=== PATIENT | female | born 1935 | race Caucasian/White ===

== ENCOUNTER 2017-01-29 00:22 | Emergency (ER) | payer OTHER, MEDICAID ==
[~2017-01-29] VITALS: Ht 152.4 cm; Wt 68.0 kg
--- OUTSIDE RECORDS SUMMARY | ~2017-01-29 | XMS | Clinical Summary ---
Demographics + + + | Address | [address] | | | [place] [address] | + + + | Home Phone | | + + + | Preferred Language | Unknown | + + + | Marital Status | W | + + + | Bahai Affiliation | Unknown | + + + | Race | White | + + + | Ethnic Group | Not or | + + + Author + + + | Author | [facility] | + + + | Organization | [facility] | + + + | Address | [address] | | | [place] [address] | + + + | Phone | Unavailable | + + + Care Team Providers + +------+ + | Care Replenishment Analyst Name | Role | Phone | + +------+ + | Ajay Ward DPM | PCP | [phone] | + +------+ + Conditions or Problems +---------+---------+---------+---------+---------+---------+---------+---------+---------+ | Problem | Problem | Onset | Status | Entry | Provide | Comment | Standar | Annotat | | Name | Code | Date | | Date | r | | d | e | | | | | | | | | Descrip | | | | | | | | | | tion | | +---------+---------+---------+---------+---------+---------+---------+---------+---------+ | HALLUX | [id number] | | Active | | Ajay | | Acquire | | | VALGUS | 1 | /15 | | /15 | Sylvia | | d | | | (ACQUIR | (SNOMED | | | | DPM | | hallux | | | ED), | CT) | | | | | | valgus | | | LEFT | | | | | | | | | | FOOT | | | | | | | | | +---------+---------+---------+---------+---------+---------+---------+---------+---------+ | HALLUX | [id number] | | Active | | Ajay | | Acquire | | | VALGUS | 1 | /15 | | /15 | Sylvia | | d | | | (ACQUIR | (SNOMED | | | | DPM | | hallux | | | ED), | CT) | | | | | | valgus | | | RIGHT | | | | | | | | | | FOOT | | | | | | | | | +---------+---------+---------+---------+---------+---------+---------+---------+---------+ | LUMBAR | [id number] | | Resolve | | Jennifer | | Lumbar | | | RADICUL | 05 | /08 | d | /08 | Agsten | | radicul | | | OPATHY, | (SNOMED | | | | DO | | opathy | | | LEFT | CT) | | | | | | | | +---------+---------+---------+---------+---------+---------+---------+---------+---------+ | PAIN IN | [id number] | | Resolve | | Jennifer | | Hip | | | LEFT | 2 | /23 | d | /23 | Agsten | | pain | | | HIP | (SNOMED | | | | DO | | | | | | CT) | | | | | | | | +---------+---------+---------+---------+---------+---------+---------+---------+---------+ | PAIN IN | [id number] | | Removed | | Farzad | | Hip | | | LEFT | 2 | /23 | | /23 | | | pain | | | HIP | (SNOMED | | | | VanAnro | | | | | | CT) | | | | oy MD | | | | +---------+---------+---------+---------+---------+---------+---------+---------+---------+ | OSTEOAR | [id number] | | Active | | Rendee | | Osteoar | | | THRITIS | 02 | /14 | | /15 | Mishra | | thritis | | | , HIP, | (SNOMED | | | | | | of hip | | | LEFT | CT) | | | | | | | | +---------+---------+---------+---------+---------+---------+---------+---------+---------+ | LUMBAR | [id number] | | Removed | | Jennifer | | Lumbar | | | RADICUL | 05 | /08 | | /08 | Agsten | | radicul | | | OPATHY, | (SNOMED | | | | DO | | opathy | | | LEFT | CT) | | | | | | | | +---------+---------+---------+---------+---------+---------+---------+---------+---------+ | HIP | [id number] | | Inactiv | | Jennifer | | Hip | | | PAIN, | 2 | /14 | e | /15 | Agsten | | pain | | | LEFT | (SNOMED | | | | DO | | | | | | CT) | | | | | | | | +---------+---------+---------+---------+---------+---------+---------+---------+---------+ | 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 | (ICD-10 | / | d | /09 | Agsten | | diabete | | | MELLITU | -CM) | | | | DO | | s | | | S TYPE | | | | | | | mellitu | | | II | | | | | | | s with | | | CONTROL | | | | | | | diabeti | | | LED | | | | | | | c | | | W/NEURO | | | | | | | neuropa | | | COMPS | | | | | | | thy, | | | | | | | | | | unspeci | | | | | | | | | | fied | | +---------+---------+---------+---------+---------+---------+---------+---------+---------+ | 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 | | | | (ICD-10 | / | d | /09 | Agsten | | diabete | | | POLYNEU | -CM) | | | | DO | | s | | | ROPATHY | | | | | | | mellitu | | | | | | | | | | s with | | | DIABETI | | | | | | | diabeti | | | C | | | | | | | c | | | | | | | | | | polyneu | | | | | | | | | | ropathy | | +---------+---------+---------+---------+---------+---------+---------+---------+---------+ | ROTATOR | [id number] | | Resolve | | Jennifer | | Inflamm | | | CUFF | 00 | /04 | d | /04 | Agsten | | ation | | | TENDONI | (SNOMED | | | | DO | | of | | | TIS | CT) | | | | | | rotator | | | | | | | | | | cuff | | | | | | | | | | tendon | | +---------+---------+---------+---------+---------+---------+---------+---------+---------+ | SCIATIC | [id number] | | Resolve | | Jennifer | | Sciatic | | | A | 5 | /25 | d | /25 | Agsten | | a | | | | (SNOMED | | | | DO | | | | | | CT) | | | | | | | | +---------+---------+---------+---------+---------+---------+---------+---------+---------+ | NAUSEA | [id number] | | Resolve | | Jennifer | | Nausea | | | ALONE | 07 | /20 | d | /20 | Agsten | | | | | | (SNOMED | | | | DO | | | | | | CT) | | | | | | | | +---------+---------+---------+---------+---------+---------+---------+---------+---------+ | LEFT | [id number] | | Active | | Jennifer | | Left | | | VENTRIC | 5 | /11 | | /11 | Agsten | | ventric | | | ULAR | (SNOMED | | | | DO | | ular | | | HYPERTR | CT) | | | | | | hypertr | | | OPHY | | | | | | | ophy | | +---------+---------+---------+---------+---------+---------+---------+---------+---------+ | COLLAPS | [id number] | | Active | | Jennifer | | Collaps | | | ED | D | /20 | | /20 | Agsten | | ed | | | VERTEBR | (ICD-10 | | | | DO | | vertebr | | | A, NOT | -CM) | | | | | | a, not | | | ELSEWHE | | | | | | | elsewhe | | | RE | | | | | | | re | | | CLASSIF | | | | | | | classif | | | IED, | | | | | | | ied, | | | THORACI | | | | | | | thoraci | | | C | | | | | | | c | | | REGION, | | | | | | | region, | | | | | | | | | | | | | SUBSEQU | | | | | | | subsequ | | | ENT | | | | | | | ent | | | ENCOUNT | | | | | | | encount | | | ER FOR | | | | | | | er for | | | FRACTUR | | | | | | | fractur | | | E WITH | | | | | | | e with | | | ROUTINE | | | | | | | routine | | | | | | | | | | | | | HEALING | | | | | | | healing | | +---------+---------+---------+---------+---------+---------+---------+---------+---------+ | PERIPHE | [id number] | | Resolve | | Jennifer | | Periphe | | | RAL | 06 | / | d | /20 | Agsten | | ral | | | NEUROPA | (SNOMED | | | | DO | | nerve | | | THY | CT) | | | | | | disease | | +---------+---------+---------+---------+---------+---------+---------+---------+---------+ | BREAST | [id number] | | Resolve | | Jennifer | | Pain of | | | PAIN, | 7 | / | d | /09 | Agsten | | breast | | | LEFT | (SNOMED | | | | DO | | | | | | CT) | | | | | | | | +---------+---------+---------+---------+---------+---------+---------+---------+---------+ | WELL | [id number] | | Resolve | | Jennfier | | Adult | | | ADULT | 07 | | d | | Agsten | | health | | | EXAM | (SNOMED | | | | DO | | examina | | | | CT) | | | | | | tion | | +---------+---------+---------+---------+---------+---------+---------+---------+---------+ | OTHER | [id number] | | Resolve | | Jennifer | | Screeni | | | SCREENI | 2 | / | d | | Agsten | | ng | | | NG | (SNOMED | | | | DO | | mammogr | | | MAMMOGR | CT) | | | | | | aphy | | | AM | | | | | | | | | +---------+---------+---------+---------+---------+---------+---------+---------+---------+ | DIZZINE | [id number] | | Resolve | | Jennifer | | Dizzine | | | SS | 03 | | d | | Agsten | | ss | | | | (SNOMED | | | | DO | | | | | | CT) | | | | | | | | +---------+---------+---------+---------+---------+---------+---------+---------+---------+ | MELENA | [id number] | | Resolve | | Jennifer | | Melena | | | | | /02 | d | /02 | Agsten | | | | | | (SNOMED | | | | DO | | | | | | CT) | | | | | | | | +---------+---------+---------+---------+---------+---------+---------+---------+---------+ | NEED | [id number] | | Resolve | | Jennifer | | Encount | | | PROPHYL | (ICD-10 | | d | | Agsten | | er for | | | ACTIC | -CM) | | | | DO | | immuniz | | | VACCINA | | | | | | | ation | | | TION&IN | | | | | | | | | | OCULATI | | | | | | | | | | ON FLU | | | | | | | | | +---------+---------+---------+---------+---------+---------+---------+---------+---------+ | UTI | [id number] | | Resolve | | Jennifer | | Urinary | | | | 5 | / | d | /01 | Agsten | | tract | | | | (SNOMED | | | | DO | | infecti | | | | CT) | | | | | | ous | | | | | | | | | | disease | | +---------+---------+---------+---------+---------+---------+---------+---------+---------+ | NAUSEA | [id number] | | Removed | | Jennifer | | Nausea | | | ALONE | 07 | /20 | | /20 | Agsten | | | | | | (SNOMED | | | | DO | | | | | | CT) | | | | | | | | +---------+---------+---------+---------+---------+---------+---------+---------+---------+ | UTI | [id number] | | Removed | | Jennifer | | Urinary | | | | 5 | /01 | | /01 | Agsten | | tract | | | | (SNOMED | | | | DO | | infecti | | | | CT) | | | | | | ous | | | | | | | | | | disease | | +---------+---------+---------+---------+---------+---------+---------+---------+---------+ | SCIATIC | [id number] | | Removed | | Jennifer | | Sciatic | | | A | 5 | /25 | | /25 | Agsten | | a | | | | (SNOMED | | | | DO | | | | | | CT) | | | | | | | | +---------+---------+---------+---------+---------+---------+---------+---------+---------+ | ROTATOR | [id number] | | Removed | | Jennifer | | Inflamm | | | CUFF | 00 | / | | / | Agsten | | ation | | | TENDONI | (SNOMED | | | | DO | | of | | | TIS | CT) | | | | | | rotator | | | | | | | | | | cuff | | | | | | | | | | tendon | | +---------+---------+---------+---------+---------+---------+---------+---------+---------+ | NEED | [id number] | | Removed | | Jennifer | | Encount | | | PROPHYL | (ICD- | | | / | Agsten | | er for | | | ACTIC | -CM) | | | | DO | | immuniz | | | VACCINA | | | | | | | ation | | | TION&IN | | | | | | | | | | OCULATI | | | | | | | | | | ON FLU | | | | | | | | | +---------+---------+---------+---------+---------+---------+---------+---------+---------+ | INGROWN | [id number] | | Inactiv | | Ajay | | Ingrowi | | | NAIL, | | | e | | Sylvia | | ng nail | | | INFECTE | (SNOMED | | | | DPM | | with | | | D | CT) | | | | | | infecti | | | | | | | | | | on | | +---------+---------+---------+---------+---------+---------+---------+---------+---------+ | OTHER | [id number] | | Removed | | Jennifer | | Screeni | | | SCREENI | 2 | / | | / | Agsten | | ng | | | NG | (SNOMED | | | | DO | | mammogr | | | MAMMOGR | CT) | | | | | | aphy | | | AM | | | | | | | | | +---------+---------+---------+---------+---------+---------+---------+---------+---------+ | MELENA | [id number] | | Removed | | Lewis | | Melena | | | | | /02 | | / | Sae | | | | | | (SNOMED | | | | RN | | | | | | CT) | | | | | | | | +---------+---------+---------+---------+---------+---------+---------+---------+---------+ | SCREENI | [id number] | | Inactiv | | Jennifer | | Screeni | | | NG, | 4 | / | e | / | Agsten | | ng for | | | VAGINAL | (SNOMED | | | | DO | | cancer | | | CANCER | CT) | | | | | | | | +---------+---------+---------+---------+---------+---------+---------+---------+---------+ | WELL | [id number] | | Removed | | Jennifer | | Adult | | | ADULT | 07 | /09 | | /09 | Agsten | | health | | | EXAM | (SNOMED | | | | DO | | examina | | | | CT) | | | | | | tion | | +---------+---------+---------+---------+---------+---------+---------+---------+---------+ | DIZZINE | [id number] | | Removed | | Jennifer | | Dizzine | | | SS | 03 | /12 | | /12 | Agsten | | ss | | | | (SNOMED | | | | DO | | | | | | CT) | | | | | | | | +---------+---------+---------+---------+---------+---------+---------+---------+---------+ | DIVERTI | K57.30 | | Inactiv | | Jasmeet | | Diverti | | | CULOSIS | (ICD-10 | /24 | e | /24 | Engstro | | culosis | | | , W/O | -CM) | | | | m MD | | of | | | BLOOD | | | | | | | large | | | | | | | | | | intesti | | | | | | | | | | ne | | | | | | | | | | without | | | | | | | | | | | | | | | | | | | | perfora | | | | | | | | | | tion or | | | | | | | | | | | | | | | | | | | | abscess | | | | | | | | | | | | | | | | | | | | without | | | | | | | | | | | | | | | | | | | | bleedin | | | | | | | | | | g | | +---------+---------+---------+---------+---------+---------+---------+---------+---------+ | PH | Z86.010 | | Inactiv | | Jasmeet | | Persona | | | COLON | | /24 | e | /24 | Engstro | | l | | | POLYPS | (ICD-10 | | | | m MD | | history | | | | -CM) | | | | | | of | | | | | | | | | | colonic | | | | | | | | | | polyps | | +---------+---------+---------+---------+---------+---------+---------+---------+---------+ | OTHER | [id number] | | Inactiv | | Corie | | Screeni | | | SCREENI | 2 | /17 | e | /17 | Gomez | | ng | | | NG | (SNOMED | | | | | | mammogr | | | MAMMOGR | CT) | | | | | | aphy | | | AM | | | | | | | | | +---------+---------+---------+---------+---------+---------+---------+---------+---------+ | 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 | | Jennifer | | Type 2 | | | | (ICD-10 | | | Agsten | | diabete | | | POLYNEU | -CM) | | | | DO | | s | | | ROPATHY | | | | | | | mellitu | | | | | | | | | | s with | | | DIABETI | | | | | | | diabeti | | | C | | | | | | | c | | | | | | | | | | polyneu | | | | | | | | | | ropathy | | +---------+---------+---------+---------+---------+---------+---------+---------+---------+ | 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 | | Removed | | Jennifer | | Type 2 | | | BETES | (ICD-10 | | | | Agsten | | diabete | | | MELLITU | -CM) | | | | DO | | s | | | S TYPE | | | | | | | mellitu | | | II | | | | | | | s with | | | CONTROL | | | | | | | diabeti | | | LED | | | | | | | c | | | W/NEURO | | | | | | | neuropa | | | COMPS | | | | | | | thy, | | | | | | | | | | unspeci | | | | | | | | | | fied | | +---------+---------+---------+---------+---------+---------+---------+---------+---------+ | WELL | [id number] | | Inactiv | | Jennifer | | Adult | | | ADULT | 07 | | e | | Agsten | | health | | | EXAM | (SNOMED | | | | DO | | examina | | | | CT) | | | | | | tion | | +---------+---------+---------+---------+---------+---------+---------+---------+---------+ | BREAST | [id number] | | Removed | | Jennifer | | Pain of | | | PAIN, | 7 | | | | Agsten | | breast | | | LEFT | (SNOMED | | | | DO | | | | | | CT) | | | | | | | | +---------+---------+---------+---------+---------+---------+---------+---------+---------+ | PRESBYO | [id number] | | Resolve | | Jennifer | | Presbyo | | | HUMBLE | 4 | | d | / | Agsten | | humble | | | | (SNOMED | | | | DO | | | | | | CT) | | | | | | | | +---------+---------+---------+---------+---------+---------+---------+---------+---------+ | ASTIGMA | [id number] | | Resolve | | Jennifer | | Astigma | | | TISM | 3 | /03 | d | /03 | Agsten | | tism | | | | (SNOMED | | | | DO | | | | | | CT) | | | | | | | | +---------+---------+---------+---------+---------+---------+---------+---------+---------+ | RETINAL | [id number] | | Resolve | | Jennifer | | Retinal | | | | 8 | /03 | d | /03 | Agsten | | | | | HEMORRH | (SNOMED | | | | DO | | hemorrh | | | AGE | CT) | | | | | | age | | +---------+---------+---------+---------+---------+---------+---------+---------+---------+ | MICROAN | [id number] | | Resolve | | Jennifer | | Retinal | | | EURYSMS | 0 | /03 | d | /03 | Agsten | | | | | , | (SNOMED | | | | DO | | microan | | | RETINAL | CT) | | | | | | eurysm | | +---------+---------+---------+---------+---------+---------+---------+---------+---------+ | POSTERI | [id number] | | Resolve | | Jennifer | | Posteri | | | OR | 01 | /03 | d | /03 | Agsten | | or | | | VITREOU | (SNOMED | | | | DO | | vitreou | | | S | CT) | | | | | | s | | | DETACHM | | | | | | | detachm | | | ENT | | | | | | | ent | | +---------+---------+---------+---------+---------+---------+---------+---------+---------+ | DRUSEN | H35.369 | | Resolve | | Jennifer | | Drusen | | | | | /03 | d | /03 | Agsten | | (degene | | | | (ICD-10 | | | | DO | | rative) | | | | -CM) | | | | | | of | | | | | | | | | | macula, | | | | | | | | | | | | | | | | | | | | unspeci | | | | | | | | | | fied | | | | | | | | | | eye | | +---------+---------+---------+---------+---------+---------+---------+---------+---------+ | BLEPHAR | H10.529 | | Resolve | | Jennifer | | Angular | | | ITIS, | | /03 | d | /03 | Agsten | | | | | ANGULAR | (ICD-10 | | | | DO | | blephar | | | | -CM) | | | | | | oconjun | | | | | | | | | | ctiviti | | | | | | | | | | s, | | | | | | | | | | unspeci | | | | | | | | | | fied | | | | | | | | | | eye | | +---------+---------+---------+---------+---------+---------+---------+---------+---------+ | HYPEROP | [id number] | | Resolve | | Jennifer | | Hyperme | | | [place] | 3 | / | d | / | Agsten | | tropia | | | | (SNOMED | | | | DO | | | | | | CT) | | | | | | | | +---------+---------+---------+---------+---------+---------+---------+---------+---------+ | ROSACEA | [id number] | | Resolve | | Jennifer | | Rosacea | | | | 04 | /03 | d | /03 | [facility] | | | | | | (SNOMED | | | | DO | | | | | | CT) | | | | | | | | +---------+---------+---------+---------+---------+---------+---------+---------+---------+ | SCREENI | [id number] | | Resolve | | Jennifer | | Screeni | | | NG FOR | 06 | /16 | d | /16 | Agsten | | ng for | | | MALIGNA | (SNOMED | | | | DO | | maligna | | | NT | CT) | | | | | | nt | | | NEOPLAS | | | | | | | neoplas | | | M, | | | | | | | m of | | | CERVIX | | | | | | | cervix | | +---------+---------+---------+---------+---------+---------+---------+---------+---------+ | SCIATIC | [id number] | | Resolve | | Jennifer | | Sciatic | | | A | 5 | /25 | d | /25 | [facility]sten | | a | | | | (SNOMED | | | | DO | | | | | | CT) | | | | | | | | +---------+---------+---------+---------+---------+---------+---------+---------+---------+ | INSOMNI | [id number] | | Active | | Ariela | | Insomni | | | A | 01 | /02 | | /02 | Ashwin | | a | | | | (SNOMED | | | | | | | | | | CT) | | | | | | | | +---------+---------+---------+---------+---------+---------+---------+---------+---------+ | ROSACEA | [id number] | | Removed | | Abby | | Rosacea | | | | 04 | /03 | | /03 | Gauer | | | | | | (SNOMED | | | | OD | | | | | | CT) | | | | | | | | +---------+---------+---------+---------+---------+---------+---------+---------+---------+ | HYPEROP | [id number] | | Removed | | Abby | | Hyperme | | | [place] | 3 | /03 | | /03 | Gauer | | tropia | | | | (SNOMED | | | | OD | | | | | | CT) | | | | | | | | +---------+---------+---------+---------+---------+---------+---------+---------+---------+ | BLEPHAR | H10.529 | | Removed | | Abby | | Angular | | | ITIS, | | /03 | | /03 | Gauer | | | | | ANGULAR | (ICD-10 | | | | OD | | blephar | | | | -CM) | | | | | | oconjun | | | | | | | | | | ctiviti | | | | | | | | | | s, | | | | | | | | | | unspeci | | | | | | | | | | fied | | | | | | | | | | eye | | +---------+---------+---------+---------+---------+---------+---------+---------+---------+ | DRUSEN | H35.369 | | Removed | | Abby | | Drusen | | | | | / | | / | Gauer | | (degene | | | | (ICD-10 | | | | OD | | rative) | | | | -CM) | | | | | | of | | | | | | | | | | macula, | | | | | | | | | | | | | | | | | | | | unspeci | | | | | | | | | | fied | | | | | | | | | | eye | | +---------+---------+---------+---------+---------+---------+---------+---------+---------+ | POSTERI | [id number] | | Removed | | Abby | | Posteri | | | OR | 01 | / | | /03 | Gauer | | or | | | VITREOU | (SNOMED | | | | OD | | vitreou | | | S | CT) | | | | | | s | | | DETACHM | | | | | | | detachm | | | ENT | | | | | | | ent | | +---------+---------+---------+---------+---------+---------+---------+---------+---------+ | MICROAN | [id number] | | Removed | | Abby | | Retinal | | | EURYSMS | 0 | /03 | | /03 | Gauer | | | | | , | (SNOMED | | | | OD | | microan | | | RETINAL | CT) | | | | | | eurysm | | +---------+---------+---------+---------+---------+---------+---------+---------+---------+ | RETINAL | [id number] | | Removed | | Abby | | Retinal | | | | 8 | /03 | | /03 | Gauer | | | | | HEMORRH | (SNOMED | | | | OD | | hemorrh | | | AGE | CT) | | | | | | age | | +---------+---------+---------+---------+---------+---------+---------+---------+---------+ | ASTIGMA | [id number] | | Removed | | Abby | | Astigma | | | TISM | 3 | /03 | | /03 | [facility]auer | | tism | | | | (SNOMED | | | | OD | | | | | | CT) | | | | | | | | +---------+---------+---------+---------+---------+---------+---------+---------+---------+ | PRESBYO | [id number] | | Removed | | Abby | | Presbyo | | | HUMBLE | 4 | /03 | | /03 | Gauer | | humble | | | | (SNOMED | | | | OD | | | | | | CT) | | | | | | | | +---------+---------+---------+---------+---------+---------+---------+---------+---------+ | SCIATIC | [id number] | | Removed | | Jennifer | | Sciatic | | | A | 5 | / | | / | [facility] | | a | | | | (SNOMED | | | | DO | | | | | | CT) | | | | | | | | +---------+---------+---------+---------+---------+---------+---------+---------+---------+ | HYPOMAG | [id number] | | Resolve | | Jennifer | | Hypomag | | | NESEMIA | 04 | /30 | d | /30 | [facility] | | nesemia | | | | (SNOMED | | | | DO | | | | | | CT) | | | | | | | | +---------+---------+---------+---------+---------+---------+---------+---------+---------+ | FOLLICU | [id number] | | Resolve | | Jennifer | | Follicu | | | LITIS | 6 | /27 | d | /27 | [facility] | | litis | | | | (SNOMED | | | | DO | | | | | | CT) | | | | | | | | +---------+---------+---------+---------+---------+---------+---------+---------+---------+ | URI | [id number] | | Resolve | | Jennifer | | Upper | | | | 9 | / | d | / | [facility] | | respira | | | | (SNOMED | | | | DO | | tory | | | | CT) | | | | | | infecti | | | | | | | | | | on | | +---------+---------+---------+---------+---------+---------+---------+---------+---------+ | CYSTOCE | [id number] | | Resolve | | Jennifer | | Cystoce | | | LE WITH | 08 | /16 | d | /16 | [facility] | | le | | | | (SNOMED | | | | DO | | | | | INCOMPL | CT) | | | | | | | | | ETE | | | | | | | | | | UTERINE | | | | | | | | | | | | | | | | | | | | PROLAPS | | | | | | | | | | E | | | | | | | | | +---------+---------+---------+---------+---------+---------+---------+---------+---------+ | ABNORMA | [id number] | | Resolve | | Jennifer | | Standar | | | L CHEST | 01 | | d | | [facility] | | d chest | | | XRAY | (SNOMED | | | | DO | | X-ray | | | | CT) | | | | | | abnorma | | | | | | | | | | l | | +---------+---------+---------+---------+---------+---------+---------+---------+---------+ | ALLERGI | [id number] | | Resolve | | Jennifer | | Allergi | | | C | 4 | /05 | d | /05 | [facility] | | c | | | RHINITI | (SNOMED | | | | DO | | rhiniti | | | S | CT) | | | | | | s | | +---------+---------+---------+---------+---------+---------+---------+---------+---------+ | SINUSIT | [id number] | | Resolve | | Jennifer | | Acute | | | IS, | 2 | /05 | d | /05 | [facility] | | sinusit | | | ACUTE | (SNOMED | | | | DO | | is | | | NOS | CT) | | | | | | | | +---------+---------+---------+---------+---------+---------+---------+---------+---------+ | CONTUSI | [id number] | | Resolve | | Jennifer | | Contusi | | | ON, | 6 | /05 | d | /05 | [facility] | | on of | | | LEFT | (SNOMED | | | | DO | | knee | | | KNEE | CT) | | | | | | | | +---------+---------+---------+---------+---------+---------+---------+---------+---------+ | THUMB | [id number] | | Resolve | | Jennifer | | Pain in | | | PAIN, | 02 | / | d | /01 | [facility] | | thumb | | | RIGHT | (SNOMED | | | | DO | | | | | | CT) | | | | | | | | +---------+---------+---------+---------+---------+---------+---------+---------+---------+ | FOOT | [id number] | | Resolve | | Jennifer | | Foot | | | PAIN | 7 | / | d | / | [facility] | | pain | | | | (SNOMED | | | | DO | | | | | | CT) | | | | | | | | +---------+---------+---------+---------+---------+---------+---------+---------+---------+ | HEMATUR | R31.9 | | Resolve | | Jennifer | | Hematur | | | IA | (ICD-10 | | d | | [facility] | | ia, | | | UNSPECI | -CM) | | | | DO | | unspeci | | | FIED | | | | | | | fied | | +---------+---------+---------+---------+---------+---------+---------+---------+---------+ | PH | Z86.010 | | Resolve | | Jennifer | | Persona | | | COLON | | | d | /11 | [facility] | | l | | | POLYPS | (ICD-10 | | | | DO | | history | | | | -CM) | | | | | | of | | | | | | | | | | colonic | | | | | | | | | | polyps | | +---------+---------+---------+---------+---------+---------+---------+---------+---------+ | DIVERTI | K57.30 | | Resolve | | Jennifer | | Diverti | | | CULOSIS | (ICD-10 | | d | /11 | Agsten | | culosis | | | , W/O | -CM) | | | | DO | | of | | | BLOOD | | | | | | | large | | | | | | | | | | intesti | | | | | | | | | | ne | | | | | | | | | | without | | | | | | | | | | | | | | | | | | | | perfora | | | | | | | | | | tion or | | | | | | | | | | | | | | | | | | | | abscess | | | | | | | | | | | | | | | | | | | | without | | | | | | | | | | | | | | | | | | | | bleedin | | | | | | | | | | g | | +---------+---------+---------+---------+---------+---------+---------+---------+---------+ | ABDOMIN | [id number] | | Resolve | | Jennifer | | Epigast | | | AL | 9 | /13 | d | /13 | Agsten | | rajwinder | | | PAIN, | (SNOMED | | | | DO | | pain | | | EPIGAST | CT) | | | | | | | | | RAJWINDER | | | | | | | | | +---------+---------+---------+---------+---------+---------+---------+---------+---------+ | LUMBAR | [id number] | | Resolve | | Jennifer | | Lumbar | | | RADICUL | 05 | /08 | d | /08 | Agsten | | radicul | | | OPATHY, | (SNOMED | | | | DO | | opathy | | | LEFT | CT) | | | | | | | | +---------+---------+---------+---------+---------+---------+---------+---------+---------+ | HIP | [id number] | | Inactiv | | Jennifer | | Hip | | | PAIN | 2 | /14 | e | /15 | Agsten | | pain | | | | (SNOMED | | | | DO | | | | | | CT) | | | | | | | | +---------+---------+---------+---------+---------+---------+---------+---------+---------+ | NEED | Z23 | | Resolve | | Jennifer | | Encount | | | PROPHYL | (ICD-10 | /20 | d | /20 | Agsten | | er for | | | ACTIC | -) | | | | DO | | immuniz | | | VACCINA | | | | | | | ation | | | TION&IN | | | | | | | | | | OCULATI | | | | | | | | | | ON FLU | | | | | | | | | +---------+---------+---------+---------+---------+---------+---------+---------+---------+ | INSOMNI | [id number] | | Resolve | | Jennifer | | Insomni | | | A | 01 | /02 | d | /02 | Agsten | | a | | | | (SNOMED | | | | DO | | | | | | CT) | | | | | | | | +---------+---------+---------+---------+---------+---------+---------+---------+---------+ | INSOMNI | [id number] | | Removed | | Jennifer | | Insomni | | | A | 01 | /02 | | /02 | Agsten | | a | | | | (SNOMED | | | | DO | | | | | | CT) | | | | | | | | +---------+---------+---------+---------+---------+---------+---------+---------+---------+ | NEED | Z23 | | Removed | | Jennifer | | Encount | | | PROPHYL | (ICD-10 | / | | /20 | Agsten | | er for | | | ACTIC | -) | | | | DO | | immuniz | | | VACCINA | | | | | | | ation | | | TION&IN | | | | | | | | | | OCULATI | | | | | | | | | | ON FLU | | | | | | | | | +---------+---------+---------+---------+---------+---------+---------+---------+---------+ | HIP | [id number] | | Removed | | Franny | | Hip | | | PAIN | 2 | /14 | | /15 | | | pain | | | | (SNOMED | | | | [place] | | | | | | CT) | | | | | | | | +---------+---------+---------+---------+---------+---------+---------+---------+---------+ | FOOT | [id number] | | Removed | | Franny | | Foot | | | PAIN | 7 | /01 | | /01 | | | pain | | | | (SNOMED | | | | [place] | | | | | | CT) | | | | | | | | +---------+---------+---------+---------+---------+---------+---------+---------+---------+ | LUMBAR | [id number] | | Removed | | Jennifer | | Lumbar | | | RADICUL | 05 | /08 | | /08 | Agsten | | radicul | | | OPATHY, | (SNOMED | | | | DO | | opathy | | | LEFT | CT) | | | | | | | | +---------+---------+---------+---------+---------+---------+---------+---------+---------+ | GERD | [id number] | | Active | | Jasmeet | | Gastroe | | | | 09 | /13 | | /13 | Engstro | | sophage | | | | (SNOMED | | | | m MD | | al | | | | CT) | | | | | | reflux | | | | | | | | | | disease | | +---------+---------+---------+---------+---------+---------+---------+---------+---------+ | ABDOMIN | [id number] | | Removed | | Jasmeet | | Epigast | | | AL | 9 | /13 | | /13 | Engstro | | rajwinder | | | PAIN, | (SNOMED | | | | m MD | | pain | | | EPIGAST | CT) | | | | | | | | | RAJWINDER | | | | | | | | | +---------+---------+---------+---------+---------+---------+---------+---------+---------+ | NAUSEA | [id number] | | Correct | | Jasmeet | | Nausea | | | ALONE | 07 | /20 | ion | /20 | Engstro | | | | | | (SNOMED | | | | m MD | | | | | | CT) | | | | | | | | +---------+---------+---------+---------+---------+---------+---------+---------+---------+ | DIVERTI | K57.30 | | Removed | | Bessy | | Diverti | | | CULOSIS | (ICD-10 | | | /11 | Schatte | | culosis | | | , W/O | -CM) | | | | nkerk | | of | | | BLOOD | | | | | | | large | | | | | | | | | | intesti | | | | | | | | | | ne | | | | | | | | | | without | | | | | | | | | | | | | | | | | | | | perfora | | | | | | | | | | tion or | | | | | | | | | | | | | | | | | | | | abscess | | | | | | | | | | | | | | | | | | | | without | | | | | | | | | | | | | | | | | | | | bleedin | | | | | | | | | | g | | +---------+---------+---------+---------+---------+---------+---------+---------+---------+ | PH | Z86.010 | | Removed | | Bessy | | Persona | | | COLON | | | | /11 | [facility]atte | | l | | | POLYPS | (ICD-10 | | | | nkerk | | history | | | | -CM) | | | | | | of | | | | | | | | | | colonic | | | | | | | | | | polyps | | +---------+---------+---------+---------+---------+---------+---------+---------+---------+ | HEMATUR | R31.9 | | Removed | | Katelyn | | Hematur | | | IA | (ICD-10 | | | | McClish | | ia, | | | UNSPECI | -CM) | | | | NOODLE CATALYST MAKER | | unspeci | | | FIED | | | | | | | fied | | +---------+---------+---------+---------+---------+---------+---------+---------+---------+ | FOOT | M79.609 | | Correct | | Jennifer | | Pain in | | | PAIN, | | / | ion | /01 | Agsten | | | | | BILATER | (ICD-10 | | | | DO | | unspeci | | | AL | -CM) | | | | | | fied | | | | | | | | | | limb | | +---------+---------+---------+---------+---------+---------+---------+---------+---------+ | THUMB | [id number] | | Removed | | Jennifer | | Pain in | | | PAIN, | 02 | /01 | | /01 | Agsten | | thumb | | | RIGHT | (SNOMED | | | | DO | | | | | | CT) | | | | | | | | +---------+---------+---------+---------+---------+---------+---------+---------+---------+ | CONTUSI | [id number] | | Removed | | Jennifer | | Contusi | | | ON, | 6 | /05 | | /05 | Agsten | | on of | | | LEFT | (SNOMED | | | | DO | | knee | | | KNEE | CT) | | | | | | | | +---------+---------+---------+---------+---------+---------+---------+---------+---------+ | SINUSIT | [id number] | | Removed | | Jennifer | | Acute | | | IS, | 2 | /05 | | /05 | Agsten | | sinusit | | | ACUTE | (SNOMED | | | | DO | | is | | | NOS | CT) | | | | | | | | +---------+---------+---------+---------+---------+---------+---------+---------+---------+ | ALLERGI | [id number] | | Removed | | Jennifer | | Allergi | | | C | 4 | /05 | | /05 | Agsten | | c | | | RHINITI | (SNOMED | | | | DO | | rhiniti | | | S | CT) | | | | | | s | | +---------+---------+---------+---------+---------+---------+---------+---------+---------+ | ABNORMA | [id number] | | Removed | | Pinky | | Standar | | | L CHEST | | / | | /21 | Alexei | | d chest | | | XRAY | (SNOMED | | | | MA | | X-ray | | | | CT) | | | | | | abnorma | | | | | | | | | | l | | +---------+---------+---------+---------+---------+---------+---------+---------+---------+ | CYSTOCE | [id number] | | Removed | | Jennifer | | Cystoce | | | LE WITH | 08 | /16 | | /16 | Agsten | | le | | | | (SNOMED | | | | DO | | | | | INCOMPL | CT) | | | | | | | | | ETE | | | | | | | | | | UTERINE | | | | | | | | | | | | | | | | | | | | PROLAPS | | | | | | | | | | E | | | | | | | | | +---------+---------+---------+---------+---------+---------+---------+---------+---------+ | SCREENI | [id number] | | Removed | | Jennifer | | Screeni | | | NG FOR | 06 | /16 | | /16 | Agsten | | ng for | | | MALIGNA | (SNOMED | | | | DO | | maligna | | | NT | CT) | | | | | | nt | | | NEOPLAS | | | | | | | neoplas | | | M, | | | | | | | m of | | | CERVIX | | | | | | | cervix | | +---------+---------+---------+---------+---------+---------+---------+---------+---------+ | NAUSEA | [id number] | | Removed | | Jennifer | | Nausea | | | ALONE | | / | | / | Agsten | | | | | | (SNOMED | | | | DO | | | | | | CT) | | | | | | | | +---------+---------+---------+---------+---------+---------+---------+---------+---------+ | PERIPHE | [id number] | | Removed | | Jennifer | | Periphe | | | RAL | | / | | /20 | Agsten | | ral | | | NEUROPA | (SNOMED | | | | DO | | nerve | | | THY | CT) | | | | | | disease | | +---------+---------+---------+---------+---------+---------+---------+---------+---------+ | URI | [id number] | | Removed | | Jennifer | | Upper | | | | 9 | /27 | | / | Agsten | | respira | | | | (SNOMED | | | | DO | | tory | | | | CT) | | | | | | infecti | | | | | | | | | | on | | +---------+---------+---------+---------+---------+---------+---------+---------+---------+ | FOLLICU | [id number] | | Removed | | Jennifer | | Follicu | | | LITIS | 6 | / | | / | Agsten | | litis | | | | (SNOMED | | | | DO | | | | | | CT) | | | | | | | | +---------+---------+---------+---------+---------+---------+---------+---------+---------+ | OSTEOPE | [id number] | | Active | | Jennifer | | Osteope | | | LINDSAY | 00 | /30 | | /30 | Agsten | | lindsay | | | | (SNOMED | | | | DO | | | | | | CT) | | | | | | | | +---------+---------+---------+---------+---------+---------+---------+---------+---------+ | HYPOMAG | [id number] | | Removed | | Jennifer | | Hypomag | | | NESEMIA | 04 | /30 | | /30 | Agsten | | nesemia | | | | (SNOMED | | | | DO | | | | | | CT) | | | | | | | | +---------+---------+---------+---------+---------+---------+---------+---------+---------+ | TESFAYE | [id number] | | Inactiv | | Jennifer | | Tesfaye | | | IRMA | [id number] | /20 | e | /20 | Agsten | | irma | | | FRACTUR | (SNOMED | | | | DO | | fractur | | | E, | CT) | | | | | | e of | | | THORACI | | | | | | | thoraci | | | C | | | | | | | c | | | VERTEBR | | | | | | | vertebr | | | A | | | | | | | a | | +---------+---------+---------+---------+---------+---------+---------+---------+---------+ | 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 | | | MELLITU | (SNOMED | | | | DO | | s | | | S, TYPE | CT) | | | | | | mellitu | | | II, | | | | | | | s well | | | CONTROL | | | | | | | control | | | LED | | | | | | | led | | +---------+---------+---------+---------+---------+---------+---------+---------+---------+ | HYPERTR | [id number] | | Active | | Jennifer | | Hypertr | | | IGLYCER | | | | | Agsten | | iglycer | | | IDEMIA | (SNOMED | | | | DO | | idemia | | | | CT) | | | | | | | | +---------+---------+---------+---------+---------+---------+---------+---------+---------+ | HYPERTE | [id number] | | Active | | Jennifer | | Benign | | | NSION, | | | | | Agsten | | hyperte | | | BENIGN | (SNOMED | | | | DO | | nsion | | | | CT) | | | | | | | | +---------+---------+---------+---------+---------+---------+---------+---------+---------+ Medications + + + + + + + + | Medication | Instructio | Start Date | Stop Date | Generic | NDC | Provider | | | ns | | | Name | | | + + + + + + + + | GLIMEPIRID | one tablet | | | GLIMEPIRID | [id number] | Emilie | | E 2 MG | once a | | | E | 3 | Brown CCMA | | TABS | day | | | | | | + + + + + + + + | BENADRYL | prn | | | BENADRYL | | Jasmeet | | | | | | | | Aga | | | | | | | | MD | + + + + + + + + | MIRTAZAPIN | one tablet | | | MIRTAZAPIN | [id number] | Jerri | | E 30 MG | at night | | | E | 5 | [place] | | TABS | before bed | | | | | | + + + + + + + + | MIRALAX | take as | | | POLYETHYLE | 3390921615 | Jennifer | | POWD | directed | | | NE GLYCOL | 3 | Agsten DO | | | | | | 3350 | | | + + + + + + + + | WELCHOL | one po qd | | | COLESEVELA | 2546883298 | Jennifer | | 625 MG | prn | | | M HCL | 8 | Agsten DO | | TABS | | | | | | | + + + + + + + + | GLYBURIDE | one by | | | GLYBURIDE | 9284013772 | Jennifer | | 5 MG TABS | mouth one | | | | 8 | Agsten DO | | | time per | | | | | | | | day | | | | | | + + + + + + + + | IMODIUM | about | | | IMODIUM | | Jasmeet | | | every 2 | | | | | Aga | | | weeks--2 | | | | | MD | | | tabs | | | | | | + + + + + + + + | WELCHOL | one po qd | | | LAURENSEVELA | 9590827871 | Jennifer | | 625 MG | prn | | | M HCL | 8 | Agsten DO | | TABS | | | | | | | + + + + + + + + | MIRTAZAPIN | one tablet | | | MIRTAZAPIN | 8305283505 | Pedro Houde | | E 15 MG | at night | | | E | 0 | | | TABS | before bed | | | | | | + + + + + + + + | ATIVAN 1 | one by | | | LORAZEPAM | 1813793338 | Jerri | | MG TABS | mouth at | | | | 0 | [place] | | | bedtime | | | | | | + + + + + + + + | AMBIEN 10 | 02/12 by | | | ZOLPIDEM | 3915080880 | Jennifer | | MG TABS | mouth at | | | TARTRATE | 8 | Agsten DO | | | bedtime | | | | | | + + + + + + + + | AMBIEN 10 | 02/12 - 1 po | | | ZOLPIDEM | 2566599007 | Jennifer | | MG TABS | qhs | | | TARTRATE | 0 | Agsten DO | + + + + + + + + | OXYCODONE | 1-2 po q 6 | | | OXYCODONE | 4100884130 | Jennifer | | HCL 5 MG | hrs prn | | | HCL | 0 | Agsten DO | | TABS | | | | | | | + + + + + + + + | KEFLEX 500 | one po tid | | | CEPHALEXIN | 3228292900 | Jennifer | | MG CAPS | | | | | 0 | Agsten DO | + + + + + + + + | VICODIN | prn | | | HYDROCODON | 1863975636 | Michelle | | 5-500 MG | | | | E-ACETAMIN | 4 | Bennett | | TABS | | | | OPHEN | | | + + + + + + + + | NORTRIPTYL | 1 tab qhs | | | NORTRIPTYL | 2583926040 | Ajay | | INE HCL 50 | | | | INE HCL | 6 | Sylvia DPM | | MG CAPS | | | | | | | + + + + + + + + | ALENDRONAT | one po q | | | ALENDRONAT | 9759698387 | Jennifer | | E SODIUM | week | | | E SODIUM | 1 | Agsten DO | | 70 MG TABS | | | | | | | + + + + + + + + | BENICAR 20 | 1/2 po qd | | | OLMESARTAN | 2325036526 | Lewis Quevedo | | MG TABS | | | | MEDOXOMIL | 0 | RN | + + + + + + + + | LOVAZA 1 | 2 po qd | | | OMEGA-3-AC | [id number] | Jennifer | | GM CAPS | | | | ID ETHYL | 7 | Agsten DO | | | | | | ESTERS | | | + + + + + + + + | LUNESTA 2 | 1 po qhs | | | ESZOPICLON | 5853542258 | Michelle | | MG TABS | | | | E | 0 | Bennett | + + + + + + + + | VOLTAREN 1 | apply up | | | DICLOFENAC | 2630913248 | Jasmeet | | % GEL | to 2 gram | | | SODIUM | 1 | Aga | | | qid prn | | | | | MD | + + + + + + + + | K-DUR 10 | 1 by mouth | | | POTASSIUM | 5962612987 | Jennifer | | MEQ TBCR | twice a | | | CHLORIDE | 1 | Agsten DO | | | day | | | | | | + + + + + + + + | NEXIUM 40 | 1 po q am, | | | ESOMEPRAZO | 3684410214 | Jennifer | | MG CPDR | rarely 1 | | | LE | 0 | Agsten DO | | | po q pm | | | MAGNESIUM | | | + + + + + + + + | VOLTAREN 1 | apply up | | | DICLOFENAC | 1514183185 | Jennifer | | % GEL | to 2 grams | | | SODIUM | 1 | Agsten DO | | | qid prn | | | | | | + + + + + + + + | K-JAMARI 20 | one po qd | | | POTASSIUM | 0749971602 | Jennifer | | MEQ PACK | | | | CHLORIDE | 2 | Agsten DO | + + + + + + + + | TRAZODONE | 02/12 to 1 | | | TRAZODONE | 9011633100 | Ajay | | HCL 100 MG | by mouth | | | HCL | 3 | Sylvia DPM | | TABS | at bedtime | | | | | | + + + + + + + + | LASIX 40 | 02/12 by | | | FUROSEMIDE | 7518379909 | Jennifer | | MG TABS | mouth | | | | 1 | Agsten DO | | | every am | | | | | | + + + + + + + + | DIFLUCAN | 1 by mouth | | | FLUCONAZOL | 2920863746 | Jennifer | | 150 MG | x 1 dose | | | E | 0 | Agsten DO | | TABS | | | | | | | + + + + + + + + | FLEXERIL | one po bid | | | CYCLOBENZA | 1499821849 | Jennifer | | 10 MG TABS | prn | | | NETO HCL | 1 | Agsten DO | + + + + + + + + | BONIVA 150 | one po qd | | | IBANDRONAT | 2453102115 | Jennifer | | MG TABS | | | | E SODIUM | 0 | Agsten DO | + + + + + + + + | GEMFIBROZI | 1 po bid | | | GEMFIBROZI | 8206683017 | Jennifer | | L 600 MG | | | | L | 0 | Agsten DO | | TABS | | | | | | | + + + + + + + + | LOVAZA 1 | 2 po qd | | | OMEGA-3-AC | 9271311865 | Jasmeet | | GM CAPS | | | | ID ETHYL | 7 | Aga | | | | | | ESTERS | | MD | + + + + + + + + | ONDANSETRO | one tablet | | | ONDANSETRO | 9437571372 | Ajay | | N HCL 4 MG | once a | | | N HCL | 0 | Sylvia DPM | | TABS | day as | | | | | | | | needed for | | | | | | | | nausea | | | | | | + + + + + + + + | DULCOLAX 5 | take as | | | BISACODYL | 0044013124 | Jennifer | | MG TBEC | directed | | | | 3 | Agsten DO | + + + + + + + + | NEXIUM 40 | 1 po q am, | | | ESOMEPRAZO | 0534835289 | Jsameet | | MG CPDR | rarely 1 | | | LE | 0 | Aga | | | po q pm | | | MAGNESIUM | | MD | + + + + + + + + | JUAN CARLOS | one po qd | | | FEXOFENADI | 2398369502 | Jasmeet | | 180 MG | prn | | | NE HCL | 2 | Aga | | TABS | | | | | | MD | + + + + + + + + | AMBIEN 10 | 02/12 - 1 po | | | ZOLPIDEM | 5380351500 | Jennifer | | MG TABS | qhs | | | TARTRATE | 0 | Agsten DO | + + + + + + + + | PRILOSEC | one po bid | | | OMEPRAZOLE | 2006123127 | Jasmeet | | OTC 20 MG | | | | MAGNESIUM | 0 | Aga | | TBEC | | | | | | MD | + + + + + + + + | METOCLOPRA | take as | | | METOCLOPRA | 0851572162 | Jennifer | | MIDE HCL | directed | | | MIDE HCL | 2 | Agsten DO | | 10 MG TABS | | | | | | | + + + + + + + + | GLYBURIDE | 1 po qd | | | GLYBURIDE | 3127794765 | Jennifer | | 5 MG TABS | prn | | | | 6 | Agsten DO | + + + + + + + + | MECLIZINE | 1 by mouth | | | MECLIZINE | 5537842910 | Jennifer | | HCL 25 MG | every 6 | | | HCL | 0 | Agsten DO | | TABS | hrs as | | | | | | | | needed | | | | | | + + + + + + + + | GLYBURIDE | 1 po qd | | | GLYBURIDE | 4068086736 | Michelle | | 5 MG TABS | | | | | 6 | Bennett | + + + + + + + + | GEMFIBROZI | 1 po bid | | | GEMFIBROZI | 9800784594 | Michelle | | L 600 MG | | | | L | 0 | Bennett | | TABS | | | | | | | + + + + + + + + | VITAMIN C | qd | | | VITAMIN C | | Jasmeet | | | | | | | | Aga | | | | | | | | MD | + + + + + + + + | JUAN CARLOS | one po qd | | | FEXOFENADI | 2126219036 | Jennifer | | 180 MG | prn | | | NE HCL | 2 | Agsten DO | | TABS | | | | | | | + + + + + + + + | EVELYN 160 | 1 po qd | | | ARCENIOLAURYN | 9573127019 | Pinky Alxeei | | MG TABS | | | | | 0 | MA | + + + + + + + + | ERYTHROMYC | 02/14 inch | | | ERYTHROMYC | 9333953933 | Jennifer | | IN 5 MG/GM | to both | | | IN | 0 | Agsten DO | | OINT | eyes as | | | | | | | | demonstrat | | | | | | | | ed in | | | | | | | | office, | | | | | | | | every | | | | | | | | night | | | | | | | | before bed | | | | | | + + + + + + + + | COLESTID | 1 po bid | | | COLESTID | | Jennifer | | | | | | | | Agsten DO | + + + + + + + + | VARGASESTA 2 | 1 po qhs | | | ESZOPICLON | 1823981656 | Jennifer | | MG TABS | | | | E | 0 | Agsten DO | + + + + + + + + | AMBIEN 10 | 02/12 - 1 po | | | ZOLPIDEM | 5833288801 | Lewis Sae | | MG TABS | qhs | | | TARTRATE | 5 | RN | + + + + + + + + | TRAZODONE | 2 - 1 po | | | TRAZODONE | 3473006866 | Lewis Quevedo | | HCL 100 MG | qhs | | | HCL | 0 | RN | | TABS | | | | | | | + + + + + + + + | GLYBURIDE | 1 po qd | | | GLYBURIDE | 1022305966 | Jennifer | | 5 MG TABS | prn | | | | 6 | Agsten DO | + + + + + + + + | HYCODAN | 1-2 tsp | | | HYDROCODON | 2914161201 | Jennifer | | 5-1.5 | q4-6 h prn | | | E-HOMATROP | 6 | Agsten DO | | MG/5ML | cough | | | INE | | | | SYRP | | | | | | | + + + + + + + + | FLEXERIL | one po bid | | | CYCLOBENZA | 3499156505 | Jennifer | | 10 MG TABS | prn | | | NETO HCL | 1 | Agsten DO | + + + + + + + + | IMODIUM | about | | | IMODIUM | | Jennifer | | | every 2 | | | | | Agsten DO | | | weeks--2 | | | | | | | | tabs | | | | | | + + + + + + + + | PREVACID | one po qd | | | LANSOPRAZO | 5418408383 | Jennifer | | 30 MG CPDR | | | | LE | 5 | Agsten DO | + + + + + + + + | HYCOTUSS | 1-2 tsp q | | | HYDROCODON | 4965761605 | Jennifer | | EXPECTORAN | 4-6 hrs | | | E-GUAIFENE | 6 | Agsten DO | | T 5-100 | prn | | | SIN | | | | MG/5ML | | | | | | | | SYRP | | | | | | | + + + + + + + + | PROMETHAZI | one po q 6 | | | PROMETHAZI | 2304839290 | Jasmeet | | NE HCL 25 | hr prn | | | NE HCL | 4 | Aga | | MG TABS | | | | | | MD | + + + + + + + + | IBU 600 MG | one po tid | | | IBUPROFEN | 6028965787 | Jasmeet | | TABS | prn | | | | 1 | Aga | | | | | | | | MD | + + + + + + + + | VALIUM 5 | 1 by mouth | | | DIAZEPAM | 0211469479 | Emilie | | MG TABS | prior to | | | | 6 | Brown CCMA | | | procedure | | | | | | + + + + + + + + | DYAZIDE | 1 by mouth | | | TRIAMTEREN | 0560119874 | Jennifer | | 37.5-25 MG | every day | | | E-HCTZ | 0 | Agsten DO | | CAPS | | | | | | | + + + + + + + + | NEXIUM 40 | 1 po qd | | | ESOMEPRAZO | 5357885416 | Michelle | | MG CPDR | | | | LE | 2 | Bennett | | | | | | MAGNESIUM | | | + + + + + + + + | AMITRIPTYL | 1-2 by | | | AMITRIPTYL | 7241483530 | Jennifer | | INE HCL 25 | mouth | | | INE HCL | 1 | Agsten DO | | MG TABS | before bed | | | | | | + + + + + + + + | VITAMIN D | qd | | | VITAMIN D | | Jasmeet | | AND | | | | AND | | Aga | | CALCIUM | | | | CALCIUM | | MD | + + + + + + + + | TEMAZEPAM | one | | | TEMAZEPAM | [id number] | Jennifer | | 15 MG CAPS | capsule | | | | 7 | Agsten DO | | | once a day | | | | | | + + + + + + + + | MORPHINE | one po bid | | | MORPHINE | [id number] | Jennifer | | SULFATE CR | prn | | | SULFATE | 1 | Agsten DO | | 15 MG | | | | | | | | TB12 | | | | | | | + + + + + + + + | CYCLOBENZA | one tablet | | | CYCLOBENZA | [id number] | Corie | | NETO HCL | three | | | NETO HCL | 3 | Gomez | | 5 MG TABS | times a | | | | | | | | day as | | | | | | | | needed | | | | | | + + + + + + + + | ZITHROMAX | Two po x | | | AZITHROMYC | [id number] | Jennifer | | 250 MG | one day, | | | IN | 3 | Agsten DO | | TABS | one po x 4 | | | | | | | | days | | | | | | + + + + + + + + | IBU 800 MG | one po tid | | | IBUPROFEN | [id number] | Jennifer | | TABS | | | | | 1 | Agsten DO | + + + + + + + + | DOXEPIN | one | | | DOXEPIN | [id number] | Jennifer | | HCL 10 MG | capsule at | | | HCL | 0 | Agssuraj DO | | CAPS | night | | | | | | | | before bed | | | | | | + + + + + + + + | K-JAMARI 20 | one po qd | | | POTASSIUM | [id number] | Jennifer | | MEQ PACK | | | | CHLORIDE | 2 | Agsten DO | + + + + + + + + | ALPRAZOLAM | one tablet | | | ALPRAZOLAM | [id number] | Domi | | 0.25 MG | at night | | | | 0 | LaRaut-Mat | | TABS | before bed | | | | | tienne | | | as needed | | | | | CCMA | + + + + + + + + | TIZANIDINE | one tablet | | | TIZANIDINE | [id number] | Jennifer | | HCL 4 MG | three | | | HCL | 0 | Agsten DO | | TABS | times a | | | | | | | | day as | | | | | | | | needed | | | | | | + + + + + + + + | DIOVAN 160 | 1 po qd | | | VALSARTAN | [id number] | Urmila | | MG TABS | | | | | 0 | Arndt | + + + + + + + + | BENADRYL | prn | | | BENADRYL | | Jennifer | | | | | | | | Agsten DO | + + + + + + + + | PLENDIL 10 | 1 by mouth | | | FELODIPINE | | Jennifer | | MG TB24 | one time | | | | | Agsten DO | | | per day | | | | | | | | as needed | | | | | | + + + + + + + + | AMBIEN 10 | 02/12 by | | | ZOLPIDEM | [id number] | Lewis Quevedo | | MG TABS | mouth at | | | TARTRATE | 8 | RN | | | bedtime | | | | | | + + + + + + + + | GLYBURIDE | one by | | | GLYBURIDE | [id number] | Jennifer | | 5 MG TABS | mouth one | | | | 8 | Agsten DO | | | time per | | | | | | | | day | | | | | | + + + + + + + + | SLOW-MAG | one po qd | | | MAGNESIUM | [id number] | Jennifer | | 64 MG TBCR | | | | CHLORIDE | 0 | Agsten DO | + + + + + + + + | METANX | 1 PO BID | | | L-METHYLFO | [id number] | Leora | | [phone] | | | | LATE-ALGAE | 0 | Harden[place]o | | -35 MG | | | | -B12-B6 | | k MA | | CAPS | | | | | | | + + + + + + + + | BACTRIM DS | one po bid | | | SULFAMETHO | [id number] | Aminata | | 800-160 | | | | XAZOLE-TRI | 1 | [place] | | MG TABS | | | | METHOPRIM | | | + + + + + + + + | PENNSAID | 40 drops 4 | | | DICLOFENAC | [id number] | Jennifer | | 1.5 % SOLN | times a | | | SODIUM | 1 | Agsten DO | | | day to | | | | | | | | joint as | | | | | | | | needed | | | | | | + + + + + + + + | VALIUM 5 | one po | | | DIAZEPAM | [id number] | Jennifer | | MG TABS | prior to | | | | 0 | Agsten DO | | | procedure | | | | | | + + + + + + + + | ULTRAM 50 | one by | | | TRAMADOL | [id number] | Jennifer | | MG TABS | mouth | | | HCL | 2 | Agsten DO | | | three | | | | | | | | times per | | | | | | | | day as | | | | | | | | needed | | | | | | + + + + + + + + | GABAPENTIN | 4 capsules | | | GABAPENTIN | [id number] | Ajay | | 300 MG | daily | | | | 5 | Sylvia DPM | | CAPS | | | | | | | + + + + + + + + | MIRTAZAPIN | one tablet | | | MIRTAZAPIN | [id number] | Jennifer | | E 15 MG | once a | | | E | 0 | Agsten DO | | TABS | day before | | | | | | | | bed | | | | | | + + + + + + + + | HYDROCODON | one tablet | | | HYDROCODON | [id number] | Jennifer | | E-ACETAMIN | three | | | E-ACETAMIN | 6 | Agsten DO | | OPHEN | times a | | | OPHEN | | | | 10-325 MG | day | | | | | | | TABS | | | | | | | + + + + + + + + | FELODIPINE | one tablet | | | FELODIPINE | 9246464571 | Jennifer | | ER 10 MG | once a | | | | 5 | Agsten DO | | [id number] | day | | | | | | + + + + + + + + | FUROSEMIDE | one tablet | | | FUROSEMIDE | 9694477246 | Jennifer | | 20 MG | once a | | | | 0 | Agsten DO | | TABS | day | | | | | | + + + + + + + + | IBUPROFEN | one tablet | | | IBUPROFEN | 9219159409 | Jennifer | | 800 MG | three | | | | 4 | Agsten DO | | TABS | times a | | | | | | | | day as | | | | | | | | needed | | | | | | + + + + + + + + | DICLOFENAC | apply 2 | | | DICLOFENAC | [id number] | Jennifer | | SODIUM 1 | grams 2-4 | | | SODIUM | 0 | Agsten DO | | % GEL | times a | | | | | | | | day to | | | | | | | | affected | | | | | | | | joint | | | | | | + + + + + + + + | LOSARTAN | one tablet | | | LOSARTAN | 2647098134 | Jennifer | | POTASSIUM | once a | | | POTASSIUM | 0 | Agsten DO | | 50 MG TABS | day | | | | | | + + + + + + + + | LOVAZA 1 | 2 one time | | | OMEGA-3-AC | [id number] | Jennifer | | GM CAPS | per day | | | ID ETHYL | 8 | Agsten DO | | | | | | ESTERS | | | + + + + + + + + | TIZANIDINE | one tablet | | | TIZANIDINE | [id number] | Jennifer | | HCL 4 MG | three | | | HCL | 9 | Agsten DO | | TABS | times a | | | | | | | | day as | | | | | | | | needed | | | | | | + + + + + + + + | PROTONIX | one by | | | PANTOPRAZO | 1375423576 | Jennifer | | 40 MG TBEC | mouth one | | | LE SODIUM | 0 | Agsten DO | | | time per | | | | | | | | day | | | | | | + + + + + + + + | KLOR-CON | two by | | | POTASSIUM | 3433710915 | Jennifer | | 10 10 MEQ | mouth one | | | CHLORIDE | 0 | Agsten DO | | CR-TABS | time per | | | | | | | | day | | | | | | + + + + + + + + | GABAPENTIN | 1 capsule | | | GABAPENTIN | [id number] | Ajay | | 300 MG | two times | | | | 0 | Sylvia DPM | | CAPS | a day | | | | | | + + + + + + + + | LANTUS | 10 units | | | INSULIN | [id number] | Jennifer | | SOLOSTAR | at night | | | GLARGINE | 5 | Agsten DO | | 100 | | | | | | | | UNIT/ML | | | | | | | | SOPN | | | | | | | + + + + + + + + | MIRTAZAPIN | one tablet | | | MIRTAZAPIN | 9914550164 | Jennifer | | E 15 MG | at night | | | E | 0 | Agsten DO | | TABS | before bed | | | | | | + + + + + + + + | METFORMIN | one by | | | METFORMIN | 7561397054 | Jennifer | | HCL 500 MG | mouth two | | | HCL | 1 | Agsten DO | | TABS | times per | | | | | | | | day | | | | | | + + + + + + + + | GLIMEPIRID | one tablet | | | GLIMEPIRID | 9752303071 | Jennifer | | E 2 MG | once a | | | E | 3 | Agsten DO | | TABS | day | | | | | | + + + + + + + + | KLOR-CON | one by | | | POTASSIUM | 8852714861 | Jennifer | | 10 10 MEQ | mouth one | | | CHLORIDE | 0 | Agsten DO | | CR-TABS | time per | | | | | | | | day | | | | | | + + + + + + + + | ALPRAZOLAM | one tablet | | | ALPRAZOLAM | 0155065965 | Jennifer | | 0.25 MG | at night | | | | 0 | Agsten DO | | TABS | before bed | | | | | | | | as needed | | | | | | + + + + + + + + | ALPRAZOLAM | one tablet | | | ALPRAZOLAM | 9363562310 | Jennifer | | 0.5 MG | at night | | | | 0 | Agsten DO | | TABS | before bed | | | | | | + + + + + + + + | VALIUM 5 | 1 by mouth | | | DIAZEPAM | 7081230460 | Jennifer | | MG TABS | prior to | | | | 6 | Agsten DO | | | procedure | | | | | | + + + + + + + + | HYDROCODON | one tablet | | | HYDROCODON | 4623637095 | Jennifer | | E-ACETAMIN | three | | | E-ACETAMIN | 2 | Agsten DO | | OPHEN | times a | | | OPHEN | | | | 7.5-325 MG | day as | | | | | | | TABS | needed | | | | | | + + + + + + + + | ALPRAZOLAM | one tablet | | | ALPRAZOLAM | 4776785988 | Jennifer | | 1 MG TABS | at night | | | | 5 | Agsten DO | | | before | | | | | | | | bedtime as | | | | | | | | needed | | | | | | | | for sleep | | | | | | + + + + + + + + | DOXEPIN | one | | | DOXEPIN | 9888039906 | Jennifer | | HCL 10 MG | capsule at | | | HCL | 0 | Agsten DO | | CAPS | night | | | | | | | | before bed | | | | | | + + + + + + + + | TRAZODONE | 1/2 to 1 | | | TRAZODONE | 5584516286 | Jennifer | | HCL 100 MG | by mouth | | | HCL | 3 | Agsten DO | | TABS | at bedtime | | | | | | + + + + + + + + | NEEDLES | using once | | | NEEDLES | | Jennifer | | FOR LANTUS | a day | | | FOR LANTUS | | Agsten DO | | PEN | | | | PEN | | | + + + + + + + + | GABAPENTIN | 1 PO q hs | | | GABAPENTIN | 3650189320 | Ajay | | 300 MG | | | | | 0 | Sylvia DPM | | CAPS | | | | | | | + + + + + + + + | ATIVAN 1 | one by | | | LORAZEPAM | 6482950343 | Jennifer | | MG TABS | mouth at | | | | 0 | Agsten DO | | | bedtime | | | | | | + + + + + + + + | MIRTAZAPIN | one tablet | | | MIRTAZAPIN | 1468617467 | Jerri | | E 30 MG | at night | | | E | 5 | Upson [place] | | TABS | before bed | | | | | | + + + + + + + + | NORTRIPTYL | 1 tab qhs | | | NORTRIPTYL | 6833604788 | Ajay | | INE HCL 50 | | | | INE HCL | 6 | Sylvia DPM | | MG CAPS | | | | | | | + + + + + + + + | METANX | 1 PO BID | | | L-METHYLFO | 0332336860 | Ajay | | [phone] | | | | LATE-ALGAE | 0 | Sylvia DPM | | -35 MG | | | | -B12-B6 | | | | CAPS | | | | | | | + + + + + + + + | ONDANSETRO | one tablet | | | ONDANSETRO | 5236870389 | Jennifer | | N HCL 4 MG | once a | | | N HCL | 0 | Agsten DO | | TABS | day as | | | | | | | | needed for | | | | | | | | nausea | | | | | | + + + + + + + + | MIRTAZAPIN | one tablet | | | MIRTAZAPIN | 6232324567 | Jennifer | | E 15 MG | at night | | | E | 3 | Agsten DO | | TABS | before bed | | | | | | + + + + + + + + | DIFLUCAN | 1 by mouth | | | FLUCONAZOL | 5486663661 | Jennifer | | 150 MG | x 1 dose | | | E | 0 | Agsten DO | | TABS | | | | | | | + + + + + + + + | TEMAZEPAM | one | | | TEMAZEPAM | 1007740297 | Jennifer | | 15 MG CAPS | capsule | | | | 7 | Agsten DO | | | once a day | | | | | | + + + + + + + + | TIZANIDINE | one tablet | | | TIZANIDINE | 1957613813 | Jennifer | | HCL 4 MG | three | | | HCL | 0 | Agsten DO | | TABS | times a | | | | | | | | day as | | | | | | | | needed | | | | | | + + + + + + + + | CYCLOBENZA | one tablet | | | CYCLOBENZA | 7408776450 | Jennifer | | NETO HCL | three | | | NETO HCL | 3 | Agsten DO | | 5 MG TABS | times a | | | | | | | | day as | | | | | | | | needed | | | | | | + + + + + + + + | PENNSAID | 40 drops 4 | | | DICLOFENAC | 1565195799 | Jennifer | | 1.5 % SOLN | times a | | | SODIUM | 1 | Agsten DO | | | day to | | | | | | | | joint as | | | | | | | | needed | | | | | | + + + + + + + + | HYDROCODON | one tablet | | | HYDROCODON | 6602586290 | Jennifer | | E-ACETAMIN | three | | | E-ACETAMIN | 1 | Agsten DO | | OPHEN | times a | | | OPHEN | | | | 7.5-325 MG | day as | | | | | | | TABS | needed | | | | | | + + + + + + + + | LOSARTAN | one by | | | LOSARTAN | 3954689161 | Jennifer | | POTASSIUM | mouth one | | | POTASSIUM | 2 | Agsten DO | | 25 MG TABS | time per | | | | | | | | day | | | | | | + + + + + + + + | VICODIN ES | one by | | | HYDROCODON | 1523850530 | Jennifer | | 7.5-750 | mouth | | | E-ACETAMIN | 4 | Agsten DO | | MG TABS | three | | | OPHEN | | | | | times per | | | | | | | | day as | | | | | | | | needed | | | | | | + + + + + + + + | FUROSEMIDE | 1/2 by | | | FUROSEMIDE | 4605517712 | Jennifer | | 40 MG | mouth one | | | | 4 | Agsten DO | | TABS | time per | | | | | | | | day | | | | | | + + + + + + + + | AMITRIPTYL | 1-2 by | | | AMITRIPTYL | 9934717594 | Jennifer | | INE HCL 25 | mouth | | | INE HCL | 1 | Agsten DO | | MG TABS | before bed | | | | | | + + + + + + + + | LOVAZA 1 | 4 one time | | | OMEGA-3-AC | 2819063603 | Jennifer | | GM CAPS | per day | | | ID ETHYL | 3 | Agsten DO | | | | | | ESTERS | | | + + + + + + + + | PENNSAID | 4 grams | | | DICLOFENAC | 8063033030 | Jennifer | | 1.5 % SOLN | four times | | | SODIUM | 5 | Agsten DO | | | a day to | | | | | | | | joint prn. | | | | | | + + + + + + + + | MECLIZINE | 1 by mouth | | | MECLIZINE | 6321393336 | Jennifer | | HCL 25 MG | every 6 | | | HCL | 0 | Agsten DO | | TABS | hrs as | | | | | | | | needed | | | | | | + + + + + + + + | AMBIEN 10 | one by | | | ZOLPIDEM | 6607563806 | Jennifer | | MG TABS | mouth at | | | TARTRATE | 8 | Agsten DO | | | bedtime | | | | | | + + + + + + + + | METFORMIN | one po bid | | | METFORMIN | 3173646069 | Jennifer | | HCL 500 MG | | | | HCL | 1 | Agsten DO | | TABS | | | | | | | + + + + + + + + | PROTONIX | one po qd | | | PANTOPRAZO | 6647941678 | Jennifer | | 40 MG TBEC | | | | LE SODIUM | 0 | Agsten DO | + + + + + + + + | KLOR-CON | one po qd | | | POTASSIUM | 0669527403 | Jennifer | | 10 10 MEQ | | | | CHLORIDE | 1 | Agsten DO | | CR-TABS | | | | | | | + + + + + + + + | ATIVAN 1 | one po qhs | | | LORAZEPAM | 5576877187 | Jennifer | | MG TABS | | | | | 0 | Agsten DO | + + + + + + + + | AMBIEN 10 | one po qhs | | | ZOLPIDEM | 1341781979 | Jennifer | | MG TABS | | | | TARTRATE | 8 | Agsten DO | + + + + + + + + | LOVAZA 1 | 4 po qd | | | OMEGA-3-AC | 8719465314 | Jennifer | | GM CAPS | | | | ID ETHYL | 3 | Agsten DO | | | | | | ESTERS | | | + + + + + + + + | PLENDIL 10 | 1 po qd | | | FELODIPINE | | Jennifer | | MG TB24 | prn | | | | | Agsten DO | + + + + + + + + | VICODIN ES | one po tid | | | HYDROCODON | 2917147741 | Jennifer | | 7.5-750 | prn | | | E-ACETAMIN | 4 | Agsten DO | | MG TABS | | | | OPHEN | | | + + + + + + + + | DULCOLAX 5 | take as | | | BISACODYL | 3513412028 | Jasmeet | | MG TBEC | directed | | | | 3 | Aga | | | | | | | | MD | + + + + + + + + | METOCLOPRA | take as | | | METOCLOPRA | 7886566549 | Jasmeet | | MIDE HCL | directed | | | MIDE HCL | 2 | Aga | | 10 MG TABS | | | | | | MD | + + + + + + + + | MIRALAX | take as | | | POLYETHYLE | 4975182007 | Jasmeet | | POWD | directed | | | NE GLYCOL | 3 | Aga | | | | | | 3350 | | MD | + + + + + + + + | VOLTAREN 1 | apply up | | | DICLOFENAC | 4070759113 | Jennifer | | % GEL | to 2 grams | | | SODIUM | 1 | Agsten DO | | | qid prn | | | | | | + + + + + + + + | ULTRAM 50 | one po tid | | | TRAMADOL | 5404537903 | Jennifer | | MG TABS | prn | | | HCL | 6 | Agsten DO | + + + + + + + + | FUROSEMIDE | 1/2 po qd | | | FUROSEMIDE | 0613500568 | Jennifer | | 40 MG | | | | | 2 | Agsten DO | | TABS | | | | | | | + + + + + + + + | IBUPROFEN | one po tid | | | IBUPROFEN | 4662064952 | Jennifer | | 800 MG | prn | | | | 0 | Agsten DO | | TABS | | | | | | | + + + + + + + + | GLYBURIDE | one po qd | | | GLYBURIDE | 6090731472 | Jennifer | | 5 MG TABS | | | | | 8 | Agsten DO | + + + + + + + + | LOSARTAN | one po qd | | | LOSARTAN | 3109168954 | Jennifer | | POTASSIUM | | | | POTASSIUM | 0 | Agsten DO | | 25 MG TABS | | | | | | | + + + + + + + + | NEXIUM 40 | one po qd | | | ESOMEPRAZO | 5900591144 | Jennifer | | MG CPDR | | | | LE | 3 | Agsten DO | | | | | | MAGNESIUM | | | + + + + + + + + | ERYTHROMYC | /4 inch | | | ERYTHROMYC | 4803663742 | Abby | | IN 5 MG/GM | to both | | | IN | 0 | Gauer OD | | OINT | eyes as | | | | | | | | demonstrat | | | | | | | | ed in | | | | | | | | office, | | | | | | | | every | | | | | | | | night | | | | | | | | before bed | | | | | | + + + + + + + + | LASIX 40 | 1/2po qd | | | FUROSEMIDE | 6467908962 | Jennifer | | MG TABS | | | | | 0 | Agsten DO | + + + + + + + + | AMBIEN 10 | 1/2 - 1 po | | | ZOLPIDEM | 6920910366 | Jennifer | | MG TABS | qhs. BMN | | | TARTRATE | 8 | Agsten DO | + + + + + + + + | PREVACID | one po qd | | | LANSOPRAZO | 8977920027 | Jennifer | | 30 MG CPDR | | | | LE | 5 | Agsten DO | + + + + + + + + | GLYBURIDE | one po q | | | GLYBURIDE | 5047877222 | Jennifer | | 2.5 MG | am | | | | 0 | Agsten DO | | TABS | | | | | | | + + + + + + + + | AMBIEN 10 | 02/12 - 1 po | | | ZOLPIDEM | 1511500723 | Jennifer | | MG TABS | qhs | | | TARTRATE | 5 | Agsten DO | + + + + + + + + | BENICAR 20 | 02/12 po qd | | | OLMESARTAN | 5176306454 | Jennifer | | MG TABS | | | | MEDOXOMIL | 0 | Agsten DO | + + + + + + + + | TRAZODONE | 02/12 - 1 po | | | TRAZODONE | 5555280690 | Jennifer | | HCL 100 MG | qhs | | | HCL | 0 | Agsten DO | | TABS | | | | | | | + + + + + + + + | AMBIEN 10 | 02/12 - 1 po | | | ZOLPIDEM | 2305469627 | Jennifer | | MG TABS | qhs | | | TARTRATE | 0 | Agsten DO | + + + + + + + + | LASIX 40 | 02/14 by | | | FUROSEMIDE | 9232104609 | Katelyn | | MG TABS | mouth | | | | 0 | McClish NOODLE [employer]AL[employer] MAKER | | | every am | | | | | | | | prn | | | | | | + + + + + + + + | OXYCODONE | 1-2 po q 6 | | | OXYCODONE | 0252796878 | Jennifer | | HCL 5 MG | hrs prn | | | HCL | 0 | Agsten DO | | TABS | | | | | | | + + + + + + + + | ALENDRONAT | one po q | | | ALENDRONAT | 4263577249 | Jennifer | | E SODIUM | week | | | E SODIUM | 1 | Agsten DO | | 70 MG TABS | | | | | | | + + + + + + + + | VALIUM 5 | one po | | | DIAZEPAM | 7669170414 | Jennifer | | MG TABS | prior to | | | | 0 | Agsten DO | | | procedure | | | | | | + + + + + + + + | BENICAR 20 | one po qd | | | OLMESARTAN | 7895751194 | Jennifer | | MG TABS | | | | MEDOXOMIL | 2 | Agsten DO | + + + + + + + + | IBU 600 MG | one po tid | | | IBUPROFEN | 2293455409 | Jennifre | | TABS | prn | | | | 1 | Agsten DO | + + + + + + + + | VOLTAREN 1 | apply up | | | DICLOFENAC | 2148509469 | Katelyn | | % GEL | to 2 gram | | | SODIUM | 1 | McClish NOODLE 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 | | | qid prn | | | | | | + + + + + + + + | ZITHROMAX | Two po x | | | AZITHROMYC | 0256145386 | Jennifer | | 250 MG | one day, | | | IN | 3 | Agsten DO | | TABS | one po x 4 | | | | | | | | days | | | | | | + + + + + + + + | BACTRIM DS | one po bid | | | SULFAMETHO | 7576725645 | Jennifer | | 800-160 | | | | XAZOLE-TRI | 1 | Agsten DO | | MG TABS | | | | METHOPRIM | | | + + + + + + + + | HYCODAN | 1-2 tsp | | | HYDROCODON | 6094122316 | Jennifer | | 5-1.5 | q4-6 h prn | | | E-HOMATROP | 6 | Agsten DO | | MG/5ML | cough | | | INE | | | | SYRP | | | | | | | + + + + + + + + | PRILOSEC | one po bid | | | OMEPRAZOLE | 3593062578 | Jennifer | | OTC 20 MG | | | | MAGNESIUM | 0 | Agsten DO | | TBEC | | | | | | | + + + + + + + + | VICODIN ES | one po tid | | | HYDROCODON | 4252492819 | Jennifer | | 7.5-750 | | | | E-ACETAMIN | 4 | Agsten DO | | MG TABS | | | | OPHEN | | | + + + + + + + + | JUAN CARLOS | one po qd | | | FEXOFENADI | 2624954880 | Jennifer | | 180 MG | | | | NE HCL | 2 | Agsten DO | | TABS | | | | | | | + + + + + + + + | AMBIEN CR | 1 po qhs | | | ZOLPIDEM | 0211113430 | Jennifer | | 12.5 MG | | | | TARTRATE | 4 | Agsten DO | | CR-TABS | | | | | | | + + + + + + + + | LASIX 40 | 1/2 by | | | FUROSEMIDE | 8351809981 | Jennifer | | MG TABS | mouth | | | | 1 | Agsten DO | | | every am | | | | | | | | prn | | | | | | + + + + + + + + | NEXIUM 40 | 1 po bid | | | ESOMEPRAZO | 6270858816 | Jennifer | | MG CPDR | | | | LE | 2 | Agsten DO | | | | | | MAGNESIUM | | | + + + + + + + + | VICODIN | one po tid | | | HYDROCODON | 4047873079 | Jennifer | | 5-500 MG | | | | E-ACETAMIN | 4 | Agsten DO | | TABS | | | | OPHEN | | | + + + + + + + + | COLESTID | 1 po bid | | | COLESTID | | Jasmeet | | | | | | | | Aga | | | | | | | | MD | + + + + + + + + | PROMETHAZI | one po q 6 | | | PROMETHAZI | 2723522655 | Jennifer | | NE HCL 25 | hr prn | | | NE HCL | 4 | Agsten DO | | MG TABS | | | | | | | + + + + + + + + | HYCOTUSS | 1-2 tsp q | | | HYDROCODON | 1917002743 | Jennifer | | EXPECTORAN | 4-6 hrs | | | E-GUAIFENE | 6 | Agsten DO | | T 5-100 | prn | | | SIN | | | | MG/5ML | | | | | | | | SYRP | | | | | | | + + + + + + + + | BONIVA 150 | one po q | | | IBANDRONAT | 2482892047 | Jennifer | | MG TABS | month | | | E SODIUM | 0 | Agsten DO | + + + + + + + + | KEFLEX 500 | one po tid | | | CEPHALEXIN | 9864540146 | Jennifer | | MG CAPS | | | | | 0 | Agsten DO | + + + + + + + + | PLENDIL 10 | 1 po qd | | | FELODIPINE | 7657051217 | Jennifer | | MG TB24 | | | | | 1 | Agsten DO | + + + + + + + + | SLOW-MAG | one po qd | | | MAGNESIUM | 5419343655 | Jennifer | | 64 MG TBCR | | | | CHLORIDE | 0 | Agsten DO | + + + + + + + + | K-JAMARI 20 | one po qd | | | POTASSIUM | 2344539348 | Jennifer | | MEQ PACK | | | | CHLORIDE | 2 | Agsten DO | + + + + + + + + | IBU 800 MG | one po tid | | | IBUPROFEN | 4800759080 | Jennifer | | TABS | | | | | 1 | Agsten DO | + + + + + + + + | LOVAZA 1 | 2 po bid | | | OMEGA-3-AC | 4722694212 | Jennifer | | GM CAPS | | | | ID ETHYL | 7 | Agsten DO | | | | | | ESTERS | | | + + + + + + + + | AMBIEN CR | one po qd | | | ZOLPIDEM | 9091702296 | Jennifer | | 12.5 MG | | | | TARTRATE | 3 | Agsten DO | | CR-TABS | | | | | | | + + + + + + + + | ASCENSIA | Testing | | | ASCENSIA | | Jennifer | | TEST | once a | | | TEST | | Agsten DO | | STRIPS | day. Dx | | | STRIPS | | | | | 250.00 | | | | | | + + + + + + + + | DYAZIDE | 1 by mouth | | | TRIAMTEREN | 2181844518 | Jennifer | | 37.5-25 MG | every day | | | E-HCTZ | 0 | Agsten DO | | CAPS | | | | | | | + + + + + + + + | LASIX 40 | 1 by mouth | | | FUROSEMIDE | 2568161539 | Jennifer | | MG TABS | every am | | | | 1 | Agsten DO | + + + + + + + + | BENICAR 20 | one po qd | | | OLMESARTAN | 8857988101 | Jennifer | | MG TABS | | | | MEDOXOMIL | 0 | Agsten DO | + + + + + + + + | K-DUR 10 | 2 po qd | | | POTASSIUM | 8729862384 | Jennifer | | MEQ TBCR | | | | CHLORIDE | 1 | Agsten DO | + + + + + + + + | OMACOR 1 | Two po bid | | | OMEGA-3-AC | 4142795197 | Jennifer | | GM CAPS | | | | ID ETHYL | 7 | Agsten DO | | | | | | ESTERS | | | + + + + + + + + | MORPHINE | one po bid | | | MORPHINE | 2668128366 | Jennifer | | SULFATE CR | prn | | | SULFATE | 1 | Agsten DO | | 15 MG | | | | | | | | TB12 | | | | | | | + + + + + + + + Medications Administered No information available. Allergies, Adverse Reactions, Alerts + + + + + + + | Allergy Name | Reaction | Start Date | Severity | Status | Provider | | | Description | | | | | + + + + + + + | CODEINE | nausea and | | Severe | | Jasmeet | | | vomiting | | | | Aga MD | + + + + + + + | LISINOPRIL-H | swelling in | | Critical | | Jennifer Agsten | | YDROCHLOROTH | the throat, | | | | DO | | IAZIDE | tight chest | | | | | + + + + + + + | CODEINE | | | Critical | No Longer | Jennifer Agsten | | | | | | Active | DO | + + + + + + + | KASIA | | | Critical | | Michelle | | INHIBITORS | | | | | Bennett | + + + + + + + | CODEINE | | | Critical | No Longer | Michelle | | | | | | Active | Bennett | + + + + + + + Results +------+------+-------+------+-------+------+ + | Date | Name | Value | Unit | Range | Flag | Descriptio | | | | | | | | n | +------+------+-------+------+-------+------+ + + + | Rx Refill: eRx Request for Pantoprazole Sodium Oral Tablet Delayed Rele ... | + + + +--------+ +---+---+---+ + | | ESM_RR | [id number] | | | B | e-scripts | | | | [id number]`Pant | | | | messenger | | | | oprazole | | | | refill | | | | Sodium | | | | request | | | | Oral | | | | | | | | Tablet | | | | | | | | Delayed | | | | | | | | Release 40 | | | | | | | | MG`40``90 | | | | | | | | | | | | | | | | Tablet`90` | | | | | | | | TAKE ONE | | | | | | | | TABLET BY | | | | | | | | MOUTH ONE | | | | | | | | TIME | | | | | | | | DAILY``1`0 | | | | | | | | ` | | | | | | | | 7`05/26/19 | | | | | | | | 17`Jad | | | | | | | | [place] | | | | | | | | - | | | | | | | | [place]*` | | | | | | | | [phone] | | | | | | | | `[phone] | | | | | | | | 01``Pantop | | | | | | | | razole | | | | | | | | Sodium | | | | | | | | Oral | | | | | | | | Tablet | | | | | | | | Delayed | | | | | | | | Release 40 | | | | | | | | MG | | | | | | | | Quantity: | | | | | | | | 90 Tablet | | | | | | | | | | | | | | | | Instructio | | | | | | | | ns: TAKE | | | | | | | | ONE TABLET | | | | | | | | BY MOUTH | | | | | | | | ONE TIME | | | | | | | | DAILY | | | | | + +--------+ +---+---+---+ + + + | Podiatry Visit: Neuropathy/Med Check | + + + +--------+--------+---+---+---+ + | | MEDS | Done | | | | Documentat | | | REVIEW | | | | | ion of | | | | | | | | current | | | | | | | | medication | | | | | | | | s | | | | | | | | (procedure | | | | | | | | ) | + +--------+--------+---+---+---+ + | | SMOK | Never | | | | Tobacco | | | STATUS | smoker | | | | use [facility] | + +--------+--------+---+---+---+ + + + | Rx Refill: eRx Request for Mirtazapine Oral Tablet 15 MG | + + + +--------+ +---+---+---+ + | | [facility] | [id number] | | | B | e-scripts | | | | [id number]`Mirt | | | | messenger | | | | azapine | | | | refill | | | | Oral | | | | request | | | | Tablet 15 | | | | | | | | MG`15``30 | | | | | | | | Tablet`30` | | | | | | | | TAKE ONE | | | | | | | | TABLET BY | | | | | | | | MOUTH ONE | | | | | | | | TIME DAILY | | | | | | | | before | | | | | | | | bed``1`0`0 | | | | | | | | 02/14/2016` | | | | | | | | 02/14/2016 | | | | | | | | `Amadou | | | | | | | | s [place] - | | | | | | | | | | | | | | | | [place]*` | | | | | | | | [phone] | | | | | | | | `[phone] | | | | | | | | 56``Mirtaz | | | | | | | | apine Oral | | | | | | | | Tablet 15 | | | | | | | | MG | | | | | | | | Quantity: | | | | | | | | 30 Tablet | | | | | | | | | | | | | | | | Instructio | | | | | | | | ns: TAKE | | | | | | | | ONE TABLET | | | | | | | | BY MOUTH | | | | | | | | ONE TIME | | | | | | | | DAILY | | | | | | | | before bed | | | | | + +--------+ +---+---+---+ + + + | Rx Refill: eRx Request for Pantoprazole Sodium Oral Tablet Delayed Rele ... | + + + +--------+ +---+---+---+ + | | [facility] | [id number] | | | B | e-scripts | | | | [id number]`Pant | | | | messenger | | | | oprazole | | | | refill | | | | Sodium | | | | request | | | | Oral | | | | | | | | Tablet | | | | | | | | Delayed | | | | | | | | Release 40 | | | | | | | | MG`40``90 | | | | | | | | | | | | | | | | Tablet`90` | | | | | | | | TAKE ONE | | | | | | | | TABLET BY | | | | | | | | MOUTH ONE | | | | | | | | TIME | | | | | | | | DAILY``1`0 | | | | | | | | ` | | | | | | | | 6`03/08/19 | | | | | | | | 17`Jad | | | | | | | | [place] | | | | | | | | - | | | | | | | | [place]*` | | | | | | | | [phone] | | | | | | | | `[phone] | | | | | | | | 01``Pantop | | | | | | | | razole | | | | | | | | Sodium | | | | | | | | Oral | | | | | | | | Tablet | | | | | | | | Delayed | | | | | | | | Release 40 | | | | | | | | MG | | | | | | | | Quantity: | | | | | | | | 90 Tablet | | | | | | | | | | | | | | | | Instructio | | | | | | | | ns: TAKE | | | | | | | | ONE TABLET | | | | | | | | BY MOUTH | | | | | | | | ONE TIME | | | | | | | | DAILY | | | | | + +--------+ +---+---+---+ + + + | Podiatry Visit: Annual DM foot check | + + + +--------+--------+---+---+---+ + | | SMOK | Never | | | | Tobacco | | | STATUS | smoker | | | | use [facility] | + +--------+--------+---+---+---+ + + + | Lab Report: PAIN MANAGEMENT PROFILE | + + + + + +---+ +---+ + | | ZZ-GE-UNK | Negative | | Confirmati | | GE use | | | | | | on | | only - for | | | | | | threshold | | [employer] | | | | | | is 50 | | import | | | | | | ng/mL | | when terms | | | | | | | | are not | | | | | | | | otherwise | | | | | | | | specified | + + + +---+ +---+ + | | MORPHINE | Negative | | Threshold | | morphine | | | UR | | | is 5 ng/mL | | drug | | | | | | | | screen, | | | | | | | | urine | + + + +---+ +---+ + | | CODEINE UR | Negative | | Threshold | | codeine | | | | | | is 5 ng/mL | | drug | | | | | | | | screen, | | | | | | | | urine | + + + +---+ +---+ + | | OXYMORPH | Negative | | Threshold | | Oxymorphon | | | UR | | | is 5 ng/mL | | e, Urine | + + + +---+ +---+ + | | OXYCODONE | Negative | | Threshold | | Oxycodone | | | | | | is 5 ng/mL | | urine | | | | | | | | screening | + + + +---+ +---+ + | | HYDROMORPH | 15 | | Threshold | | hydromorph | | | ON | | | is 5 | | one drug | | | | | | | | screen, | | | | | | | | urine | + + + +---+ +---+ + | | PHENCY SCR | Negative | | Threshold | | phencyclid | | | U | | | is 25 | | ine | | | | | | ng/mL | | screen, | | | | | | | | urine | + + + +---+ +---+ + | | METHADONEU | Negative | | Threshold | | Methadone | | | RN | | | is 150 | | screen, | | | | | | ng/mL | | urine | + + + +---+ +---+ + | | THC SCR U | Negative | | Threshold | | cannabinoi | | | | | | is 20 | | d | | | | | | ng/mL | | (tetrahydr | | | | | | | | ocannabino | | | | | | | | id) | | | | | | | | screen, | | | | | | | | urine | + + + +---+ +---+ + | | ETOHSCRNUR | Negative | | Threshold | | Ethanol | | | | | | is 0.020 | | screen | | | | | | g/dL | | urine | + + + +---+ +---+ + | | COCAINE UR | Negative | | Threshold | | cocaine, | | | | | | is 150 | | urine | | | | | | ng/mL | | | + + + +---+ +---+ + | | BENZODIAZ | Positive | | Threshold | | benzodiaze | | | UR | (See | | is 200 | | pine | | | | Confirmati | | ng/mL | | screen, | | | | on Test | | | | urine | | | | Included) | | | | | + + + +---+ +---+ + | | BARBITURA | Negative | | Threshold | | barbiturat | | | UR | | | is 200 | | es screen, | | | | | | ng/mL | | urine | + + + +---+ +---+ + | | AMPHETAMI | Negative | | Threshold | | amphetamin | | | UR | | | is 300 | | e screen, | | | | | | ng/mL | | urine | + + + +---+ +---+ + + + | Lab Report: LIPID PANEL, COMPREHENSIVE METABOLIC PANEL, MICROALBUMIN, RA ... | + + + + + + + +---+ + | | HGBA1C | 6.5 % OF | % | <5.7 | H | Hemoglobin | | | | TOTAL HGB | | | | | | | | | | | | A1c/Hemogl | | | | | | | | obin.total | | | | | | | | in Blood | + + + + + +---+ + | | MCROALB/CR | 20 | mg/g{creat | <30 | N | Albumin/Cr | | | U | | } | | | eatinine | | | | | | | | [Mass | | | | | | | | Ratio] in | | | | | | | | 24 hour | | | | | | | | Urine | + + + + + +---+ + | | MICROALB | 19 | mg/L | Units | N | Microalbum | | | URN | | | converted. | | in | | | | | | See lab | | [Mass/volu | | | | | | report for | | me] in | | | | | | original | | Urine | | | | | | value. | | | + + + + + +---+ + | | APO B/A1 | 97 | mg/dL | 20-320 | N | apolipopro | | | | | | | | tein | | | | | | | | B/apolipop | | | | | | | | rotein A-1 | | | | | | | | ratio, | | | | | | | | serum | + + + + + +---+ + | | SGPT (ALT) | 10 | U/L | 6-29 | N | alanine | | | | | | | | aminotrans | | | | | | | | ferase | | | | | | | | (SGPT), | | | | | | | | serum | + + + + + +---+ + | | SGOT (AST) | 17 | U/L | 10-35 | N | aspartate | | | | | | | | aminotrans | | | | | | | | ferase | | | | | | | | (SGOT), | | | | | | | | serum | + + + + + +---+ + | | ALK PHOS | 60 | U/L | 33-130 | N | alkaline | | | | | | | | phosphatas | | | | | | | | e, serum | + + + + + +---+ + | | BILI TOTAL | 0.4 | mg/dL | 0.2-1.2 | N | bilirubin, | | | | | | | | serum, | | | | | | | | total | + + + + + +---+ + | | A/G RATIO | 1.2 (calc) | | 1.0-2.5 | N | albumin/gl | | | | | | | | obulin | | | | | | | | ratio, | | | | | | | | serum | + + + + + +---+ + | | GLOBULIN | 3.1 | g/dL | 1.9-3.7 | N | globulins, | | | TOT | | | | | serum, | | | | | | | | total | + + + + + +---+ + | | ALBUMIN | 3.8 | g/dL | 3.6-5.1 | N | albumin, | | | | | | | | serum | + + + + + +---+ + | | PROTEIN, | 6.9 | g/dL | 6.1-8.1 | N | protein, | | | TOT | | | | | total, | | | | | | | | serum | + + + + + +---+ + | | CALCIUM | 8.9 | mg/dL | 8.6-10.4 | N | calcium, | | | | | | | | serum | + + + + + +---+ + | | CO2 | 34 | mmol/L | 20-31 | H | carbon | | | | | | | | dioxide, | | | | | | | | venous | | | | | | | | blood | + + + + + +---+ + | | CHLORIDE | 102 | mmol/L | 98-110 | N | chloride, | | | | | | | | serum | + + + + + +---+ + | | POTASSIUM | 3.4 | mmol/L | 3.5-5.3 | L | potassium, | | | | | | | | serum | + + + + + +---+ + | | SODIUM | 143 | mmol/L | 135-146 | N | sodium, | | | | | | | | serum | + + + + + +---+ + | | BUN/CREAT | NOT | | 6-22 | | urea | | | | APPLICABLE | | | | nitrogen/c | | | | (calc) | | | | reatinine | | | | | | | | ratio, | | | | | | | | serum | + + + + + +---+ + | | EGFR | 85 | mL/min/1.7 | > OR = 60 | N | Estimated | | | | | 3m2 | | | Glomerular | | | | | | | | | | | | | | | | Filtration | | | | | | | | Rate | | | | | | | | (calc) | + + + + + +---+ + | | GFRC | 74 | mL/min/1.7 | > OR = 60 | N | Glomerular | | | | | 3m2 | | | | | | | | | | | Filtration | | | | | | | | Rate | | | | | | | | Calculatio | | | | | | | | n | + + + + + +---+ + | | CREATININE | 0.76 | mg/dL | 0.60-0.88 | N | creatinine | | | | | | | | , serum | + + + + + +---+ + | | BUN | 12 | mg/dL | 7-25 | N | urea | | | | | | | | nitrogen, | | | | | | | | blood | + + + + + +---+ + | | GLUCOSE | 79 | mg/dL | 65-99 | N | blood | | | SER | | | | | glucose | + + + + + +---+ + | | ZZ-GE-UNK | 135 mg/dL | | | N | GE use | | | | (calc) | | | | only - for | | | | | | | | [employer] | | | | | | | | import | | | | | | | | when terms | | | | | | | | are not | | | | | | | | otherwise | | | | | | | | specified | + + + + + +---+ + | | CHOL/HDL | 4.5 (calc) | | < OR = 5.0 | N | cholestero | | | | | | | | l/HDL | | | | | | | | ratio, | | | | | | | | serum | + + + + + +---+ + | | LDL | 90 MG/DL | mg/dL | <130 | N | Cholestero | | | | (CALC) | | | | l in LDL | | | | | | | | [Mass/volu | | | | | | | | me] in | | | | | | | | Serum or | | | | | | | | Plasma | + + + + + +---+ + | | TRIGLYCERI | 227 | mg/dL | <150 | H | Triglyceri | | | DE | | | | | de | | | | | | | | [Mass/volu | | | | | | | | me] in | | | | | | | | Serum or | | | | | | | | Plasma | + + + + + +---+ + | | HDL | 39 | mg/dL | > OR = 46 | L | Cholestero | | | | | | | | l in HDL | | | | | | | | [Mass/volu | | | | | | | | me] in | | | | | | | | Serum or | | | | | | | | Plasma | + + + + + +---+ + | | CHOLESTERO | 174 | mg/dL | 125-200 | N | Cholestero | | | L | | | | | l | | | | | | | | [Mass/volu | | | | | | | | me] in | | | | | | | | Serum or | | | | | | | | Plasma | + + + + + +---+ + + + | Office Visit: Compression fracture, NIDDM, left hip OA | + + + + + +---+---+---+ + | | [facility] | LOSARTAN | | | | [facility] | | | IND | POTASSIUM | | | | Therapy | | | | 50 MG TABS | | | | Indicated | | | | one | | | | | | | | tablet | | | | | | | | once a day | | | | | + + + +---+---+---+ + | | SMOK | Never | | | | Tobacco | | | STATUS | smoker | | | | use CPHS | + + + +---+---+---+ + | | MEDS | Done | | | | Documentat | | | REVIEW | | | | | ion of | | | | | | | | current | | | | | | | | medication | | | | | | | | s | | | | | | | | (procedure | | | | | | | | ) | + + + +---+---+---+ + + + | Rx Refill: eRx Request for Mirtazapine Oral Tablet 15 MG | + + + +--------+ +---+---+---+ + | | [facility] | [phone] | | | B | e-scripts | | | | 83120`Mirt | | | | messenger | | | | azapine | | | | refill | | | | Oral | | | | request | | | | Tablet 15 | | | | | | | | MG`15``30 | | | | | | | | Tablet`30` | | | | | | | | TAKE ONE | | | | | | | | TABLET BY | | | | | | | | MOUTH ONE | | | | | | | | TIME DAILY | | | | | | | | before | | | | | | | | bed``1`0`0 | | | | | | | | 02/14/2016` | | | | | | | | 02/14/2016 | | | | | | | | `Amadou | | | | | | | | s [place] - | | | | | | | | | | | | | | | | [place]*` | | | | | | | | [phone] | | | | | | | | `[id number] | | | | | | | | 56``Mirtaz | | | | | | | | apine Oral | | | | | | | | Tablet 15 | | | | | | | | MG | | | | | | | | Quantity: | | | | | | | | 30 Tablet | | | | | | | | | | | | | | | | Instructio | | | | | | | | ns: TAKE | | | | | | | | ONE TABLET | | | | | | | | BY MOUTH | | | | | | | | ONE TIME | | | | | | | | DAILY | | | | | | | | before bed | | | | | + +--------+ +---+---+---+ + | | [facility] | [phone] | | | B | e-scripts | | | | 77308`Mirt | | | | messenger | | | | azapine | | | | refill | | | | Oral | | | | request | | | | Tablet 15 | | | | | | | | MG`15``30 | | | | | | | | Tablet`30` | | | | | | | | TAKE ONE | | | | | | | | TABLET BY | | | | | | | | MOUTH ONE | | | | | | | | TIME DAILY | | | | | | | | before | | | | | | | | bed``1`0`0 | | | | | | | | 02/14/2016` | | | | | | | | 02/14/2016 | | | | | | | | `Foster | | | | | | | | s [place] - | | | | | | | | | | | | | | | | [place]*` | | | | | | | | [phone] | | | | | | | | `[id number] | | | | | | | | 56``Mirtaz | | | | | | | | apine Oral | | | | | | | | Tablet 15 | | | | | | | | MG | | | | | | | | Quantity: | | | | | | | | 30 Tablet | | | | | | | | | | | | | | | | Instructio | | | | | | | | ns: TAKE | | | | | | | | ONE TABLET | | | | | | | | BY MOUTH | | | | | | | | ONE TIME | | | | | | | | DAILY | | | | | | | | before bed | | | | | + +--------+ +---+---+---+ + + + | Office Visit: Left hip OA, NIDDM, HTN, hyperlipidemia | + + + + + +---+---+---+ + | | [facility] | LOSARTAN | | | | [facility] | | | IND | POTASSIUM | | | | Therapy | | | | 50 MG TABS | | | | Indicated | | | | one | | | | | | | | tablet | | | | | | | | once a day | | | | | + + + +---+---+---+ + | | SMOK | Never | | | | Tobacco | | | STATUS | smoker | | | | use CPHS | + + + +---+---+---+ + | | MEDS | Done | | | | Documentat | | | REVIEW | | | | | ion of | | | | | | | | current | | | | | | | | medication | | | | | | | | s | | | | | | | | (procedure | | | | | | | | ) | + + + +---+---+---+ + + + | Lab Report: BUN/CREATININE RATIO | + + + + + + + +---+ + | | BUN/CREAT | NOT | | 6-22 | | urea | | | | APPLICABLE | | | | nitrogen/c | | | | (calc) | | | | reatinine | | | | | | | | ratio, | | | | | | | | serum | + + + + + +---+ + | | EGFR | 84 | mL/min/1.7 | > OR = 60 | N | Estimated | | | | | 3m2 | | | Glomerular | | | | | | | | | | | | | | | | Filtration | | | | | | | | Rate | | | | | | | | (calc) | + + + + + +---+ + | | GFRC | 72 | mL/min/1.7 | > OR = 60 | N | Glomerular | | | | | 3m2 | | | | | | | | | | | Filtration | | | | | | | | Rate | | | | | | | | Calculatio | | | | | | | | n | + + + + + +---+ + | | CREATININE | 0.77 | mg/dL | 0.60-0.88 | N | creatinine | | | | | | | | , serum | + + + + + +---+ + | | BUN | 14 | mg/dL | 7-25 | N | urea | | | | | | | | nitrogen, | | | | | | | | blood | + + + + + +---+ + + + | Office Visit: Lumbar radiculopathy, hip OA | + + + +--------+--------+---+---+---+ + | | SMOK | Never | | | | Tobacco | | | STATUS | smoker | | | | use CPHS | + +--------+--------+---+---+---+ + | | MEDS | Done | | | | Documentat | | | REVIEW | | | | | ion of | | | | | | | | current | | | | | | | | medication | | | | | | | | s | | | | | | | | (procedure | | | | | | | | ) | + +--------+--------+---+---+---+ + + + | Office Visit: Rosa Jeffries L hip | + + + + + +---+---+---+ + | | MEDS | Done | | | | Documentat | | | REVIEW | | | | | ion of | | | | | | | | current | | | | | | | | medication | | | | | | | | s | | | | | | | | (procedure | | | | | | | | ) | + + + +---+---+---+ + | | ORTHIMAGIN | [facility] | | | | Imaging | | | G | Orthopedic | | | | test | | | | s XR | | | | results | | | | 11/07/2015 | | | | pertinent | | | | WB AP | | | | to | | | | PelvisBone | | | | orthopedic | | | | on bone | | | | s | | | | in left | | | | | | | | hip with | | | | | | | | small | | | | | | | | diffuse | | | | | | | | osteophyte | | | | | | | | s. | | | | | | | | Advanced | | | | | | | | left hip | | | | | | | | osteoarthr | | | | | | | | itis | | | | | + + + +---+---+---+ + | | SMOK | Never | | | | Tobacco | | | STATUS | smoker | | | | use CPHS | + + + +---+---+---+ + + + | Office Visit: Left hip pain, left lumbar radiculopathy | + + + +--------+--------+---+---+---+ + | | SMOK | Never | | | | Tobacco | | | STATUS | smoker | | | | use CPHS | + +--------+--------+---+---+---+ + | | MEDS | Done | | | | Documentat | | | REVIEW | | | | | ion of | | | | | | | | current | | | | | | | | medication | | | | | | | | s | | | | | | | | (procedure | | | | | | | | ) | + +--------+--------+---+---+---+ + Plan of Care + + + + | Type | Date | Detail | + + + + | Appointment | 10:00 AM | Ajay Ward DPM, [address] | | | | [address], | | | | [place], [address], | | | | | + + + + | Appointment | 08:30 AM | Ajay Ward [facility], [address] | | | | [address] [facility] [address], | | | | [place], [address], | | | | | + + + + | Appointment | 11:10 AM | Jennifer Mendoza DO, [address] | | | | [facility], | | | | [place], [address], | | | | | + + + + | Referral | | Orthopedic Consult | | | | Other Provider, | | | | Specify Provider in | | | | Instructions | + + + + | Referral | | Orthopedic Consult | | | | [facility], | | | | [address], | | | | [place], [address] | | | | | + + + + | Referral | | Echocardiogram - 2D | | | | Complete | | | | Latasha Brunner, [address] | | | | [place], | | | | [place], [address] | | | | | + + + + | Referral | | Podiatry Consult | | | | G QUENTIN Moss, | | | | [address] | | | | [address], [place], [address] | | | | | | | | | + + + + | Referral | | Ophthalmology Consult | | | | Abby Springer, | | | | [place], | | | | [place], [address] | | | | | + + + + | Referral | | Ophthalmology Consult | | | | Abby Springer, | | | | [address], [place], | | | | [place], [address] | | | | | + + + + | Referral | | Orthopedic Consult | | | | MD Ap Nicole, | | | | [address] , | | | | [place], [address] | | | | | + + + + | Referral | | Gynecology Consult | | | | MD Destiny Levi, | | | | [address] | | | [address], [place], [address] | | | | | | | | | + + + + | Referral | | Complete Eye Exam/ | | | | Treatment | | | | MD Paul Ramirez, [address] | | | | [place], | | | | [place], [address] | | | | | + + + + | Pending order | | Comprehensive Metabolic | | | | Panel | + + + + | Pending order | | Microalbumin, Random Urine | + + + + | Pending order | | Glyco Hemoglobin, A1C | + + + + | Pending order | | Lipid Profile | + + + + | Pending order | | Creatinine | + + + + | Pending order | | BUN | + + + + | Pending order | | MR Tfhed-Vtkjnu-LJD Con | + + + + | Pending order | | XR Hip 2-3V-Left | + + + + | Pending order | | Lipid Profile | + + + + | Pending order | | Microalbumin, Random Urine | + + + + | Pending order | | Glyco Hemoglobin, A1C | + + + + | Pending order | | Lipid Profile | + + + + | Pending order | | Microalbumin, Random Urine | + + + + | Pending order | | Glyco Hemoglobin, A1C | + + + + | Pending order | | Comprehensive Metabolic | | | | Panel | + + + + | Pending order | | HgbA1C | + + + + | Pending order | | Urinalysis | + + + + | Pending order | | Culture Urine | + + + + | Pending order | | Urinalysis Culture If | | | | Indicat | + + + + | Pending order | | Lipid Profile | + + + + | Pending order | | Comprehensive Metabolic | | | | Panel | + + + + | Pending order | | Microalbumin, Random Urine | + + + + | Pending order | | HgbA1C | + + + + | Pending order | | MX Dexa Scan-Body | + + + + | Pending order | | MX Mammo Dig Screen-Bilat | + + + + | Pending order | | HgbA1C | + + + + | Pending order | | CMP (Comprehensive | | | | Metabolic Panel) | + + + + | Pending order | | PAP SURE Sc wo HPV | + + + + | Pending order | | T4 Free | + + + + | Pending order | | TSH | + + + + | Pending order | | Microalbumin, Random Urine | + + + + | Pending order | | HgbA1C | + + + + | Pending order | | CBC w/ Auto Diff | + + + + | Pending order | | Lipid Profile | + + + + | Pending order | | MR Head-WO Con | + + + + | Pending order | | CMP (Comprehensive | | | | Metabolic Panel) | + + + + | Pending order | | Microalbumin, Random Urine | + + + + | Pending order | | HgbA1C | + + + + | Pending order | | Lipid Profile | + + + + | Pending order | | MX Mammo Dig Screen-Bilat | + + + + | Pending order | | MX Mammo Dig Diag-Bilat | + + + + | Pending order | | MX Dexa Scan-Body | + + + + | Pending order | | CMP (Comprehensive | | | | Metabolic Panel) | + + + + | Pending order | | XR Chest-2V | + + + + | Pending order | | Microalbumin, Random Urine | + + + + | Pending order | | Lipid Profile | + + + + | Pending order | | HgbA1C | + + + + | Pending order | | HgbA1C | + + + + | Pending order | | CMP (Comprehensive | | | | Metabolic Panel) | + + + + | Pending order | | Microalbumin, Random Urine | + + + + | Pending order | | HgbA1C | + + + + | Pending order | | Lipid Profile | + + + + | Pending order | | HgbA1C | + + + + | Pending order | | CMP (Comprehensive | | | | Metabolic Panel) | + + + + | Pending order | | Mammogram - Screening | | | | (bilateral) | + + + + | Pending order | | Microalbumin, Random Urine | + + + + | Pending order | | HgbA1C | + + + + | Pending order | | Lipid Profile | + + + + | Pending order | | MRI- Spine: Lumbar w/o | | | | contrast | + + + + | Pending order | | Culture Urine | + + + + | Pending order | | X-Ray- Hand (3+ views) | + + + + | Pending order | | Mammogram - Screening | | | | (bilateral) | + + + + | Pending order | | X-Ray- Chest - PA and | | | | lateral | + + + + | Pending order | | PAP Liquid Based, Screening | + + + + | Pending order | | HgbA1C | + + + + | Pending order | | Lipid Profile | + + + + | Pending order | | CMP (Comprehensive | | | | Metabolic Panel) | + + + + | Pending order | | X-Ray- Thoracic (3 views) | + + + + | Pending order | | Basic Metabolic Panel | + + + + | Pending order | | HgbA1C | + + + + | Pending order | | B-12 | + + + + | Pending order | | Lipid Profile | + + + + | Pending order | | Magnesium Level | + + + + | Pending order | | CMP (Comprehensive | | | | Metabolic Panel) | + + + + | Pending order | | DEXA scan (bone density) | + + + + | Pending order | | Mammogram - Screening | | | | (bilateral) | + + + + | Pending order | | Lipid Profile | + + + + | Pending order | | Magnesium Level | + + + + | Pending order | | Lipid Profile | + + + + | Pending order | | HbA1C | + + + + | Pending order | | CMP (Comprehensive | | | | Metabolic Panel) | + + + + | Pending order | | Comprehensive Metabolic | | | | Panel | + + + + | Pending order | | Lipid Profile | + + + + | Pending order | | HbA1C | + + + + | Patient education | | Medications | + + + + | Patient education | | Medications | + + + + | Patient education | | foot%20care%20for%20people% | | | | 20with%20diabetes | + + + + Procedures + + + + + | Code | Procedure Name | Date | Entry Date | + + + + + | [id number] | Pulse Exam of Foot | | | + + + + + | SCT-[id number] | Visual Exam of Foot | | | + + + + + | [id number] | Sensory Exam of | | | | | Foot | | | + + + + + | [id number] | Pulse Exam of Foot | | | + + + + + | [facility] [address] | Microalbumin, | | | | | Random Urine | | | + + + + + | GLYCO HGB 44275 | Glyco Hemoglobin, | | | | | A1C | | | + + + + + | RISK 51111 | Lipid Profile | | | + + + + + | CHEM PROF | Comprehensive | | | | | Metabolic Panel | | | + + + + + | SCT- | Medication | | | | [id number] | Reconcilliation | | | + + + + + | [id number] | Visual Exam of Foot | | | + + + + + | SCT-[id number] | Sensory Exam of | | | | | Foot | | | + + + + + | SCT- | Medication | | | | [id number] | Reconcilliation | | | + + + + + | CREAT 96146 | Creatinine | | | + + + + + | BUN 42396 | BUN | | | + + + + + | SCT- | Medication | | | | [id number] | Reconcilliation | | | + + + + + | 81449 | MR Hzexs-Uopfur-GDQ | | | | | Con | | | + + + + + | CPT-97844 | XR Pelvis-1-2V | | | + + + + + | SCT- | Medication | | | | [id number] | Reconcilliation | | | + + + + + | 86276 | XR Hip 2-3V-Left | | | + + + + + | CPT-G0477 | Urine Tox, multiple | | | | | drug class (G0477) | | | + + + + + | U FABIO RAN 28980 | Microalbumin, | | | | | Random Urine | | | + + + + + | GLYCO HGB 66914 | Glyco Hemoglobin, | | | | | A1C | | | + + + + + | RISK 97927 | Lipid Profile | | | + + + + + | CPT-91878 | Echocardiogram - 2D | | | | | Complete | | | + + + + + | SCT- | Medication | | | | [id number] | Reconcilliation | | | + + + + + | RISK 90776 | Lipid Profile | | | + + + + + | U FABIO RAN 73044 | Microalbumin, | | | | | Random Urine | | | + + + + + | GLYCO HGB 68054 | Glyco Hemoglobin, | | | | | A1C | | | + + + + + | CHEM PROF | Comprehensive | | | | | Metabolic Panel | | | + + + + + | HGB A1C 00342 | HgbA1C | | | + + + + + | UA 68874 | Urinalysis | | | + + + + + | M JUNIN ROU 28874 | Culture Urine | | | + + + + + | UA CULT IF MULTIPLE | Urinalysis Culture | | | | | If Indicat | | | + + + + + | CPT-00912 | UA Dipstick | | | | | (Office) | | | + + + + + | [id number] | [Recorded for CQM] | | | | | Documentation of | | | | | current medications | | | | | (procedure) | | | + + + + + | [id number] | [Recorded for CQM] | | | | | Pedal pulse taking | | | | | (procedure) | | | + + + + + | CPT-68129 | Adm 1st Inj No | | | | | counseling or >18 | | | + + + + + | [id number] | [Recorded for CQM] | | | | | Documentation of | | | | | current medications | | | | | (procedure) | | | + + + + + | [id number] | [Recorded for CQM] | | | | | Examination of | | | | | retina (procedure) | | | + + + + + | [id number] | [Recorded for CQM] | | | | | Never smoker | | | + + + + + | [id number] | [Recorded for CQM] | | | | | Never smoked | | | | | tobacco (finding) | | | + + + + + | [id number] | [Recorded for CQM] | | | | | Tobacco use and | | | | | exposure | | | + + + + + | CPT-22135 | Fluvirin /Fluzone | | | | | >3 | | | + + + + + | [id number] | [Recorded for CQM] | | | | | Monofilament foot | | | | | sensation test | | | | | (procedure) | | | + + + + + | [id number] | [Recorded for CQM] | | | | | Pedal pulse taking | | | | | (procedure) | | | + + + + + | [id number] | [Recorded for CQM] | | | | | Documentation of | | | | | current medications | | | | | (procedure) | | | + + + + + | [id number] | [Recorded for CQM] | | | | | Diabetic foot | | | | | examination | | | | | (regime/therapy) | | | + + + + + | [id number] | [Recorded for CQM] | | | | | Details of drug | | | | | misuse behavior | | | + + + + + | [id number] | [Recorded for CQM] | | | | | Health-related | | | | | behavior | | | + + + + + | [id number] | [Recorded for CQ] | | | | | Alcohol intake | | | + + + + + | CPT-96868 | Urine Tox, multiple | | | | | drug classes | | | + + + + + | [id number] | [Recorded for CQ] | | | | | Documentation of | | | | | current medications | | | | | (procedure) | | | + + + + + | GLYCO HGB 96905 | HgbA1C | | | + + + + + | CHEM PROF | Comprehensive | | | | | Metabolic Panel | | | + + + + + | Tomasz BOSWELL 68772 | Microalbumin, | | | | | Random Urine | | | + + + + + | RISK 53145 | Lipid Profile | | | + + + + + | 09846 | MX Dexa Scan-Body | | | + + + + + | CPT-19944 | Venipuncture | | | + + + + + | [id number] | [Recorded for CQM] | | | | | Pedal pulse taking | | | | | (procedure) | | | + + + + + | [id number] | [Recorded for CQM] | | | | | Documentation of | | | | | current medications | | | | | (procedure) | | | + + + + + | [id number] | [Recorded for CQM] | | | | | Diabetic foot | | | | | examination | | | | | (regime/therapy) | | | + + + + + | [id number] | [Recorded for CQM] | | | | | Monofilament foot | | | | | sensation test | | | | | (procedure) | | | + + + + + | 70181 G0202 | MX Mammo Dig | | | | | Screen-Bilat | | | + + + + + | GLYCO HGB 74230 | HgbA1C | | | + + + + + | CPT-93885 | Venipuncture | | | + + + + + | CPT-10422 | Adm 1st Inj No | | | | | counseling or >18 | | | + + + + + | PAP SS WO G0145 | PAP SURE Sc wo HPV | | | + + + + + | FREE T4 59329 | T4 Free | | | + + + + + | TSH 77484 | TSH | | | + + + + + | RISK 08799 | Lipid Profile | | | + + + + + | CHEM PROF 97892 | CMP (Comprehensive | | | | | Metabolic Panel) | | | + + + + + | GLYCO HGB 05687 | HgbA1C | | | + + + + + | U FABIO RAN 09456 | Microalbumin, | | | | | Random Urine | | | + + + + + | CBC AUTO 61419 | CBC w/ Auto Diff | | | + + + + + | CPT-G0439 | Annual Wellness | | | | | Visit (Medicare) | | | | | Subsqnt visit | | | + + + + + | CPT-68079 | Pneumovax 23 | | | | | (Pneumococcal) >2 | | | + + + + + | CPT-04401 | Adm addtl Inj No | | | | | counseling or >18 | | | + + + + + | CPT-86192 | Fluvirin /Fluzone | | | | | >3 | | | + + + + + | 05155 | MR Head-WO Con | | | + + + + + | CPT-30658 | Venipuncture | | | + + + + + | CHEM PROF 72564 | CMP (Comprehensive | | | | | Metabolic Panel) | | | + + + + + | U FABIO RAN 57476 | Microalbumin, | | | | | Random Urine | | | + + + + + | GLYCO HGB 03573 | HgbA1C | | | + + + + + | RISK 92664 | Lipid Profile | | | + + + + + | 79227 G0202 | MX Mammo Dig | | | | | Screen-Bilat | | | + + + + + | CPT-G0438 | Annual Wellness | | | | | Visit (Medicare) | | | | | 1st visit | | | + + + + + | I1831 74920 | MX Mammo Dig | | | | | Diag-Bilat | | | + + + + + | 65291 | MX Dexa Scan-Body | | | + + + + + | CPT-14451 | EKG- tracing with | | | | | report (06225) | | | + + + + + | CHEM PROF 61007 | CMP (Comprehensive | | | | | Metabolic Panel) | | | + + + + + | 20410 | XR Chest-2V | | | + + + + + | U FABIO RAN 96251 | Microalbumin, | | | | | Random Urine | | | + + + + + | RISK 64014 | Lipid Profile | | | + + + + + | CPT-28586 | Venipuncture | | | + + + + + | GLYCO HGB 79241 | HgbA1C | | | + + + + + | CPT-40292 | Refraction (08618) | | | + + + + + | CPT-15119 | Ext. | | | | | Ophthalmoscopy, | | | | | Subs. | | | + + + + + | CPT-81380 | Venipuncture | | | + + + + + | GLYCO HGB 25994 | HgbA1C | | | + + + + + | CPT-32856 | Venipuncture | | | + + + + + | CHEM PROF 17501 | CMP (Comprehensive | | | | | Metabolic Panel) | | | + + + + + | U FABIO RAN 46077 | Microalbumin, | | | | | Random Urine | | | + + + + + | GLYCO HGB 92798 | HgbA1C | | | + + + + + | RISK 42370 | Lipid Profile | | | + + + + + | CPT-82499 | Venipuncture | | | + + + + + | GLYCO HGB 11142 | HgbA1C | | | + + + + + | CPT-17144 | Flu Vaccine > 8 | | | | | yrs. | | | + + + + + | CPT-G0008 | Admin of Flu Vac | | | | | (Mdc/Atrio) | | | + + + + + | CHEM PROF 97869 | CMP (Comprehensive | | | | | Metabolic Panel) | | | + + + + + | CPT-G0202 | Mammogram - | | | | | Screening | | | | | (bilateral) | | | + + + + + | U FABIO RAN 97594 | Microalbumin, | | | | | Random Urine | | | + + + + + | GLYCO HGB 00559 | HgbA1C | | | + + + + + | RISK 20546 | Lipid Profile | | | + + + + + | CPT-G0008 | Admin of Flu Vac | | | | | (Mdc/Atrio) | | | + + + + + | CPT-32973 | Flu vaccine >3 y/o | | | + + + + + | CPT-10409 | MRI- Spine: Lumbar | | | | | w/o contrast | | | + + + + + | CPT-95982 | UA Dipstick | | | | | (Office) | | | + + + + + | Vic LOZA 04333 | Culture Urine | | | + + + + + | CPT-44742 | X-Ray- Hand (3+ | | | | | views) | | | + + + + + | CPT-02661 | Mammogram - | | | | | Screening | | | | | (bilateral) | | | + + + + + | CPT-04924 | Admin of Imm. over | | | | | 8yrs (1st) | | | + + + + + | CPT-46522 | Flu vaccine >3 y/o | | | + + + + + | CPT-60735 | X-Ray- Chest - PA | | | | | and lateral | | | + + + + + | CHEM PROF 27601 | CMP (Comprehensive | | | | | Metabolic Panel) | | | + + + + + | PAP SCREEN G0123 | PAP Liquid Based, | | | | | Screening | | | + + + + + | CPT-64294 | X-Ray- Thoracic (3 | | | | | views) | | | + + + + + | GLYCO HGB 90255 | HgbA1C | | | + + + + + | RISK 20082 | Lipid Profile | | | + + + + + | CHEM 8 54177 | Basic Metabolic | | | | | Panel | | | + + + + + | GLYCO HGB 22548 | HgbA1C | | | + + + + + | VIT B12 82821 | B-12 | | | + + + + + | RISK 43737 | Lipid Profile | | | + + + + + | MG 77548 | Magnesium Level | | | + + + + + | CHEM PROF 24909 | CMP (Comprehensive | | | | | Metabolic Panel) | | | + + + + + | CPT-51943 | Mammogram - | | | | | Screening | | | | | (bilateral) | | | + + + + + | CPT-23531 | DEXA scan (bone | | | | | density) | | | + + + + + | RISK 00958 | Lipid Profile | | | + + + + + | [place] [address] | Magnesium Level | | | + + + + + | 3048F | LDL-C < 100 mg/dl | | | + + + + + | 3074F | Sys-BP < 130 mm Hg | | | + + + + + | 3074F | Gemma-BP < 80 mm Hg | | | + + + + + | 3045F | A1c 7.0%-9.0% | | | + + + + + | RISK 35142 | Lipid Profile | | | + + + + + | CPT-07302 | Complete Eye Exam/ | | | | | Treatment | | | + + + + + | GLYOCO HGB 43012 | HbA1C | | | + + + + + | CHEM PROF 04020 | CMP (Comprehensive | | | | | Metabolic Panel) | | | + + + + + | CPT-39013 | Comprehensive | | | | | Metabolic Panel | | | + + + + + | CPT-75165 | Lipid Profile | | | + + + + + | CPT-67260 | HbA1C | | | + + + + + Vital Signs + + +-------+---------+ + | Date | Name | Value | Unit | Description | + + +-------+---------+ + | | BMI (Body Mass | 29.50 | kg/m2 | Body Mass Index | | | Index) | | | [Ratio] | + + +-------+---------+ + | | BP Diastolic | 72 | mm[Hg] | blood pressure, | | | | | | diastolic | + + +-------+---------+ + | | BP Diastolic | 72 | mm[Hg] | blood pressure, | | | | | | diastolic, | | | | | | second | | | | | | observation | + + +-------+---------+ + | | BP Systolic | 140 | mm[Hg] | blood pressure, | | | | | | systolic, | | | | | | second | | | | | | observation | + + +-------+---------+ + | | BP Systolic | 140 | mm[Hg] | blood pressure, | | | | | | systolic | + + +-------+---------+ + | | Body | 97.7 | [degF] | temperature E&M | | | Temperature | | | | + + +-------+---------+ + | | Height | 59.5 | [in_us] | height E&M | + + +-------+---------+ + | | Weight Measured | 148 | [lb_av] | weight E&M | + + +-------+---------+ + | | BMI (Body Mass | 30.69 | kg/m2 | Body Mass Index | | | Index) | | | [Ratio] | + + +-------+---------+ + | | BP Diastolic | 85 | mm[Hg] | blood pressure, | | | | | | diastolic, | | | | | | second | | | | | | observation | + + +-------+---------+ + | | BP Diastolic | 85 | mm[Hg] | blood pressure, | | | | | | diastolic | + + +-------+---------+ + | | BP Systolic | 159 | mm[Hg] | blood pressure, | | | | | | systolic, | | | | | | second | | | | | | observation | + + +-------+---------+ + | | BP Systolic | 159 | mm[Hg] | blood pressure, | | | | | | systolic | + + +-------+---------+ + | | Body | 98.0 | [degF] | temperature E&M | | | Temperature | | | | + + +-------+---------+ + | | Heart Rate | 81 | /min | pulse rate E&M | + + +-------+---------+ + | | Height | 59.5 | [in_us] | height E&M | + + +-------+---------+ + | | Weight Measured | 154 | [lb_av] | weight E&M | + + +-------+---------+ + | | BMI (Body Mass | 30.69 | kg/m2 | Body Mass Index | | | Index) | | | [Ratio] | + + +-------+---------+ + | | BP Diastolic | 70 | mm[Hg] | blood pressure, | | | | | | diastolic | + + +-------+---------+ + | | BP Diastolic | 70 | mm[Hg] | blood pressure, | | | | | | diastolic, | | | | | | second | | | | | | observation | + + +-------+---------+ + | | BP Systolic | 126 | mm[Hg] | blood pressure, | | | | | | systolic, | | | | | | second | | | | | | observation | + + +-------+---------+ + | | BP Systolic | 126 | mm[Hg] | blood pressure, | | | | | | systolic | + + +-------+---------+ + | | Body | 98.8 | [degF] | temperature E&M | | | Temperature | | | | + + +-------+---------+ + | | Heart Rate | 84 | /min | pulse rate E&M | + + +-------+---------+ + | | Height | 59 | [in_us] | height E&M | + + +-------+---------+ + | | Respiratory | 14 | /min | respiratory | | | Rate | | | rate E&M | + + +-------+---------+ + | | Weight Measured | 151.4 | [lb_av] | weight E&M | + + +-------+---------+ + | | BMI (Body Mass | 30.61 | kg/m2 | Body Mass Index | | | Index) | | | [Ratio] | + + +-------+---------+ + | | BP Diastolic | 71 | mm[Hg] | blood pressure, | | | | | | diastolic, | | | | | | second | | | | | | observation | + + +-------+---------+ + | | BP Diastolic | 71 | mm[Hg] | blood pressure, | | | | | | diastolic | + + +-------+---------+ + | | BP Systolic | 132 | mm[Hg] | blood pressure, | | | | | | systolic, | | | | | | second | | | | | | observation | + + +-------+---------+ + | | BP Systolic | 132 | mm[Hg] | blood pressure, | | | | | | systolic | + + +-------+---------+ + | | Body | 98.3 | [degF] | temperature E&M | | | Temperature | | | | + + +-------+---------+ + | | Heart Rate | 84 | /min | pulse rate E&M | + + +-------+---------+ + | | Height | 59 | [in_us] | height E&M | + + +-------+---------+ + | | Respiratory | 14 | /min | respiratory | | | Rate | | | rate E&M | + + +-------+---------+ + | | Weight Measured | 151.0 | [lb_av] | weight E&M | + + +-------+---------+ + | | BMI (Body Mass | 31.87 | kg/m2 | Body Mass Index | | | Index) | | | [Ratio] | + + +-------+---------+ + | | BP Diastolic | 67 | mm[Hg] | blood pressure, | | | | | | diastolic | + + +-------+---------+ + | | BP Diastolic | 67 | mm[Hg] | blood pressure, | | | | | | diastolic, | | | | | | second | | | | | | observation | + + +-------+---------+ + | | BP Systolic | 137 | mm[Hg] | blood pressure, | | | | | | systolic | + + +-------+---------+ + | | BP Systolic | 137 | mm[Hg] | blood pressure, | | | | | | systolic, | | | | | | second | | | | | | observation | + + +-------+---------+ + | | Body | 99.4 | [degF] | temperature E&M | | | Temperature | | | | + + +-------+---------+ + | | Heart Rate | 87 | /min | pulse rate E&M | + + +-------+---------+ + | | Height | 59 | [in_us] | height E&M | + + +-------+---------+ + | | Respiratory | 15 | /min | respiratory | | | Rate | | | rate E&M | + + +-------+---------+ + | | Weight Measured | 157.2 | [lb_av] | weight E&M | + + +-------+---------+ + | | BMI (Body Mass | 31.42 | kg/m2 | Body Mass Index | | | Index) | | | [Ratio] | + + +-------+---------+ + | | BP Diastolic | 68 | mm[Hg] | blood pressure, | | | | | | diastolic | + + +-------+---------+ + | | BP Systolic | 116 | mm[Hg] | blood pressure, | | | | | | systolic | + + +-------+---------+ + | | Heart Rate | 83 | /min | pulse rate E&M | + + +-------+---------+ + | | Height | 59 | [in_us] | height E&M | + + +-------+---------+ + | | Weight Measured | 155 | [lb_av] | weight E&M | + + +-------+---------+ + | | BMI (Body Mass | 30.97 | kg/m2 | Body Mass Index | | | Index) | | | [Ratio] | + + +-------+---------+ + | | BP Diastolic | 65 | mm[Hg] | blood pressure, | | | | | | diastolic | + + +-------+---------+ + | | BP Diastolic | 65 | mm[Hg] | blood pressure, | | | | | | diastolic, | | | | | | second | | | | | | observation | + + +-------+---------+ + | | BP Systolic | 135 | mm[Hg] | blood pressure, | | | | | | systolic | + + +-------+---------+ + | | BP Systolic | 135 | mm[Hg] | blood pressure, | | | | | | systolic, | | | | | | second | | | | | | observation | + + +-------+---------+ + | | Body | 98.9 | [degF] | temperature E&M | | | Temperature | | | | + + +-------+---------+ + | | Heart Rate | 81 | /min | pulse rate E&M | + + +-------+---------+ + | | Height | 59.5 | [in_us] | height E&M | + + +-------+---------+ + | | Respiratory | 14 | /min | respiratory | | | Rate | | | rate E&M | + + +-------+---------+ + | | Weight Measured | 155.4 | [lb_av] | weight E&M | + + +-------+---------+ + Social History + + + +-------+ + | Concept | Observation | Observation | Units | Start Date | | Description | Name | Value | | | + + + +-------+ + | Never smoker | SMOK STATUS | Never smoker | | | + + + +-------+ + | Never smoker | SMOK STATUS | Never smoker | | | + + + +-------+ + | Never smoker | SMOK STATUS | Never smoker | | | + + + +-------+ + | Never smoker | SMOK STATUS | Never smoker | | | + + + +-------+ + | Never smoker | SMOK STATUS | Never smoker | | | + + + +-------+ + | Never smoker | SMOK STATUS | Never smoker | | | + + + +-------+ + | Never smoker | SMOK STATUS | Never smoker | | | + + + +-------+ + | Never smoker | SMOK STATUS | Never smoker | | | + + + +-------+ + | Never smoker | SMOK STATUS | Never smoker | | | + + + +-------+ + | Never smoker | SMOK STATUS | Never smoker | | | + + + +-------+ + | Never smoker | SMOK STATUS | Never smoker | | | + + + +-------+ + | Never smoker | SMOK STATUS | Never smoker | | | + + + +-------+ + | Feeling down, | PHQ9 Q2 | 3 | | | | depressed, or | | | | | | hopeless? | | | | | + + + +-------+ + | Little interest | PHQ9 Q1 | 3 | | | | or pleasure in | | | | | | doing things? | | | | | + + + +-------+ + | Never smoker | SMOK STATUS | Never smoker | | | + + + +-------+ + | Never smoker | SMOK STATUS | Never smoker | | | + + + +-------+ + | Alcohol intake | ETOH USE | previous | | | + + + +-------+ + | Details of drug | DRUG USE | none | | | | misuse | | | | | | behavior | | | | | + + + +-------+ + | Health-related | HIV RSK EVAL | No | | | | behavior | | | | | + + + +-------+ +"
--- OUTSIDE RECORDS SUMMARY | ~2017-01-29 | XMS | Clinical Summary ---
Demographics + + + | Address | [address] | | | [place] [address] | + + + | Home Phone | | + + + | Preferred Language | Unknown | + + + | Marital Status | W | + + + | Spiritism Affiliation | Unknown | + + + | Race | White | + + + | Ethnic Group | Not or | + + + Author + + + | Author | [facility] | + + + | Organization | [facility] | + + + | Address | [address] | | | [place] [address] | + + + | Phone | Unavailable | + + + Care Team Providers + +------+ + | Care Certification Officer Name | Role | Phone | + +------+ + | Ajay Ward DPM | PCP | [phone] | + +------+ + Conditions or Problems [...] | | tion | | +---------+---------+---------+---------+---------+---------+---------+---------+---------+ | DIABETE | 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 | | Active | | Ajay | | Diabeti | | | S | 4 | | | | Sylvia | | c | | | MELLITU | (SNOMED | | | | DPM | | polyneu | | | S, TYPE | CT) | | | | | | ropathy | | | II | | | | | | | | | | WITH | | | | | | | | | | POLYNEU | | | | | | | | | | ROPATHY | | | | | | | | | +---------+---------+---------+---------+---------+---------+---------+---------+---------+ | FOOT | [id number] | | Active | | Jaay | | Foot | | | PAIN, | 7 | 17 | | | Sylvia | | pain | | | LEFT | (SNOMED | | | | DPM | | | | | | CT) | | | | | | | | +---------+---------+---------+---------+---------+---------+---------+---------+---------+ | FOOT | [id number] | | Active | | Ajay | | Foot | | | PAIN, | 7 | | | | Sylvia | | pain | | | RIGHT | (SNOMED | | | | DPM | | | | | | CT) | | | | | | | | +---------+---------+---------+---------+---------+---------+---------+---------+---------+ | ONYCHOM | [id number] | | Active | | Ajay | | Onychom | | | YCOSIS | 08 | | | | Sylvia | | ycosis | | | | (SNOMED | | | | DPM | | | | | | CT) | | | | | | | | +---------+---------+---------+---------+---------+---------+---------+---------+---------+ | ONYCHAU | [id number] | | Active | | Ajay | | Hypertr | | | XIS | 2 | | | | Sylvia | | ophy of | | | | (SNOMED | | | | DPM | | nail | | | | CT) | | | | | | | | +---------+---------+---------+---------+---------+---------+---------+---------+---------+ | 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 | | /20 | Agsten | | diabete | | | S | (SNOMED | | | | DO | | s | | | MELLITU | CT) | | | | | | mellitu | | | S WITH | | | | | | | s well | | | DIABETI | | | | | | | control | | | C | | | | | | | led | | | POLYNEU | | | | | | | | | | ROPATHY | | | | | | | | | +---------+---------+---------+---------+---------+---------+---------+---------+---------+ | OSTEOAR | [id number] | | Resolve | | Jennifer | | Osteoar | | | THRITIS | 02 | /14 | d | /15 | Agsten | | thritis | | | , HIP, | (SNOMED | | | | DO | | of hip | | | LEFT | CT) | | | | | | | | +---------+---------+---------+---------+---------+---------+---------+---------+---------+ | HALLUX | [id number] | | Active | | Ajay | [...] | | | +---------+---------+---------+---------+---------+---------+---------+---------+---------+ | HALLUX | [id number] | | Active | | Ajay | [...] | | | +---------+---------+---------+---------+---------+---------+---------+---------+---------+ | LUMBAR | [id number] | | Resolve | | Jennifer | | Lumbar | | | RADICUL | 05 | /08 | d | /08 | Agsten | | radicul | | | OPATHY, | (SNOMED | | | | DO | | opathy | | | LEFT | CT) | | | | | | | | +---------+---------+---------+---------+---------+---------+---------+---------+---------+ | PAIN IN | [id number] | | Resolve | | Jennifer | | Hip | | | LEFT | 2 | /23 | d | /23 | Agsten | | pain | | | HIP | (SNOMED | | | | DO | | | | | | CT) | | | | | | | | +---------+---------+---------+---------+---------+---------+---------+---------+---------+ | PAIN IN | [id number] | | Removed | | Farzad | | Hip | | | LEFT | 2 | /23 | | /23 | | | pain | | | HIP | (SNOMED | | | | VanAnro | | | | | | CT) | | | | oy MD | | | | +---------+---------+---------+---------+---------+---------+---------+---------+---------+ | OSTEOAR | [id number] | | Removed | | Rendee | | Osteoar | | | THRITIS | 02 | /14 | | /15 | Mishra | | thritis | | | , HIP, | (SNOMED | | | | | | of hip | | | LEFT | CT) | | | | | | | | +---------+---------+---------+---------+---------+---------+---------+---------+---------+ | LUMBAR | [id number] | | Removed | | Jennifer | | Lumbar | | | RADICUL | 05 | /08 | | /08 | Agsten | | radicul | | | OPATHY, | (SNOMED | | | | DO | | opathy | | | LEFT | CT) | | | | | | | | +---------+---------+---------+---------+---------+---------+---------+---------+---------+ | HIP | [id number] | | Inactiv | | Jennifer | [...] | | BETES | (ICD-10 | | d | | Agsten | | diabete | [...] | | | | (ICD-10 | | d | | Agsten | | diabete | [...] ropathy | | +---------+---------+---------+---------+---------+---------+---------+---------+---------+ | ROTATOR | [id number] | | Resolve | | Jennifer | | Inflamm | | | CUFF | 00 | | d | | Agsten | | ation | | | TENDONI | (SNOMED | | | | DO | | of | | | TIS | CT) | | | | | | rotator | | | | | | | | | | cuff | | | | | | | | | | tendon | | +---------+---------+---------+---------+---------+---------+---------+---------+---------+ | SCIATIC | [id number] | | Resolve | | Jennifer | | Sciatic | | | A | 5 | /25 | d | /25 | Agsten | | a | | | | (SNOMED | | | | DO | | | | | | CT) | | | | | | | | +---------+---------+---------+---------+---------+---------+---------+---------+---------+ | NAUSEA | [id number] | | Resolve | | Jennifer | | Nausea | | | ALONE | 07 | /20 | d | /20 | Agsten | | | | | | (SNOMED | | | | DO | | | | | | CT) | | | | | | | | +---------+---------+---------+---------+---------+---------+---------+---------+---------+ | LEFT | [id number] | | Active | | Jennifer | [...] healing | | +---------+---------+---------+---------+---------+---------+---------+---------+---------+ | PERIPHE | [id number] | | Resolve | | Jennifer | | Periphe | | | RAL | 06 | /20 | d | /20 | Agsten | | ral | | | NEUROPA | (SNOMED | | | | DO | | nerve | | | THY | CT) | | | | | | disease | | +---------+---------+---------+---------+---------+---------+---------+---------+---------+ | BREAST | [id number] | | Resolve | | Jennifer | | Pain of | | | PAIN, | 7 | /09 | d | /09 | Agsten | | breast | | | LEFT | (SNOMED | | | | DO | | | | | | CT) | | | | | | | | +---------+---------+---------+---------+---------+---------+---------+---------+---------+ | WELL | [id number] | | Resolve | | Jennifer | | Adult | | | ADULT | 07 | /09 | d | /09 | Agsten | | health | | | EXAM | (SNOMED | | | | DO | | examina | | | | CT) | | | | | | tion | | +---------+---------+---------+---------+---------+---------+---------+---------+---------+ | OTHER | [id number] | | Resolve | | Jennifer | | Screeni | | | SCREENI | 2 | /17 | d | /17 | Agsten | | ng | | | NG | (SNOMED | | | | DO | | mammogr | | | MAMMOGR | CT) | | | | | | aphy | | | AM | | | | | | | | | +---------+---------+---------+---------+---------+---------+---------+---------+---------+ | DIZZINE | [id number] | | Resolve | | Jennifer | | Dizzine | | | SS | 03 | /12 | d | /12 | Agsten | | ss | | | | (SNOMED | | | | DO | | | | | | CT) | | | | | | | | +---------+---------+---------+---------+---------+---------+---------+---------+---------+ | MELENA | [id number] | | Resolve | | Jennifer | | Melena | | | | | / | d | / | Agsten | | | | | | (SNOMED | | | | DO | | | | | | CT) | | | | | | | | +---------+---------+---------+---------+---------+---------+---------+---------+---------+ | NEED | [id number] | | Resolve | | Jennifer | | Encount | | | PROPHYL | (ICD-10 | / | d | | Agsten [...] | | | +---------+---------+---------+---------+---------+---------+---------+---------+---------+ | UTI | [id number] | | Resolve | | Jennifer | | Urinary | | | | 5 | /01 | d | /01 | Agsten | | tract | | | | (SNOMED | | | | DO | | infecti | | | | CT) | | | | | | ous | | | | | | | | | | disease | | +---------+---------+---------+---------+---------+---------+---------+---------+---------+ | NAUSEA | [id number] | | Removed | | Jennifer | | Nausea | | | ALONE | 07 | /20 | | /20 | Agsten | | | | | | (SNOMED | | | | DO | | | | | | CT) | | | | | | | | +---------+---------+---------+---------+---------+---------+---------+---------+---------+ | UTI | [id number] | | Removed | | Jennifer | [...] disease | | +---------+---------+---------+---------+---------+---------+---------+---------+---------+ | SCIATIC | [id number] | | Removed | | Jennifer | | Sciatic | | | A | | | | | Agsten | | a | | | | (SNOMED | | | | DO | | | | | | CT) | | | | | | | | +---------+---------+---------+---------+---------+---------+---------+---------+---------+ | ROTATOR | [id number] | | Removed | | Jennifer | | Inflamm | | | CUFF | | | | / | Agsten | [...] | PROPHYL | (ICD-10 | /20 | | /20 | Agsten [...] | | | +---------+---------+---------+---------+---------+---------+---------+---------+---------+ | INGROWN | [id number] | | Inactiv | | Ajay | [...] on | | +---------+---------+---------+---------+---------+---------+---------+---------+---------+ | OTHER | [id number] | | Removed | | Jennifer | | Screeni | | | SCREENI | 2 | / | | /17 | Agsten | | ng | | | NG | (SNOMED | | | | DO | | mammogr | | | MAMMOGR | CT) | | | | | | aphy | | | AM | | | | | | | | | +---------+---------+---------+---------+---------+---------+---------+---------+---------+ | MELENA | [id number] | | Removed | | Lewis | | Melena | | | | | /02 | | /02 | Sae | | | | | | (SNOMED | | | | RN | | | | | | CT) | | | | | | | | +---------+---------+---------+---------+---------+---------+---------+---------+---------+ | SCREENI | [id number] | | Inactiv | | Jennifer | | Screeni | | | NG, | 4 | / | e | / | Agsten | | ng for | | | VAGINAL | (SNOMED | | | | DO | | cancer | | | CANCER | CT) | | | | | | | | +---------+---------+---------+---------+---------+---------+---------+---------+---------+ | WELL | [id number] | | Removed | | Jennifer | | Adult | | | ADULT | 07 | / | | / | Agsten | | health | | | EXAM | (SNOMED | | | | DO | | examina | | | | CT) | | | | | | tion | | +---------+---------+---------+---------+---------+---------+---------+---------+---------+ | DIZZINE | [id number] | | Removed | | Jennifer | | Dizzine | | | SS | 03 | 12 | | /12 | Agsten | | ss | | | | (SNOMED | | | | DO | | | | | | CT) | | | | | | | | +---------+---------+---------+---------+---------+---------+---------+---------+---------+ | DIVERTI | 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 | | Inactiv | | Jasmeet | | Diverti | | | CULOSIS | (ICD-10 | | e | | Engstro | | culosis | | [...] Persona | | | COLON | | / | e | / | Engstro | | l | | | POLYPS | (ICD-10 | | | | m MD | | history | | | | -CM) | | | | | | of | | | | | | | | | | colonic | | | | | | | | | | polyps | | +---------+---------+---------+---------+---------+---------+---------+---------+---------+ | OTHER | [id number] | | Inactiv | | Corie | | Screeni | | | SCREENI | 2 | / | e | | Gomez | | ng | | [...] | | (ICD-10 | | | | Agsten [...] | BETES | (ICD-10 | / | | | Agsten | | diabete [...] fied | | +---------+---------+---------+---------+---------+---------+---------+---------+---------+ | WELL | [id number] | | Inactiv | | Jennifer | | Adult | | | ADULT | | | e | | Agsten | | health | | | EXAM | (SNOMED | | | | DO | | examina | | | | CT) | | | | | | tion | | +---------+---------+---------+---------+---------+---------+---------+---------+---------+ | BREAST | [id number] | | Removed | | Jennifer | | Pain of | | | PAIN, | 7 | /09 | | /09 | Agsten | | breast | | | LEFT | (SNOMED | | | | DO | | | | | | CT) | | | | | | | | +---------+---------+---------+---------+---------+---------+---------+---------+---------+ | PRESBYO | [id number] | | Resolve | | Jennifer | | Presbyo | | | HUMBLE | 4 | /03 | d | /03 | Agsten | | humble | | | | (SNOMED | | | | DO | | | | | | CT) | | | | | | | | +---------+---------+---------+---------+---------+---------+---------+---------+---------+ | ASTIGMA | [id number] | | Resolve | | Jennifer | | Astigma | | | TISM | 3 | /03 | d | /03 | Agsten | | tism | | | | (SNOMED | | | | DO | | | | | | CT) | | | | | | | | +---------+---------+---------+---------+---------+---------+---------+---------+---------+ | RETINAL | [id number] | | Resolve | | Jennifer | | Retinal | | | | 8 | /03 | d | /03 | Agsten | | | | | HEMORRH | (SNOMED | | | | DO | | hemorrh | | | AGE | CT) | | | | | | age | | +---------+---------+---------+---------+---------+---------+---------+---------+---------+ | MICROAN | [id number] | | Resolve | | Jennifer | | Retinal | | | EURYSMS | 0 | /03 | d | /03 | Agsten | | | | | , | (SNOMED | | | | DO | | microan | | | RETINAL | CT) | | | | | | eurysm | | +---------+---------+---------+---------+---------+---------+---------+---------+---------+ | POSTERI | [id number] | | Resolve | | Jennifer | [...] eye | | +---------+---------+---------+---------+---------+---------+---------+---------+---------+ | HYPEROP | [id number] | | Resolve | | Jennifer | | Hyperme | | | IA | 3 | /03 | d | /03 | Agsten | | tropia | | | | (SNOMED | | | | DO | | | | | | CT) | | | | | | | | +---------+---------+---------+---------+---------+---------+---------+---------+---------+ | ROSACEA | [id number] | | Resolve | | Jennifer | | Rosacea | | | | 04 | /03 | d | /03 | Agsten | | | | | | (SNOMED | | | | DO | | | | | | CT) | | | | | | | | +---------+---------+---------+---------+---------+---------+---------+---------+---------+ | SCREENI | [id number] | | Resolve | | Jennifer | [...] cervix | | +---------+---------+---------+---------+---------+---------+---------+---------+---------+ | SCIATIC | [id number] | | Resolve | | Jennifer | | Sciatic | | | A | 5 | /25 | d | /25 | Agsten | | a | | | | (SNOMED | | | | DO | | | | | | CT) | | | | | | | | +---------+---------+---------+---------+---------+---------+---------+---------+---------+ | INSOMNI | [id number] | | Active | | Ariela | | Insomni | | | A | 01 | /02 | | /02 | Ashwin | | a | | | | (SNOMED | | | | | | | | | | CT) | | | | | | | | +---------+---------+---------+---------+---------+---------+---------+---------+---------+ | ROSACEA | [id number] | | Removed | | Abby | | Rosacea | | | | 04 | /03 | | /03 | Racheal | | | | | | (SNOMED | | | | OD | | | | | | CT) | | | | | | | | +---------+---------+---------+---------+---------+---------+---------+---------+---------+ | HYPEROP | [id number] | | Removed | | Abby | [...] | | | | | /03 | | /03 | Gauer | | (degene | | [...] eye | | +---------+---------+---------+---------+---------+---------+---------+---------+---------+ | POSTERI | [id number] | | Removed | | Abby | [...] ent | | +---------+---------+---------+---------+---------+---------+---------+---------+---------+ | MICROAN | [id number] | | Removed | | Abby | | Retinal | | | EURYSMS | 0 | /03 | | /03 | Gauer | | | | | , | (SNOMED | | | | OD | | microan | | | RETINAL | CT) | | | | | | eurysm | | +---------+---------+---------+---------+---------+---------+---------+---------+---------+ | RETINAL | [id number] | | Removed | | Abby | | Retinal | | | | 8 | /03 | | /03 | Gauer | | | | | HEMORRH | (SNOMED | | | | OD | | hemorrh | | | AGE | CT) | | | | | | age | | +---------+---------+---------+---------+---------+---------+---------+---------+---------+ | ASTIGMA | [id number] | | Removed | | Abby | | Astigma | | | TISM | 3 | /03 | | /03 | Gauer | | tism | | | | (SNOMED | | | | OD | | | | | | CT) | | | | | | | | +---------+---------+---------+---------+---------+---------+---------+---------+---------+ | PRESBYO | [id number] | | Removed | | Abby | | Presbyo | | | HUMBLE | 4 | /03 | | /03 | Gauer | | humble | | | | (SNOMED | | | | OD | | | | | | CT) | | | | | | | | +---------+---------+---------+---------+---------+---------+---------+---------+---------+ | SCIATIC | [id number] | | Removed | | Jennifer | | Sciatic | | | A | 5 | /25 | | /25 | Agsten | | a | | | | (SNOMED | | | | DO | | | | | | CT) | | | | | | | | +---------+---------+---------+---------+---------+---------+---------+---------+---------+ | HYPOMAG | [id number] | | Resolve | | Jennifer | | Hypomag | | | NESEMIA | 04 | /30 | d | /30 | Agsten | | nesemia | | | | (SNOMED | | | | DO | | | | | | CT) | | | | | | | | +---------+---------+---------+---------+---------+---------+---------+---------+---------+ | FOLLICU | [id number] | | Resolve | | Jennifer | | Follicu | | | LITIS | 6 | /27 | d | /27 | Agsten | | litis | | | | (SNOMED | | | | DO | | | | | | CT) | | | | | | | | +---------+---------+---------+---------+---------+---------+---------+---------+---------+ | URI | [id number] | | Resolve | | Jennifer | | Upper | | | | 9 | / | d | /27 | Agsten | | respira | | | | (SNOMED | | | | DO | | tory | | | | CT) | | | | | | infecti | | | | | | | | | | on | | +---------+---------+---------+---------+---------+---------+---------+---------+---------+ | CYSTOCE | [id number] | | Resolve | | Jennifer | [...] | | | +---------+---------+---------+---------+---------+---------+---------+---------+---------+ | ABNORMA | [id number] | | Resolve | | Jennifer | | Standar | | | L CHEST | 01 | /21 | d | /21 | Agsten | | d chest | | | XRAY | (SNOMED | | | | DO | | X-ray | | | | CT) | | | | | | abnorma | | | | | | | | | | l | | +---------+---------+---------+---------+---------+---------+---------+---------+---------+ | ALLERGI | [id number] | | Resolve | | Jennifer | | Allergi | | | C | 4 | /05 | d | /05 | Agsten | | c | | | RHINITI | (SNOMED | | | | DO | | rhiniti | | | S | CT) | | | | | | s | | +---------+---------+---------+---------+---------+---------+---------+---------+---------+ | SINUSIT | [id number] | | Resolve | | Jennifer | | Acute | | | IS, | 2 | /05 | d | /05 | Agsten | | sinusit | | | ACUTE | (SNOMED | | | | DO | | is | | | NOS | CT) | | | | | | | | +---------+---------+---------+---------+---------+---------+---------+---------+---------+ | CONTUSI | [id number] | | Resolve | | Jennifer | | Contusi | | | ON, | 6 | /05 | d | /05 | Agsten | | on of | | | LEFT | (SNOMED | | | | DO | | knee | | | KNEE | CT) | | | | | | | | +---------+---------+---------+---------+---------+---------+---------+---------+---------+ | THUMB | [id number] | | Resolve | | Jennifer | | Pain in | | | PAIN, | 02 | / | d | / | Agsten | | thumb | | | RIGHT | (SNOMED | | | | DO | | | | | | CT) | | | | | | | | +---------+---------+---------+---------+---------+---------+---------+---------+---------+ | FOOT | [id number] | | Resolve | | Jennifer | | Foot | | | PAIN | 7 | | d | | Agsten | | pain | | [...] g | | +---------+---------+---------+---------+---------+---------+---------+---------+---------+ | ABDOMIN | [id number] | | Resolve | | Jennifer | [...] | | | +---------+---------+---------+---------+---------+---------+---------+---------+---------+ | LUMBAR | [id number] | | Resolve | | Jennifer | | Lumbar | | | RADICUL | 05 | /08 | d | /08 | Agsten | | radicul | | | OPATHY, | (SNOMED | | | | DO | | opathy | | | LEFT | CT) | | | | | | | | +---------+---------+---------+---------+---------+---------+---------+---------+---------+ | HIP | [id number] | | Inactiv | | Jennifer | [...] | | PROPHYL | (ICD- | | d | | Agsten | [...] | | | +---------+---------+---------+---------+---------+---------+---------+---------+---------+ | INSOMNI | [id number] | | Resolve | | Jennifer | | Insomni | | | A | 01 | / | d | /02 | Agsten | | a | | | | (SNOMED | | | | DO | | | | | | CT) | | | | | | | | +---------+---------+---------+---------+---------+---------+---------+---------+---------+ | INSOMNI | [id number] | | Removed | | Jennifer | [...] | PROPHYL | (ICD-10 | /20 | | /20 | Agsten [...] | | | +---------+---------+---------+---------+---------+---------+---------+---------+---------+ | HIP | [id number] | | Removed | | Franny | | Hip | | | PAIN | 2 | /14 | | /15 | | | pain | | | | (SNOMED | | | | Campman | | | | | | CT) | | | | | | | | +---------+---------+---------+---------+---------+---------+---------+---------+---------+ | FOOT | [id number] | | Removed | | Franny | | Foot | | | PAIN | 7 | /01 | | /01 | | | pain | | | | (SNOMED | | | | Campman | | | | | | CT) | | | | | | | | +---------+---------+---------+---------+---------+---------+---------+---------+---------+ | LUMBAR | [id number] | | Removed | | Jennifer | | Lumbar | | | RADICUL | 05 | /08 | | /08 | Agsten | | radicul | | | OPATHY, | (SNOMED | | | | DO | | opathy | | | LEFT | CT) | | | | | | | | +---------+---------+---------+---------+---------+---------+---------+---------+---------+ | GERD | [id number] | | Active | | Jasmeet | | Gastroe | | | | 09 | / | | /13 | Engstro | | sophage | | | | (SNOMED | | | | m MD | | al | | | | CT) | | | | | | reflux | | | | | | | | | | disease | | +---------+---------+---------+---------+---------+---------+---------+---------+---------+ | ABDOMIN | [id number] | | Removed | | Jasmeet | [...] | | | +---------+---------+---------+---------+---------+---------+---------+---------+---------+ | NAUSEA | [id number] | | Correct | | Jasmeet | [...] | | COLON | | | | / | Schatte | | l | | [...] UNSPECI | -CM) | | | | MANAGER SQL | | unspeci | | | FIED [...] | unspeci | | | AL | -) | | | | | | fied | | | | | | | | | | limb | | +---------+---------+---------+---------+---------+---------+---------+---------+---------+ | THUMB | [id number] | | Removed | | Jennifer | | Pain in | | | PAIN, | 02 | /01 | | /01 | Agsten | | thumb | | | RIGHT | (SNOMED | | | | DO | | | | | | CT) | | | | | | | | +---------+---------+---------+---------+---------+---------+---------+---------+---------+ | CONTUSI | [id number] | | Removed | | Jennifer | | Contusi | | | ON, | 6 | /05 | | /05 | Agsten | | on of | | | LEFT | (SNOMED | | | | DO | | knee | | | KNEE | CT) | | | | | | | | +---------+---------+---------+---------+---------+---------+---------+---------+---------+ | SINUSIT | [id number] | | Removed | | Jennifer | | Acute | | | IS, | 2 | /05 | | /05 | Agsten | | sinusit | | | ACUTE | (SNOMED | | | | DO | | is | | | NOS | CT) | | | | | | | | +---------+---------+---------+---------+---------+---------+---------+---------+---------+ | ALLERGI | [id number] | | Removed | | Jennifer | | Allergi | | | C | 4 | /05 | | /05 | Agsten | | c | | | RHINITI | (SNOMED | | | | DO | | rhiniti | | | S | CT) | | | | | | s | | +---------+---------+---------+---------+---------+---------+---------+---------+---------+ | ABNORMA | [id number] | | Removed | | Pinky | | Standar | | | L CHEST | | | | / | Alexei | | d chest | | | XRAY | (SNOMED | | | | MA | | X-ray | | | | CT) | | | | | | abnorma | | | | | | | | | | l | | +---------+---------+---------+---------+---------+---------+---------+---------+---------+ | CYSTOCE | [id number] | | Removed | | Jennifer | | Cystoce | | | LE WITH | | | | 16 | Agsten | | le | | [...] | | | +---------+---------+---------+---------+---------+---------+---------+---------+---------+ | SCREENI | [id number] | | Removed | | Jennifer | | Screeni | | | NG FOR | | / | | /16 | Agsten | | [...] cervix | | +---------+---------+---------+---------+---------+---------+---------+---------+---------+ | NAUSEA | [id number] | | Removed | | Jennifer | | Nausea | | | ALONE | 07 | /20 | | /20 | Agsten | | | | | | (SNOMED | | | | DO | | | | | | CT) | | | | | | | | +---------+---------+---------+---------+---------+---------+---------+---------+---------+ | PERIPHE | [id number] | | Removed | | Jennifer | | Periphe | | | RAL | 06 | / | | /20 | Agsten | | ral | | | NEUROPA | (SNOMED | | | | DO | | nerve | | | THY | CT) | | | | | | disease | | +---------+---------+---------+---------+---------+---------+---------+---------+---------+ | URI | [id number] | | Removed | | Jennifer | | Upper | | | | 9 | / | | / | Agsten | | respira | | | | (SNOMED | | | | DO | | tory | | | | CT) | | | | | | infecti | | | | | | | | | | on | | +---------+---------+---------+---------+---------+---------+---------+---------+---------+ | FOLLICU | [id number] | | Removed | | Jennifer | | Follicu | | | LITIS | 6 | /27 | | /27 | Agsten | | litis | | | | (SNOMED | | | | DO | | | | | | CT) | | | | | | | | +---------+---------+---------+---------+---------+---------+---------+---------+---------+ | OSTEOPE | [id number] | | Active | | Jennifer | | Osteope | | | LINDSAY | 00 | /30 | | /30 | Agsten | | lindsay | | | | (SNOMED | | | | DO | | | | | | CT) | | | | | | | | +---------+---------+---------+---------+---------+---------+---------+---------+---------+ | HYPOMAG | [id number] | | Removed | | Jennifer | | Hypomag | | | NESEMIA | 04 | /30 | | /30 | Agsten | | nesemia | | | | (SNOMED | | | | DO | | | | | | CT) | | | | | | | | +---------+---------+---------+---------+---------+---------+---------+---------+---------+ | TESFAYE | [id number] | | Inactiv | | Jennifer | | Tesfaye | | | IRMA | [id number] | / | e | /20 | Agsten | [...] a | | +---------+---------+---------+---------+---------+---------+---------+---------+---------+ | 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 | | [...] led | | +---------+---------+---------+---------+---------+---------+---------+---------+---------+ | HYPERTR | [id number] | | Active | | Jennifer | | Hypertr | | | IGLYCER | 06 | | | / | Agsten | | iglycer | | | IDEMIA | (SNOMED | | | | DO | | idemia | | | | CT) | | | | | | | | +---------+---------+---------+---------+---------+---------+---------+---------+---------+ | HYPERTE | [id number] | | Active | | Jennifer | | Benign | | | NSION, | 9 | /20 | | /20 | Agsten | | hyperte | | [...] drops 4 | | | DICLOFENAC | [id number] | Jennifer | | 1.5 % SOLN [...] one po | | | DIAZEPAM | 4504777567 | Jennifer | | MG TABS | prior to | | | | 0 | Agsten DO | | | procedure | | | | | | + + + + + + + + | GLIMEPIRID | one tablet | | | GLIMEPIRID | [id number] | Emilie | | E 2 MG [...] one tablet | | | MIRTAZAPIN | 9587911960 | Jerri | | E 30 MG | at night | | | E | 5 | Irlanda MA | | TABS | before bed | | | | | | + + + + + + + + | MIRALAX | take as | | | POLYETHYLE | 7175035825 | Jennifer | | POWD | directed | | | NE GLYCOL | 3 | Agsten DO | | | | | | 3350 | | | + + + + + + + + | WELCHOL | one po qd | | | COLESEVELA | 9113416533 | Jennifer | | 625 MG | prn | | | M HCL | 8 | Agsten DO | | TABS | | | | | | | + + + + + + + + | GLYBURIDE | one by | | | GLYBURIDE | 3349942672 | Jennifer | | 5 MG TABS | mouth one | | | | 8 | Agsten DO | | | time per | | | | | | | | day | | | | | | + + + + + + + + | MIRTAZAPIN | one tablet | | | MIRTAZAPIN | 9269547684 | Jennifer | | E 15 MG [...] | one po qd | | | ANASTASIIA | 4440723699 | Jennifer | | 625 MG | prn | | | M HCL | 8 | Agsten DO | | TABS | | | | | | | + + + + + + + + | GABAPENTIN | Take one | | | GABAPENTIN | 2778485751 | Ajay | | 300 MG | tablet by | | | | 5 | Sylvia DPM | | CAPS | mouth in | | | | | | | | the | | | | | | | | morning, | | | | | | | | one tablet | | | | | | | | by mouth | | | | | | | | at | | | | | | | | noontime | | | | | | | | and two | | | | | | | | tablets by | | | | | | | | mouth at | | | | | | | | bedtime | | | | | | + + + + + + + + | MIRTAZAPIN | one tablet | | | MIRTAZAPIN | 6931600514 | Pedro Solis | | E 15 MG | at night | | | E | 0 | | | TABS | before bed | | | | | | + + + + + + + + | GABAPENTIN | two | | | GABAPENTIN | 6360278636 | Jennifer | | 300 MG | capsules | | | | 5 | Agsten DO | | CAPS | twice a | | | | | | | | day | | | | | | + + + + + + + + | ATIVAN 1 | one by | | | LORAZEPAM | 1343936399 | Jerri | | MG TABS | mouth at | | | | 0 | [place] MA | | | bedtime | | | | | | + + + + + + + + | AMBIEN 10 | 02/12 by | | | ZOLPIDEM | 1420420446 | Jennifer | | MG TABS | mouth at | | | TARTRATE | 8 | Agsten DO | | | bedtime | | | | | | + + + + + + + + | AMBIEN 10 | 02/12 - 1 po | | | ZOLPIDEM | 8814471422 | Jennifer | | MG TABS | qhs | | | TARTRATE | 0 | Agsten DO | + + + + + + + + | OXYCODONE | 1-2 po q 6 | | | OXYCODONE | 9299344319 | Jennifer | | HCL 5 MG | hrs prn | | | HCL | 0 | Agsten DO | | TABS | | | | | | | + + + + + + + + | KEFLEX 500 | one po tid | | | CEPHALEXIN | 9834190767 | Jennifer | | MG CAPS | | | | | 0 | Agsten DO | + + + + + + + + | VICODIN | prn | | | HYDROCODON | 7271814110 | Michelle | | 5-500 MG | | | | E-ACETAMIN | 4 | Bennett | | TABS | | | | OPHEN | | | + + + + + + + + | NORTRIPTYL | 1 tab qhs | | | NORTRIPTYL | 3838111846 | Ajay | | INE HCL 50 | | | | INE HCL | 6 | Sylvia DPM | | MG CAPS | | | | | | | + + + + + + + + | ALENDRONAT | one po q | | | ALENDRONAT | 8895823371 | Jennifer | | E SODIUM | week | | | E SODIUM | 1 | Agsten DO | | 70 MG TABS | | | | | | | + + + + + + + + | BENICAR 20 | 1/2 po qd | | | OLMESARTAN | 8758369881 | Lewis Quevedo | | MG TABS | | | | MEDOXOMIL | 0 | RN | + + + + + + + + | LOVAZA 1 | 2 po qd | | | OMEGA-3-AC | 2186262420 | Jennifer | | GM CAPS | | | | ID ETHYL | 7 | Agsten DO | | | | | | ESTERS | | | + + + + + + + + | LUNESTA 2 | 1 po qhs | | | ESZOPICLON | 1472189316 | Michelle | | MG TABS | | | | E | 0 | Bennett | + + + + + + + + | VOLTAREN 1 | apply up | | | DICLOFENAC | 7676142997 | Jasmeet | | % GEL | to 2 gram | | | SODIUM | 1 | Aga | | | qid prn | | | | | MD | + + + + + + + + | K-DUR 10 | 1 by mouth | | | POTASSIUM | 5442544958 | Jennifer | | MEQ TBCR | twice a | | | CHLORIDE | 1 | Agsten DO | | | day | | | | | | + + + + + + + + | NEXIUM 40 | 1 po q am, | | | ESOMEPRAZO | 3750883379 | Jennifer | | MG CPDR | rarely 1 | | | LE | 0 | Agsten DO | | | po q pm | | | MAGNESIUM | | | + + + + + + + + | VOLTAREN 1 | apply up | | | DICLOFENAC | 5018788064 | Jennifer | | % GEL | to 2 grams | | | SODIUM | 1 | Agsten DO | | | qid prn | | | | | | + + + + + + + + | K-JAMARI 20 | one po qd | | | POTASSIUM | 6909776115 | Jennifer | | MEQ PACK | | | | CHLORIDE | 2 | Agsten DO | + + + + + + + + | TRAZODONE | 02/12 to 1 | | | TRAZODONE | 5072962699 | Ajay | | HCL 100 MG | by mouth | | | HCL | 3 | Sylvia DPM | | TABS | at bedtime | | | | | | + + + + + + + + | LASIX 40 | 1/2 by | | | FUROSEMIDE | 7279224709 | Jennifer | | MG TABS | mouth | | | | 1 | Agsten DO | | | every am | | | | | | + + + + + + + + | DIFLUCAN | 1 by mouth | | | FLUCONAZOL | 6644288048 | Jennifer | | 150 MG | x 1 dose | | | E | 0 | Agsten DO | | TABS | | | | | | | + + + + + + + + | FLEXERIL | one po bid | | | CYCLOBENZA | 9458933541 | Jennifer | | 10 MG TABS | prn | | | NETO HCL | 1 | Agsten DO | + + + + + + + + | BONIVA 150 | one po qd | | | IBANDRONAT | 0814700022 | Jennifer | | MG TABS | | | | E SODIUM | 0 | Agsten DO | + + + + + + + + | GEMFIBROZI | 1 po bid | | | GEMFIBROZI | 1591027725 | Jennifer | | L 600 MG | | | | L | 0 | Agsten DO | | TABS | | | | | | | + + + + + + + + | JENNIE 1 | 2 po qd | | | OMEGA-3-AC | 8864417406 | Jasmeet | | GM CAPS | | | | ID ETHYL | 7 | Aga | | | | | | ESTERS | | MD | + + + + + + + + | ONDANSETRO | one tablet | | | ONDANSETRO | 3226081452 | Ajay | | N HCL 4 [...] take as | | | BISACODYL | 5386847066 | Jennifer | | MG TBEC | directed | | | | 3 | Agsten DO | + + + + + + + + | NEXIUM 40 | 1 po q am, | | | ESOMEPRAZO | 3409420086 | Jasmeet | | MG CPDR | rarely 1 | | | LE | 0 | Aga | | | po q pm | | | MAGNESIUM | | MD | + + + + + + + + | JUAN CARLOS | one po qd | | | FEXOFENADI | 8379908342 | Jasmeet | | 180 MG | prn | | | NE HCL | 2 | Aga | | TABS | | | | | | MD | + + + + + + + + | AMBIEN 10 | 02/12 - 1 po | | | ZOLPIDEM | 5824756735 | Jennifer | | MG TABS | qhs | | | TARTRATE | 0 | Agsten DO | + + + + + + + + | PRILOSEC | one po bid | | | OMEPRAZOLE | 5332733844 | Jasmeet | | OTC 20 MG | | | | MAGNESIUM | 0 | Aga | | TBEC | | | | | | MD | + + + + + + + + | METOCLOPRA | take as | | | METOCLOPRA | 6263308448 | Jennifer | | MIDE HCL | directed | | | MIDE HCL | 2 | Agsten DO | | 10 MG TABS | | | | | | | + + + + + + + + | GLYBURIDE | 1 po qd | | | GLYBURIDE | 9113023549 | Jennifer | | 5 MG TABS | prn | | | | 6 | Agsten DO | + + + + + + + + | MECLIZINE | 1 by mouth | | | MECLIZINE | 1973368877 | Jennifer | | HCL 25 MG | every 6 | | | HCL | 0 | Agsten DO | | TABS | hrs as | | | | | | | | needed | | | | | | + + + + + + + + | GLYBURIDE | 1 po qd | | | GLYBURIDE | 9216408458 | Michelle | | 5 MG TABS | | | | | 6 | Bennett | + + + + + + + + | GEMFIBROZI | 1 po bid | | | GEMFIBROZI | 3293225308 | Michelle | | L 600 MG [...] po qd | | | FEXOFENADI | 2946935342 | Jennifer | | 180 MG | prn | | | NE HCL | 2 | Agsten DO | | TABS | | | | | | | + + + + + + + + | DIOVAN 160 | 1 po qd | | | VALSARTAN | 6119198603 | Pinky Alexei | | MG TABS | | | | | 0 | [place] | + + + + + + + + | ERYTHROMYC | 02/14 inch | | | ERYTHROMYC | 5561563588 | Jennifer | | IN 5 MG/GM [...] po qhs | | | ESZOPICLON | 5575204636 | Jennifer | | MG TABS | | | | E | 0 | Agsten DO | + + + + + + + + | AMBIEN 10 | 02/12 - 1 po | | | ZOLPIDEM | 6488877522 | Lewis Sae | | MG TABS | qhs | | | TARTRATE | 5 | RN | + + + + + + + + | TRAZODONE | 2 - 1 po | | | TRAZODONE | 5778048952 | Lewis Sae | | HCL 100 MG | qhs | | | HCL | 0 | RN | | TABS | | | | | | | + + + + + + + + | GLYBURIDE | 1 po qd | | | GLYBURIDE | 8494966626 | Jennifer | | 5 MG TABS | prn | | | | 6 | Agsten DO | + + + + + + + + | HYCODAN | 1-2 tsp | | | HYDROCODON | 0316212414 | Jennifer | | 5-1.5 | q4-6 h prn | | | E-HOMATROP | 6 | Agsten DO | | MG/5ML | cough | | | INE | | | | SYRP | | | | | | | + + + + + + + + | FLEXERIL | one po bid | | | CYCLOBENZA | 7839809899 | Jennifer | | 10 MG TABS [...] po qd | | | LANSOPRAZO | 4641088805 | Jennifer | | 30 MG CPDR | | | | LE | 5 | Agsten DO | + + + + + + + + | HYCOTUSS | 1-2 tsp q | | | HYDROCODON | 0296722870 | Jennifer | | EXPECTORAN | 4-6 [...] q 6 | | | PROMETHAZI | 1973188348 | Jasmeet | | NE HCL 25 | hr prn | | | NE HCL | 4 | Aga | | MG TABS | | | | | | MD | + + + + + + + + | IBU 600 MG | one po tid | | | IBUPROFEN | 7855532781 | Jasmeet | | TABS | prn | | | | 1 | Aga | | | | | | | | MD | + + + + + + + + | VALIUM 5 | 1 by mouth | | | DIAZEPAM | 4941645816 | Emilie | | MG TABS | prior to | | | | 6 | Brown CCMA | | | procedure | | | | | | + + + + + + + + | DYAZIDE | 1 by mouth | | | TRIAMTEREN | 8012569107 | Jennifer | | 37.5-25 MG | every day | | | E-HCTZ | 0 | Agsten DO | | CAPS | | | | | | | + + + + + + + + | NEXIUM 40 | 1 po qd | | | ESOMEPRAZO | 4197771873 | Michelle | | MG CPDR | | | | LE | 2 | Bennett | | | | | | MAGNESIUM | | | + + + + + + + + | AMITRIPTYL | 1-2 by | | | AMITRIPTYL | 6743350203 | Jennifer | | INE HCL 25 [...] | one | | | TEMAZEPAM | 1899467787 | Jennifer | | 15 MG CAPS | capsule | | | | 7 | Agsten DO | | | once a day | | | | | | + + + + + + + + | MORPHINE | one po bid | | | MORPHINE | 1303406746 | Jennifer | | SULFATE CR | prn | | | SULFATE | 1 | Agsten DO | | 15 MG | | | | | | | | TB12 | | | | | | | + + + + + + + + | CYCLOBENZA | one tablet | | | CYCLOBENZA | 9561029423 | Corie | | NETO HCL | [...] po x | | | AZITHROMYC | 6294950538 | Jennifer | | 250 MG | one day, | | | IN | 3 | Agsten DO | | TABS | one po x 4 | | | | | | | | days | | | | | | + + + + + + + + | IBU 800 MG | one po tid | | | IBUPROFEN | 7235430813 | Jennifer | | TABS | | | | | 1 | Agsten DO | + + + + + + + + | DOXEPIN | one | | | DOXEPIN | 4663830241 | Jennifer | | HCL 10 MG | capsule at | | | HCL | 0 | Agsten DO | | CAPS | night | | | | | | | | before bed | | | | | | + + + + + + + + | K-JAMARI 20 | one po qd | | | POTASSIUM | 5397587731 | Jennifer | | MEQ PACK | | | | CHLORIDE | 2 | Agsten DO | + + + + + + + + | ALPRAZOLAM | one tablet | | | ALPRAZOLAM | 6691402024 | Domi | | 0.25 MG | at night | | | | 0 | Michael-Mat | | TABS | before bed | | | | | tienne | | | as needed | | | | | CCMA | + + + + + + + + | TIZANIDINE | one tablet | | | TIZANIDINE | 5270923771 | Jennifer | | HCL 4 MG [...] one tablet | | | TIZANIDINE | 0670466950 | Jennifer | | HCL 4 MG [...] po qd | | | VALSARTAN | 8357083083 | Urmila | | MG TABS | [...] 02/12 by | | | ZOLPIDEM | 5516317648 | Lewis Edwardske | | MG TABS | mouth at | | | TARTRATE | 8 | RN | | | bedtime | | | | | | + + + + + + + + | GLYBURIDE | one by | | | GLYBURIDE | 1906973896 | Jennifer | | 5 MG TABS | mouth one | | | | 8 | Agsten DO | | | time per | | | | | | | | day | | | | | | + + + + + + + + | NORTRIPTYL | 1-2 | | | NORTRIPTYL | 9839417633 | Jennifer | | INE HCL 25 | capsules | | | INE HCL | 3 | Agsten DO | | MG CAPS | at night | | | | | | | | before bed | | | | | | + + + + + + + + | SLOW-MAG | one po qd | | | MAGNESIUM | 6975212842 | Jennifer | | 64 MG TBCR | | | | CHLORIDE | 0 | Agsten DO | + + + + + + + + | METANX | 1 PO BID | | | L-METHYLFO | 8966705222 | Leora | | 3-90.314-2 | | | | LATE-ALGAE | 0 | [place] | | -35 MG | | | | -B12-B6 | | k MA | | CAPS | | | | | | | + + + + + + + + | BACTRIM DS | one po bid | | | SULFAMETHO | 7244685197 | Aminata | | 800-160 | | | | XAZOLE-TRI | 1 | [place] | | MG TABS | | | | METHOPRIM | | | + + + + + + + + | HYDROCODON | one tablet | | | HYDROCODON | 3661248546 | Jennifer | | E-ACETAMIN | three | | | E-ACETAMIN | 6 | Agsten DO | | OPHEN | times a | | | OPHEN | | | | 10-325 MG | day | | | | | | | TABS | | | | | | | + + + + + + + + | LORAZEPAM | one tablet | | | LORAZEPAM | 4031722145 | Jennifer | | 0.5 MG | at night | | | | 5 | Agsten DO | | TABS | before bed | | | | | | + + + + + + + + | METFORMIN | one by | | | METFORMIN | 7305177926 | Jennifer | | HCL 500 MG | mouth two | | | HCL | 5 | Agsten DO | | TABS | times per | | | | | | | | day | | | | | | + + + + + + + + | NORTRIPTYL | 1-2 | | | NORTRIPTYL | 6759543941 | Jennifer | | INE HCL 25 | capsules | | | INE HCL | 3 | Agsten DO | | MG CAPS | at night | | | | | | | | before bed | | | | | | + + + + + + + + | PROTONIX | one by | | | PANTOPRAZO | 1943303774 | Jennifer | | 40 MG TBEC | mouth one | | | LE SODIUM | 0 | Agsten DO | | | time per | | | | | | | | day | | | | | | + + + + + + + + | ULTRAM 50 | one by | | | TRAMADOL | 5870578429 | Jennifer | | MG TABS | [...] 4 capsules | | | GABAPENTIN | 5208581627 | Ajay | | 300 MG | daily | | | | 5 | Sylvia DPM | | CAPS | | | | | | | + + + + + + + + | MIRTAZAPIN | one tablet | | | MIRTAZAPIN | 5869501413 | Jennifer | | E 15 MG | once a | | | E | 0 | Agsten DO | | TABS | day before | | | | | | | | bed | | | | | | + + + + + + + + | FUROSEMIDE | one tablet | | | FUROSEMIDE | 3478925047 | Jennifer | | 20 MG | once a | | | | 0 | Agsten DO | | TABS | day | | | | | | + + + + + + + + | LOVAZA 1 | 2 one time | | | OMEGA-3-AC | 9644813616 | Jennifer | | GM CAPS | per day | | | ID ETHYL | 8 | Agsten DO | | | | | | ESTERS | | | + + + + + + + + | DICLOFENAC | apply 2 | | | DICLOFENAC | 9878823510 | [place] | | SODIUM 1 | grams 2-4 [...] one tablet | | | IBUPROFEN | 9490668270 | [place] | | 800 MG | three | | | | 4 | Agsten DO | | TABS | times a | | | | | | | | day as | | | | | | | | needed | | | | | | + + + + + + + + | LOSARTAN | one tablet | | | LOSARTAN | 4223454647 | Jennifer | | POTASSIUM | once a | | | POTASSIUM | 0 | Agsten DO | | 50 MG TABS | day | | | | | | + + + + + + + + | FELODIPINE | one tablet | | | FELODIPINE | 7034204670 | Jennifer | | ER 10 MG | once a | | | | 5 | Agsten DO | | [id number]-XYH | day | | | | | | + + + + + + + + | TIZANIDINE | one tablet | | | TIZANIDINE | 3046633827 | Jennifer | | HCL 4 MG [...] two by | | | POTASSIUM | 5793867792 | Jennifer | | 10 10 MEQ | mouth one | | | CHLORIDE | 0 | Agsten DO | | CR-TABS | time per | | | | | | | | day | | | | | | + + + + + + + + | GABAPENTIN | 1 capsule | | | GABAPENTIN | 6310216053 | Ajay | | 300 MG | two times | | | | 0 | Sylvia DPM | | CAPS | a day | | | | | | + + + + + + + + | LANTUS | 10 units | | | INSULIN | 6306392132 | Jennifer | | SOLOSTAR | at night | | | GLARGINE | 5 | Agsten DO | | 100 | | | | | | | | UNIT/ML | | | | | | | | SOPN | | | | | | | + + + + + + + + | MIRTAZAPIN | one tablet | | | MIRTAZAPIN | 2825048472 | Jennifer | | E 15 MG | at night | | | E | 0 | Agsten DO | | TABS | before bed | | | | | | + + + + + + + + | KLOR-CON | one by | | | POTASSIUM | 2888482354 | Jennifer | | 10 10 MEQ | mouth one | | | CHLORIDE | 0 | Agsten DO | | CR-TABS | time per | | | | | | | | day | | | | | | + + + + + + + + | GLIMEPIRID | one tablet | | | GLIMEPIRID | 2650138643 | Jennifer | | E 2 MG | once a | | | E | 3 | Agsten DO | | TABS | day | | | | | | + + + + + + + + | ALPRAZOLAM | one tablet | | | ALPRAZOLAM | 4772694878 | Jennifer | | 0.25 MG | at night | | | | 0 | Agsten DO | | TABS | before bed | | | | | | | | as needed | | | | | | + + + + + + + + | ALPRAZOLAM | one tablet | | | ALPRAZOLAM | 4530429811 | Jennifer | | 0.5 MG | at night | | | | 0 | Agsten DO | | TABS | before bed | | | | | | + + + + + + + + | VALIUM 5 | 1 by mouth | | | DIAZEPAM | 0988964320 | Jennifer | | MG TABS | prior to | | | | 6 | Agsten DO | | | procedure | | | | | | + + + + + + + + | HYDROCODON | one tablet | | | HYDROCODON | 6201236379 | Jennifer | | E-ACETAMIN | three [...] one tablet | | | ALPRAZOLAM | 6145609014 | Jennifer | | 1 MG TABS [...] | one | | | DOXEPIN | 2194309089 | Jennifer | | HCL 10 MG | capsule at | | | HCL | 0 | Agsten DO | | CAPS | night | | | | | | | | before bed | | | | | | + + + + + + + + | TRAZODONE | / to 1 | | | TRAZODONE | 3572573315 | Jennifer | | HCL 100 MG [...] q hs | | | GABAPENTIN | 9014977483 | Ajay | | 300 MG | | | | | 0 | Sylvia DPM | | CAPS | | | | | | | + + + + + + + + | ATIVAN 1 | one by | | | LORAZEPAM | 7962250219 | Jennifer | | MG TABS | mouth at | | | | 0 | Agsten DO | | | bedtime | | | | | | + + + + + + + + | MIRTAZAPIN | one tablet | | | MIRTAZAPIN | 2243838910 | Jerri | | E 30 MG | at night | | | E | 5 | [place] | | TABS | before bed | | | | | | + + + + + + + + | NORTRIPTYL | 1 tab qhs | | | NORTRIPTYL | 3281923527 | Ajay | | INE HCL 50 | | | | INE HCL | 6 | Sylvia DPM | | MG CAPS | | | | | | | + + + + + + + + | METANX | 1 PO BID | | | L-METHYLFO | 1144307887 | Ajay | | [phone] | | | | LATE-ALGAE | 0 | Sylvia DPM | | -35 MG | | | | -B12-B6 | | | | CAPS | | | | | | | + + + + + + + + | ONDANSETRO | one tablet | | | ONDANSETRO | 1485122228 | Jennifer | | N HCL 4 [...] one tablet | | | MIRTAZAPIN | 3976255990 | Jennifer | | E 15 MG | at night | | | E | 3 | Agsten DO | | TABS | before bed | | | | | | + + + + + + + + | DIFLUCAN | 1 by mouth | | | FLUCONAZOL | 1024846814 | Jennifer | | 150 MG | x 1 dose | | | E | 0 | Agsten DO | | TABS | | | | | | | + + + + + + + + | TEMAZEPAM | one | | | TEMAZEPAM | 5438522165 | Jennifer | | 15 MG CAPS | capsule | | | | 7 | Agsten DO | | | once a day | | | | | | + + + + + + + + | TIZANIDINE | one tablet | | | TIZANIDINE | 3587795637 | Jennifer | | HCL 4 MG [...] one tablet | | | CYCLOBENZA | 3143723378 | Jennifer | | NETO HCL | [...] drops 4 | | | DICLOFENAC | 3089333544 | Jennifer | | 1.5 % SOLN [...] one tablet | | | HYDROCODON | 4163597711 | Jennifer | | E-ACETAMIN | three [...] one by | | | LOSARTAN | 7705670763 | Jennifer | | POTASSIUM | mouth one | | | POTASSIUM | 2 | Agsten DO | | 25 MG TABS | time per | | | | | | | | day | | | | | | + + + + + + + + | VICODIN ES | one by | | | HYDROCODON | 9070527623 | Jennifer | | 7.5-750 | mouth [...] 1/2 by | | | FUROSEMIDE | 9303918951 | Jennifer | | 40 MG | mouth one | | | | 4 | Agsten DO | | TABS | time per | | | | | | | | day | | | | | | + + + + + + + + | AMITRIPTYL | 1-2 by | | | AMITRIPTYL | 9713975866 | Jennifer | | INE HCL 25 | mouth | | | INE HCL | 1 | Agsten DO | | MG TABS | before bed | | | | | | + + + + + + + + | LOVAZA 1 | 4 one time | | | OMEGA-3-AC | 2298176545 | Jennifer | | GM CAPS | per day | | | ID ETHYL | 3 | Agsten DO | | | | | | ESTERS | | | + + + + + + + + | PENNSAID | 4 grams | | | DICLOFENAC | 1008452453 | Jennifer | | 1.5 % SOLN | four times | | | SODIUM | 5 | Agsten DO | | | a day to | | | | | | | | joint prn. | | | | | | + + + + + + + + | MECLIZINE | 1 by mouth | | | MECLIZINE | 6853494044 | Jennifer | | HCL 25 MG | every 6 | | | HCL | 0 | Agsten DO | | TABS | hrs as | | | | | | | | needed | | | | | | + + + + + + + + | AMBIEN 10 | one by | | | ZOLPIDEM | 2730946473 | Jennifer | | MG TABS | mouth at | | | TARTRATE | 8 | Agsten DO | | | bedtime | | | | | | + + + + + + + + | METFORMIN | one po bid | | | METFORMIN | 8635456149 | Jenniefr | | HCL 500 MG | | | | HCL | 1 | Agsten DO | | TABS | | | | | | | + + + + + + + + | PROTONIX | one po qd | | | PANTOPRAZO | 2304033484 | Jennifer | | 40 MG TBEC | | | | LE SODIUM | 0 | Agsten DO | + + + + + + + + | KLOR-CON | one po qd | | | POTASSIUM | [id number] | Jennifer | | 10 10 MEQ | | | | CHLORIDE | 1 | Agsten DO | | CR-TABS | | | | | | | + + + + + + + + | ATIVAN 1 | one po qhs | | | LORAZEPAM | [phone] | Jennifer | | MG TABS | | | | | 0 | Agsten DO | + + + + + + + + | AMBIEN 10 | one po qhs | | | ZOLPIDEM | [id number] | Jennifer | | MG TABS | | | | TARTRATE | 8 | Agsten DO | + + + + + + + + | LOVAZA 1 | 4 po qd | | | OMEGA-3-AC | [id number] | Jennifer | | GM CAPS | [...] po tid | | | HYDROCODON | [id number] | Jennifer | | 7.5-750 | prn | | | E-ACETAMIN | 4 | Agsten DO | | MG TABS | | | | OPHEN | | | + + + + + + + + | DULCOLAX 5 | take as | | | BISACODYL | [id number] | Jasmeet | | MG TBEC | directed | | | | 3 | Aga | | | | | | | | MD | + + + + + + + + | METOCLOPRA | take as | | | METOCLOPRA | [id number] | Jasmeet | | MIDE HCL | directed | | | MIDE HCL | 2 | Aga | | 10 MG TABS | | | | | | MD | + + + + + + + + | MIRALAX | take as | | | POLYETHYLE | [id number] | Jasmeet | | POWD | directed | | | NE GLYCOL | 3 | Aga | | | | | | 3350 | | MD | + + + + + + + + | VOLTAREN 1 | apply up | | | DICLOFENAC | [id number] | Jennifer | | % GEL | to 2 grams | | | SODIUM | 1 | Agsten DO | | | qid prn | | | | | | + + + + + + + + | ULTRAM 50 | one po tid | | | TRAMADOL | [id number] | Jennifer | | MG TABS | prn | | | HCL | 6 | Agsten DO | + + + + + + + + | FUROSEMIDE | 1/2 po qd | | | FUROSEMIDE | 1912721528 | Jennifer | | 40 MG | | | | | 2 | Agsten DO | | TABS | | | | | | | + + + + + + + + | IBUPROFEN | one po tid | | | IBUPROFEN | [phone] | Jennifer | | 800 MG | prn | | | | 0 | Agsten DO | | TABS | | | | | | | + + + + + + + + | GLYBURIDE | one po qd | | | GLYBURIDE | [id number] | Jennifer | | 5 MG TABS | | | | | 8 | Agsten DO | + + + + + + + + | LOSARTAN | one po qd | | | LOSARTAN | [phone] | Jennifer | | POTASSIUM | | | | POTASSIUM | 0 | Agsten DO | | 25 MG TABS | | | | | | | + + + + + + + + | NEXIUM 40 | one po qd | | | ESOMEPRAZO | 1295299673 | Jennifer | | MG CPDR | | | | LE | 3 | Agsten DO | | | | | | MAGNESIUM | | | + + + + + + + + | ERYTHROMYC | 4 inch | | | ERYTHROMYC | [id number] | Abby | | IN 5 MG/GM [...] + + + | LASIX 40 | 2po qd | | | FUROSEMIDE | 4798687011 | Jennifer | | MG TABS | | | | | 0 | Agsten DO | + + + + + + + + | AMBIEN 10 | 02/12 - 1 po | | | ZOLPIDEM | 8031568165 | Jennifer | | MG TABS | qhs. BMN | | | TARTRATE | 8 | Agsten DO | + + + + + + + + | PREVACID | one po qd | | | LANSOPRAZO | [id number] | Jennifer | | 30 MG CPDR | | | | LE | 5 | Agsten DO | + + + + + + + + | GLYBURIDE | one po q | | | GLYBURIDE | 9830731312 | Jennifer | | 2.5 MG | am | | | | 0 | Agsten DO | | TABS | | | | | | | + + + + + + + + | AMBIEN 10 | 02/12 - 1 po | | | ZOLPIDEM | 5309309237 | Jennifer | | MG TABS | qhs | | | TARTRATE | 5 | Agsten DO | + + + + + + + + | BENICAR 20 | 02/12 po qd | | | OLMESARTAN | 2705369506 | Jennifer | | MG TABS | | | | MEDOXOMIL | 0 | Agsten DO | + + + + + + + + | TRAZODONE | 02/12 - 1 po | | | TRAZODONE | 3943665926 | Jennifer | | HCL 100 MG | qhs | | | HCL | 0 | Agsten DO | | TABS | | | | | | | + + + + + + + + | AMBIEN 10 | 02/12 - 1 po | | | ZOLPIDEM | 1712767459 | Jennifer | | MG TABS | qhs | | | TARTRATE | 0 | Agsten DO | + + + + + + + + | LASIX 40 | 02/14 by | | | FUROSEMIDE | [phone] | Katelyn | | MG TABS | mouth | | | | 0 | [employer] | | | every am | | | | | | | | prn | | | | | | + + + + + + + + | OXYCODONE | 1-2 po q 6 | | | OXYCODONE | 2365875101 | Jennifer | | HCL 5 MG | hrs prn | | | HCL | 0 | Agsten DO | | TABS | | | | | | | + + + + + + + + | ALENDRONAT | one po q | | | ALENDRONAT | [id number] | Jennifer | | E SODIUM | week | | | E SODIUM | 1 | Agsten DO | | 70 MG TABS | | | | | | | + + + + + + + + | VALIUM 5 | one po | | | DIAZEPAM | 7620445684 | Jennifer | | MG TABS | prior to | | | | 0 | Agsten DO | | | procedure | | | | | | + + + + + + + + | BENICAR 20 | one po qd | | | OLMESARTAN | [phone] | Jennifer | | MG TABS | | | | MEDOXOMIL | 2 | Agsten DO | + + + + + + + + | IBU 600 MG | one po tid | | | IBUPROFEN | 7670198371 | Jennifer | | TABS | prn | | | | 1 | Agsten DO | + + + + + + + + | VOLTAREN 1 | apply up | | | DICLOFENAC | [phone] | Katelyn | | % GEL | to 2 gram | | | SODIUM | 1 | [employer] | | | qid prn | | | | | | + + + + + + + + | ZITHROMAX | Two po x | | | AZITHROMYC | [id number] | Jennifer | | 250 MG | one day, | | | IN | 3 | Agsten DO | | TABS | one po x 4 | | | | | | | | days | | | | | | + + + + + + + + | BACTRIM DS | one po bid | | | SULFAMETHO | [id number] | Jennifer | | 800-160 | | | | XAZOLE-TRI | 1 | Agsten DO | | MG TABS | | | | METHOPRIM | | | + + + + + + + + | HYCODAN | 1-2 tsp | | | HYDROCODON | [id number] | Jennifer | | 5-1.5 | q4-6 h prn | | | E-HOMATROP | 6 | Agsten DO | | MG/5ML | cough | | | INE | | | | SYRP | | | | | | | + + + + + + + + | PRILOSEC | one po bid | | | OMEPRAZOLE | [id number] | Jennifer | | OTC 20 MG | | | | MAGNESIUM | 0 | Agsten DO | | TBEC | | | | | | | + + + + + + + + | VICODIN ES | one po tid | | | HYDROCODON | 0673777637 | Jennifer | | 7.5-750 | | | | E-ACETAMIN | 4 | Agsten DO | | MG TABS | | | | OPHEN | | | + + + + + + + + | JUAN CARLOS | one po qd | | | FEXOFENADI | [id number] | Jennifer | | 180 MG | | | | NE HCL | 2 | Agsten DO | | TABS | | | | | | | + + + + + + + + | AMBIEN CR | 1 po qhs | | | ZOLPIDEM | [id number] | Jennifer | | 12.5 MG | | | | TARTRATE | 4 | Agsten DO | | CR-TABS | | | | | | | + + + + + + + + | LASIX 40 | 1/2 by | | | FUROSEMIDE | [id number] | Jennifer | | MG TABS | mouth | | | | 1 | Agsten DO | | | every am | | | | | | | | prn | | | | | | + + + + + + + + | NEXIUM 40 | 1 po bid | | | ESOMEPRAZO | 6903088026 | Jennifer | | MG CPDR | | | | LE | 2 | Agsten DO | | | | | | MAGNESIUM | | | + + + + + + + + | VICODIN | one po tid | | | HYDROCODON | 0250125174 | Jennifer | | 5-500 MG | [...] q 6 | | | PROMETHAZI | [id number] | Jennifer | | NE HCL 25 | hr prn | | | NE HCL | 4 | Agsten DO | | MG TABS | | | | | | | + + + + + + + + | HYCOTUSS | 1-2 tsp q | | | HYDROCODON | 0117863982 | Jennifer | | EXPECTORAN | 4-6 [...] po q | | | IBANDRONAT | 7485713862 | Jennifer | | MG TABS | month | | | E SODIUM | 0 | Agsten DO | + + + + + + + + | KEFLEX 500 | one po tid | | | CEPHALEXIN | 5964753630 | Jennifer | | MG CAPS | | | | | 0 | Agsten DO | + + + + + + + + | PLENDIL 10 | 1 po qd | | | FELODIPINE | 2216040751 | Jennifer | | MG TB24 | | | | | 1 | Agsten DO | + + + + + + + + | SLOW-MAG | one po qd | | | MAGNESIUM | 9115294506 | Jennifer | | 64 MG TBCR | | | | CHLORIDE | 0 | Agsten DO | + + + + + + + + | K-JAMARI 20 | one po qd | | | POTASSIUM | 1596367731 | Jennifer | | MEQ PACK | | | | CHLORIDE | 2 | Agsten DO | + + + + + + + + | IBU 800 MG | one po tid | | | IBUPROFEN | 0876759251 | Jennifer | | TABS | | | | | 1 | Agsten DO | + + + + + + + + | LOVAZA 1 | 2 po bid | | | OMEGA-3-AC | 6873788754 | Jennifer | | GM CAPS | | | | ID ETHYL | 7 | Agsten DO | | | | | | ESTERS | | | + + + + + + + + | AMBIEN CR | one po qd | | | ZOLPIDEM | 6529378346 | Jennifer | | 12.5 MG | [...] by mouth | | | TRIAMTEREN | 0838932684 | Jennifer | | 37.5-25 MG | every day | | | E-HCTZ | 0 | Agsten DO | | CAPS | | | | | | | + + + + + + + + | LASIX 40 | 1 by mouth | | | FUROSEMIDE | 0961477721 | Jennifer | | MG TABS | every am | | | | 1 | Agsten DO | + + + + + + + + | BENICAR 20 | one po qd | | | OLMESARTAN | 8988271570 | Jennifer | | MG TABS | | | | MEDOXOMIL | 0 | Agsten DO | + + + + + + + + | K-DUR 10 | 2 po qd | | | POTASSIUM | 5425861858 | Jennifer | | MEQ TBCR | | | | CHLORIDE | 1 | Agsten DO | + + + + + + + + | OMACOR 1 | Two po bid | | | OMEGA-3-AC | [id number] | Jennifer | | GM CAPS | | | | ID ETHYL | 7 | Agsten DO | | | | | | ESTERS | | | + + + + + + + + | MORPHINE | one po bid | | | MORPHINE | 4244199690 | Jennifer | | SULFATE CR | [...] in | | Critical | | Jennifer Mendoza | | YDROCHLOROTH | the throat, | [...] n | +------+------+-------+------+-------+------+ + + + | Office Visit: Compression fracture, insomnia, HTN | + + + +--------+--------+---+---+---+ + | [...] | + +--------+--------+---+---+---+ + + + | Podiatry Visit: Followup Visit PAS results/med check | + + + +--------+--------+---+---+---+ + [...] +--------+--------+---+---+---+ + + + | Office Visit: HTN, NIDDM, insomnia | + + + + + +---+---+---+ [...] +--------+ +---+---+---+ + | | ESM_RR | [id number] | | | B | e-scripts | | | | 81046`Pant | | | | messenger | | [...] | | | | | | | [phone] | | | | | | | | `[id number] | | | | | | | | 01``Pantedgardo | | | | | | | [...] +--------+ +---+---+---+ + | | ESM_RR | [phone] | | | B | e-scripts | | | | 23532`Mirt | | | | messenger | | [...] | | | | | | | [id number] | | | | | | | | `[id number] | | | | | | | [...] +--------+ +---+---+---+ + | | ESM_RR | [id number] | | | B | e-scripts | | | | 92528`Pant | | | | messenger | | [...] | | | | | | | [place]*` | | | | | | | | [phone] | | | | | | | | `[id number] | | | | | | | [...] +--------+ +---+---+---+ + | | ESM_RR | [phone] | | | B | e-scripts | | | | 81891`Mirt | | | | messenger | | [...] | | | | | | | [place]*` | | | | | | | | [phone] | | | | | | | | `[id number] | | | | | | | [...] +--------+ +---+---+---+ + | | ESM_RR | [id number] | | | B | e-scripts | | | | 83636`Mirt | | | | messenger | | [...] | | | | | | | [phone] | | | | | | | | `[id number] | | | | | | | | 56``Lv | | | | | | | [...] +--------+--------+---+---+---+ + + + | Office Visit: [facility] | + + + + [...] Detail | + + + + | Referral | | Orthopedic Consult | | | | Other Provider, | | | | Specify Provider in | | | | Instructions | + + + + | Referral | | Orthopedic Consult | | | | [facility], | | | | [address], | | | | [place], [address] | | | | | + + + + | Referral | | Echocardiogram - 2D | | | | Complete | | | | Latasha Brunner, [address] | | | | [place] | | | | [place], [address] | | | | | + + + + | Referral | | Podiatry Consult | | | | QUENTIN Perez, | | | | [address] | | | | [address], [place], [place], [address] | | | | | | | | | + + + + | Referral | | Ophthalmology Consult | | | | Abby Springer, | | | | [address], [place], | | | | [place], [address] | | | | | + + + + | Referral | | Ophthalmology Consult | | | | Abby Springer, | | | | [address], [place], | | | | [place], [address] | | | | | + + + + | Referral | | Orthopedic Consult | | | | MD Ap Nicole, | | | | [address] , | | | | [place], [address] | | | | | + + + + | Referral | | Gynecology Consult | | | | MD Destiny Levi, | | | | [address] [facility] | | | | [address], [place], [place], [address] | | | | | | | | | + + + + | Referral | | Complete Eye Exam/ | | | | Treatment | | | | MD Paul Ramirez, [address] | | | | [place], | | | | [place], [address] | | | | | + + [...] + | Pending order | | MR Vjgde-Gfqyrl-UYL Con | + + + + | [...] + + | Patient education | | nortriptyline%20(oral)%20(c | | | | apsule%2c%20liquid) | + + + + | Patient [...] | + + + + + | [id number] | Pulse Exam of Foot | | | + + + + + | SCT-519989778 | Visual Exam of Foot | | | + + + + + | SCT-522621078 | Sensory Exam of | | | | | Foot | | | + + + + + | SCT-32220136 | Pulse Exam of Foot | | | + + + + + | Tomasz BOSWELL 24907 | Microalbumin, | | | | | Random Urine | | | + + + + + | GLYCO HGB 88423 | Glyco Hemoglobin, | | | | | A1C | | | + + + + + | RISK 12965 | Lipid Profile | | | + + + + + | CHEM PROF | Comprehensive | | | | | Metabolic Panel | | | + + + + + | SCT- | Medication | | | | [id number] | Reconcilliation | | | + + + + + | SCT-900878086 | Visual Exam of Foot | | | + + + + + | SCT-784587858 | Sensory Exam of | | | | | Foot | | | + + + + + | SCT- | Medication | | | | [id number] | Reconcilliation | | | + + + + + | CREAT 64638 | Creatinine | | | + + + + + | BUN 07536 | BUN | | | + + + + + | SCT- | Medication | | | | [id number] | Reconcilliation | | | + + + + + | 93891 | MR Xwhmv-Fpkdxr-HWH | | | | | Con | | | + + + + + | CPT-13413 | XR Pelvis-1-2V | | | + + + + + | SCT- | Medication | | | | [id number] | Reconcilliation | | | + + + + + | 95522 | XR Hip 2-3V-Left | | | + + + + + | CPT-G0477 | Urine Tox, multiple | | | | | drug class (G0477) | | | + + + + + | U FABIO RAN 20115 | Microalbumin, | | | | | Random Urine | | | + + + + + | GLYCO HGB 82648 | Glyco Hemoglobin, | | | | | A1C | | | + + + + + | RISK 47644 | Lipid Profile | | | + + + + + | CPT-29107 | Echocardiogram - 2D | | | | | Complete | | | + + + + + | SCT- | Medication | | | | [id number] | Reconcilliation | | | + + + + + | RISK 10075 | Lipid Profile | | | + + + + + | U FABIO RAN 18427 | Microalbumin, | | | | | Random Urine | | | + + + + + | GLYCO HGB 74526 | Glyco Hemoglobin, | | | | | A1C | | | + + + + + | CHEM PROF | Comprehensive | | | | | Metabolic Panel | | | + + + + + | HGB A1C 07067 | HgbA1C | | | + + + + + | UA 04897 | Urinalysis | | | + + + + + | Vic COLBY ROU 21043 | Culture Urine | | | + + + + + | UA CULT IF MULTIPLE | Urinalysis Culture | | | | | If Indicat | | | + + + + + | CPT-90313 | UA Dipstick | | | | | (Office) | | | + + + + + | [id number] | [Recorded for CQM] | | | | | Documentation of | | | | | current medications | | | | | (procedure) | | | + + + + + | [id number] | [Recorded for CQM] | | | | | Pedal pulse taking | | | | | (procedure) | | | + + + + + | CPT-64457 | Adm 1st Inj No | | | | | counseling or >18 | | | + + + + + | [id number] | [Recorded for CQM] | | | | | Documentation of | | | | | current medications | | | | | (procedure) | | | + + + + + | [id number] | [Recorded for CQM] | | | | | Examination of | | | | | retina (procedure) | | | + + + + + | [id number] | [Recorded for CQM] | | | | | Never smoker | | | + + + + + | 330927866 | [Recorded for CQM] | | | | | Never smoked | | | | | tobacco (finding) | | | + + + + + | 064374083 | [Recorded for CQM] | | | | | Tobacco use and | | | | | exposure | | | + + + + + | CPT-33022 | Fluvirin /Fluzone | | | | | >3 | | | + + + + + | 488744329 | [Recorded for CQM] | | | | | Monofilament foot | | | | | sensation test | | | | | (procedure) | | | + + + + + | 44919359 | [Recorded for CQM] | | | | | Pedal pulse taking | | | | | (procedure) | | | + + + + + | [id number] | [Recorded for CQM] | | | | | Documentation of | | | | | current medications | | | | | (procedure) | | | + + + + + | 428431887 | [Recorded for CQM] | | | | | Diabetic foot | | | | | examination | | | | | (regime/therapy) | | | + + + + + | 739548048 | [Recorded for CQM] | | | | | Details of drug | | | | | misuse behavior | | | + + + + + | 975056214 | [Recorded for CQM] | | | | | Health-related | | | | | behavior | | | + + + + + | 019850440 | [Recorded for CQM] | | | | | Alcohol intake | | | + + + + + | CPT-02505 | Urine Tox, multiple | | | | | drug classes | | | + + + + + | [id number] | [Recorded for CQM] | | | | | Documentation of | | | | | current medications | | | | | (procedure) | | | + + + + + | GLYCO HGB 66745 | HgbA1C | | | + + + + + | CHEM PROF | Comprehensive | | | | | Metabolic Panel | | | + + + + + | U FABIO RAN 56822 | Microalbumin, | | | | | Random Urine | | | + + + + + | RISK 74619 | Lipid Profile | | | + + + + + | 79155 | MX Dexa Scan-Body | | | + + + + + | CPT-68089 | Venipuncture | | | + + + + + | 16612259 | [Recorded for CQM] | | | | | Pedal pulse taking | | | | | (procedure) | | | + + + + + | [id number] | [Recorded for CQM] | | | | | Documentation of | | | | | current medications | | | | | (procedure) | | | + + + + + | 786484055 | [Recorded for CQM] | | | | | Diabetic foot | | | | | examination | | | | | (regime/therapy) | | | + + + + + | 207500060 | [Recorded for CQM] | | | | | Monofilament foot | | | | | sensation test | | | | | (procedure) | | | + + + + + | 52299 G0202 | MX Mammo Dig | | | | | Screen-Bilat | | | + + + + + | GLYCO HGB 53888 | HgbA1C | | | + + + + + | CPT-53355 | Venipuncture | | | + + + + + | CPT-45545 | Adm 1st Inj No | | | | | counseling or >18 | | | + + + + + | PAP SS WO G0145 | PAP SURE Sc wo HPV | | | + + + + + | FREE T4 60591 | T4 Free | | | + + + + + | TSH 55408 | TSH | | | + + + + + | RISK 90761 | Lipid Profile | | | + + + + + | CHEM PROF 17742 | CMP (Comprehensive | | | | | Metabolic Panel) | | | + + + + + | GLYCO HGB 79833 | HgbA1C | | | + + + + + | U FABIO RAN 43443 | Microalbumin, | | | | | Random Urine | | | + + + + + | CBC AUTO 54585 | CBC w/ Auto Diff | | | + + + + + | CPT-G0439 | Annual Wellness | | | | | Visit (Medicare) | | | | | Subsqnt visit | | | + + + + + | CPT-05727 | Pneumovax 23 | | | | | (Pneumococcal) >2 | | | + + + + + | CPT-44530 | Adm addtl Inj No | | | | | counseling or >18 | | | + + + + + | CPT-99561 | Fluvirin /Fluzone | | | | | >3 | | | + + + + + | 79319 | MR Head-WO Con | | | + + + + + | CPT-19989 | Venipuncture | | | + + + + + | CHEM PROF 71552 | CMP (Comprehensive | | | | | Metabolic Panel) | | | + + + + + | U FABIO RAN 66730 | Microalbumin, | | | | | Random Urine | | | + + + + + | GLYCO HGB 57749 | HgbA1C | | | + + + + + | RISK 40632 | Lipid Profile | | | + + + + + | 41339 G0202 | MX Mammo Dig | | | | | Screen-Bilat | | | + + + + + | CPT-G0438 | Annual Wellness | | | | | Visit (Medicare) | | | | | 1st visit | | | + + + + + | F1692 11989 | MX Mammo Dig | | | | | Diag-Bilat | | | + + + + + | 32080 | MX Dexa Scan-Body | | | + + + + + | CPT-47073 | EKG- tracing with | | | | | report (20042) | | | + + + + + | CHEM PROF 37947 | CMP (Comprehensive | | | | | Metabolic Panel) | | | + + + + + | 60943 | XR Chest-2V | | | + + + + + | U FABIO RAN 23540 | Microalbumin, | | | | | Random Urine | | | + + + + + | RISK 58589 | Lipid Profile | | | + + + + + | CPT-86505 | Venipuncture | | | + + + + + | GLYCO HGB 99323 | HgbA1C | | | + + + + + | CPT-95134 | Refraction (81877) | | | + + + + + | CPT-25903 | Ext. | | | | | Ophthalmoscopy, | | | | | Subs. | | | + + + + + | CPT-19364 | Venipuncture | | | + + + + + | GLYCO HGB 21764 | HgbA1C | | | + + + + + | CPT-95713 | Venipuncture | | | + + + + + | CHEM PROF 35770 | CMP (Comprehensive | | | | | Metabolic Panel) | | | + + + + + | U FABIO RAN 75192 | Microalbumin, | | | | | Random Urine | | | + + + + + | GLYCO HGB 32157 | HgbA1C | | | + + + + + | RISK 71908 | Lipid Profile | | | + + + + + | CPT-60110 | Venipuncture | | | + + + + + | GLYCO HGB 75398 | HgbA1C | | | + + + + + | CPT-99196 | Flu Vaccine > 8 | | | | | yrs. | | | + + + + + | CPT-G0008 | Admin of Flu Vac | | | | | (Mdc/Atrio) | | | + + + + + | CHEM PROF 75795 | CMP (Comprehensive | | | | | Metabolic Panel) | | | + + + + + | CPT-G0202 | Mammogram - | | | | | Screening | | | | | (bilateral) | | | + + + + + | U FABIO RAN 27173 | Microalbumin, | | | | | Random Urine | | | + + + + + | GLYCO HGB 22320 | HgbA1C | | | + + + + + | RISK 56419 | Lipid Profile | | | + + + + + | CPT-G0008 | Admin of Flu Vac | | | | | (Mdc/Atrio) | | | + + + + + | CPT-06050 | Flu vaccine >3 y/o | | | + + + + + | CPT-57944 | MRI- Spine: Lumbar | | | | | w/o contrast | | | + + + + + | CPT-58615 | UA Dipstick | | | | | (Office) | | | + + + + + | Vic LOZA 83352 | Culture Urine | | | + + + + + | CPT-00508 | X-Ray- Hand (3+ | | | | | views) | | | + + + + + | CPT-29308 | Mammogram - | | | | | Screening | | | | | (bilateral) | | | + + + + + | CPT-55832 | Admin of Imm. over | | | | | 8yrs (1st) | | | + + + + + | CPT-91239 | Flu vaccine >3 y/o | | | + + + + + | CPT-01122 | X-Ray- Chest - PA | | | | | and lateral | | | + + + + + | CHEM PROF 66812 | CMP (Comprehensive | | | | | Metabolic Panel) | | | + + + + + | PAP SCREEN G0123 | PAP Liquid Based, | | | | | Screening | | | + + + + + | CPT-69246 | X-Ray- Thoracic (3 | | | | | views) | | | + + + + + | GLYCO HGB 77001 | HgbA1C | | | + + + + + | RISK 19071 | Lipid Profile | | | + + + + + | CHEM 8 08849 | Basic Metabolic | | | | | Panel | | | + + + + + | GLYCO HGB 61788 | HgbA1C | | | + + + + + | VIT B12 81158 | B-12 | | | + + + + + | RISK 17990 | Lipid Profile | | | + + + + + | [place] [address]8792 | Magnesium Level | | | + + + + + | CHEM PROF 20415 | CMP (Comprehensive | | | | | Metabolic Panel) | | | + + + + + | CPT-29948 | Mammogram - | | | | | Screening | | | | | (bilateral) | | | + + + + + | CPT-83817 | DEXA scan (bone | | | | | density) | | | + + + + + | RISK 59619 | Lipid Profile | | | + + + + + | [place] [address] | Magnesium Level | | | + [...] + + + + + | RISK 67158 | Lipid Profile | | | + + + + + | CPT-89820 | Complete Eye Exam/ | | | | | Treatment | | | + + + + + | GLYOCO HGB 11427 | HbA1C | | | + + + + + | CHEM PROF 19683 | CMP (Comprehensive | | | | | Metabolic Panel) | | | + + + + + | CPT-74513 | Comprehensive | | | | | Metabolic Panel | | | + + + + + | CPT-72129 | Lipid Profile | | | + + + + + | CPT-24087 | HbA1C | | | + + + + + Vital Signs + + +-------+---------+ + | Date | Name | Value | Unit | Description | + + +-------+---------+ + | | BMI (Body Mass | 30.22 | kg/m2 | Body Mass Index | | | Index) | | | [Ratio] | + + +-------+---------+ + | | BP Diastolic | 80 | mm[Hg] | blood pressure, | | | | | | diastolic, | | | | | | second | | | | | | observation | + + +-------+---------+ + | | BP Diastolic | 96 | mm[Hg] | blood pressure, | | | | | | diastolic | + + +-------+---------+ + | | BP Systolic | 138 | mm[Hg] | blood pressure, | | | | | | systolic, | | | | | | second | | | | | | observation | + + +-------+---------+ + | | BP Systolic | 136 | mm[Hg] | blood pressure, | | | | | | systolic | + + +-------+---------+ + | | Body | 97.9 | [degF] | temperature E&M | | | Temperature | | | | + + +-------+---------+ + | | Heart Rate | 86 | /min | pulse rate E&M | + + +-------+---------+ + | | Height | 59.5 | [in_us] | height E&M | + + +-------+---------+ + | | Respiratory | 14 | /min | respiratory | | | Rate | | | rate E&M | + + +-------+---------+ + | | Weight Measured | 151.6 | [lb_av] | weight E&M | + [...] + +-------+---------+ + | | Body | 97.8 | [degF] | temperature E&M | | | Temperature | | | | + + +-------+---------+ + | | Height | 59.5 | [in_us] | height E&M | + + +-------+---------+ + | | BMI (Body Mass | 30.57 | kg/m2 | Body Mass Index | [...] +-------+---------+ + | | BP Systolic | 138 | mm[Hg] | blood pressure, | | | | | | systolic | + + +-------+---------+ + | | BP Systolic | 138 | mm[Hg] | blood pressure, | | | | | | systolic, | | | | | | second | | | | | | observation | + + +-------+---------+ + | | Body | 98.2 | [degF] | temperature E&M | | | Temperature | | | | + + +-------+---------+ + | | Heart Rate | 72 | /min | pulse rate E&M | + + +-------+---------+ + | | Height | 59.5 | [in_us] | height E&M | + + +-------+---------+ + | | Respiratory | 14 | /min | respiratory | | | Rate | | | rate E&M | + + +-------+---------+ + | | Weight Measured | 153.4 | [lb_av] | weight E&M | + [...]
--- OUTSIDE RECORDS SUMMARY | ~2017-01-29 | XMS | Clinical Summary ---
Demographics + + + | Address | [address] | | | [place] [address] | + + + | Home Phone | | + + + | Preferred Language | Unknown | + + + | Marital Status | W | + + + | Anabaptist Affiliation | Unknown | + + + | Race | White | + + + | Ethnic Group | Not or | + + + Author + + + | Author | [facility] | + + + | Organization | [facility] | + + + | Address | [address] | | | [place] [address] | + + + | Phone | Unavailable | + + + Care Team Providers + +------+ + | Care Flattening Machine Operator Name | Role | Phone | + +------+ + | Ajay Ward DPM | PCP | [phone] | + +------+ + Conditions or Problems [...] | | tion | | +---------+---------+---------+---------+---------+---------+---------+---------+---------+ | SCREENI | [id number] | | Active | | Jennifer | | Screeni | | | NG | 2 | /07 | | /07 | Agsten | | ng | | | MAMMOGR | (SNOMED | | | | DO | | mammogr | | | AM | CT) | | | | | | aphy | | +---------+---------+---------+---------+---------+---------+---------+---------+---------+ | DIABETE | [id number] | | Active | | Ajay | | Diabeti | | | S | 4 | /17 | | / | Sylvia | | c | | [...] | | | +---------+---------+---------+---------+---------+---------+---------+---------+---------+ | FOOT | [id number] | | Active | | Ajay | | Foot | | | PAIN, | 7 | /17 | | / | Sylvia | | pain | | | LEFT | (SNOMED | | | | DPM | | | | | | CT) | | | | | | | | +---------+---------+---------+---------+---------+---------+---------+---------+---------+ | FOOT | [id number] | | Active | | Ajay | | Foot | | | PAIN, | 7 | /17 | | | Sylvia | | pain | | | RIGHT | (SNOMED | | | | DPM | | | | | | CT) | | | | | | | | +---------+---------+---------+---------+---------+---------+---------+---------+---------+ | ONYCHOM | [id number] | | Active | | Ajay | | Onychom | | | YCOSIS | 08 | /17 | | | Sylvia | | ycosis | | | | (SNOMED | | | | DPM | | | | | | CT) | | | | | | | | +---------+---------+---------+---------+---------+---------+---------+---------+---------+ | ONYCHAU | [id number] | | Active | | Ajay | | Hypertr | | | XIS | 2 | /17 | | / | Sylvia | | ophy of | | | | (SNOMED | | | | DPM | | nail | | | | CT) | | | | | | | | +---------+---------+---------+---------+---------+---------+---------+---------+---------+ | 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 | 03 | /20 | | / | Agsten | | diabete [...] | | | +---------+---------+---------+---------+---------+---------+---------+---------+---------+ | OSTEOAR | [id number] | | Resolve | | Jennifer | | Osteoar | | | THRITIS | 02 | /14 | d | /15 | Agsten | | thritis | | | , HIP, | (SNOMED | | | | DO | | of hip | | | LEFT | CT) | | | | | | | | +---------+---------+---------+---------+---------+---------+---------+---------+---------+ | HALLUX | [id number] | | Active | | Ajay | [...] | | | +---------+---------+---------+---------+---------+---------+---------+---------+---------+ | HALLUX | [id number] | | Active | | Ajay | [...] | | | +---------+---------+---------+---------+---------+---------+---------+---------+---------+ | LUMBAR | [id number] | | Resolve | | Jennifer | | Lumbar | | | RADICUL | 05 | /08 | d | /08 | Agsten | | radicul | | | OPATHY, | (SNOMED | | | | DO | | opathy | | | LEFT | CT) | | | | | | | | +---------+---------+---------+---------+---------+---------+---------+---------+---------+ | PAIN IN | [id number] | | Resolve | | Jennifer | | Hip | | | LEFT | 2 | /23 | d | /23 | Agsten | | pain | | | HIP | (SNOMED | | | | DO | | | | | | CT) | | | | | | | | +---------+---------+---------+---------+---------+---------+---------+---------+---------+ | PAIN IN | [id number] | | Removed | | Farzad | | Hip | | | LEFT | 2 | /23 | | /23 | | | pain | | | HIP | (SNOMED | | | | VanAnro | | | | | | CT) | | | | oy MD | | | | +---------+---------+---------+---------+---------+---------+---------+---------+---------+ | OSTEOAR | [id number] | | Removed | | Rendee | | Osteoar | | | THRITIS | 02 | /14 | | /15 | Mishra | | thritis | | | , HIP, | (SNOMED | | | | | | of hip | | | LEFT | CT) | | | | | | | | +---------+---------+---------+---------+---------+---------+---------+---------+---------+ | LUMBAR | [id number] | | Removed | | Jennifer | | Lumbar | | | RADICUL | 05 | /08 | | /08 | Agsten | | radicul | | | OPATHY, | (SNOMED | | | | DO | | opathy | | | LEFT | CT) | | | | | | | | +---------+---------+---------+---------+---------+---------+---------+---------+---------+ | HIP | [id number] | | Inactiv | | Jennifer | | Hip | | | PAIN, | 2 | /14 | e | /15 | Agsten | | pain | | | LEFT | (SNOMED | | | | DO | | | | | | CT) | | | | | | | | +---------+---------+---------+---------+---------+---------+---------+---------+---------+ | 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 | 2012/04 | Resolve | | Jennifer | | Type 2 | | | BETES | (ICD-10 | /09 | d | /09 | [...] 2 | | | | (ICD-10 | /09 | d | /09 | Agsten | | diabete | | | POLYNEU | -) | | | | DO [...] ropathy | | +---------+---------+---------+---------+---------+---------+---------+---------+---------+ | ROTATOR | [id number] | | Resolve | | Jennifer | | Inflamm | | | CUFF | 00 | / | d | /04 | Agsten | [...] tendon | | +---------+---------+---------+---------+---------+---------+---------+---------+---------+ | SCIATIC | [id number] | | Resolve | | Jennifer | | Sciatic | | | A | 5 | / | d | / | Agsten | | a | | | | (SNOMED | | | | DO | | | | | | CT) | | | | | | | | +---------+---------+---------+---------+---------+---------+---------+---------+---------+ | NAUSEA | [id number] | | Resolve | | Jennifer | | Nausea | | | ALONE | 07 | / | d | / | Agsten | | | | | | (SNOMED | | | | DO | | | | | | CT) | | | | | | | | +---------+---------+---------+---------+---------+---------+---------+---------+---------+ | LEFT | [id number] | | Active | | Jennifer | [...] healing | | +---------+---------+---------+---------+---------+---------+---------+---------+---------+ | PERIPHE | [id number] | | Resolve | | Jennifer | | Periphe | | | RAL | 06 | /20 | d | /20 | Agsten | | ral | | | NEUROPA | (SNOMED | | | | DO | | nerve | | | THY | CT) | | | | | | disease | | +---------+---------+---------+---------+---------+---------+---------+---------+---------+ | BREAST | [id number] | | Resolve | | Jennifer | | Pain of | | | PAIN, | 7 | / | d | /09 | Agsten | | breast | | | LEFT | (SNOMED | | | | DO | | | | | | CT) | | | | | | | | +---------+---------+---------+---------+---------+---------+---------+---------+---------+ | WELL | [id number] | | Resolve | | Jennifer | | Adult | | | ADULT | 07 | /09 | d | /09 | Agsten | | health | | | EXAM | (SNOMED | | | | DO | | examina | | | | CT) | | | | | | tion | | +---------+---------+---------+---------+---------+---------+---------+---------+---------+ | OTHER | [id number] | | Resolve | | Jennifer | [...] | | | +---------+---------+---------+---------+---------+---------+---------+---------+---------+ | DIZZINE | [id number] | | Resolve | | Jennifer | | Dizzine | | | SS | 03 | | d | | Agsten | | ss | | | | (SNOMED | | | | DO | | | | | | CT) | | | | | | | | +---------+---------+---------+---------+---------+---------+---------+---------+---------+ | MELENA | [id number] | | Resolve | | Jennifer | | Melena | | | | | /02 | d | | Agsten | | | | | | (SNOMED | | | | DO | | | | | | CT) | | | | | | | | +---------+---------+---------+---------+---------+---------+---------+---------+---------+ | NEED | [id number] | | Resolve | | Jennifer | | Encount | | | PROPHYL | (ICD-10 | / | d | /20 | [...] | | | +---------+---------+---------+---------+---------+---------+---------+---------+---------+ | UTI | [id number] | | Resolve | | Jennifer | [...] disease | | +---------+---------+---------+---------+---------+---------+---------+---------+---------+ | NAUSEA | [id number] | | Removed | | Jennifer | | Nausea | | | ALONE | 07 | /20 | | /20 | Agsten | | | | | | (SNOMED | | | | DO | | | | | | CT) | | | | | | | | +---------+---------+---------+---------+---------+---------+---------+---------+---------+ | UTI | [id number] | | Removed | | Jennifer | | Urinary | | | | 5 | / | | / | Agsten | | tract | | | | (SNOMED | | | | DO | | infecti | | | | CT) | | | | | | ous | | | | | | | | | | disease | | +---------+---------+---------+---------+---------+---------+---------+---------+---------+ | SCIATIC | [id number] | | Removed | | Jennifer | | Sciatic | | | A | 5 | /25 | | /25 | Agsten | | a | | | | (SNOMED | | | | DO | | | | | | CT) | | | | | | | | +---------+---------+---------+---------+---------+---------+---------+---------+---------+ | ROTATOR | [id number] | | Removed | | Jennifer | [...] | PROPHYL | (ICD- | | | Agsten | | er for [...] | | | +---------+---------+---------+---------+---------+---------+---------+---------+---------+ | INGROWN | [id number] | | Inactiv | | Ajay | [...] on | | +---------+---------+---------+---------+---------+---------+---------+---------+---------+ | OTHER | [id number] | | Removed | | Jennifer | [...] | | | +---------+---------+---------+---------+---------+---------+---------+---------+---------+ | MELENA | [id number] | | Removed | | Lewis | | Melena | | | | | /02 | | /02 | Sae | | | | | | (SNOMED | | | | RN | | | | | | CT) | | | | | | | | +---------+---------+---------+---------+---------+---------+---------+---------+---------+ | SCREENI | [id number] | | Inactiv | | Jennifer | | Screeni | | | NG, | 4 | / | e | / | Agsten | | ng for | | | VAGINAL | (SNOMED | | | | DO | | cancer | | | CANCER | CT) | | | | | | | | +---------+---------+---------+---------+---------+---------+---------+---------+---------+ | WELL | [id number] | | Removed | | Jennifer | | Adult | | | ADULT | 07 | /09 | | /09 | Agsten | | health | | | EXAM | (SNOMED | | | | DO | | examina | | | | CT) | | | | | | tion | | +---------+---------+---------+---------+---------+---------+---------+---------+---------+ | DIZZINE | [id number] | | Removed | | Jennifer | [...] culosis | | | , W/O | -) | | | | m MD | [...] polyps | | +---------+---------+---------+---------+---------+---------+---------+---------+---------+ | OTHER | [id number] | | Inactiv | | Corie | [...] | | | (ICD-10 | | | / | Agsten | | diabete [...] fied | | +---------+---------+---------+---------+---------+---------+---------+---------+---------+ | WELL | [id number] | | Inactiv | | Jennifer | | Adult | | | ADULT | 07 | / | e | / | Agsten | | health | | | EXAM | (SNOMED | | | | DO | | examina | | | | CT) | | | | | | tion | | +---------+---------+---------+---------+---------+---------+---------+---------+---------+ | BREAST | [id number] | | Removed | | Jennifer | | Pain of | | | PAIN, | 7 | /09 | | /09 | Agsten | | breast | | | LEFT | (SNOMED | | | | DO | | | | | | CT) | | | | | | | | +---------+---------+---------+---------+---------+---------+---------+---------+---------+ | PRESBYO | [id number] | | Resolve | | Jennifer | | Presbyo | | | HUMBLE | 4 | / | d | /03 | Agsten | | humble | | | | (SNOMED | | | | DO | | | | | | CT) | | | | | | | | +---------+---------+---------+---------+---------+---------+---------+---------+---------+ | ASTIGMA | [id number] | | Resolve | | Jennifer | | Astigma | | | TISM | 3 | /03 | d | /03 | Agsten | | tism | | | | (SNOMED | | | | DO | | | | | | CT) | | | | | | | | +---------+---------+---------+---------+---------+---------+---------+---------+---------+ | RETINAL | [id number] | | Resolve | | Jennifer | | Retinal | | | | 8 | /03 | d | /03 | Agsten | | | | | HEMORRH | (SNOMED | | | | DO | | hemorrh | | | AGE | CT) | | | | | | age | | +---------+---------+---------+---------+---------+---------+---------+---------+---------+ | MICROAN | [id number] | | Resolve | | Jennifer | | Retinal | | | EURYSMS | 0 | /03 | d | /03 | Agsten | | | | | , | (SNOMED | | | | DO | | microan | | | RETINAL | CT) | | | | | | eurysm | | +---------+---------+---------+---------+---------+---------+---------+---------+---------+ | POSTERI | [id number] | | Resolve | | Jennifer | [...] eye | | +---------+---------+---------+---------+---------+---------+---------+---------+---------+ | HYPEROP | [id number] | | Resolve | | Jennifer | | Hyperme | | | IA | 3 | /03 | d | /03 | Agsten | | tropia | | | | (SNOMED | | | | DO | | | | | | CT) | | | | | | | | +---------+---------+---------+---------+---------+---------+---------+---------+---------+ | ROSACEA | [id number] | | Resolve | | Jennifer | | Rosacea | | | | 04 | /03 | d | /03 | Agsten | | | | | | (SNOMED | | | | DO | | | | | | CT) | | | | | | | | +---------+---------+---------+---------+---------+---------+---------+---------+---------+ | SCREENI | [id number] | | Resolve | | Jennifer | [...] cervix | | +---------+---------+---------+---------+---------+---------+---------+---------+---------+ | SCIATIC | [id number] | | Resolve | | Jennifer | | Sciatic | | | A | 5 | /25 | d | /25 | Agsten | | a | | | | (SNOMED | | | | DO | | | | | | CT) | | | | | | | | +---------+---------+---------+---------+---------+---------+---------+---------+---------+ | INSOMNI | [id number] | | Active | | Ariela | | Insomni | | | A | 01 | /02 | | /02 | Ashwin | | a | | | | (SNOMED | | | | | | | | | | CT) | | | | | | | | +---------+---------+---------+---------+---------+---------+---------+---------+---------+ | ROSACEA | [id number] | | Removed | | Abby | | Rosacea | | | | 04 | /03 | | /03 | Gauer | | | | | | (SNOMED | | | | OD | | | | | | CT) | | | | | | | | +---------+---------+---------+---------+---------+---------+---------+---------+---------+ | HYPEROP | [id number] | | Removed | | Abby | [...] eye | | +---------+---------+---------+---------+---------+---------+---------+---------+---------+ | POSTERI | [id number] | | Removed | | Abby | | Posteri | | | OR | 01 | /03 | | /03 | Gauer [...] ent | | +---------+---------+---------+---------+---------+---------+---------+---------+---------+ | MICROAN | [id number] | | Removed | | Abby | | Retinal | | | EURYSMS | 0 | /03 | | /03 | Gauer | | | | | , | (SNOMED | | | | OD | | microan | | | RETINAL | CT) | | | | | | eurysm | | +---------+---------+---------+---------+---------+---------+---------+---------+---------+ | RETINAL | [id number] | | Removed | | Abby | | Retinal | | | | 8 | /03 | | /03 | Gauer | | | | | HEMORRH | (SNOMED | | | | OD | | hemorrh | | | AGE | CT) | | | | | | age | | +---------+---------+---------+---------+---------+---------+---------+---------+---------+ | ASTIGMA | [id number] | | Removed | | Abby | | Astigma | | | TISM | 3 | /03 | | /03 | Gauer | | tism | | | | (SNOMED | | | | OD | | | | | | CT) | | | | | | | | +---------+---------+---------+---------+---------+---------+---------+---------+---------+ | PRESBYO | [id number] | | Removed | | Abby | | Presbyo | | | HUMBLE | 4 | /03 | | /03 | Gauer | | humble | | | | (SNOMED | | | | OD | | | | | | CT) | | | | | | | | +---------+---------+---------+---------+---------+---------+---------+---------+---------+ | SCIATIC | [id number] | | Removed | | Jennifer | | Sciatic | | | A | 5 | /25 | | /25 | Agsten | | a | | | | (SNOMED | | | | DO | | | | | | CT) | | | | | | | | +---------+---------+---------+---------+---------+---------+---------+---------+---------+ | HYPOMAG | [id number] | | Resolve | | Jennifer | | Hypomag | | | NESEMIA | 04 | /30 | d | /30 | Agsten | | nesemia | | | | (SNOMED | | | | DO | | | | | | CT) | | | | | | | | +---------+---------+---------+---------+---------+---------+---------+---------+---------+ | FOLLICU | [id number] | | Resolve | | Jennifer | | Follicu | | | LITIS | 6 | /27 | d | /27 | Agsten | | litis | | | | (SNOMED | | | | DO | | | | | | CT) | | | | | | | | +---------+---------+---------+---------+---------+---------+---------+---------+---------+ | URI | [id number] | | Resolve | | Jennifer | [...] on | | +---------+---------+---------+---------+---------+---------+---------+---------+---------+ | CYSTOCE | [id number] | | Resolve | | Jennifer | [...] | | | +---------+---------+---------+---------+---------+---------+---------+---------+---------+ | ABNORMA | [id number] | | Resolve | | Jennifer | | Standar | | | L CHEST | | | d | | Agsten | | d chest | | | XRAY | (SNOMED | | | | DO | | X-ray | | | | CT) | | | | | | abnorma | | | | | | | | | | l | | +---------+---------+---------+---------+---------+---------+---------+---------+---------+ | ALLERGI | [id number] | | Resolve | | Jennifer | | Allergi | | | C | 4 | /05 | d | /05 | Agsten | | c | | | RHINITI | (SNOMED | | | | DO | | rhiniti | | | S | CT) | | | | | | s | | +---------+---------+---------+---------+---------+---------+---------+---------+---------+ | SINUSIT | [id number] | | Resolve | | Jennifer | | Acute | | | IS, | 2 | /05 | d | /05 | Agsten | | sinusit | | | ACUTE | (SNOMED | | | | DO | | is | | | NOS | CT) | | | | | | | | +---------+---------+---------+---------+---------+---------+---------+---------+---------+ | CONTUSI | [id number] | | Resolve | | Jennifer | | Contusi | | | ON, | 6 | / | d | / | Agsten | | on of | | | LEFT | (SNOMED | | | | DO | | knee | | | KNEE | CT) | | | | | | | | +---------+---------+---------+---------+---------+---------+---------+---------+---------+ | THUMB | [id number] | | Resolve | | Jennifer | | Pain in | | | PAIN, | 02 | | d | | Agsten | | thumb | | | RIGHT | (SNOMED | | | | DO | | | | | | CT) | | | | | | | | +---------+---------+---------+---------+---------+---------+---------+---------+---------+ | FOOT | [id number] | | Resolve | | Jennifer | [...] | | | IA | (ICD-10 | / | d | [...] g | | +---------+---------+---------+---------+---------+---------+---------+---------+---------+ | ABDOMIN | [id number] | | Resolve | | Jennifer | [...] | | | +---------+---------+---------+---------+---------+---------+---------+---------+---------+ | LUMBAR | [id number] | | Resolve | | Jennifer | | Lumbar | | | RADICUL | 05 | /08 | d | /08 | Agsten | | radicul | | | OPATHY, | (SNOMED | | | | DO | | opathy | | | LEFT | CT) | | | | | | | | +---------+---------+---------+---------+---------+---------+---------+---------+---------+ | HIP | [id number] | | Inactiv | | Jennifer | [...] | | | +---------+---------+---------+---------+---------+---------+---------+---------+---------+ | INSOMNI | [id number] | | Resolve | | Jennifer | | Insomni | | | A | 01 | /02 | d | /02 | Agsten | | a | | | | (SNOMED | | | | DO | | | | | | CT) | | | | | | | | +---------+---------+---------+---------+---------+---------+---------+---------+---------+ | INSOMNI | [id number] | | Removed | | Jennifer | [...] | | | +---------+---------+---------+---------+---------+---------+---------+---------+---------+ | HIP | [id number] | | Removed | | Franny | | Hip | | | PAIN | 2 | /14 | | /15 | | | pain | | | | (SNOMED | | | | Campman | | | | | | CT) | | | | | | | | +---------+---------+---------+---------+---------+---------+---------+---------+---------+ | FOOT | [id number] | | Removed | | Franny | | Foot | | | PAIN | 7 | /01 | | /01 | | | pain | | | | (SNOMED | | | | Campman | | | | | | CT) | | | | | | | | +---------+---------+---------+---------+---------+---------+---------+---------+---------+ | LUMBAR | [id number] | | Removed | | Jennifer | | Lumbar | | | RADICUL | 05 | /08 | | /08 | Agsten | | radicul | | | OPATHY, | (SNOMED | | | | DO | | opathy | | | LEFT | CT) | | | | | | | | +---------+---------+---------+---------+---------+---------+---------+---------+---------+ | GERD | [id number] | | Active | | Jasmeet | [...] disease | | +---------+---------+---------+---------+---------+---------+---------+---------+---------+ | ABDOMIN | [id number] | | Removed | | Jasmeet | [...] | | | +---------+---------+---------+---------+---------+---------+---------+---------+---------+ | NAUSEA | [id number] | | Correct | | Jasmeet | [...] | | | IA | (ICD-10 | /21 | | | McClish | | ia, | | | UNSPECI | -CM) | | | | HEALTH [employer]ENCES DEAN | | unspeci | | | FIED [...] limb | | +---------+---------+---------+---------+---------+---------+---------+---------+---------+ | THUMB | [id number] | | Removed | | Jennifer | | Pain in | | | PAIN, | 02 | / | | /01 | Agsten | | thumb | | | RIGHT | (SNOMED | | | | DO | | | | | | CT) | | | | | | | | +---------+---------+---------+---------+---------+---------+---------+---------+---------+ | CONTUSI | [id number] | | Removed | | Jennifer | | Contusi | | | ON, | 6 | /05 | | /05 | Agsten | | on of | | | LEFT | (SNOMED | | | | DO | | knee | | | KNEE | CT) | | | | | | | | +---------+---------+---------+---------+---------+---------+---------+---------+---------+ | SINUSIT | [id number] | | Removed | | Jennifer | | Acute | | | IS, | 2 | /05 | | /05 | Agsten | | sinusit | | | ACUTE | (SNOMED | | | | DO | | is | | | NOS | CT) | | | | | | | | +---------+---------+---------+---------+---------+---------+---------+---------+---------+ | ALLERGI | [id number] | | Removed | | Jennifer | | Allergi | | | C | 4 | /05 | | /05 | Agsten | | c | | | RHINITI | (SNOMED | | | | DO | | rhiniti | | | S | CT) | | | | | | s | | +---------+---------+---------+---------+---------+---------+---------+---------+---------+ | ABNORMA | [id number] | | Removed | | Pinky | | Standar | | | L CHEST | | /21 | | /21 | Alexei | | d chest | | | XRAY | (SNOMED | | | | MA | | X-ray | | | | CT) | | | | | | abnorma | | | | | | | | | | l | | +---------+---------+---------+---------+---------+---------+---------+---------+---------+ | CYSTOCE | [id number] | | Removed | | Jennifer | | Cystoce | | | LE WITH | | /16 | | /16 | Agsten [...] | | | +---------+---------+---------+---------+---------+---------+---------+---------+---------+ | SCREENI | [id number] | | Removed | | Jennifer | [...] cervix | | +---------+---------+---------+---------+---------+---------+---------+---------+---------+ | NAUSEA | [id number] | | Removed | | Jennifer | | Nausea | | | ALONE | | | | | Agsten | | | | | | (SNOMED | | | | DO | | | | | | CT) | | | | | | | | +---------+---------+---------+---------+---------+---------+---------+---------+---------+ | PERIPHE | [id number] | | Removed | | Jennifer | | Periphe | | | RAL | | / | | /20 | Agsten | | ral | | | NEUROPA | (SNOMED | | | | DO | | nerve | | | THY | CT) | | | | | | disease | | +---------+---------+---------+---------+---------+---------+---------+---------+---------+ | URI | [id number] | | Removed | | Jennifer | [...] on | | +---------+---------+---------+---------+---------+---------+---------+---------+---------+ | FOLLICU | [id number] | | Removed | | Jennifer | | Follicu | | | LITIS | 6 | | | | Agsten | | litis | | | | (SNOMED | | | | DO | | | | | | CT) | | | | | | | | +---------+---------+---------+---------+---------+---------+---------+---------+---------+ | OSTEOPE | [id number] | | Active | | Jennifer | | Osteope | | | LINDSAY | 00 | /30 | | /30 | Agsten | | lindsay | | | | (SNOMED | | | | DO | | | | | | CT) | | | | | | | | +---------+---------+---------+---------+---------+---------+---------+---------+---------+ | HYPOMAG | [id number] | | Removed | | Jennifer | | Hypomag | | | NESEMIA | 04 | /30 | | /30 | Agsten | | nesemia | | | | (SNOMED | | | | DO | | | | | | CT) | | | | | | | | +---------+---------+---------+---------+---------+---------+---------+---------+---------+ | TESFAYE | [id number] | | Inactiv | | Jennifer | | Tesfaye | | | IRMA | [id number] | / | e | / | Agsten | | irma | | [...] a | | +---------+---------+---------+---------+---------+---------+---------+---------+---------+ | DIABETE | [id number] | | Inactiv | | Jennifer | | Type 2 | | | S | 03 | /20 | e | /20 | Agsten | | diabete [...] led | | +---------+---------+---------+---------+---------+---------+---------+---------+---------+ | HYPERTR | [id number] | | Active | | Jennifer | | Hypertr | | | IGLYCER | 06 | /20 | | /20 | Agsten | | iglycer | | | IDEMIA | (SNOMED | | | | DO | | idemia | | | | CT) | | | | | | | | +---------+---------+---------+---------+---------+---------+---------+---------+---------+ | HYPERTE | [id number] | | Active | | Jennifer | [...] po bid | | | SULFAMETHO | [id number] | Aminata | | [phone] | | | | XAZOLE-TRI | 1 | [facility] | | MG TABS | | | | METHOPRIM | | | + + + + + + + + | PENNSAID | 40 drops 4 | | | DICLOFENAC | [id number] | Jennifer | | 1.5 % SOLN | times a | | | SODIUM | 3 | Agsten DO | | | day to | | | | | | | | joint as | | | | | | | | needed | | | | | | + + + + + + + + | VALIUM 5 | one po | | | DIAZEPAM | [id number] | Jennifer | | MG TABS | prior to | | | | 1 | Agsten DO | | | procedure | | | | | | + + + + + + + + | GLIMEPIRID | one tablet | | | GLIMEPIRID | [id number] | Emilie | | E 2 MG | once a | | | E | 1 | Brown CCMA | | TABS | day | | | | | | + + + + + + + + | BENADRYL | prn | | | BENCARLOSRYL | | Jasmeet | | | | | | | | Aga | | | | | | | | MD | + + + + + + + + | MIRTAZAPIN | one tablet | | | MIRTAZAPIN | [id number] | Jerri | | E 30 MG | at night | | | E | 6 | Irlanda MA | | TABS | before bed | | | | | | + + + + + + + + | MIRALAX | take as | | | POLYETHYLE | 3747514955 | Jennifer | | POWD | directed | | | NE GLYCOL | 2 | Agsten DO | | | | | | 3350 | | | + + + + + + + + | WELCHOL | one po qd | | | COLESEVELA | 3197059500 | Jennifer | | 625 MG | prn | | | M HCL | 8 | Agsten DO | | TABS | | | | | | | + + + + + + + + | GLYBURIDE | one by | | | GLYBURIDE | 8118878137 | Jennifer | | 5 MG TABS | mouth one | | | | 1 | Agsten DO | | | time per | | | | | | | | day | | | | | | + + + + + + + + | MIRTAZAPIN | one tablet | | | MIRTAZAPIN | 1439973671 | Jennifer | | E 15 MG | once a | | | E | 6 | Agsten DO | | TABS | [...] po qd | | | COLESEVELA | 7291084791 | Jennifer | | 625 MG | prn | | | M HCL | 8 | Agsten DO | | TABS | | | | | | | + + + + + + + + | GABAPENTIN | Take one | | | GABAPENTIN | 0030326316 | Ajay | | 300 MG | [...] one tablet | | | MIRTAZAPIN | 8177106724 | Pedro Solis | | E 15 MG | at night | | | E | 6 | | | TABS | before bed | | | | | | + + + + + + + + | GABAPENTIN | two | | | GABAPENTIN | 0940787892 | Jennifer | | 300 MG | capsules | | | | 5 | Agsten DO | | CAPS | twice a | | | | | | | | day | | | | | | + + + + + + + + | ATIVAN 1 | one by | | | LORAZEPAM | 0629791166 | Jerri | | MG TABS | mouth at | | | | 1 | Parsons MA | | | bedtime | | | | | | + + + + + + + + | AMBIEN 10 | 02/12 by | | | ZOLPIDEM | 2135039005 | Jennifer | | MG TABS | mouth at | | | TARTRATE | 1 | Agsten DO | | | bedtime | | | | | | + + + + + + + + | AMBIEN 10 | 02/12 - 1 po | | | ZOLPIDEM | 4875898990 | Jennifer | | MG TABS | qhs | | | TARTRATE | 1 | Agsten DO | + + + + + + + + | OXYCODONE | 1-2 po q 6 | | | OXYCODONE | 8999311716 | Jennifer | | HCL 5 MG | hrs prn | | | HCL | 1 | Agsten DO | | TABS | | | | | | | + + + + + + + + | KEFLEX 500 | one po tid | | | CEPHALEXIN | 2686171650 | Jennifer | | MG CAPS | | | | | 1 | Agsten DO | + + + + + + + + | VICODIN | prn | | | HYDROCODON | 7809935709 | Michelle | | 5-500 MG | | | | E-ACETAMIN | 4 | Bennett | | TABS | | | | OPHEN | | | + + + + + + + + | NORTRIPTYL | 1 tab qhs | | | NORTRIPTYL | 6524285674 | Ajay | | INE HCL 50 | | | | INE HCL | 1 | Sylvia DPM | | MG CAPS | | | | | | | + + + + + + + + | ALENDRONAT | one po q | | | ALENDRONAT | 1248049078 | Jennifer | | E SODIUM | week | | | E SODIUM | 9 | Agsten DO | | 70 MG TABS | | | | | | | + + + + + + + + | BENICAR 20 | 1/2 po qd | | | OLMESARTAN | 3021139691 | Lewis Quevedo | | MG TABS | | | | MEDOXOMIL | 3 | RN | + + + + + + + + | LOVAZA 1 | 2 po qd | | | OMEGA-3-AC | 8546733576 | Jennifer | | GM CAPS | | | | ID ETHYL | 8 | Agsten DO | | | | | | ESTERS | | | + + + + + + + + | LUNESTA 2 | 1 po qhs | | | ESZOPICLON | 9907151012 | Michelle | | MG TABS | | | | E | 0 | Bennett | + + + + + + + + | VOLTAREN 1 | apply up | | | DICLOFENAC | 1864834312 | Jasmeet | | % GEL | to 2 gram | | | SODIUM | 7 | Aga | | | qid prn | | | | | MD | + + + + + + + + | K-DUR 10 | 1 by mouth | | | POTASSIUM | 4266796352 | Jennifer | | MEQ TBCR | twice a | | | CHLORIDE | 1 | Agsten DO | | | day | | | | | | + + + + + + + + | NEXIUM 40 | 1 po q am, | | | ESOMEPRAZO | 9787860485 | Jennifer | | MG CPDR | rarely 1 | | | LE | 1 | Agsten DO | | | po q pm | | | MAGNESIUM | | | + + + + + + + + | VOLTAREN 1 | apply up | | | DICLOFENAC | 7730840858 | Jennifer | | % GEL | to 2 grams | | | SODIUM | 7 | Agsten DO | | | qid prn | | | | | | + + + + + + + + | K-JAMARI 20 | one po qd | | | POTASSIUM | 7480327020 | Jennifer | | MEQ PACK | | | | CHLORIDE | 2 | Agsten DO | + + + + + + + + | TRAZODONE | /2 to 1 | | | TRAZODONE | 8486647759 | Ajay | | HCL 100 MG | by mouth | | | HCL | 2 | Sylvia DPM | | TABS | at bedtime | | | | | | + + + + + + + + | LASIX 40 | 02/12 by | | | FUROSEMIDE | 8232260315 | Jennifer | | MG TABS | mouth | | | | 3 | Agsten DO | | | every am | | | | | | + + + + + + + + | DIFLUCAN | 1 by mouth | | | FLUCONAZOL | 5626402039 | Jennifer | | 150 MG | x 1 dose | | | E | 9 | Agsten DO | | TABS | | | | | | | + + + + + + + + | FLEXERIL | one po bid | | | CYCLOBENZA | 7220591808 | Jennifer | | 10 MG TABS | prn | | | NETO HCL | 1 | Agsten DO | + + + + + + + + | BONIVA 150 | one po qd | | | IBANDRONAT | 9945751359 | Jennifer | | MG TABS | | | | E SODIUM | 2 | Agsten DO | + + + + + + + + | GEMFIBROZI | 1 po bid | | | GEMFIBROZI | 8792972665 | Jennifer | | L 600 MG | | | | L | 5 | Agsten DO | | TABS | | | | | | | + + + + + + + + | ASPIRIN 81 | | | | ASPIRIN | 6233899403 | Jennifer | | MG CHEW | | | | | 6 | Agsten DO | + + + + + + + + | LOVAZA 1 | 2 po qd | | | OMEGA-3-AC | 2781764357 | Jasmeet | | EDWIN CAPS | | | | ID ETHYL | 8 | Aga | | | | | | ESTERS | | MD | + + + + + + + + | ONDANSETRO | one tablet | | | ONDANSETRO | 5549571819 | Ajay | | N HCL 4 MG | once a | | | N HCL | 3 | Sylvia DPM | | TABS | day as | | | | | | | | needed for | | | | | | | | nausea | | | | | | + + + + + + + + | DULCOLAX 5 | take as | | | BISACODYL | 7333630285 | Jennifer | | MG TBEC | directed | | | | 1 | Agsten DO | + + + + + + + + | NEXIUM 40 | 1 po q am, | | | ESOMEPRAZO | 1293814759 | Jasmeet | | MG CPDR | rarely 1 | | | LE | 1 | Aga | | | po q pm | | | MAGNESIUM | | MD | + + + + + + + + | JUAN CARLOS | one po qd | | | FEXOFENADI | 3074326543 | Jasmeet | | 180 MG | prn | | | NE HCL | 2 | Aga | | TABS | | | | | | MD | + + + + + + + + | AMBIEN 10 | 1/2 - 1 po | | | ZOLPIDEM | 4653428783 | Jennifer | | MG TABS | qhs | | | TARTRATE | 1 | Agsten DO | + + + + + + + + | PRILOSEC | one po bid | | | OMEPRAZOLE | 1690834396 | Jasmeet | | OTC 20 MG | | | | MAGNESIUM | 5 | Aga | | TBEC | | | | | | MD | + + + + + + + + | METOCLOPRA | take as | | | METOCLOPRA | 6550800105 | Jennifer | | MIDE HCL | directed | | | MIDE HCL | 1 | Agsten DO | | 10 MG TABS | | | | | | | + + + + + + + + | GLYBURIDE | 1 po qd | | | GLYBURIDE | 1490151882 | Jennifer | | 5 MG TABS | prn | | | | 1 | Agsten DO | + + + + + + + + | MECLIZINE | 1 by mouth | | | MECLIZINE | 2307892500 | Jennifer | | HCL 25 MG | every 6 | | | HCL | 0 | Agsten DO | | TABS | hrs as | | | | | | | | needed | | | | | | + + + + + + + + | GLYBURIDE | 1 po qd | | | GLYBURIDE | 2168216443 | Michelle | | 5 MG TABS | | | | | 1 | Bennett | + + + + + + + + | GEMFIBROZI | 1 po bid | | | GEMFIBROZI | 3384316942 | Michelle | | L 600 MG | | | | L | 5 | Bennett | | TABS | | [...] po qd | | | FEXOFENADI | 2587195814 | Jennifer | | 180 MG | prn | | | NE HCL | 2 | Agsten DO | | TABS | | | | | | | + + + + + + + + | JAZMINVAN 160 | 1 po qd | | | CAINAN | 0495200264 | Pinky Alexei | | MG TABS | | | | | 4 | MA | + + + + + + + + | ERYTHROMYC | 02/14 inch | | | ERYTHROMYC | 5748173213 | Jennifer | | IN 5 MG/GM | to both | | | IN | 5 | Agsten DO | | OINT | [...] po qhs | | | ESZOPICLON | 0334664529 | Jennifer | | MG TABS | | | | E | 0 | Agsten DO | + + + + + + + + | AMBIEN 10 | 02/12 - 1 po | | | ZOLPIDEM | 5741322430 | Lewis Edwardske | | MG TABS | qhs | | | TARTRATE | 1 | RN | + + + + + + + + | TRAZODONE | /2 - 1 po | | | TRAZODONE | 8789283502 | Lewis Quevedo | | HCL 100 MG | qhs | | | HCL | 2 | RN | | TABS | | | | | | | + + + + + + + + | GLYBURIDE | 1 po qd | | | GLYBURIDE | 4293924872 | Jennifer | | 5 MG TABS | prn | | | | 1 | Agsten DO | + + + + + + + + | HYCODAN | 1-2 tsp | | | HYDROCODON | 2398960229 | Jennifer | | 5-1.5 | q4-6 h prn | | | E-HOMATROP | 6 | Agsten DO | | MG/5ML | cough | | | INE | | | | SYRP | | | | | | | + + + + + + + + | FLEXERIL | one po bid | | | CYCLOBENZA | 6290884060 | Jennifer | | 10 MG TABS [...] po qd | | | LANSOPRAZO | 4634724153 | Jennifer | | 30 MG CPDR | | | | LE | 3 | Agsten DO | + + + + + + + + | HYCOTUSS | 1-2 tsp q | | | HYDROCODON | 9281781587 | Jennifer | | EXPECTORAN | 4-6 [...] q 6 | | | PROMETHAZI | 9284729052 | Jasmeet | | NE HCL 25 | hr prn | | | NE HCL | 1 | Aga | | MG TABS | | | | | | MD | + + + + + + + + | IBU 600 MG | one po tid | | | IBUPROFEN | 6356375834 | Jasmeet | | TABS | prn | | | | 1 | Aga | | | | | | | | MD | + + + + + + + + | VALIUM 5 | 1 by mouth | | | DIAZEPAM | 1969282070 | Emilie | | MG TABS | prior to | | | | 1 | Oliverio MEYER | | | procedure | | | | | | + + + + + + + + | DYAZIDE | 1 by mouth | | | MAHSAAMTERJAIDA | 2487672275 | Jennifer | | 37.5-25 MG | every day | | | E-HCTZ | 2 | Agsten DO | | CAPS | | | | | | | + + + + + + + + | NEXIUM 40 | 1 po qd | | | ESOMEPRAZO | 4165757049 | Michelle | | MG CPDR | | | | LE | 1 | Bennett | | | | | | MAGNESIUM | | | + + + + + + + + | AMITRIPTYL | 1-2 by | | | AMITRIPTYL | 2130646710 | Jennifer | | INE HCL 25 [...] | one | | | TEMAZEPAM | 6969210157 | Jennifer | | 15 MG CAPS | capsule | | | | 0 | Agsten DO | | | once a day | | | | | | + + + + + + + + | MORPHINE | one po bid | | | MORPHINE | 1038731167 | Jennifer | | SULFATE CR | prn | | | SULFATE | 1 | Agsten DO | | 15 MG | | | | | | | | TB12 | | | | | | | + + + + + + + + | CYCLOBENZA | one tablet | | | CYCLOBENZA | 6951762923 | Corie | | NETO HCL | three | | | NETO HCL | 1 | Gomez | | 5 MG TABS | times a | | | | | | | | day as | | | | | | | | needed | | | | | | + + + + + + + + | ZITHROMAX | Two po x | | | AZITHROMYC | 1345224956 | Jennifer | | 250 MG | one day, | | | IN | 0 | Agsten DO | | TABS | one po x 4 | | | | | | | | days | | | | | | + + + + + + + + | IBU 800 MG | one po tid | | | IBUPROFEN | 5923487132 | Jennifer | | TABS | | | | | 1 | Agsten DO | + + + + + + + + | DOXEPIN | one | | | DOXEPIN | 1622208988 | Jennifer | | HCL 10 MG | capsule at | | | HCL | 1 | Agsten DO | | CAPS | night | | | | | | | | before bed | | | | | | + + + + + + + + | K-JAMARI 20 | one po qd | | | POTASSIUM | 4580746682 | Jennifer | | MEQ PACK | | | | CHLORIDE | 2 | Agsten DO | + + + + + + + + | ALPRAZOLAM | one tablet | | | ALPRAZOLAM | 4453806116 | Domi | | 0.25 MG | at night | | | | 0 | Michael-Mat | | TABS | before bed | | | | | tienne | | | as needed | | | | | CCMA | + + + + + + + + | TIZANIDINE | one tablet | | | TIZANIDINE | 0108597545 | Jennifer | | HCL 4 MG [...] one tablet | | | TIZANIDINE | 7561087217 | Jennifer | | HCL 4 MG [...] po qd | | | VALSARTAN | 0695009554 | Urmila | | MG TABS | | | | | 4 | Arndt | + + + + [...] + + + | AMBIEN 10 | /2 by | | | ZOLPIDEM | 3569855740 | Lewis Edwardske | | MG TABS | mouth at | | | TARTRATE | 1 | RN | | | bedtime | | | | | | + + + + + + + + | GLYBURIDE | one by | | | GLYBURIDE | 9987242582 | Jennifer | | 5 MG TABS | mouth one | | | | 1 | Agsten DO | | | time per | | | | | | | | day | | | | | | + + + + + + + + | NORTRIPTYL | 1-2 | | | NORTRIPTYL | 3823041450 | Jennifer | | INE HCL 25 | capsules | | | INE HCL | 1 | Agsten DO | | MG CAPS | at night | | | | | | | | before bed | | | | | | + + + + + + + + | SLOW-MAG | one po qd | | | MAGNESIUM | 5661897959 | Jennifer | | 64 MG TBCR | | | | CHLORIDE | 0 | Agsten DO | + + + + + + + + | METANX | 1 PO BID | | | L-METHYLFO | 7731170366 | Leora | | [phone] | | | | LATE-ALGAE | 8 | Hardenbroo | | -35 MG | | | | -B12-B6 | | k MA | | CAPS | | | | | | | + + + + + + + + | HYDROCODON | one tablet | | | HYDROCODON | 8709961747 | Jennifer | | E-ACETAMIN | three [...] one tablet | | | FELODIPINE | 0251979406 | Jennifer | | ER 10 MG | once a | | | | 1 | Agsten DO | | YH23P-GDP | day | | | | | | + + + + + + + + | LOSARTAN | one tablet | | | LOSARTAN | 0002159154 | Jennifer | | POTASSIUM | once a | | | POTASSIUM | 2 | Agsten DO | | 50 MG TABS | day | | | | | | + + + + + + + + | METFORMIN | one by | | | METFORMIN | 8290975699 | Jennifer | | HCL 500 MG | mouth two | | | HCL | 5 | Agsten DO | | TABS | times per | | | | | | | | day | | | | | | + + + + + + + + | FUROSEMIDE | one tablet | | | FUROSEMIDE | 2445312149 | Jennifer | | 20 MG | once a | | | | 5 | Agsten DO | | TABS | day | | | | | | + + + + + + + + | CARVEDILOL | one tablet | | | CARVEDILOL | 9721082693 | Jennifer | | 6.25 MG | twice a | | | | 1 | Agsten DO | | TABS | day | | | | | | + + + + + + + + | KLOR-CON | two by | | | POTASSIUM | 7941752501 | Jennifer | | 10 10 MEQ | mouth one | | | CHLORIDE | 1 | Agsten DO | | CR-TABS | time per | | | | | | | | day | | | | | | + + + + + + + + | LANTUS | 10 units | | | INSULIN | 2403516651 | Jennifer | | SOLOSTAR | at night | | | GLARGINE | 5 | Agsten DO | | 100 | | | | | | | | UNIT/ML | | | | | | | | SOPN | | | | | | | + + + + + + + + | LORAZEPAM | one tablet | | | LORAZEPAM | 7276601165 | Jennifer | | 0.5 MG | at night | | | | 1 | Agsten DO | | TABS | before bed | | | | | | + + + + + + + + | NORTRIPTYL | 1-2 | | | NORTRIPTYL | 8224155178 | Jennifer | | INE HCL 25 | capsules | | | INE HCL | 1 | Agsten DO | | MG CAPS | at night | | | | | | | | before bed | | | | | | + + + + + + + + | PROTONIX | one by | | | PANTOPRAZO | 9477686132 | Jennifer | | 40 MG TBEC | mouth one | | | LE SODIUM | 1 | Agsten DO | | | time per | | | | | | | | day | | | | | | + + + + + + + + | ULTRAM 50 | one by | | | TRAMADOL | 8205674073 | Jennifer | | MG TABS | mouth | | | HCL | 0 | Agsten DO | | | three | | | | | | | | times per | | | | | | | | day as | | | | | | | | needed | | | | | | + + + + + + + + | GABAPENTIN | 4 capsules | | | GABAPENTIN | 2659198347 | Ajay | | 300 MG | daily | | | | 5 | Sylvia DPM | | CAPS | | | | | | | + + + + + + + + | MIRTAZAPIN | one tablet | | | MIRTAZAPIN | 1196233031 | Jennifer | | E 15 MG | once a | | | E | 6 | Agsten DO | | TABS | day before | | | | | | | | bed | | | | | | + + + + + + + + | LOVAZA 1 | 2 one time | | | OMEGA-3-AC | 8155574460 | Jennifer | | GM CAPS | per day | | | ID ETHYL | 8 | Agsten DO | | | | | | ESTERS | | | + + + + + + + + | DICLOFENAC | apply 2 | | | DICLOFENAC | 6366854606 | Jennifer | | SODIUM 1 | grams 2-4 | | | SODIUM | 1 | Agsten DO | | % GEL | times a | | | | | | | | day to | | | | | | | | affected | | | | | | | | joint | | | | | | + + + + + + + + | IBUPROFEN | one tablet | | | IBUPROFEN | 8029208280 | Jennifer | | 800 MG | three | | | | 0 | Agsten DO | | TABS | times a | | | | | | | | day as | | | | | | | | needed | | | | | | + + + + + + + + | TIZANIDINE | one tablet | | | TIZANIDINE | 7679179131 | Jennifer | | HCL 4 MG [...] 1 capsule | | | GABAPENTIN | 7696851723 | Ajay | | 300 MG | two times | | | | 5 | Sylvia DPM | | CAPS | a day | | | | | | + + + + + + + + | MIRTAZAPIN | one tablet | | | MIRTAZAPIN | 8626843160 | Jennifer | | E 15 MG | at night | | | E | 6 | Agsten DO | | TABS | before bed | | | | | | + + + + + + + + | GLIMEPIRID | one tablet | | | GLIMEPIRID | 0324935468 | Jennifer | | E 2 MG | once a | | | E | 1 | Agsten DO | | TABS | day | | | | | | + + + + + + + + | KLOR-CON | one by | | | POTASSIUM | 4988059349 | Jennifer | | 10 10 MEQ | mouth one | | | CHLORIDE | 1 | Agsten DO | | CR-TABS | time per | | | | | | | | day | | | | | | + + + + + + + + | ALPRAZOLAM | one tablet | | | ALPRAZOLAM | 4293750547 | Jennifer | | 0.25 MG | at night | | | | 0 | Agsten DO | | TABS | before bed | | | | | | | | as needed | | | | | | + + + + + + + + | ALPRAZOLAM | one tablet | | | ALPRAZOLAM | 4186421767 | Jennifer | | 0.5 MG | at night | | | | 0 | Agsten DO | | TABS | before bed | | | | | | + + + + + + + + | VALIUM 5 | 1 by mouth | | | DIAZEPAM | 7577751287 | Jennifer | | MG TABS | prior to | | | | 1 | Agsten DO | | | procedure | | | | | | + + + + + + + + | HYDROCODON | one tablet | | | HYDROCODON | 7309800549 | Jennifer | | E-ACETAMIN | three [...] one tablet | | | ALPRAZOLAM | 6146025432 | Jennifer | | 1 MG TABS | at night | | | | 0 | Agsten DO | | | before | | | | | | | | bedtime as | | | | | | | | needed | | | | | | | | for sleep | | | | | | + + + + + + + + | DOXEPIN | one | | | DOXEPIN | 2557324716 | Jennifer | | HCL 10 MG | capsule at | | | HCL | 1 | Agsten DO | | CAPS | night | | | | | | | | before bed | | | | | | + + + + + + + + | TRAZODONE | 02/12 to 1 | | | TRAZODONE | 8037186189 | Jennifer | | HCL 100 MG | by mouth | | | HCL | 2 [...] q hs | | | GABAPENTIN | 0993794216 | Ajay | | 300 MG | | | | | 5 | Sylvia DPM | | CAPS | | | | | | | + + + + + + + + | ATIVAN 1 | one by | | | LORAZEPAM | 0425985628 | Jennifer | | MG TABS | mouth at | | | | 1 | Agsten DO | | | bedtime | | | | | | + + + + + + + + | MIRTAZAPIN | one tablet | | | MIRTAZAPIN | 4620960984 | Jerri | | E 30 MG | at night | | | E | 6 | Irlanda MA | | TABS | before bed | | | | | | + + + + + + + + | NORTRIPTYL | 1 tab qhs | | | NORTRIPTYL | 7967830987 | Ajay | | INE HCL 50 | | | | INE HCL | 1 | Sylvia DPM | | MG CAPS | | | | | | | + + + + + + + + | METANX | 1 PO BID | | | L-METHYLFO | 7070294178 | Ajay | | [phone] | | | | LATE-ALGAE | 8 | Sylvia DPM | | -35 MG | | | | -B12-B6 | | | | CAPS | | | | | | | + + + + + + + + | ONDANSETRO | one tablet | | | ONDANSETRO | 5041779145 | Jennifer | | N HCL 4 MG | once a | | | N HCL | 3 | Agsten DO | | TABS | day as | | | | | | | | needed for | | | | | | | | nausea | | | | | | + + + + + + + + | MIRTAZAPIN | one tablet | | | MIRTAZAPIN | 1695685882 | Jennifer | | E 15 MG | at night | | | E | 6 | Agsten DO | | TABS | before bed | | | | | | + + + + + + + + | DIFLUCAN | 1 by mouth | | | FLUCONAZOL | 6391609260 | Jennifer | | 150 MG | x 1 dose | | | E | 9 | Agsten DO | | TABS | | | | | | | + + + + + + + + | TEMAZEPAM | one | | | TEMAZEPAM | 5702286914 | Jennifer | | 15 MG CAPS | capsule | | | | 0 | Agsten DO | | | once a day | | | | | | + + + + + + + + | TIZANIDINE | one tablet | | | TIZANIDINE | 5359794782 | Jennifer | | HCL 4 MG [...] one tablet | | | CYCLOBENZA | 0290102158 | Jennifer | | NETO HCL | three | | | NETO HCL | 1 | Agsten DO | | 5 MG TABS | times a | | | | | | | | day as | | | | | | | | needed | | | | | | + + + + + + + + | PENNSAID | 40 drops 4 | | | DICLOFENAC | 3527757855 | Jennifer | | 1.5 % SOLN | times a | | | SODIUM | 3 | Agsten DO | | | day to | | | | | | | | joint as | | | | | | | | needed | | | | | | + + + + + + + + | HYDROCODON | one tablet | | | HYDROCODON | 5828612975 | Jennifer | | E-ACETAMIN | three [...] one by | | | LOSARTAN | 1808956730 | Jennifer | | POTASSIUM | mouth one | | | POTASSIUM | 2 | Agsten DO | | 25 MG TABS | time per | | | | | | | | day | | | | | | + + + + + + + + | VICODIN ES | one by | | | HYDROCODON | 6759415132 | Jennifer | | 7.5-750 | mouth [...] 1/2 by | | | FUROSEMIDE | 1812652849 | Jennifer | | 40 MG | mouth one | | | | 5 | Agsten DO | | TABS | time per | | | | | | | | day | | | | | | + + + + + + + + | AMITRIPTYL | 1-2 by | | | AMITRIPTYL | 7741123366 | Jennifer | | INE HCL 25 | mouth | | | INE HCL | 1 | Agsten DO | | MG TABS | before bed | | | | | | + + + + + + + + | LOVAZA 1 | 4 one time | | | OMEGA-3-AC | 6646732768 | Jennifer | | GM CAPS | per day | | | ID ETHYL | 8 | Agsten DO | | | | | | ESTERS | | | + + + + + + + + | PENNSAID | 4 grams | | | DICLOFENAC | 9070502730 | Jennifer | | 1.5 % SOLN | four times | | | SODIUM | 3 | Agsten DO | | | a day to | | | | | | | | joint prn. | | | | | | + + + + + + + + | AMBIEN 10 | one by | | | ZOLPIDEM | 9296461043 | Jennifer | | MG TABS | mouth at | | | TARTRATE | 1 | Agsten DO | | | bedtime | | | | | | + + + + + + + + | MECLIZINE | 1 by mouth | | | MECLIZINE | 0556077367 | Jennifer | | HCL 25 MG | every 6 | | | HCL | 0 | Agsten DO | | TABS | hrs as | | | | | | | | needed | | | | | | + + + + + + + + | METFORMIN | one po bid | | | METFORMIN | [id number] | Jennifer | | HCL 500 MG | | | | HCL | 5 | Agsten DO | | TABS | | | | | | | + + + + + + + + | PROTONIX | one po qd | | | PANTOPRAZO | [id number] | Jennifer | | 40 MG TBEC | | | | LE SODIUM | 1 | Agsten DO | + + + + + + + + | KLOR-CON | one po qd | | | POTASSIUM | [id number] | Jennifer | | 10 10 MEQ | | | | CHLORIDE | 1 | Agsten DO | | CR-TABS | | | | | | | + + + + + + + + | ATIVAN 1 | one po qhs | | | LORAZEPAM | [id number] | Jennifer | | MG TABS | | | | | 1 | Agsten DO | + + + + + + + + | AMBIEN 10 | one po qhs | | | ZOLPIDEM | [id number] | Jennifer | | MG TABS | | | | TARTRATE | 1 | Agsten DO | + + + + + + + + | LOVAZA 1 | 4 po qd | | | OMEGA-3-AC | [id number] | Jennifer | | GM CAPS | | | | ID ETHYL | 8 [...] po tid | | | HYDROCODON | [phone] | Jennifer | | 7.5-750 | prn | | | E-ACETAMIN | 4 | Agsten DO | | MG TABS | | | | OPHEN | | | + + + + + + + + | DULCOLAX 5 | take as | | | BISACODYL | [id number] | Jasmeet | | MG TBEC | directed | | | | 1 | Aga | | | | | | | | MD | + + + + + + + + | METOCLOPRA | take as | | | METOCLOPRA | [phone] | Jasmeet | | MIDE HCL | directed | | | MIDE HCL | 1 | Aga | | 10 MG TABS | | | | | | MD | + + + + + + + + | MIRALAX | take as | | | POLYETHYLE | [id number] | Jasmeet | | POWD | directed | | | NE GLYCOL | 2 | Aga | | | | | | 3350 | | MD | + + + + + + + + | VOLTAREN 1 | apply up | | | DICLOFENAC | [id number] | Jennifer | | % GEL | to 2 grams | | | SODIUM | 7 | Agsten DO | | | qid prn | | | | | | + + + + + + + + | IBUPROFEN | one po tid | | | IBUPROFEN | [id number] | Jennifer | | 800 MG | prn | | | | 0 | Agsten DO | | TABS | | | | | | | + + + + + + + + | LOSARTAN | one po qd | | | LOSARTAN | [phone] | Jennifer | | POTASSIUM | | | | POTASSIUM | 2 | Agsten DO | | 25 MG TABS | | | | | | | + + + + + + + + | NEXIUM 40 | one po qd | | | ESOMEPRAZO | [id number] | Jennifer | | MG CPDR | | | | LE | 1 | Agsten DO | | | | | | MAGNESIUM | | | + + + + + + + + | GLYBURIDE | one po qd | | | GLYBURIDE | 0591970841 | Jennifer | | 5 MG TABS | | | | | 1 | Agsten DO | + + + + + + + + | FUROSEMIDE | 1/2 po qd | | | FUROSEMIDE | [id number] | Jennifer | | 40 MG | | | | | 5 | Agsten DO | | TABS | | | | | | | + + + + + + + + | ULTRAM 50 | one po tid | | | TRAMADOL | [id number] | Jennifer | | MG TABS | prn | | | HCL | 0 | Agsten DO | + + + + + + + + | ERYTHROMYC | 1/4 inch | | | ERYTHROMYC | [id number] | Abby | | IN 5 MG/GM | to both | | | IN | 5 | Gauer OD | | OINT | [...] 2po qd | | | FUROSEMIDE | 1129518429 | Jennifer | | MG TABS | | | | | 3 | Agsten DO | + + + + + + + + | AMBIEN 10 | 02/12 - 1 po | | | ZOLPIDEM | [phone] | Jennifer | | MG TABS | qhs. BMN | | | TARTRATE | 1 | Agsten DO | + + + + + + + + | PREVACID | one po qd | | | LANSOPRAZO | [id number] | Jennifer | | 30 MG CPDR | | | | LE | 3 | Agsten DO | + + + + + + + + | GLYBURIDE | one po q | | | GLYBURIDE | 7144660412 | Jennifer | | 2.5 MG | am | | | | 1 | Agsten DO | | TABS | | | | | | | + + + + + + + + | AMBIEN 10 | 02/12 - 1 po | | | ZOLPIDEM | 5625525011 | Jennifer | | MG TABS | qhs | | | TARTRATE | 1 | Agsten DO | + + + + + + + + | BENICAR 20 | 1/2 po qd | | | OLMESARTAN | 3870510840 | Jennifer | | MG TABS | | | | MEDOXOMIL | 3 | Agsten DO | + + + + + + + + | TRAZODONE | 02/12 - po | | | TRAZODONE | 4257123948 | Jennifer | | HCL 100 MG | qhs | | | HCL | 2 | Agsten DO | | TABS | | | | | | | + + + + + + + + | AMBIEN 10 | 02/12 - po | | | ZOLPIDEM | 6036968047 | Jennifer | | MG TABS | qhs | | | TARTRATE | 1 | Agsten DO | + + + + + + + + | LASIX 40 | 02/14 by | | | FUROSEMIDE | 3685897862 | Katelyn | | MG TABS | mouth | | | | 3 | [facility] | | | every am | | | | | | | | prn | | | | | | + + + + + + + + | OXYCODONE | 1-2 po q 6 | | | OXYCODONE | 5656365214 | Jennifer | | HCL 5 MG | hrs prn | | | HCL | 1 | Agsten DO | | TABS | | | | | | | + + + + + + + + | ALENDRONAT | one po q | | | ALENDRONAT | 5423908707 | Jennifer | | E SODIUM | week | | | E SODIUM | 9 | Agsten DO | | 70 MG TABS | | | | | | | + + + + + + + + | VALIUM 5 | one po | | | DIAZEPAM | 4570297935 | Jennifer | | MG TABS | prior to | | | | 1 | Agsten DO | | | procedure | | | | | | + + + + + + + + | BENICAR 20 | one po qd | | | OLMESARTAN | [phone] | Jennifer | | MG TABS | | | | MEDOXOMIL | 3 | Agsten DO | + + + + + + + + | IBU 600 MG | one po tid | | | IBUPROFEN | [phone] | Jennifer | | TABS | prn | | | | 1 | Agsten DO | + + + + + + + + | VOLTAREN 1 | apply up | | | DICLOFENAC | [phone] | Katelyn | | % GEL | to 2 gram | | | SODIUM | 7 | [facility] | | | qid prn | | | | | | + + + + + + + + | ZITHROMAX | Two po x | | | AZITHROMYC | [id number] | Jennifer | | 250 MG | one day, | | | IN | 0 | Agsten DO | | TABS | one po x 4 | | | | | | | | days | | | | | | + + + + + + + + | BACTRIM DS | one po bid | | | SULFAMETHO | [id number] | Jennifer | | 800-160 | | | | XAZOLE-TRI | 1 | Agsten DO | | MG TABS | | | | METHOPRIM | | | + + + + + + + + | HYCODAN | 1-2 tsp | | | HYDROCODON | [id number] | Jennifer | | 5-1.5 | q4-6 h prn | | | E-HOMATROP | 6 | Agsten DO | | MG/5ML | cough | | | INE | | | | SYRP | | | | | | | + + + + + + + + | PRILOSEC | one po bid | | | OMEPRAZOLE | [id number] | Jennifer | | OTC 20 MG | | | | MAGNESIUM | 5 | Agsten DO | | TBEC | | | | | | | + + + + + + + + | VICODIN ES | one po tid | | | HYDROCODON | 2071616878 | Jennifer | | 7.5-750 | | | | E-ACETAMIN | 4 | Agsten DO | | MG TABS | | | | OPHEN | | | + + + + + + + + | JUAN CARLOS | one po qd | | | FEXOFENADI | 9636974765 | Jennifer | | 180 MG | | | | NE HCL | 2 | Agsten DO | | TABS | | | | | | | + + + + + + + + | AMBIEN CR | 1 po qhs | | | ZOLPIDEM | 3295244125 | Jennifer | | 12.5 MG | | | | TARTRATE | 1 | Agsten DO | | CR-TABS | | | | | | | + + + + + + + + | LASIX 40 | 02/12 by | | | FUROSEMIDE | 0506622951 | Jennifer | | MG TABS | mouth | | | | 3 | Agsten DO | | | every am | | | | | | | | prn | | | | | | + + + + + + + + | NEXIUM 40 | 1 po bid | | | ESOMEPRAZO | 2322976533 | Jennifer | | MG CPDR | | | | LE | 1 | Agsten DO | | | | | | MAGNESIUM | | | + + + + + + + + | VICODIN | one po tid | | | HYDROCODON | 4248427053 | Jennifer | | 5-500 MG | [...] q 6 | | | PROMETHAZI | 6966350002 | Jennifer | | NE HCL 25 | hr prn | | | NE HCL | 1 | Agsten DO | | MG TABS | | | | | | | + + + + + + + + | HYCOTUSS | 1-2 tsp q | | | HYDROCODON | 6712031833 | Jennifer | | EXPECTORAN | 4-6 [...] po q | | | IBANDRONAT | 7605590873 | Jennifer | | MG TABS | month | | | E SODIUM | 2 | Agsten DO | + + + + + + + + | KEFLEX 500 | one po tid | | | CEPHALEXIN | 1403965105 | Jennifer | | MG CAPS | | | | | 1 | Agsten DO | + + + + + + + + | PLENDIL 10 | 1 po qd | | | FELODIPINE | 3370959809 | Jennifer | | MG TB24 | | | | | 1 | Agsten DO | + + + + + + + + | SLOW-MAG | one po qd | | | MAGNESIUM | 2642825711 | Jennifer | | 64 MG TBCR | | | | CHLORIDE | 0 | Agsten DO | + + + + + + + + | K-JAMARI 20 | one po qd | | | POTASSIUM | 4869220624 | Jennifer | | MEQ PACK | | | | CHLORIDE | 2 | Agsten DO | + + + + + + + + | IBU 800 MG | one po tid | | | IBUPROFEN | 1382979318 | Jennifer | | TABS | | | | | 1 | Agsten DO | + + + + + + + + | LOVAZA 1 | 2 po bid | | | OMEGA-3-AC | 8234161772 | Jennifer | | GM CAPS | | | | ID ETHYL | 8 | Agsten DO | | | | | | ESTERS | | | + + + + + + + + | AMBIEN CR | one po qd | | | ZOLPIDEM | 3075162399 | Jennifer | | 12.5 MG | | | | TARTRATE | 1 | Agsten DO | | [...] by mouth | | | TRIAMTEREN | 5857475890 | Jennifer | | 37.5-25 MG | every day | | | E-HCTZ | 2 | Agsten DO | | CAPS | | | | | | | + + + + + + + + | LASIX 40 | 1 by mouth | | | FUROSEMIDE | 1520293168 | Jennifer | | MG TABS | every am | | | | 3 | Agsten DO | + + + + + + + + | BENICAR 20 | one po qd | | | OLMESARTAN | 6643714175 | Jennifer | | MG TABS | | | | MEDOXOMIL | 3 | Agsten DO | + + + + + + + + | K-DUR 10 | 2 po qd | | | POTASSIUM | 5174376246 | Jennifer | | MEQ TBCR | | | | CHLORIDE | 1 | Agsten DO | + + + + + + + + | OMACOR 1 | Two po bid | | | OMEGA-3-AC | 0865228902 | Jennifer | | GM CAPS | | | | ID ETHYL | 7 | Agsten DO | | | | | | ESTERS | | | + + + + + + + + | MORPHINE | one po bid | | | MORPHINE | 7860692505 | Jennifer | | SULFATE CR | [...] | Critical | No Longer | Jennifer Harristen | | | | | | Active [...] +------+------+-------+------+-------+------+ + + + | Office Visit: NIDDM, high TG, HTN, compression fracture | + + + + + +---+---+---+ + | | FALL SCR | 15 | | | | Fall risk | | | | | | | | assessment | + + + +---+---+---+ + | | EXC_COUNS | Yes | | | | Giving | | | | | | | | encouragem | | | | | | | | ent to | | | | | | | | exercise | | | | | | | [...] Therapy | | | | 50 MG ORAL | | | | Indicated | | | | TABLET | | | | | | | | one tablet | | | | | | | | once a | | | | | | | | day | | | | | + [...] +---+---+---+ + + + | Office Visit: HTN | + + + +--------+--------+---+---+---+ + [...] + | Rx Refill: eRx Request for Potassium Chloride ER Oral Tablet Extended R ... | + + + +--------+ +---+---+---+ + | | ESM_RR | [id number] | | | B | e-scripts | | | | 55429`Pota | | | | messenger | | | | ssium | | | | refill | | | | Chloride | | | | request | | | | ER Oral | | | | | | | | Tablet | | | | | | | | Extended | | | | | | | | Release 10 | | | | | | | | | | | | | | | | MEQ`10``18 | | | | | | | | 0 | | | | | | | | Tablet`90` | | | | | | | | TAKE TWO | | | | | | | | TABLETS BY | | | | | | | | MOUTH | | | | | | | | DAILY``1`0 | | | | | | | | ` | | | | | | | | 7`08/10/19 | | | | | | | | 17`[facility] | | | | | | | | [facility] | | | | | | | | [facility]acy | | | | | | | | #0515*`541 | | | | | | | | 3494602`00 | | | | | | | | [id number]` | | | | | | | | `Potassium | | | | | | | | Chloride | | | | | | | | ER Oral | | | | | | | | Tablet | | | | | | | | Extended | | | | | | | | Release 10 | | | | | | | | MEQ | | | | | | | | Quantity: | | | | | | | | 180 Tablet | | | | | | | | | | | | | | | | Instructio | | | | | | | | ns: TAKE | | | | | | | | TWO | | | | | | | | TABLETS BY | | | | | | | | MOUTH | | | | | | | | DAILY | | | | | + +--------+ +---+---+---+ + + + | Rx Refill: eRx Request for Italia Negron Subcutaneous Solution Pen-in ... | + + + +--------+ +---+---+---+ + | | ESM_RR | [phone] | | | B | e-scripts | | | | 51630`Lant | | | | messenger | | | | us | | | | refill | | | | SoloStar | | | | request | | | | Subcutaneo | | | | | | | | us | | | | | | | | Solution | | | | | | | | Pen-inject | | | | | | | | or 100 | | | | | | | | UNIT/ML`10 | | | | | | | | 0``15 | | | | | | | | Unspecifie | | | | | | | | d`90`INJEC | | | | | | | | T 10 UNITS | | | | | | | | SUB-Q AT | | | | | | | | NIGHT``1`0 | | | | | | | | ` | | | | | | | | 7`04/24/19 | | | | | | | | 17`[facility] | | | | | | | | [facility] | | | | | | | | Pharmacy | | | | | | | | #0515*`541 | | | | | | | | 8463761`00 | | | | | | | | [id number]` | | | | | | | | `Lantus | | | | | | | | SoloStar | | | | | | | | Subcutaneo | | | | | | | | us | | | | | | | | Solution | | | | | | | | Pen-inject | | | | | | | | or 100 | | | | | | | | UNIT/ML | | | | | | | | Quantity: | | | | | | | | 15 | | | | | | | | Milliliter | | | | | | | | | | | | | | | | Instructio | | | | | | | | ns: INJECT | | | | | | | | 10 UNITS | | | | | | | | SUB-Q AT | | | | | | | | NIGHT | | | | | + +--------+ +---+---+---+ + + + | Office Visit: Compression [...] +--------+ +---+---+---+ + | | ESM_RR | [id number] | | | B | e-scripts | | | | 06978`Pant | | | | messenger | | [...] | | | | | | | [id number] | | | | | | | | `[id number] | | | | | | | [...] +--------+ +---+---+---+ + | | ESM_RR | [id number] | | | B | e-scripts | | | | 14183`Mirt | | | | messenger | | [...] | | | | | | | [id number] | | | | | | | | `[id number] | | | | | | | [...] +--------+ +---+---+---+ + | | ESM_RR | [id number] | | | B | e-scripts | | | | 21384`Pant | | | | messenger | | [...] | | | | | | | [place]*` | | | | | | | | [id number] | | | | | | | | `[id number] | | | | | | | [...] +--------+ +---+---+---+ + | | ESM_RR | [phone] | | | B | e-scripts | | | | 78732`Mirt | | | | messenger | | [...] | | | | | | | `Pinon | | | | | | | | [facility] [place] - | | | | | | | | | | | | | | | | [place]*` | | | | | | | | [id number] | | | | | | | | `[id number] | | | | | | | [...] +--------+ +---+---+---+ + | | ESM_RR | [id number] | | | B | e-scripts | | | | 28119`Mirt | | | | messenger | | [...] | | | | | | | [id number] | | | | | | | | `[id number] | | | | | | | [...] ) | + + + +---+---+---+ + Plan of Care + + + + | Type | Date | Detail | + + + + | Referral | | Orthopedic Consult | | | | Other Provider, | | | | Specify Provider in | | | | Instructions | + + + + | Referral | | Orthopedic Consult | | | | [facility], | | | | [address], | | | | [place], [address] | | | | | + + + + | Referral | | Echocardiogram - 2D | | | | Complete | | | | Latasha Brunner, [address] | | | | [place], | | | | [place], [address] | | | | | + + + + | Referral | | Podiatry Consult | | | | QUENTIN Perez, | | | | [address] | | | | [address], [place], [address] | | | | | | | | | + + + + | Referral | | Ophthalmology Consult | | | | Abby Springer, | | | | [address] [place], | | | | [place], [address] | | | | | + + + + | Referral | | Ophthalmology Consult | | | | Abby Springer, | | | | [address], [place], | | | | [place], [address] | | | | | + + + + | Referral | | Orthopedic Consult | | | | MD Ap Nicole, | | | | [address], | | | | [place], [address] | | | | | + + + + | Referral | | Gynecology Consult | | | | MD Destiny Levi, | | | | [address] [facility] | | | | [facility], [place], [address] | | | | | | | | | + + + + | Referral | | Complete Eye Exam/ | | | | Treatment | | | | MD Paul Ramirez, [address] | | | | [place], | | | | [place], [address] | | | | | + + + + | Pending order | | NEISHA Jolly Scr-Pablo | + + + + | Pending [...] + | Pending order | | MR Kcjdd-Sanfrk-LQP Con | + + + + | [...] + + | Patient education | | carvedilol%20(oral)%20(caps | | | | ule%2c%20extended%20release | | | | %2c%20tablet) | + + + + | Patient [...] | + + + + + | SCT-[id number] | Overweight | | | + + + + + | SCT-902783877 | Overweight | | | + + + + + | SCT-66727879 | Pulse Exam of Foot | | | + + + + + | SCT-711583660 | Visual Exam of Foot | | | + + + + + | SCT-408240769 | Sensory Exam of | | | | | Foot | | | + + + + + | SCT-49778941 | Pulse Exam of Foot | | | + + + + + | U FABIO RAN 10845 | Microalbumin, | | | | | Random Urine | | | + + + + + | GLYCO HGB 33255 | Glyco Hemoglobin, | | | | | A1C | | | + + + + + | RISK 20660 | Lipid Profile | | | + + + + + | CHEM PROF | Comprehensive | | | | | Metabolic Panel | | | + + + + + | SCT- | Medication | | | | [id number] | Reconcilliation | | | + + + + + | SCT-614677463 | Visual Exam of Foot | | | + + + + + | SCT-801539531 | Sensory Exam of | | | | | Foot | | | + + + + + | SCT- | Medication | | | | [id number] | Reconcilliation | | | + + + + + | CREAT 09700 | Creatinine | | | + + + + + | BUN 36058 | BUN | | | + + + + + | SCT- | Medication | | | | 112219549954889 | Reconcilliation | | | + + + + + | 98196 | MR Utwyy-Fguhfm-MSF | | | | | Con | | | + + + + + | CPT-03845 | XR Pelvis-1-2V | | | + + + + + | SCT- | Medication | | | | [id number] | Reconcilliation | | | + + + + + | 31253 | XR Hip 2-3V-Left | | | + + + + + | CPT-G0477 | Urine Tox, multiple | | | | | drug class (G0477) | | | + + + + + | U FABIO RAN 00234 | Microalbumin, | | | | | Random Urine | | | + + + + + | GLYCO HGB 28450 | Glyco Hemoglobin, | | | | | A1C | | | + + + + + | RISK 37632 | Lipid Profile | | | + + + + + | CPT-61494 | Echocardiogram - 2D | | | | | Complete | | | + + + + + | SCT- | Medication | | | | [id number] | Reconcilliation | | | + + + + + | RISK 90958 | Lipid Profile | | | + + + + + | U FABIO RAN 10263 | Microalbumin, | | | | | Random Urine | | | + + + + + | GLYCO HGB 37373 | Glyco Hemoglobin, | | | | | A1C | | | + + + + + | CHEM PROF | Comprehensive | | | | | Metabolic Panel | | | + + + + + | HGB A1C 50035 | HgbA1C | | | + + + + + | UA 83013 | Urinalysis | | | + + + + + | Vic LOZA 48522 | Culture Urine | | | + + + + + | UA CULT IF MULTIPLE | Urinalysis Culture | | | | | If Indicat | | | + + + + + | CPT-95959 | MERA Torres | | | | | (Office) | | | + + + + + | [id number] | [Recorded for [facility]] | | | | | Documentation of | | | | | current medications | | | | | (procedure) | | | + + + + + | [id number] | [Recorded for [facility]QM] | | | | | Pedal pulse taking | | | | | (procedure) | | | + + + + + | CPT-30770 | Adm 1st Inj No | | | | | counseling or >18 | | | + + + + + | [id number] | [Recorded for CQM] | | | | | Documentation of | | | | | current medications | | | | | (procedure) | | | + + + + + | [id number] | [Recorded for CQM] | | | | | Examination of | | | | | retina (procedure) | | | + + + + + | 127526457 | [Recorded for CQM] | | | | | Never smoker | | | + + + + + | 375864814 | [Recorded for CQM] | | | | | Never smoked | | | | | tobacco (finding) | | | + + + + + | 201714605 | [Recorded for CQM] | | | | | Tobacco use and | | | | | exposure | | | + + + + + | CPT-51915 | Fluvirin /Fluzone | | | | | >3 | | | + + + + + | 170844449 | [Recorded for [facility]QM] | | | | | Monofilament foot | | | | | sensation test | | | | | (procedure) | | | + + + + + | [id number] | [Recorded for CQM] | | | | | Pedal pulse taking | | | | | (procedure) | | | + + + + + | [id number] | [Recorded for CQM] | | | | | Documentation of | | | | | current medications | | | | | (procedure) | | | + + + + + | [id number] | [Recorded for [facility]QM] | | | | | Diabetic foot | | | | | examination | | | | | (regime/therapy) | | | + + + + + | 351527426 | [Recorded for CQM] | | | | | Details of drug | | | | | misuse behavior | | | + + + + + | 587127628 | [Recorded for [facility]QM] | | | | | Health-related | | | | | behavior | | | + + + + + | 988285260 | [Recorded for [facility]QM] | | | | | Alcohol intake | | | + + + + + | CPT-40541 | Urine Tox, multiple | | | | | drug classes | | | + + + + + | [id number] | [Recorded for [facility]] | | | | | Documentation of | | | | | current medications | | | | | (procedure) | | | + + + + + | GLYCO HGB 18841 | HgbA1C | | | + + + + + | CHEM PROF | Comprehensive | | | | | Metabolic Panel | | | + + + + + | U FABIO BOSWELL 75672 | Microalbumin, | | | | | Random Urine | | | + + + + + | RISK 28147 | Lipid Profile | | | + + + + + | 24257 | MX Dexa Scan-Body | | | + + + + + | CPT-75472 | Venipuncture | | | + + + + + | 63795208 | [Recorded for [facility]] | | | | | Pedal pulse taking | | | | | (procedure) | | | + + + + + | [id number] | [Recorded for [facility]QM] | | | | | Documentation of | | | | | current medications | | | | | (procedure) | | | + + + + + | 600395829 | [Recorded for [facility]] | | | | | Diabetic foot | | | | | examination | | | | | (regime/therapy) | | | + + + + + | 816517593 | [Recorded for [facility]] | | | | | Monofilament foot | | | | | sensation test | | | | | (procedure) | | | + + + + + | 29942 G0202 | MX Mammo Dig | | | | | Screen-Bilat | | | + + + + + | GLYCO HGB 31399 | HgbA1C | | | + + + + + | CPT-43118 | Venipuncture | | | + + + + + | CPT-21056 | Adm 1st Inj No | | | | | counseling or >18 | | | + + + + + | PAP SS WO G0145 | PAP SURE Sc wo HPV | | | + + + + + | FREE T4 85690 | T4 Free | | | + + + + + | TSH 24629 | TSH | | | + + + + + | RISK 31143 | Lipid Profile | | | + + + + + | CHEM PROF 91449 | CMP (Comprehensive | | | | | Metabolic Panel) | | | + + + + + | GLYCO HGB 22305 | HgbA1C | | | + + + + + | U FABIO RAN 41457 | Microalbumin, | | | | | Random Urine | | | + + + + + | CBC AUTO 24466 | CBC w/ Auto Diff | | | + + + + + | CPT-G0439 | Annual Wellness | | | | | Visit (Medicare) | | | | | Subsqnt visit | | | + + + + + | CPT-97540 | Pneumovax 23 | | | | | (Pneumococcal) >2 | | | + + + + + | CPT-59263 | Adm bill Garcia No | | | | | counseling or >18 | | | + + + + + | CPT-65462 | Fluvirin /Fluzone | | | | | >3 | | | + + + + + | 18661 | MR Head-WO Con | | | + + + + + | CPT-39495 | Venipuncture | | | + + + + + | CHEM PROF 61809 | CMP (Comprehensive | | | | | Metabolic Panel) | | | + + + + + | Tomasz BOSWELL 73459 | Microalbumin, | | | | | Random Urine | | | + + + + + | GLYCO HGB 31928 | HgbA1C | | | + + + + + | RISK 54133 | Lipid Profile | | | + + + + + | 14180 G0202 | MX Mammo Dig | | | | | Screen-Bilat | | | + + + + + | CPT-G0438 | Annual Wellness | | | | | Visit (Medicare) | | | | | 1st visit | | | + + + + + | C6562 76198 | MX Mammo Dig | | | | | Diag-Bilat | | | + + + + + | 65067 | MX Dexa Scan-Body | | | + + + + + | CPT-15381 | EKG- tracing with | | | | | report (17212) | | | + + + + + | CHEM PROF 67977 | CMP (Comprehensive | | | | | Metabolic Panel) | | | + + + + + | 24920 | XR Chest-2V | | | + + + + + | Tomasz BOSWELL 48542 | Microalbumin, | | | | | Random Urine | | | + + + + + | RISK 22806 | Lipid Profile | | | + + + + + | CPT-19624 | Venipuncture | | | + + + + + | GLYCO HGB 58449 | HgbA1C | | | + + + + + | CPT-59015 | Refraction (75133) | | | + + + + + | CPT-85083 | Ext. | | | | | Ophthalmoscopy, | | | | | Subs. | | | + + + + + | CPT-86345 | Venipuncture | | | + + + + + | GLYCO HGB 56127 | HgbA1C | | | + + + + + | CPT-76937 | Venipuncture | | | + + + + + | CHEM PROF 26739 | CMP (Comprehensive | | | | | Metabolic Panel) | | | + + + + + | U FABIO RAN 08535 | Microalbumin, | | | | | Random Urine | | | + + + + + | GLYCO HGB 59160 | HgbA1C | | | + + + + + | RISK 93483 | Lipid Profile | | | + + + + + | CPT-26366 | Venipuncture | | | + + + + + | GLYCO HGB 94206 | HgbA1C | | | + + + + + | CPT-71210 | Flu Vaccine > 8 | | | | | yrs. | | | + + + + + | CPT-G0008 | Admin of Flu Vac | | | | | (Mdc/Atrio) | | | + + + + + | CHEM PROF 46846 | CMP (Comprehensive | | | | | Metabolic Panel) | | | + + + + + | CPT-G0202 | Mammogram - | | | | | Screening | | | | | (bilateral) | | | + + + + + | U FABIO BOSWELL 18984 | Microalbumin, | | | | | Random Urine | | | + + + + + | GLYCO HGB 78704 | HgbA1C | | | + + + + + | RISK 97977 | Lipid Profile | | | + + + + + | CPT-G0008 | Admin of Flu Vac | | | | | (Mdc/Atrio) | | | + + + + + | CPT-59338 | Flu vaccine >3 y/o | | | + + + + + | CPT-05701 | MRI- Spine: Lumbar | | | | | w/o contrast | | | + + + + + | CPT-43197 | UA Dipstick | | | | | (Office) | | | + + + + + | Vic COLBY ROU 51831 | Culture Urine | | | + + + + + | CPT-81274 | X-Ray- Hand (3+ | | | | | views) | | | + + + + + | CPT-39660 | Mammogram - | | | | | Screening | | | | | (bilateral) | | | + + + + + | CPT-97993 | Admin of Imm. over | | | | | 8yrs (1st) | | | + + + + + | CPT-28436 | Flu vaccine >3 y/o | | | + + + + + | CPT-92488 | X-Ray- Chest - PA | | | | | and lateral | | | + + + + + | CHEM PROF 33814 | CMP (Comprehensive | | | | | Metabolic Panel) | | | + + + + + | PAP SCREEN G0123 | PAP Liquid Based, | | | | | Screening | | | + + + + + | CPT-84829 | X-Ray- Thoracic (3 | | | | | views) | | | + + + + + | GLYCO HGB 64676 | HgbA1C | | | + + + + + | RISK 59702 | Lipid Profile | | | + + + + + | CHEM 8 18560 | Basic Metabolic | | | | | Panel | | | + + + + + | GLYCO HGB 62788 | HgbA1C | | | + + + + + | VIT B12 81381 | B-12 | | | + + + + + | RISK 43641 | Lipid Profile | | | + + + + + | MG 68690 | Magnesium Level | | | + + + + + | CHEM PROF 51344 | CMP (Comprehensive | | | | | Metabolic Panel) | | | + + + + + | CPT-71083 | Mammogram - | | | | | Screening | | | | | (bilateral) | | | + + + + + | CPT-39220 | DEXA scan (bone | | | | | density) | | | + + + + + | RISK 72815 | Lipid Profile | | | + + + + + | [place] 96852 | Magnesium Level | | | + [...] + + + + + | RISK 72885 | Lipid Profile | | | + + + + + | CPT-74868 | Complete Eye Exam/ | | | | | Treatment | | | + + + + + | GLYOCO HGB 93089 | HbA1C | | | + + + + + | CHEM PROF 53382 | CMP (Comprehensive | | | | | Metabolic Panel) | | | + + + + + | CPT-69197 | Comprehensive | | | | | Metabolic Panel | | | + + + + + | CPT-24681 | Lipid Profile | | | + + + + + | CPT-71002 | HbA1C | | | + + + + + Vital Signs + + +-------+---------+ + | Date | Name | Value | Unit | Description | + + +-------+---------+ + | | BMI (Body Mass | 30.34 | kg/m2 | Body Mass Index | [...] +-------+---------+ + | | BP Systolic | 122 | mm[Hg] | blood pressure, | | | | | | systolic, | | | | | | second | | | | | | observation | + + +-------+---------+ + | | BP Systolic | 122 | mm[Hg] | blood pressure, | | | | | | systolic | + + +-------+---------+ + | | Body | 98.5 | [degF] | temperature E&M | | | Temperature | | | | + + +-------+---------+ + | | Heart Rate | 69 | /min | pulse rate E&M | + + +-------+---------+ + | | Height | 59.5 | [in_us] | height E&M | + + +-------+---------+ + | | Respiratory | 14 | /min | respiratory | | | Rate | | | rate E&M | + + +-------+---------+ + | | Weight Measured | 152.2 | [lb_av] | weight E&M | + + +-------+---------+ + | | BMI (Body Mass | 30.10 | kg/m2 | Body Mass Index | | | Index) | | | [Ratio] | + + +-------+---------+ + | | BP Diastolic | 88 | mm[Hg] | blood pressure, | | | | | | diastolic | + + +-------+---------+ + | | BP Diastolic | 88 | mm[Hg] | blood pressure, | | | | | | diastolic, | | | | | | second | | | | | | observation | + + +-------+---------+ + | | BP Systolic | 156 | mm[Hg] | blood pressure, | | | | | | systolic, | | | | | | second | | | | | | observation | + + +-------+---------+ + | | BP Systolic | 156 | mm[Hg] | blood pressure, | | | | | | systolic | + + +-------+---------+ + | | Body | 98.2 | [degF] | temperature E&M | | | Temperature | | | | + + +-------+---------+ + | | Heart Rate | 14 | /min | pulse rate E&M | [...] + + + +-------+ + | Alcohol use | ETOH USE | previous | | [...]
--- OUTSIDE RECORDS SUMMARY | ~2017-01-29 | XMS | Clinical Summary ---
Demographics + + + | Address | [address] | | | [place] [address] | + + + | Home Phone | | + + + | Preferred Language | Unknown | + + + | Marital Status | W | + + + | Pentecostal Affiliation | Unknown | + + + | Race | White | + + + | Ethnic Group | Not or | + + + Author + + + | Author | [facility] | + + + | Organization | [facility] | + + + | Address | [address] | | | [place] [address] | + + + | Phone | Unavailable | + + + Care Team Providers + +------+ + | Care Insurance Examiner Name | Role | Phone | + +------+ + | Ajya Ward DPM | PCP | [phone] | + +------+ + Conditions or Problems [...] tion | | +---------+---------+---------+---------+---------+---------+---------+---------+---------+ | SCREENI | [id number] | | Active | | Jennifer | | Screeni | | | NG | 2 | /07 | | /07 | Agsten | | ng | | | MAMMOGR | (SNOMED | | | | DO | | mammogr | | | AM | CT) | | | | | | aphy | | +---------+---------+---------+---------+---------+---------+---------+---------+---------+ | DIABETE | [id number] | | Active | | Ajay | [...] | | | +---------+---------+---------+---------+---------+---------+---------+---------+---------+ | FOOT | [id number] | | Active | | Ajay | | Foot | | | PAIN, | 7 | /17 | | / | Sylvia | | pain | | | LEFT | (SNOMED | | | | DPM | | | | | | CT) | | | | | | | | +---------+---------+---------+---------+---------+---------+---------+---------+---------+ | FOOT | [id number] | | Active | | Ajay | | Foot | | | PAIN, | 7 | /17 | | | Sylvia | | pain | | | RIGHT | (SNOMED | | | | DPM | | | | | | CT) | | | | | | | | +---------+---------+---------+---------+---------+---------+---------+---------+---------+ | ONYCHOM | [id number] | | Active | | Ajay | | Onychom | | | YCOSIS | 08 | /17 | | | Sylvia | | ycosis | | | | (SNOMED | | | | DPM | | | | | | CT) | | | | | | | | +---------+---------+---------+---------+---------+---------+---------+---------+---------+ | ONYCHAU | [id number] | | Active | | Ajay | | Hypertr | | | XIS | 2 | /17 | | / | Sylvia | | ophy of | | | | (SNOMED | | | | DPM | | nail | | | | CT) | | | | | | | | +---------+---------+---------+---------+---------+---------+---------+---------+---------+ | TYPE 2 | [id number] | | Active | | Jennifer | [...] | | | +---------+---------+---------+---------+---------+---------+---------+---------+---------+ | OSTEOAR | [id number] | | Resolve | | Jennifer | | Osteoar | | | THRITIS | 02 | /14 | d | /15 | Agsten | | thritis | | | , HIP, | (SNOMED | | | | DO | | of hip | | | LEFT | CT) | | | | | | | | +---------+---------+---------+---------+---------+---------+---------+---------+---------+ | HALLUX | [id number] | | Active | | Ajay | [...] | | | +---------+---------+---------+---------+---------+---------+---------+---------+---------+ | HALLUX | [id number] | | Active | | Ajay | [...] | | | +---------+---------+---------+---------+---------+---------+---------+---------+---------+ | LUMBAR | [id number] | | Resolve | | Jennifer | | Lumbar | | | RADICUL | 05 | /08 | d | /08 | Agsten | | radicul | | | OPATHY, | (SNOMED | | | | DO | | opathy | | | LEFT | CT) | | | | | | | | +---------+---------+---------+---------+---------+---------+---------+---------+---------+ | PAIN IN | [id number] | | Resolve | | Jennifer | | Hip | | | LEFT | 2 | /23 | d | /23 | Agsten | | pain | | | HIP | (SNOMED | | | | DO | | | | | | CT) | | | | | | | | +---------+---------+---------+---------+---------+---------+---------+---------+---------+ | PAIN IN | [id number] | | Removed | | Farzad | | Hip | | | LEFT | 2 | /23 | | /23 | | | pain | | | HIP | (SNOMED | | | | VanAnro | | | | | | CT) | | | | oy MD | | | | +---------+---------+---------+---------+---------+---------+---------+---------+---------+ | OSTEOAR | [id number] | | Removed | | Rendee | | Osteoar | | | THRITIS | 02 | /14 | | /15 | Mishra | | thritis | | | , HIP, | (SNOMED | | | | | | of hip | | | LEFT | CT) | | | | | | | | +---------+---------+---------+---------+---------+---------+---------+---------+---------+ | LUMBAR | [id number] | | Removed | | Jennifer | | Lumbar | | | RADICUL | 05 | /08 | | /08 | Agsten | | radicul | | | OPATHY, | (SNOMED | | | | DO | | opathy | | | LEFT | CT) | | | | | | | | +---------+---------+---------+---------+---------+---------+---------+---------+---------+ | HIP | [id number] | | Inactiv | | Jennifer | [...] ropathy | | +---------+---------+---------+---------+---------+---------+---------+---------+---------+ | ROTATOR | [id number] | | Resolve | | Jennifer | [...] tendon | | +---------+---------+---------+---------+---------+---------+---------+---------+---------+ | SCIATIC | [id number] | | Resolve | | Jennifer | | Sciatic | | | A | 5 | / | d | / | Agsten | | a | | | | (SNOMED | | | | DO | | | | | | CT) | | | | | | | | +---------+---------+---------+---------+---------+---------+---------+---------+---------+ | NAUSEA | [id number] | | Resolve | | Jennifer | | Nausea | | | ALONE | 07 | / | d | / | Agsten | | | | | | (SNOMED | | | | DO | | | | | | CT) | | | | | | | | +---------+---------+---------+---------+---------+---------+---------+---------+---------+ | LEFT | [id number] | | Active | | Jennifer | [...] healing | | +---------+---------+---------+---------+---------+---------+---------+---------+---------+ | PERIPHE | [id number] | | Resolve | | Jennifer | | Periphe | | | RAL | 06 | /20 | d | /20 | Agsten | | ral | | | NEUROPA | (SNOMED | | | | DO | | nerve | | | THY | CT) | | | | | | disease | | +---------+---------+---------+---------+---------+---------+---------+---------+---------+ | BREAST | [id number] | | Resolve | | Jennifer | | Pain of | | | PAIN, | 7 | / | d | /09 | Agsten | | breast | | | LEFT | (SNOMED | | | | DO | | | | | | CT) | | | | | | | | +---------+---------+---------+---------+---------+---------+---------+---------+---------+ | WELL | [id number] | | Resolve | | Jennifer | | Adult | | | ADULT | 07 | /09 | d | /09 | Agsten | | health | | | EXAM | (SNOMED | | | | DO | | examina | | | | CT) | | | | | | tion | | +---------+---------+---------+---------+---------+---------+---------+---------+---------+ | OTHER | [id number] | | Resolve | | Jennifer | [...] | | | +---------+---------+---------+---------+---------+---------+---------+---------+---------+ | DIZZINE | [id number] | | Resolve | | Jennifer | | Dizzine | | | SS | 03 | | d | | Agsten | | ss | | | | (SNOMED | | | | DO | | | | | | CT) | | | | | | | | +---------+---------+---------+---------+---------+---------+---------+---------+---------+ | MELENA | [id number] | | Resolve | | Jennifer | [...] | | | +---------+---------+---------+---------+---------+---------+---------+---------+---------+ | UTI | [id number] | | Resolve | | Jennifer | [...] disease | | +---------+---------+---------+---------+---------+---------+---------+---------+---------+ | NAUSEA | [id number] | | Removed | | Jennifer | | Nausea | | | ALONE | 07 | /20 | | /20 | Agsten | | | | | | (SNOMED | | | | DO | | | | | | CT) | | | | | | | | +---------+---------+---------+---------+---------+---------+---------+---------+---------+ | UTI | [id number] | | Removed | | Jennifer | [...] disease | | +---------+---------+---------+---------+---------+---------+---------+---------+---------+ | SCIATIC | [id number] | | Removed | | Jennifer | | Sciatic | | | A | 5 | /25 | | /25 | Agsten | | a | | | | (SNOMED | | | | DO | | | | | | CT) | | | | | | | | +---------+---------+---------+---------+---------+---------+---------+---------+---------+ | ROTATOR | [id number] | | Removed | | Jennifer | [...] | | | +---------+---------+---------+---------+---------+---------+---------+---------+---------+ | INGROWN | [id number] | | Inactiv | | Ajay | [...] on | | +---------+---------+---------+---------+---------+---------+---------+---------+---------+ | OTHER | [id number] | | Removed | | Jennifer | [...] | | | +---------+---------+---------+---------+---------+---------+---------+---------+---------+ | MELENA | [id number] | | Removed | | Lewis | | Melena | | | | | /02 | | /02 | Sae | | | | | | (SNOMED | | | | RN | | | | | | CT) | | | | | | | | +---------+---------+---------+---------+---------+---------+---------+---------+---------+ | SCREENI | [id number] | | Inactiv | | Jennifer | | Screeni | | | NG, | 4 | / | e | / | Agsten | | ng for | | | VAGINAL | (SNOMED | | | | DO | | cancer | | | CANCER | CT) | | | | | | | | +---------+---------+---------+---------+---------+---------+---------+---------+---------+ | WELL | [id number] | | Removed | | Jennifer | | Adult | | | ADULT | 07 | /09 | | /09 | Agsten | | health | | | EXAM | (SNOMED | | | | DO | | examina | | | | CT) | | | | | | tion | | +---------+---------+---------+---------+---------+---------+---------+---------+---------+ | DIZZINE | [id number] | | Removed | | Jennifer | [...] polyps | | +---------+---------+---------+---------+---------+---------+---------+---------+---------+ | OTHER | [id number] | | Inactiv | | Corie | [...] fied | | +---------+---------+---------+---------+---------+---------+---------+---------+---------+ | WELL | [id number] | | Inactiv | | Jennifer | | Adult | | | ADULT | 07 | / | e | / | Agsten | | health | | | EXAM | (SNOMED | | | | DO | | examina | | | | CT) | | | | | | tion | | +---------+---------+---------+---------+---------+---------+---------+---------+---------+ | BREAST | [id number] | | Removed | | Jennifer | | Pain of | | | PAIN, | 7 | /09 | | /09 | Agsten | | breast | | | LEFT | (SNOMED | | | | DO | | | | | | CT) | | | | | | | | +---------+---------+---------+---------+---------+---------+---------+---------+---------+ | PRESBYO | [id number] | | Resolve | | Jennifer | | Presbyo | | | HUMBLE | 4 | / | d | /03 | Agsten | | humble | | | | (SNOMED | | | | DO | | | | | | CT) | | | | | | | | +---------+---------+---------+---------+---------+---------+---------+---------+---------+ | ASTIGMA | [id number] | | Resolve | | Jennifer | | Astigma | | | TISM | 3 | /03 | d | /03 | Agsten | | tism | | | | (SNOMED | | | | DO | | | | | | CT) | | | | | | | | +---------+---------+---------+---------+---------+---------+---------+---------+---------+ | RETINAL | [id number] | | Resolve | | Jennifer | | Retinal | | | | 8 | /03 | d | /03 | Agsten | | | | | HEMORRH | (SNOMED | | | | DO | | hemorrh | | | AGE | CT) | | | | | | age | | +---------+---------+---------+---------+---------+---------+---------+---------+---------+ | MICROAN | [id number] | | Resolve | | Jennifer | | Retinal | | | EURYSMS | 0 | /03 | d | /03 | Agsten | | | | | , | (SNOMED | | | | DO | | microan | | | RETINAL | CT) | | | | | | eurysm | | +---------+---------+---------+---------+---------+---------+---------+---------+---------+ | POSTERI | [id number] | | Resolve | | Jennifer | [...] eye | | +---------+---------+---------+---------+---------+---------+---------+---------+---------+ | HYPEROP | [id number] | | Resolve | | Jennifer | | Hyperme | | | IA | 3 | /03 | d | /03 | Agsten | | tropia | | | | (SNOMED | | | | DO | | | | | | CT) | | | | | | | | +---------+---------+---------+---------+---------+---------+---------+---------+---------+ | ROSACEA | [id number] | | Resolve | | Jennifer | | Rosacea | | | | 04 | /03 | d | /03 | Agsten | | | | | | (SNOMED | | | | DO | | | | | | CT) | | | | | | | | +---------+---------+---------+---------+---------+---------+---------+---------+---------+ | SCREENI | [id number] | | Resolve | | Jennifer | [...] cervix | | +---------+---------+---------+---------+---------+---------+---------+---------+---------+ | SCIATIC | [id number] | | Resolve | | Jennifer | | Sciatic | | | A | 5 | /25 | d | /25 | Agsten | | a | | | | (SNOMED | | | | DO | | | | | | CT) | | | | | | | | +---------+---------+---------+---------+---------+---------+---------+---------+---------+ | INSOMNI | [id number] | | Active | | Ariela | | Insomni | | | A | 01 | /02 | | /02 | Ashwin | | a | | | | (SNOMED | | | | | | | | | | CT) | | | | | | | | +---------+---------+---------+---------+---------+---------+---------+---------+---------+ | ROSACEA | [id number] | | Removed | | Abby | | Rosacea | | | | 04 | /03 | | /03 | Gauer | | | | | | (SNOMED | | | | OD | | | | | | CT) | | | | | | | | +---------+---------+---------+---------+---------+---------+---------+---------+---------+ | HYPEROP | [id number] | | Removed | | Abby | [...] eye | | +---------+---------+---------+---------+---------+---------+---------+---------+---------+ | POSTERI | [id number] | | Removed | | Abby | [...] ent | | +---------+---------+---------+---------+---------+---------+---------+---------+---------+ | MICROAN | [id number] | | Removed | | Abby | | Retinal | | | EURYSMS | 0 | /03 | | /03 | Gauer | | | | | , | (SNOMED | | | | OD | | microan | | | RETINAL | CT) | | | | | | eurysm | | +---------+---------+---------+---------+---------+---------+---------+---------+---------+ | RETINAL | [id number] | | Removed | | Abby | | Retinal | | | | 8 | /03 | | /03 | Gauer | | | | | HEMORRH | (SNOMED | | | | OD | | hemorrh | | | AGE | CT) | | | | | | age | | +---------+---------+---------+---------+---------+---------+---------+---------+---------+ | ASTIGMA | [id number] | | Removed | | Abby | | Astigma | | | TISM | 3 | /03 | | /03 | Gauer | | tism | | | | (SNOMED | | | | OD | | | | | | CT) | | | | | | | | +---------+---------+---------+---------+---------+---------+---------+---------+---------+ | PRESBYO | [id number] | | Removed | | Abby | | Presbyo | | | HUMBLE | 4 | /03 | | /03 | Gauer | | humble | | | | (SNOMED | | | | OD | | | | | | CT) | | | | | | | | +---------+---------+---------+---------+---------+---------+---------+---------+---------+ | SCIATIC | [id number] | | Removed | | Jennifer | | Sciatic | | | A | 5 | /25 | | /25 | Agsten | | a | | | | (SNOMED | | | | DO | | | | | | CT) | | | | | | | | +---------+---------+---------+---------+---------+---------+---------+---------+---------+ | HYPOMAG | [id number] | | Resolve | | Jennifer | | Hypomag | | | NESEMIA | 04 | /30 | d | /30 | Agsten | | nesemia | | | | (SNOMED | | | | DO | | | | | | CT) | | | | | | | | +---------+---------+---------+---------+---------+---------+---------+---------+---------+ | FOLLICU | [id number] | | Resolve | | Jennifer | | Follicu | | | LITIS | 6 | /27 | d | /27 | Agsten | | litis | | | | (SNOMED | | | | DO | | | | | | CT) | | | | | | | | +---------+---------+---------+---------+---------+---------+---------+---------+---------+ | URI | [id number] | | Resolve | | Jennifer | [...] on | | +---------+---------+---------+---------+---------+---------+---------+---------+---------+ | CYSTOCE | [id number] | | Resolve | | Jennifer | [...] | | | +---------+---------+---------+---------+---------+---------+---------+---------+---------+ | ABNORMA | [id number] | | Resolve | | Jennifer | [...] l | | +---------+---------+---------+---------+---------+---------+---------+---------+---------+ | ALLERGI | [id number] | | Resolve | | Jennifer | | Allergi | | | C | 4 | /05 | d | /05 | Agsten | | c | | | RHINITI | (SNOMED | | | | DO | | rhiniti | | | S | CT) | | | | | | s | | +---------+---------+---------+---------+---------+---------+---------+---------+---------+ | SINUSIT | [id number] | | Resolve | | Jennifer | | Acute | | | IS, | 2 | /05 | d | /05 | Agsten | | sinusit | | | ACUTE | (SNOMED | | | | DO | | is | | | NOS | CT) | | | | | | | | +---------+---------+---------+---------+---------+---------+---------+---------+---------+ | CONTUSI | [id number] | | Resolve | | Jennifer | | Contusi | | | ON, | 6 | / | d | / | Agsten | | on of | | | LEFT | (SNOMED | | | | DO | | knee | | | KNEE | CT) | | | | | | | | +---------+---------+---------+---------+---------+---------+---------+---------+---------+ | THUMB | [id number] | | Resolve | | Jennifer | | Pain in | | | PAIN, | 02 | | d | | Agsten | | thumb | | | RIGHT | (SNOMED | | | | DO | | | | | | CT) | | | | | | | | +---------+---------+---------+---------+---------+---------+---------+---------+---------+ | FOOT | [id number] | | Resolve | | Jennifer | [...] g | | +---------+---------+---------+---------+---------+---------+---------+---------+---------+ | ABDOMIN | [id number] | | Resolve | | Jennifer | [...] | | | +---------+---------+---------+---------+---------+---------+---------+---------+---------+ | LUMBAR | [id number] | | Resolve | | Jennifer | | Lumbar | | | RADICUL | 05 | /08 | d | /08 | Agsten | | radicul | | | OPATHY, | (SNOMED | | | | DO | | opathy | | | LEFT | CT) | | | | | | | | +---------+---------+---------+---------+---------+---------+---------+---------+---------+ | HIP | [id number] | | Inactiv | | Jennifer | [...] | | | +---------+---------+---------+---------+---------+---------+---------+---------+---------+ | INSOMNI | [id number] | | Resolve | | Jennifer | | Insomni | | | A | 01 | /02 | d | /02 | Agsten | | a | | | | (SNOMED | | | | DO | | | | | | CT) | | | | | | | | +---------+---------+---------+---------+---------+---------+---------+---------+---------+ | INSOMNI | [id number] | | Removed | | Jennifer | [...] | | | +---------+---------+---------+---------+---------+---------+---------+---------+---------+ | HIP | [id number] | | Removed | | Franny | | Hip | | | PAIN | 2 | /14 | | /15 | | | pain | | | | (SNOMED | | | | Campman | | | | | | CT) | | | | | | | | +---------+---------+---------+---------+---------+---------+---------+---------+---------+ | FOOT | [id number] | | Removed | | Franny | | Foot | | | PAIN | 7 | /01 | | /01 | | | pain | | | | (SNOMED | | | | Campman | | | | | | CT) | | | | | | | | +---------+---------+---------+---------+---------+---------+---------+---------+---------+ | LUMBAR | [id number] | | Removed | | Jennifer | | Lumbar | | | RADICUL | 05 | /08 | | /08 | Agsten | | radicul | | | OPATHY, | (SNOMED | | | | DO | | opathy | | | LEFT | CT) | | | | | | | | +---------+---------+---------+---------+---------+---------+---------+---------+---------+ | GERD | [id number] | | Active | | Jasmeet | [...] disease | | +---------+---------+---------+---------+---------+---------+---------+---------+---------+ | ABDOMIN | [id number] | | Removed | | Jasmeet | [...] | | | +---------+---------+---------+---------+---------+---------+---------+---------+---------+ | NAUSEA | [id number] | | Correct | | Jasmeet | [...] UNSPECI | -CM) | | | | [employer] | | unspeci | | | FIED [...] limb | | +---------+---------+---------+---------+---------+---------+---------+---------+---------+ | THUMB | [id number] | | Removed | | Jennifer | | Pain in | | | PAIN, | 02 | / | | /01 | Agsten | | thumb | | | RIGHT | (SNOMED | | | | DO | | | | | | CT) | | | | | | | | +---------+---------+---------+---------+---------+---------+---------+---------+---------+ | CONTUSI | [id number] | | Removed | | Jennifer | | Contusi | | | ON, | 6 | /05 | | /05 | Agsten | | on of | | | LEFT | (SNOMED | | | | DO | | knee | | | KNEE | CT) | | | | | | | | +---------+---------+---------+---------+---------+---------+---------+---------+---------+ | SINUSIT | [id number] | | Removed | | Jennifer | | Acute | | | IS, | 2 | /05 | | /05 | Agsten | | sinusit | | | ACUTE | (SNOMED | | | | DO | | is | | | NOS | CT) | | | | | | | | +---------+---------+---------+---------+---------+---------+---------+---------+---------+ | ALLERGI | [id number] | | Removed | | Jennifer | | Allergi | | | C | 4 | /05 | | /05 | Agsten | | c | | | RHINITI | (SNOMED | | | | DO | | rhiniti | | | S | CT) | | | | | | s | | +---------+---------+---------+---------+---------+---------+---------+---------+---------+ | ABNORMA | [id number] | | Removed | | Pinky | [...] l | | +---------+---------+---------+---------+---------+---------+---------+---------+---------+ | CYSTOCE | [id number] | | Removed | | Jennifer | [...] | | | +---------+---------+---------+---------+---------+---------+---------+---------+---------+ | SCREENI | [id number] | | Removed | | Jennifer | [...] cervix | | +---------+---------+---------+---------+---------+---------+---------+---------+---------+ | NAUSEA | [id number] | | Removed | | Jennifer | | Nausea | | | ALONE | | | | | Agsten | | | | | | (SNOMED | | | | DO | | | | | | CT) | | | | | | | | +---------+---------+---------+---------+---------+---------+---------+---------+---------+ | PERIPHE | [id number] | | Removed | | Jennifer | | Periphe | | | RAL | | / | | /20 | Agsten | | ral | | | NEUROPA | (SNOMED | | | | DO | | nerve | | | THY | CT) | | | | | | disease | | +---------+---------+---------+---------+---------+---------+---------+---------+---------+ | URI | [id number] | | Removed | | Jennifer | [...] on | | +---------+---------+---------+---------+---------+---------+---------+---------+---------+ | FOLLICU | [id number] | | Removed | | Jennifer | | Follicu | | | LITIS | 6 | | | | Agsten | | litis | | | | (SNOMED | | | | DO | | | | | | CT) | | | | | | | | +---------+---------+---------+---------+---------+---------+---------+---------+---------+ | OSTEOPE | [id number] | | Active | | Jennifer | | Osteope | | | LINDSAY | 00 | /30 | | /30 | Agsten | | lindsay | | | | (SNOMED | | | | DO | | | | | | CT) | | | | | | | | +---------+---------+---------+---------+---------+---------+---------+---------+---------+ | HYPOMAG | [id number] | | Removed | | Jennifer | | Hypomag | | | NESEMIA | 04 | /30 | | /30 | Agsten | | nesemia | | | | (SNOMED | | | | DO | | | | | | CT) | | | | | | | | +---------+---------+---------+---------+---------+---------+---------+---------+---------+ | TESFAYE | 2829598 | | Inactiv | | Jennifer | | Tesfaye | | | IRMA | [id number] | / | e | / | [...] a | | +---------+---------+---------+---------+---------+---------+---------+---------+---------+ | DIABETE | [id number] | | Inactiv | | Jennifer | [...] led | | +---------+---------+---------+---------+---------+---------+---------+---------+---------+ | HYPERTR | [id number] | | Active | | Jennifer | | Hypertr | | | IGLYCER | 06 | /20 | | /20 | Agsten | | iglycer | | | IDEMIA | (SNOMED | | | | DO | | idemia | | | | CT) | | | | | | | | +---------+---------+---------+---------+---------+---------+---------+---------+---------+ | HYPERTE | [id number] | | Active | | Jennifer | [...] po bid | | | SULFAMETHO | [id number] | Aminata | | 800-160 | | | | XAZOLE-TRI | 1 | Bailey | | MG TABS | | | | METHOPRIM | | | + + + + + + + + | PENNSAID | 40 drops 4 | | | DICLOFENAC | [id number] | Jennifer | | 1.5 % SOLN [...] one po | | | DIAZEPAM | [id number] | Jennifer | | MG TABS | prior to | | | | 1 | Agsten DO | | | procedure | | | | | | + + + + + + + + | GLIMEPIRID | one tablet | | | GLIMEPIRID | [id number] | Emilie | | E 2 MG [...] one tablet | | | MIRTAZAPIN | [id number] | Jerri | | E 30 MG | at night | | | E | 6 | Irlanda MA | | TABS | before bed | | | | | | + + + + + + + + | MIRALAX | take as | | | POLYETHYLE | [id number] | Jennifer | | POWD | directed | | | NE GLYCOL | 2 | Agsten DO | | | | | | 3350 | | | + + + + + + + + | WELCHOL | one po qd | | | COLESEVELA | [id number] | Jennifer | | 625 MG | prn | | | M HCL | 8 | Agsten DO | | TABS | | | | | | | + + + + + + + + | GLYBURIDE | one by | | | GLYBURIDE | 5773203184 | Jennifer | | 5 MG TABS | mouth one | | | | 1 | Agsten DO | | | time per | | | | | | | | day | | | | | | + + + + + + + + | MIRTAZAPIN | one tablet | | | MIRTAZAPIN | [id number] | Jennifer | | E 15 MG [...] po qd | | | COLESEVELA | 1042096914 | Jennifer | | 625 MG | prn | | | M HCL | 8 | Agsten DO | | TABS | | | | | | | + + + + + + + + | GABAPENTIN | Take one | | | GABAPENTIN | [id number] | Ajay | | 300 MG | [...] one tablet | | | MIRTAZAPIN | [id number] | Pedro Solis | | E 15 MG | at night | | | E | 6 | | | TABS | before bed | | | | | | + + + + + + + + | GABAPENTIN | two | | | GABAPENTIN | [id number] | Jennifer | | 300 MG | capsules | | | | 5 | Agsten DO | | CAPS | twice a | | | | | | | | day | | | | | | + + + + + + + + | ATIVAN 1 | one by | | | LORAZEPAM | [id number] | Jerri | | MG TABS | mouth at | | | | 1 | Uvalda MA | | | bedtime | | | | | | + + + + + + + + | AMBIEN 10 | 02/12 by | | | ZOLPIDEM | [id number] | Jennifer | | MG TABS | mouth at | | | TARTRATE | 1 | Agsten DO | | | bedtime | | | | | | + + + + + + + + | AMBIEN 10 | 02/12 - 1 po | | | ZOLPIDEM | [id number] | Jennifer | | MG TABS | qhs | | | TARTRATE | 1 | Agsten DO | + + + + + + + + | OXYCODONE | 1-2 po q 6 | | | OXYCODONE | [id number] | Jennifer | | HCL 5 MG | hrs prn | | | HCL | 1 | Agsten DO | | TABS | | | | | | | + + + + + + + + | KEFLEX 500 | one po tid | | | CEPHALEXIN | 2148156537 | Jennifer | | MG CAPS | | | | | 1 | Agsten DO | + + + + + + + + | VICODIN | prn | | | HYDROCODON | 6267692234 | Michelle | | 5-500 MG | | | | E-ACETAMIN | 4 | Bennett | | TABS | | | | OPHEN | | | + + + + + + + + | NORTRIPTYL | 1 tab qhs | | | NORTRIPTYL | 9425039409 | Ajay | | INE HCL 50 | | | | INE HCL | 1 | Sylvia DPM | | MG CAPS | | | | | | | + + + + + + + + | ALENDRONAT | one po q | | | ALENDRONAT | 3604956169 | Jennifer | | E SODIUM | week | | | E SODIUM | 9 | Agsten DO | | 70 MG TABS | | | | | | | + + + + + + + + | BENICAR 20 | 1/2 po qd | | | OLMESARTAN | 0765270950 | Lewis Quevedo | | MG TABS | | | | MEDOXOMIL | 3 | RN | + + + + + + + + | LOVAZA 1 | 2 po qd | | | OMEGA-3-AC | 2869034403 | Jennifer | | GM CAPS | | | | ID ETHYL | 8 | Agsten DO | | | | | | ESTERS | | | + + + + + + + + | LUNESTA 2 | 1 po qhs | | | ESZOPICLON | 3583034459 | Michelle | | MG TABS | | | | E | 0 | Bennett | + + + + + + + + | VOLTAREN 1 | apply up | | | DICLOFENAC | 8675731066 | Jasmeet | | % GEL | to 2 gram | | | SODIUM | 7 | Aga | | | qid prn | | | | | MD | + + + + + + + + | K-DUR 10 | 1 by mouth | | | POTASSIUM | 4705757475 | Jennifer | | MEQ TBCR | twice a | | | CHLORIDE | 1 | Agsten DO | | | day | | | | | | + + + + + + + + | NEXIUM 40 | 1 po q am, | | | ESOMEPRAZO | 5454431750 | Jennifer | | MG CPDR | rarely 1 | | | LE | 1 | Agsten DO | | | po q pm | | | MAGNESIUM | | | + + + + + + + + | VOLTAREN 1 | apply up | | | DICLOFENAC | 8170574761 | Jennifer | | % GEL | to 2 grams | | | SODIUM | 7 | Agsten DO | | | qid prn | | | | | | + + + + + + + + | K-JAMARI 20 | one po qd | | | POTASSIUM | 9896178568 | Jennifer | | MEQ PACK | | | | CHLORIDE | 2 | Agsten DO | + + + + + + + + | TRAZODONE | /2 to 1 | | | TRAZODONE | 6624634373 | Ajay | | HCL 100 MG | by mouth | | | HCL | 2 | Sylvia DPM | | TABS | at bedtime | | | | | | + + + + + + + + | LASIX 40 | 02/12 by | | | FUROSEMIDE | 6785433286 | Jennifer | | MG TABS | mouth | | | | 3 | Agsten DO | | | every am | | | | | | + + + + + + + + | DIFLUCAN | 1 by mouth | | | FLUCONAZOL | 9849673351 | Jennifer | | 150 MG | x 1 dose | | | E | 9 | Agsten DO | | TABS | | | | | | | + + + + + + + + | FLEXERIL | one po bid | | | CYCLOBENZA | 5779086037 | Jennifer | | 10 MG TABS | prn | | | NETO HCL | 1 | Agsten DO | + + + + + + + + | BONIVA 150 | one po qd | | | IBANDRONAT | 6928390893 | Jennifer | | MG TABS | | | | E SODIUM | 2 | Agsten DO | + + + + + + + + | GEMFIBROZI | 1 po bid | | | GEMFIBROZI | 1014381843 | Jennifer | | L 600 MG | | | | L | 5 | Agsten DO | | TABS | | | | | | | + + + + + + + + | ASPIRIN 81 | | | | ASPIRIN | 1151264353 | Jennifer | | MG CHEW | | | | | 6 | Agsten DO | + + + + + + + + | LOVAZA 1 | 2 po qd | | | OMEGA-3-AC | 2615949030 | Jasmeet | | EDWIN CAPS | | | | ID ETHYL | 8 | Aga | | | | | | ESTERS | | MD | + + + + + + + + | ONDANSETRO | one tablet | | | ONDANSETRO | 3806313485 | Ajay | | N HCL 4 [...] take as | | | BISACODYL | 3338414695 | Jennifer | | MG TBEC | directed | | | | 1 | Agsten DO | + + + + + + + + | NEXIUM 40 | 1 po q am, | | | ESOMEPRAZO | 4056021136 | Jasmeet | | MG CPDR | rarely 1 | | | LE | 1 | Aga | | | po q pm | | | MAGNESIUM | | MD | + + + + + + + + | JUAN CARLOS | one po qd | | | FEXOFENADI | 5231269248 | Jasmeet | | 180 MG | prn | | | NE HCL | 2 | Aga | | TABS | | | | | | MD | + + + + + + + + | AMBIEN 10 | 1/2 - 1 po | | | ZOLPIDEM | 6863299731 | Jennifer | | MG TABS | qhs | | | TARTRATE | 1 | Agsten DO | + + + + + + + + | PRILOSEC | one po bid | | | OMEPRAZOLE | 6547492528 | Jasmeet | | OTC 20 MG | | | | MAGNESIUM | 5 | Aga | | TBEC | | | | | | MD | + + + + + + + + | METOCLOPRA | take as | | | METOCLOPRA | 1427344658 | Jennifer | | MIDE HCL | directed | | | MIDE HCL | 1 | Agsten DO | | 10 MG TABS | | | | | | | + + + + + + + + | GLYBURIDE | 1 po qd | | | GLYBURIDE | 6438247869 | Jennifer | | 5 MG TABS | prn | | | | 1 | Agsten DO | + + + + + + + + | MECLIZINE | 1 by mouth | | | MECLIZINE | 7398306022 | Jennifer | | HCL 25 MG | every 6 | | | HCL | 0 | Agsten DO | | TABS | hrs as | | | | | | | | needed | | | | | | + + + + + + + + | GLYBURIDE | 1 po qd | | | GLYBURIDE | 1099814519 | Michelle | | 5 MG TABS | | | | | 1 | Bennett | + + + + + + + + | GEMFIBROZI | 1 po bid | | | GEMFIBROZI | 4014250774 | Michelle | | L 600 MG [...] po qd | | | FEXOFENADI | 7788364944 | Jennifer | | 180 MG | prn | | | NE HCL | 2 | Agsten DO | | TABS | | | | | | | + + + + + + + + | JAZMINVAN 160 | 1 po qd | | | CAINAN | 1624336427 | Pinky Alexei | | MG TABS | | | | | 4 | MA | + + + + + + + + | ERYTHROMYC | 02/14 inch | | | ERYTHROMYC | 2049040422 | Jennifer | | IN 5 MG/GM [...] po qhs | | | ESZOPICLON | 9803679692 | Jennifer | | MG TABS | | | | E | 0 | Agsten DO | + + + + + + + + | AMBIEN 10 | 02/12 - 1 po | | | ZOLPIDEM | 7584283037 | Lewis Edwardske | | MG TABS | qhs | | | TARTRATE | 1 | RN | + + + + + + + + | TRAZODONE | /2 - 1 po | | | TRAZODONE | 1423262688 | Lewis Quevedo | | HCL 100 MG | qhs | | | HCL | 2 | RN | | TABS | | | | | | | + + + + + + + + | GLYBURIDE | 1 po qd | | | GLYBURIDE | 4436985937 | Jennifer | | 5 MG TABS | prn | | | | 1 | Agsten DO | + + + + + + + + | HYCODAN | 1-2 tsp | | | HYDROCODON | 1227358711 | Jennifer | | 5-1.5 | q4-6 h prn | | | E-HOMATROP | 6 | Agsten DO | | MG/5ML | cough | | | INE | | | | SYRP | | | | | | | + + + + + + + + | FLEXERIL | one po bid | | | CYCLOBENZA | 6723423018 | Jennifer | | 10 MG TABS [...] po qd | | | LANSOPRAZO | 6188772550 | Jennifer | | 30 MG CPDR | | | | LE | 3 | Agsten DO | + + + + + + + + | HYCOTUSS | 1-2 tsp q | | | HYDROCODON | 6294089026 | Jennifer | | EXPECTORAN | 4-6 [...] q 6 | | | PROMETHAZI | 2615367603 | Jasmeet | | NE HCL 25 | hr prn | | | NE HCL | 1 | Aga | | MG TABS | | | | | | MD | + + + + + + + + | IBU 600 MG | one po tid | | | IBUPROFEN | 6467419912 | Jasmeet | | TABS | prn | | | | 1 | Aga | | | | | | | | MD | + + + + + + + + | VALIUM 5 | 1 by mouth | | | DIAZEPAM | 2615472525 | Emilie | | MG TABS | prior to | | | | 1 | Oliverio MEYER | | | procedure | | | | | | + + + + + + + + | DYAZIDE | 1 by mouth | | | MAHSAAMTERJAIDA | 7165038393 | Jennifer | | 37.5-25 MG | every day | | | E-HCTZ | 2 | Agsten DO | | CAPS | | | | | | | + + + + + + + + | NEXIUM 40 | 1 po qd | | | ESOMEPRAZO | 5660155379 | Michelle | | MG CPDR | | | | LE | 1 | Bennett | | | | | | MAGNESIUM | | | + + + + + + + + | AMITRIPTYL | 1-2 by | | | AMITRIPTYL | 1199196769 | Jennifer | | INE HCL 25 [...] | one | | | TEMAZEPAM | 9984400590 | Jennifer | | 15 MG CAPS | capsule | | | | 0 | Agsten DO | | | once a day | | | | | | + + + + + + + + | MORPHINE | one po bid | | | MORPHINE | 2247856373 | Jennifer | | SULFATE CR | prn | | | SULFATE | 1 | Agsten DO | | 15 MG | | | | | | | | TB12 | | | | | | | + + + + + + + + | CYCLOBENZA | one tablet | | | CYCLOBENZA | 9599115728 | Corie | | NETO HCL | [...] po x | | | AZITHROMYC | 3418026966 | Jennifer | | 250 MG | one day, | | | IN | 0 | Agsten DO | | TABS | one po x 4 | | | | | | | | days | | | | | | + + + + + + + + | IBU 800 MG | one po tid | | | IBUPROFEN | 9835110074 | Jennifer | | TABS | | | | | 1 | Agsten DO | + + + + + + + + | DOXEPIN | one | | | DOXEPIN | 2932465408 | Jennifer | | HCL 10 MG | capsule at | | | HCL | 1 | Agsten DO | | CAPS | night | | | | | | | | before bed | | | | | | + + + + + + + + | K-JAMARI 20 | one po qd | | | POTASSIUM | 8453019703 | Jennifer | | MEQ PACK | | | | CHLORIDE | 2 | Agsten DO | + + + + + + + + | ALPRAZOLAM | one tablet | | | ALPRAZOLAM | 9809796021 | Domi | | 0.25 MG | at night | | | | 0 | Michael-Mat | | TABS | before bed | | | | | tienne | | | as needed | | | | | CCMA | + + + + + + + + | TIZANIDINE | one tablet | | | TIZANIDINE | 5520593907 | Jennifer | | HCL 4 MG [...] one tablet | | | TIZANIDINE | 8429104970 | Jennifer | | HCL 4 MG [...] po qd | | | VALSARTAN | 6453881254 | Urmila | | MG TABS | [...] /2 by | | | ZOLPIDEM | 0839567765 | Lewis Edwardske | | MG TABS | mouth at | | | TARTRATE | 1 | RN | | | bedtime | | | | | | + + + + + + + + | GLYBURIDE | one by | | | GLYBURIDE | 7246290675 | Jennifer | | 5 MG TABS | mouth one | | | | 1 | Agsten DO | | | time per | | | | | | | | day | | | | | | + + + + + + + + | NORTRIPTYL | 1-2 | | | NORTRIPTYL | 1748973934 | Jennifer | | INE HCL 25 | capsules | | | INE HCL | 1 | Agsten DO | | MG CAPS | at night | | | | | | | | before bed | | | | | | + + + + + + + + | SLOW-MAG | one po qd | | | MAGNESIUM | 8263770491 | Jennifer | | 64 MG TBCR | | | | CHLORIDE | 0 | Agsten DO | + + + + + + + + | METANX | 1 PO BID | | | L-METHYLFO | 1387321049 | Leora | | [phone] | | | | LATE-ALGAE | 8 | Hardenbroo | | -35 MG | | | | -B12-B6 | | k MA | | CAPS | | | | | | | + + + + + + + + | HYDROCODON | one tablet | | | HYDROCODON | 8388130076 | Jennifer | | E-ACETAMIN | three [...] one tablet | | | FELODIPINE | 6626967920 | Jennifer | | ER 10 MG | once a | | | | 1 | Agsten DO | | BQ32A-FVX | day | | | | | | + + + + + + + + | LOSARTAN | one tablet | | | LOSARTAN | 0823417875 | Jennifer | | POTASSIUM | once a | | | POTASSIUM | 2 | Agsten DO | | 50 MG TABS | day | | | | | | + + + + + + + + | METFORMIN | one by | | | METFORMIN | 2361119475 | Jennifer | | HCL 500 MG | mouth two | | | HCL | 5 | Agsten DO | | TABS | times per | | | | | | | | day | | | | | | + + + + + + + + | FUROSEMIDE | one tablet | | | FUROSEMIDE | 1536446639 | Jennifer | | 20 MG | once a | | | | 5 | Agsten DO | | TABS | day | | | | | | + + + + + + + + | CARVEDILOL | one tablet | | | CARVEDILOL | 7159135670 | Jennifer | | 6.25 MG | twice a | | | | 1 | Agsten DO | | TABS | day | | | | | | + + + + + + + + | KLOR-CON | two by | | | POTASSIUM | 2871563700 | Jennifer | | 10 10 MEQ | mouth one | | | CHLORIDE | 1 | Agsten DO | | CR-TABS | time per | | | | | | | | day | | | | | | + + + + + + + + | LANTUS | 10 units | | | INSULIN | 5003704873 | Jennifer | | SOLOSTAR | at night | | | GLARGINE | 5 | Agsten DO | | 100 | | | | | | | | UNIT/ML | | | | | | | | SOPN | | | | | | | + + + + + + + + | LORAZEPAM | one tablet | | | LORAZEPAM | 6369279928 | Jennifer | | 0.5 MG | at night | | | | 1 | Agsten DO | | TABS | before bed | | | | | | + + + + + + + + | NORTRIPTYL | 1-2 | | | NORTRIPTYL | 5946941959 | Jennifer | | INE HCL 25 | capsules | | | INE HCL | 1 | Agsten DO | | MG CAPS | at night | | | | | | | | before bed | | | | | | + + + + + + + + | PROTONIX | one by | | | PANTOPRAZO | 5824368776 | Jennifer | | 40 MG TBEC | mouth one | | | LE SODIUM | 1 | Agsten DO | | | time per | | | | | | | | day | | | | | | + + + + + + + + | ULTRAM 50 | one by | | | TRAMADOL | 5147025708 | Jennifer | | MG TABS | [...] 4 capsules | | | GABAPENTIN | 8553481122 | Ajay | | 300 MG | daily | | | | 5 | Sylvia DPM | | CAPS | | | | | | | + + + + + + + + | MIRTAZAPIN | one tablet | | | MIRTAZAPIN | 0550826184 | Jennifer | | E 15 MG | once a | | | E | 6 | Agsten DO | | TABS | day before | | | | | | | | bed | | | | | | + + + + + + + + | LOVAZA 1 | 2 one time | | | OMEGA-3-AC | 3505840108 | Jennifer | | GM CAPS | per day | | | ID ETHYL | 8 | Agsten DO | | | | | | ESTERS | | | + + + + + + + + | DICLOFENAC | apply 2 | | | DICLOFENAC | 0642665827 | Jennifer | | SODIUM 1 | [...] one tablet | | | IBUPROFEN | 7751636495 | Jennifer | | 800 MG | [...] one tablet | | | TIZANIDINE | 9149559407 | Jennifer | | HCL 4 MG [...] 1 capsule | | | GABAPENTIN | 1815469317 | Ajay | | 300 MG | two times | | | | 5 | Sylvia DPM | | CAPS | a day | | | | | | + + + + + + + + | MIRTAZAPIN | one tablet | | | MIRTAZAPIN | 7956873474 | Jennifer | | E 15 MG | at night | | | E | 6 | Agsten DO | | TABS | before bed | | | | | | + + + + + + + + | GLIMEPIRID | one tablet | | | GLIMEPIRID | 8563098056 | Jennifer | | E 2 MG | once a | | | E | 1 | Agsten DO | | TABS | day | | | | | | + + + + + + + + | KLOR-CON | one by | | | POTASSIUM | 9183610554 | Jennifer | | 10 10 MEQ | mouth one | | | CHLORIDE | 1 | Agsten DO | | CR-TABS | time per | | | | | | | | day | | | | | | + + + + + + + + | ALPRAZOLAM | one tablet | | | ALPRAZOLAM | 6965920932 | Jennifer | | 0.25 MG | at night | | | | 0 | Agsten DO | | TABS | before bed | | | | | | | | as needed | | | | | | + + + + + + + + | ALPRAZOLAM | one tablet | | | ALPRAZOLAM | 2360558713 | Jennifer | | 0.5 MG | at night | | | | 0 | Agsten DO | | TABS | before bed | | | | | | + + + + + + + + | VALIUM 5 | 1 by mouth | | | DIAZEPAM | 4511841655 | Jennifer | | MG TABS | prior to | | | | 1 | Agsten DO | | | procedure | | | | | | + + + + + + + + | HYDROCODON | one tablet | | | HYDROCODON | 5455649474 | Jennifer | | E-ACETAMIN | three [...] one tablet | | | ALPRAZOLAM | 6226116862 | Jennifer | | 1 MG TABS [...] | one | | | DOXEPIN | 1305608621 | Jennifer | | HCL 10 MG | capsule at | | | HCL | 1 | Agsten DO | | CAPS | night | | | | | | | | before bed | | | | | | + + + + + + + + | TRAZODONE | 02/12 to 1 | | | TRAZODONE | 6556587760 | Jennifer | | HCL 100 MG [...] q hs | | | GABAPENTIN | 4900030882 | Ajay | | 300 MG | | | | | 5 | Sylvia DPM | | CAPS | | | | | | | + + + + + + + + | ATIVAN 1 | one by | | | LORAZEPAM | 0578944746 | Jennifer | | MG TABS | mouth at | | | | 1 | Agsten DO | | | bedtime | | | | | | + + + + + + + + | MIRTAZAPIN | one tablet | | | MIRTAZAPIN | 4095169608 | Jerri | | E 30 MG | at night | | | E | 6 | Irlanda MA | | TABS | before bed | | | | | | + + + + + + + + | NORTRIPTYL | 1 tab qhs | | | NORTRIPTYL | 3430433992 | Ajay | | INE HCL 50 | | | | INE HCL | 1 | Sylvia DPM | | MG CAPS | | | | | | | + + + + + + + + | METANX | 1 PO BID | | | L-METHYLFO | 1463661124 | Ajay | | 3-90.314-2 | | | | LATE-ALGAE | 8 | Sylvia DPM | | -35 MG | | | | -B12-B6 | | | | CAPS | | | | | | | + + + + + + + + | ONDANSETRO | one tablet | | | ONDANSETRO | 2476604835 | Jennifer | | N HCL 4 [...] one tablet | | | MIRTAZAPIN | 7744071621 | Jennifer | | E 15 MG | at night | | | E | 6 | Agsten DO | | TABS | before bed | | | | | | + + + + + + + + | DIFLUCAN | 1 by mouth | | | FLUCONAZOL | 5225955830 | Jennifer | | 150 MG | x 1 dose | | | E | 9 | Agsten DO | | TABS | | | | | | | + + + + + + + + | TEMAZEPAM | one | | | TEMAZEPAM | 0839343316 | Jennifer | | 15 MG CAPS | capsule | | | | 0 | Agsten DO | | | once a day | | | | | | + + + + + + + + | TIZANIDINE | one tablet | | | TIZANIDINE | 6838482984 | Jennifer | | HCL 4 MG [...] one tablet | | | CYCLOBENZA | 5660833960 | Jennifer | | NETO HCL | [...] drops 4 | | | DICLOFENAC | 7492743122 | Jennifer | | 1.5 % SOLN [...] one tablet | | | HYDROCODON | 7875008846 | Jennifer | | E-ACETAMIN | three [...] one by | | | LOSARTAN | 6087096606 | Jennifer | | POTASSIUM | mouth one | | | POTASSIUM | 2 | Agsten DO | | 25 MG TABS | time per | | | | | | | | day | | | | | | + + + + + + + + | VICODIN ES | one by | | | HYDROCODON | 2527697681 | Jennifer | | 7.5-750 | mouth [...] 1/2 by | | | FUROSEMIDE | 2610446952 | Jennifer | | 40 MG | mouth one | | | | 5 | Agsten DO | | TABS | time per | | | | | | | | day | | | | | | + + + + + + + + | AMITRIPTYL | 1-2 by | | | AMITRIPTYL | 4863153921 | Jennifer | | INE HCL 25 | mouth | | | INE HCL | 1 | Agsten DO | | MG TABS | before bed | | | | | | + + + + + + + + | LOVAZA 1 | 4 one time | | | OMEGA-3-AC | 2243519325 | Jennifer | | GM CAPS | per day | | | ID ETHYL | 8 | Agsten DO | | | | | | ESTERS | | | + + + + + + + + | PENNSAID | 4 grams | | | DICLOFENAC | 0470987016 | Jennifer | | 1.5 % SOLN | four times | | | SODIUM | 3 | Agsten DO | | | a day to | | | | | | | | joint prn. | | | | | | + + + + + + + + | AMBIEN 10 | one by | | | ZOLPIDEM | 8779348980 | Jennifer | | MG TABS | mouth at | | | TARTRATE | 1 | Agsten DO | | | bedtime | | | | | | + + + + + + + + | MECLIZINE | 1 by mouth | | | MECLIZINE | 6760186044 | Jennifer | | HCL 25 MG | every 6 | | | HCL | 0 | Agsten DO | | TABS | hrs as | | | | | | | | needed | | | | | | + + + + + + + + | METFORMIN | one po bid | | | METFORMIN | 5956412800 | Jennifer | | HCL 500 MG | | | | HCL | 5 | Agsten DO | | TABS | | | | | | | + + + + + + + + | PROTONIX | one po qd | | | PANTOPRAZO | 9243649669 | Jennifer | | 40 MG TBEC | | | | LE SODIUM | 1 | Agsten DO | + + + + + + + + | KLOR-CON | one po qd | | | POTASSIUM | 1456925170 | Jennifer | | 10 10 MEQ | | | | CHLORIDE | 1 | Agsten DO | | CR-TABS | | | | | | | + + + + + + + + | ATIVAN 1 | one po qhs | | | LORAZEPAM | 3045084437 | Jennifer | | MG TABS | | | | | 1 | Agsten DO | + + + + + + + + | AMBIEN 10 | one po qhs | | | ZOLPIDEM | 2636047694 | Jennifer | | MG TABS | | | | TARTRATE | 1 | Agsten DO | + + + + + + + + | LOVAZA 1 | 4 po qd | | | OMEGA-3-AC | 1356983241 | Jennifer | | GM CAPS | [...] po tid | | | HYDROCODON | 2637512365 | Jennifer | | 7.5-750 | prn | | | E-ACETAMIN | 4 | Agsten DO | | MG TABS | | | | OPHEN | | | + + + + + + + + | DULCOLAX 5 | take as | | | BISACODYL | 6281907665 | Jasmeet | | MG TBEC | directed | | | | 1 | Aga | | | | | | | | MD | + + + + + + + + | METOCLOPRA | take as | | | METOCLOPRA | 8331932893 | Jasmeet | | MIDE HCL | directed | | | MIDE HCL | 1 | Aga | | 10 MG TABS | | | | | | MD | + + + + + + + + | MIRALAX | take as | | | POLYETHYLE | 5521484245 | Jasmeet | | POWD | directed | | | NE GLYCOL | 2 | Aga | | | | | | 3350 | | MD | + + + + + + + + | VOLTAREN 1 | apply up | | | DICLOFENAC | 8618067443 | Jennifer | | % GEL | to 2 grams | | | SODIUM | 7 | Agsten DO | | | qid prn | | | | | | + + + + + + + + | IBUPROFEN | one po tid | | | IBUPROFEN | 6523134749 | Jennifer | | 800 MG | prn | | | | 0 | Agsten DO | | TABS | | | | | | | + + + + + + + + | LOSARTAN | one po qd | | | LOSARTAN | 4010082651 | Jennifer | | POTASSIUM | | | | POTASSIUM | 2 | Agsten DO | | 25 MG TABS | | | | | | | + + + + + + + + | NEXIUM 40 | one po qd | | | ESOMEPRAZO | 6192187291 | Jennifer | | MG CPDR | | | | LE | 1 | Agsten DO | | | | | | MAGNESIUM | | | + + + + + + + + | GLYBURIDE | one po qd | | | GLYBURIDE | 1834836659 | Jennifer | | 5 MG TABS | | | | | 1 | Agsten DO | + + + + + + + + | FUROSEMIDE | 1/2 po qd | | | FUROSEMIDE | 6826463074 | Jennifer | | 40 MG | | | | | 5 | Agsten DO | | TABS | | | | | | | + + + + + + + + | ULTRAM 50 | one po tid | | | TRAMADOL | 6634188466 | Jennifer | | MG TABS | prn | | | HCL | 0 | Agsten DO | + + + + + + + + | ERYTHROMYC | 1/4 inch | | | ERYTHROMYC | 1799990565 | Abby | | IN 5 MG/GM [...] 2po qd | | | FUROSEMIDE | 6346787240 | Jennifer | | MG TABS | | | | | 3 | Agsten DO | + + + + + + + + | AMBIEN 10 | 02/12 - 1 po | | | ZOLPIDEM | 7206513092 | Jennifer | | MG TABS | qhs. BMN | | | TARTRATE | 1 | Agsten DO | + + + + + + + + | PREVACID | one po qd | | | LANSOPRAZO | 3381006666 | Jennifer | | 30 MG CPDR | | | | LE | 3 | Agsten DO | + + + + + + + + | GLYBURIDE | one po q | | | GLYBURIDE | 9388087609 | Jennifer | | 2.5 MG | am | | | | 1 | Agsten DO | | TABS | | | | | | | + + + + + + + + | AMBIEN 10 | 02/12 - 1 po | | | ZOLPIDEM | 0965107962 | Jennifer | | MG TABS | qhs | | | TARTRATE | 1 | Agsten DO | + + + + + + + + | BENICAR 20 | 1/2 po qd | | | OLMESARTAN | 7663647372 | Jennifer | | MG TABS | | | | MEDOXOMIL | 3 | Agsten DO | + + + + + + + + | TRAZODONE | 02/12 - po | | | TRAZODONE | 3368836603 | Jennifer | | HCL 100 MG | qhs | | | HCL | 2 | Agsten DO | | TABS | | | | | | | + + + + + + + + | AMBIEN 10 | 02/12 - po | | | ZOLPIDEM | 9681130546 | Jennifer | | MG TABS | qhs | | | TARTRATE | 1 | Agsten DO | + + + + + + + + | LASIX 40 | 02/14 by | | | FUROSEMIDE | [id number] | Katelyn | | MG TABS | mouth | | | | 3 | [employer] | | | every am | | | | | | | | prn | | | | | | + + + + + + + + | OXYCODONE | 1-2 po q 6 | | | OXYCODONE | [id number] | Jennifer | | HCL 5 MG | hrs prn | | | HCL | 1 | Agsten DO | | TABS | | | | | | | + + + + + + + + | ALENDRONAT | one po q | | | ALENDRONAT | [id number] | Jennifer | | E SODIUM | week | | | E SODIUM | 9 | Agsten DO | | 70 MG TABS | | | | | | | + + + + + + + + | VALIUM 5 | one po | | | DIAZEPAM | [id number] | Jennifer | | MG TABS | prior to | | | | 1 | Agsten DO | | | procedure | | | | | | + + + + + + + + | BENICAR 20 | one po qd | | | OLMESARTAN | 7173069964 | Jennifer | | MG TABS | | | | MEDOXOMIL | 3 | Agsten DO | + + + + + + + + | IBU 600 MG | one po tid | | | IBUPROFEN | [id number] | Jennifer | | TABS | prn | | | | 1 | Agsten DO | + + + + + + + + | VOLTAREN 1 | apply up | | | DICLOFENAC | [id number] | Aktelyn | | % GEL | to 2 gram | | | SODIUM | 7 | [employer] | | | qid prn | | | | | | + + + + + + + + | ZITHROMAX | Two po x | | | AZITHROMYC | 3670505818 | Jennifer | | 250 MG | one day, | | | IN | 0 | Agsten DO | | TABS | one po x 4 | | | | | | | | days | | | | | | + + + + + + + + | BACTRIM DS | one po bid | | | SULFAMETHO | [id number] | Jennifer | | 800-160 | | | | XAZOLE-TRI | 1 | Agsten DO | | MG TABS | | | | METHOPRIM | | | + + + + + + + + | HYCODAN | 1-2 tsp | | | HYDROCODON | [id number] | Jennifer | | 5-1.5 | q4-6 h prn | | | E-HOMATROP | 6 | Agsten DO | | MG/5ML | cough | | | INE | | | | SYRP | | | | | | | + + + + + + + + | PRILOSEC | one po bid | | | OMEPRAZOLE | [id number] | Jennifer | | OTC 20 MG | | | | MAGNESIUM | 5 | Agsten DO | | TBEC | | | | | | | + + + + + + + + | VICODIN ES | one po tid | | | HYDROCODON | 0126069336 | Jennifer | | 7.5-750 | | | | E-ACETAMIN | 4 | Agsten DO | | MG TABS | | | | OPHEN | | | + + + + + + + + | JUAN CARLOS | one po qd | | | FEXOFENADI | 1784438825 | Jennifer | | 180 MG | | | | NE HCL | 2 | Agsten DO | | TABS | | | | | | | + + + + + + + + | AMBIEN CR | 1 po qhs | | | ZOLPIDEM | 2649166350 | Jennifer | | 12.5 MG | | | | TARTRATE | 1 | Agsten DO | | CR-TABS | | | | | | | + + + + + + + + | LASIX 40 | 02/12 by | | | FUROSEMIDE | [id number] | Jennifer | | MG TABS | mouth | | | | 3 | Agsten DO | | | every am | | | | | | | | prn | | | | | | + + + + + + + + | NEXIUM 40 | 1 po bid | | | ESOMEPRAZO | 0466708836 | Jennifer | | MG CPDR | | | | LE | 1 | Agsten DO | | | | | | MAGNESIUM | | | + + + + + + + + | VICODIN | one po tid | | | HYDROCODON | 4707040731 | Jennifer | | 5-500 MG | [...] q 6 | | | PROMETHAZI | 4491490275 | Jennifer | | NE HCL 25 | hr prn | | | NE HCL | 1 | Agsten DO | | MG TABS | | | | | | | + + + + + + + + | HYCOTUSS | 1-2 tsp q | | | HYDROCODON | 4679832342 | Jennifer | | EXPECTORAN | 4-6 [...] po q | | | IBANDRONAT | 5689594831 | Jennifer | | MG TABS | month | | | E SODIUM | 2 | Agsten DO | + + + + + + + + | KEFLEX 500 | one po tid | | | CEPHALEXIN | 8501537781 | Jennifer | | MG CAPS | | | | | 1 | Agsten DO | + + + + + + + + | PLENDIL 10 | 1 po qd | | | FELODIPINE | 9025776485 | Jennifer | | MG TB24 | | | | | 1 | Agsten DO | + + + + + + + + | SLOW-MAG | one po qd | | | MAGNESIUM | 3028700558 | Jennifer | | 64 MG TBCR | | | | CHLORIDE | 0 | Agsten DO | + + + + + + + + | K-JAMARI 20 | one po qd | | | POTASSIUM | 6815317947 | Jennifer | | MEQ PACK | | | | CHLORIDE | 2 | Agsten DO | + + + + + + + + | IBU 800 MG | one po tid | | | IBUPROFEN | 8663304567 | Jennifer | | TABS | | | | | 1 | Agsten DO | + + + + + + + + | LOVAZA 1 | 2 po bid | | | OMEGA-3-AC | [phone] | Jennifer | | GM CAPS | | | | ID ETHYL | 8 | Agsten DO | | | | | | ESTERS | | | + + + + + + + + | AMBIEN CR | one po qd | | | ZOLPIDEM | 5108882178 | Jennifer | | 12.5 MG | [...] by mouth | | | TRIAMTEREN | 1470731070 | Jennifer | | 37.5-25 MG | every day | | | E-HCTZ | 2 | Agsten DO | | CAPS | | | | | | | + + + + + + + + | LASIX 40 | 1 by mouth | | | FUROSEMIDE | 7862578935 | Jennifer | | MG TABS | every am | | | | 3 | Agsten DO | + + + + + + + + | BENICAR 20 | one po qd | | | OLMESARTAN | 8122752218 | Jennifer | | MG TABS | | | | MEDOXOMIL | 3 | Agsten DO | + + + + + + + + | K-DUR 10 | 2 po qd | | | POTASSIUM | 4382907097 | Jennifer | | MEQ TBCR | | | | CHLORIDE | 1 | Agsten DO | + + + + + + + + | OMACOR 1 | Two po bid | | | OMEGA-3-AC | [phone] | Jennifer | | GM CAPS | | | | ID ETHYL | 7 | Agsten DO | | | | | | ESTERS | | | + + + + + + + + | MORPHINE | one po bid | | | MORPHINE | [phone] | Jennifer | | SULFATE CR | [...] +--------+ +---+---+---+ + | | ESM_RR | [phone] | | | B | e-scripts | | | | [id number]`Pota | | | | messenger | | [...] | | | | | | | [id number]`00 | | | | | | | | [id number]` | | | | | | | [...] +--------+ +---+---+---+ + | | ESM_RR | [id number] | | | B | e-scripts | | | | 56573`Lant | | | | messenger | | [...] | | | | | | | [id number]`00 | | | | | | | | [id number]` | | | | | | | [...] +--------+ +---+---+---+ + | | ESM_RR | [id number] | | | B | e-scripts | | | | 43611`Pant | | | | messenger | | [...] | | | | | | | [id number] | | | | | | | | `[id number] | | | | | | | [...] +--------+ +---+---+---+ + | | ESM_RR | [id number] | | | B | e-scripts | | | | 57245`Mirt | | | | messenger | | [...] | | | | | | | [id number] | | | | | | | | `[id number] | | | | | | | [...] +--------+ +---+---+---+ + | | ESM_RR | [id number] | | | B | e-scripts | | | | 05211`Pant | | | | messenger | | [...] | | | | | | | [place]*` | | | | | | | | [id number] | | | | | | | | `[id number] | | | | | | | [...] +--------+ +---+---+---+ + | | ESM_RR | [id number] | | | B | e-scripts | | | | 03336`Mirt | | | | messenger | | [...] | | | | | | | `[place] | | | | | | | | [place] - | | | | | | | | | | | | | | | | [place]*` | | | | | | | | [id number] | | | | | | | | `[id number] | | | | | | | [...] +--------+ +---+---+---+ + | | ESM_RR | [id number] | | | B | e-scripts | | | | 81064`Mirt | | | | messenger | | [...] | | | | | | | [phone] | | | | | | | | `[id number] | | | | | | | [...] | | | + +--------+ +---+---+---+ + Plan of Care + + [...] Orthopedics, | | | | [address] , | | | | [place], [place], [address] | | | | | + + + + | Referral | | Echocardiogram - 2D | | | | Complete | | | | Latasha Brunner, [address] | | | | [place], | | | | [place], [address] | | | | | + + + + | Referral | | Podiatry Consult | | | | QUENTIN Perez, | | | | [address] | | | | [address], [place], [address] | | | | | | | | | + + + + | Referral | | Ophthalmology Consult | | | | Abby Springer, | | | | [address] [place], | | | | [place], [address] | | | | | + + + + | Referral | | Ophthalmology Consult | | | | Abby Springer, | | | | [address], [place], | | | | [place], [address] | | | | | + + + + | Referral | | Orthopedic Consult | | | | MD Ap Nicole, | | | | [address], | | | | [place], [address] | | | | | + + + + | Referral | | Gynecology Consult | | | | MD Destiny Levi, | | | | [address] [facility] | | | [address], [place], [place], [address] | | | | | | | | | + + + + | Referral | | Complete Eye Exam/ | | | | Treatment | | | | MD Paul Ramirez, [address] | | | | [address] [place], | | | | [place], [address] | | | | | + + + + | Pending order | | NEISHA Thapa-Pablo | + + + + | Pending [...] + | Pending order | | MR Jvdtv-Enexrn-DON Con | + + + + | [...] | + + + + + | [id number] | Overweight | | | + + + + + | [id number]-[id number] | Overweight | | | + + + + + | SCT-80964936 | Pulse Exam of Foot | | | + + + + + | SCT-577873337 | Visual Exam of Foot | | | + + + + + | SCT-764748045 | Sensory Exam of | | | | | Foot | | | + + + + + | SCT-79222930 | Pulse Exam of Foot | | | + + + + + | U FABIO RAN 97148 | Microalbumin, | | | | | Random Urine | | | + + + + + | GLYCO HGB 98930 | Glyco Hemoglobin, | | | | | A1C | | | + + + + + | RISK 04423 | Lipid Profile | | | + + + + + | CHEM PROF | Comprehensive | | | | | Metabolic Panel | | | + + + + + | SCT- | Medication | | | | [id number] | Reconcilliation | | | + + + + + | SCT-333409069 | Visual Exam of Foot | | | + + + + + | SCT-456073691 | Sensory Exam of | | | | | Foot | | | + + + + + | SCT- | Medication | | | | [id number] | Reconcilliation | | | + + + + + | CREAT 82355 | Creatinine | | | + + + + + | BUN 93252 | BUN | | | + + + + + | SCT- | Medication | | | | [id number] | Reconcilliation | | | + + + + + | 05299 | MR Egjgz-Blqduu-VGH | | | | | Con | | | + + + + + | CPT-95285 | XR Pelvis-1-2V | | | + + + + + | SCT- | Medication | | | | [id number] | Reconcilliation | | | + + + + + | 45655 | XR Hip 2-3V-Left | | | + + + + + | CPT-G0477 | Urine Tox, multiple | | | | | drug class (G0477) | | | + + + + + | U FABIO RAN 94650 | Microalbumin, | | | | | Random Urine | | | + + + + + | GLYCO HGB 76556 | Glyco Hemoglobin, | | | | | A1C | | | + + + + + | RISK 73712 | Lipid Profile | | | + + + + + | CPT-41083 | Echocardiogram - 2D | | | | | Complete | | | + + + + + | SCT- | Medication | | | | [id number] | Reconcilliation | | | + + + + + | RISK 07396 | Lipid Profile | | | + + + + + | U FABIO RAN 10205 | Microalbumin, | | | | | Random Urine | | | + + + + + | GLYCO HGB 49848 | Glyco Hemoglobin, | | | | | A1C | | | + + + + + | CHEM PROF | Comprehensive | | | | | Metabolic Panel | | | + + + + + | HGB A1C 80903 | HgbA1C | | | + + + + + | UA 37970 | Urinalysis | | | + + + + + | Vic COLBY ROU 54449 | Culture Urine | | | + + + + + | UA CULT IF MULTIPLE | Urinalysis Culture | | | | | If Indicat | | | + + + + + | CPT-84360 | UA Dipstick | | | | | (Office) | | | + + + + + | [id number] | [Recorded for CQM] | | | | | Documentation of | | | | | current medications | | | | | (procedure) | | | + + + + + | [id number] | [Recorded for CQM] | | | | | Pedal pulse taking | | | | | (procedure) | | | + + + + + | CPT-02121 | Adm 1st Inj No | | | | | counseling or >18 | | | + + + + + | [id number] | [Recorded for CQM] | | | | | Documentation of | | | | | current medications | | | | | (procedure) | | | + + + + + | [id number] | [Recorded for CQM] | | | | | Examination of | | | | | retina (procedure) | | | + + + + + | [id number] | [Recorded for CQM] | | | | | Never smoker | | | + + + + + | 606484215 | [Recorded for CQM] | | | | | Never smoked | | | | | tobacco (finding) | | | + + + + + | 257547634 | [Recorded for CQM] | | | | | Tobacco use and | | | | | exposure | | | + + + + + | CPT-48515 | Fluvirin /Fluzone | | | | | >3 | | | + + + + + | 766715353 | [Recorded for CQM] | | | | | Monofilament foot | | | | | sensation test | | | | | (procedure) | | | + + + + + | 48652825 | [Recorded for CQM] | | | | | Pedal pulse taking | | | | | (procedure) | | | + + + + + | [id number] | [Recorded for CQM] | | | | | Documentation of | | | | | current medications | | | | | (procedure) | | | + + + + + | [id number] | [Recorded for CQM] | | | | | Diabetic foot | | | | | examination | | | | | (regime/therapy) | | | + + + + + | 762422927 | [Recorded for CQM] | | | | | Details of drug | | | | | misuse behavior | | | + + + + + | 896747029 | [Recorded for CQM] | | | | | Health-related | | | | | behavior | | | + + + + + | 329545544 | [Recorded for CQM] | | | | | Alcohol intake | | | + + + + + | CPT-91912 | Urine Tox, multiple | | | | | drug classes | | | + + + + + | [id number] | [Recorded for CQM] | | | | | Documentation of | | | | | current medications | | | | | (procedure) | | | + + + + + | GLYCO HGB 38323 | HgbA1C | | | + + + + + | CHEM PROF | Comprehensive | | | | | Metabolic Panel | | | + + + + + | U FABIO RAN 98071 | Microalbumin, | | | | | Random Urine | | | + + + + + | RISK 48503 | Lipid Profile | | | + + + + + | 00689 | MX Dexa Scan-Body | | | + + + + + | CPT-53124 | Venipuncture | | | + + + + + | 18122988 | [Recorded for CQM] | | | | | Pedal pulse taking | | | | | (procedure) | | | + + + + + | [id number] | [Recorded for CQM] | | | | | Documentation of | | | | | current medications | | | | | (procedure) | | | + + + + + | 731693084 | [Recorded for CQM] | | | | | Diabetic foot | | | | | examination | | | | | (regime/therapy) | | | + + + + + | 739306156 | [Recorded for [facility]] | | | | | Monofilament foot | | | | | sensation test | | | | | (procedure) | | | + + + + + | 88336 G0202 | MX Mammo Dig | | | | | Screen-Bilat | | | + + + + + | GLYCO HGB 90310 | HgbA1C | | | + + + + + | CPT-69400 | Venipuncture | | | + + + + + | CPT-15534 | Adm 1st Inj No | | | | | counseling or >18 | | | + + + + + | PAP SS WO G0145 | PAP SURE Sc wo HPV | | | + + + + + | FREE T4 46914 | T4 Free | | | + + + + + | TSH 89874 | TSH | | | + + + + + | RISK 27969 | Lipid Profile | | | + + + + + | CHEM PROF 21752 | CMP (Comprehensive | | | | | Metabolic Panel) | | | + + + + + | GLYCO HGB 58743 | HgbA1C | | | + + + + + | U FABIO RAN 48442 | Microalbumin, | | | | | Random Urine | | | + + + + + | CBC AUTO 56404 | CBC w/ Auto Diff | | | + + + + + | CPT-G0439 | Annual Wellness | | | | | Visit (Medicare) | | | | | Subsqnt visit | | | + + + + + | CPT-33962 | Pneumovax 23 | | | | | (Pneumococcal) >2 | | | + + + + + | CPT-63291 | Adm bill Garcia No | | | | | counseling or >18 | | | + + + + + | CPT-85919 | Fluvirin /Fluzone | | | | | >3 | | | + + + + + | 82097 | MR Head-WO Con | | | + + + + + | CPT-91304 | Venipuncture | | | + + + + + | CHEM PROF 02352 | CMP (Comprehensive | | | | | Metabolic Panel) | | | + + + + + | U FABIO RAN 50036 | Microalbumin, | | | | | Random Urine | | | + + + + + | GLYCO HGB 23953 | HgbA1C | | | + + + + + | RISK 96909 | Lipid Profile | | | + + + + + | 89133 G0202 | MX Mammo Dig | | | | | Screen-Bilat | | | + + + + + | CPT-G0438 | Annual Wellness | | | | | Visit (Medicare) | | | | | 1st visit | | | + + + + + | C6064 57095 | MX Mammo Dig | | | | | Diag-Bilat | | | + + + + + | 65253 | MX Dexa Scan-Body | | | + + + + + | CPT-41147 | EKG- tracing with | | | | | report (61684) | | | + + + + + | CHEM PROF 24750 | CMP (Comprehensive | | | | | Metabolic Panel) | | | + + + + + | 69121 | XR Chest-2V | | | + + + + + | U FABIO RAN 86781 | Microalbumin, | | | | | Random Urine | | | + + + + + | RISK 48694 | Lipid Profile | | | + + + + + | CPT-76308 | Venipuncture | | | + + + + + | GLYCO HGB 94113 | HgbA1C | | | + + + + + | CPT-67666 | Refraction (79322) | | | + + + + + | CPT-24538 | Ext. | | | | | Ophthalmoscopy, | | | | | Subs. | | | + + + + + | CPT-22660 | Venipuncture | | | + + + + + | GLYCO HGB 93086 | HgbA1C | | | + + + + + | CPT-76889 | Venipuncture | | | + + + + + | CHEM PROF 57430 | CMP (Comprehensive | | | | | Metabolic Panel) | | | + + + + + | Tomasz BOSWELL 34661 | Microalbumin, | | | | | Random Urine | | | + + + + + | GLYCO HGB 90946 | HgbA1C | | | + + + + + | RISK 64027 | Lipid Profile | | | + + + + + | CPT-06932 | Venipuncture | | | + + + + + | GLYCO HGB 85464 | HgbA1C | | | + + + + + | CPT-29859 | Flu Vaccine > 8 | | | | | yrs. | | | + + + + + | CPT-G0008 | Admin of Flu Vac | | | | | (Mdc/Atrio) | | | + + + + + | CHEM PROF 81761 | CMP (Comprehensive | | | | | Metabolic Panel) | | | + + + + + | CPT-G0202 | Mammogram - | | | | | Screening | | | | | (bilateral) | | | + + + + + | U FABIO RAN 81851 | Microalbumin, | | | | | Random Urine | | | + + + + + | GLYCO HGB 97029 | HgbA1C | | | + + + + + | RISK 81061 | Lipid Profile | | | + + + + + | CPT-G0008 | Admin of Flu Vac | | | | | (Mdc/Atrio) | | | + + + + + | CPT-92019 | Flu vaccine >3 y/o | | | + + + + + | CPT-82116 | MRI- Spine: Lumbar | | | | | w/o contrast | | | + + + + + | CPT-03043 | UA Dipstick | | | | | (Office) | | | + + + + + | Vic LASHA DENIA 38183 | Culture Urine | | | + + + + + | CPT-76223 | X-Ray- Hand (3+ | | | | | views) | | | + + + + + | CPT-27517 | Mammogram - | | | | | Screening | | | | | (bilateral) | | | + + + + + | CPT-00397 | Admin of Imm. over | | | | | 8yrs (1st) | | | + + + + + | CPT-24402 | Flu vaccine >2 y/o | | | + + + + + | CPT-73462 | X-Ray- Chest - PA | | | | | and lateral | | | + + + + + | CHEM PROF 00055 | CMP (Comprehensive | | | | | Metabolic Panel) | | | + + + + + | PAP SCREEN G0123 | PAP Liquid Based, | | | | | Screening | | | + + + + + | CPT-26521 | X-Ray- Thoracic (3 | | | | | views) | | | + + + + + | GLYCO HGB 30506 | HgbA1C | | | + + + + + | RISK 22310 | Lipid Profile | | | + + + + + | CHEM 8 34385 | Basic Metabolic | | | | | Panel | | | + + + + + | GLYCO HGB 85123 | HgbA1C | | | + + + + + | VIT B12 36494 | B-12 | | | + + + + + | RISK 47859 | Lipid Profile | | | + + + + + | [place] 41897 | Magnesium Level | | | + + + + + | CHEM PROF 27357 | CMP (Comprehensive | | | | | Metabolic Panel) | | | + + + + + | CPT-27937 | Mammogram - | | | | | Screening | | | | | (bilateral) | | | + + + + + | CPT-01625 | DEXA scan (bone | | | | | density) | | | + + + + + | RISK 53126 | Lipid Profile | | | + + + + + | MG 43640 | Magnesium Level | | | + [...] + + + + + | RISK 31599 | Lipid Profile | | | + + + + + | CPT-66538 | Complete Eye Exam/ | | | | | Treatment | | | + + + + + | GLYOCO HGB 05371 | HbA1C | | | + + + + + | CHEM PROF 60360 | CMP (Comprehensive | | | | | Metabolic Panel) | | | + + + + + | CPT-63449 | Comprehensive | | | | | Metabolic Panel | | | + + + + + | CPT-13118 | Lipid Profile | | | + + + + + | CPT-35593 | HbA1C | | | + + [...]
--- OUTSIDE RECORDS SUMMARY | ~2017-01-29 | XMS | Clinical Summary ---
Demographics + + + | Address | [address] | | | [place] [address] | + + + | Home Phone | | + + + | Preferred Language | Unknown | + + + | Marital Status | W | + + + | Roman Catholic Affiliation | Unknown | + + + | Race | White | + + + | Ethnic Group | Not or | + + + Author + + + | Author | [facility] | + + + | Organization | [facility] | + + + | Address | [address] | | | [place] [address] | + + + | Phone | Unavailable | + + + Care Team Providers + +------+ + | Care [employer] Principal Name | Role | Phone | + +------+ + | Ajay Ward DPM | PCP | [phone] | + +------+ + Conditions or Problems [...] tion | | +---------+---------+---------+---------+---------+---------+---------+---------+---------+ | DIABETE | [id number] | | Active | | Ajay | [...] | | | +---------+---------+---------+---------+---------+---------+---------+---------+---------+ | FOOT | [id number] | | Active | | Ajay | | Foot | | | PAIN, | 7 | 17 | | | Sylvia | | pain | | | LEFT | (SNOMED | | | | DPM | | | | | | CT) | | | | | | | | +---------+---------+---------+---------+---------+---------+---------+---------+---------+ | FOOT | [id number] | | Active | | Ajay | | Foot | | | PAIN, | 7 | | | | Sylvia | | pain | | | RIGHT | (SNOMED | | | | DPM | | | | | | CT) | | | | | | | | +---------+---------+---------+---------+---------+---------+---------+---------+---------+ | ONYCHOM | [id number] | | Active | | Ajay | | Onychom | | | YCOSIS | 08 | | | | Sylvia | | ycosis | | | | (SNOMED | | | | DPM | | | | | | CT) | | | | | | | | +---------+---------+---------+---------+---------+---------+---------+---------+---------+ | ONYCHAU | [id number] | | Active | | Ajay | | Hypertr | | | XIS | 2 | | | | Sylvia | | ophy of | | | | (SNOMED | | | | DPM | | nail | | | | CT) | | | | | | | | +---------+---------+---------+---------+---------+---------+---------+---------+---------+ | TYPE 2 | [id number] | | Active | | Jennifer | [...] | | | +---------+---------+---------+---------+---------+---------+---------+---------+---------+ | OSTEOAR | [id number] | | Resolve | | Jennifer | | Osteoar | | | THRITIS | 02 | /14 | d | /15 | Agsten | | thritis | | | , HIP, | (SNOMED | | | | DO | | of hip | | | LEFT | CT) | | | | | | | | +---------+---------+---------+---------+---------+---------+---------+---------+---------+ | HALLUX | [id number] | | Active | | Ajay | [...] | | | +---------+---------+---------+---------+---------+---------+---------+---------+---------+ | HALLUX | [id number] | | Active | | Ajay | [...] | | | +---------+---------+---------+---------+---------+---------+---------+---------+---------+ | LUMBAR | [id number] | | Resolve | | Jennifer | | Lumbar | | | RADICUL | 05 | /08 | d | /08 | Agsten | | radicul | | | OPATHY, | (SNOMED | | | | DO | | opathy | | | LEFT | CT) | | | | | | | | +---------+---------+---------+---------+---------+---------+---------+---------+---------+ | PAIN IN | [id number] | | Resolve | | Jennifer | | Hip | | | LEFT | 2 | /23 | d | /23 | Agsten | | pain | | | HIP | (SNOMED | | | | DO | | | | | | CT) | | | | | | | | +---------+---------+---------+---------+---------+---------+---------+---------+---------+ | PAIN IN | [id number] | | Removed | | Farzad | | Hip | | | LEFT | 2 | /23 | | /23 | | | pain | | | HIP | (SNOMED | | | | VanAnro | | | | | | CT) | | | | oy MD | | | | +---------+---------+---------+---------+---------+---------+---------+---------+---------+ | OSTEOAR | [id number] | | Removed | | Rendee | | Osteoar | | | THRITIS | 02 | /14 | | /15 | Mishra | | thritis | | | , HIP, | (SNOMED | | | | | | of hip | | | LEFT | CT) | | | | | | | | +---------+---------+---------+---------+---------+---------+---------+---------+---------+ | LUMBAR | [id number] | | Removed | | Jennifer | | Lumbar | | | RADICUL | 05 | /08 | | /08 | Agsten | | radicul | | | OPATHY, | (SNOMED | | | | DO | | opathy | | | LEFT | CT) | | | | | | | | +---------+---------+---------+---------+---------+---------+---------+---------+---------+ | HIP | [id number] | | Inactiv | | Jennifer | [...] ropathy | | +---------+---------+---------+---------+---------+---------+---------+---------+---------+ | ROTATOR | [id number] | | Resolve | | Jennifer | [...] tendon | | +---------+---------+---------+---------+---------+---------+---------+---------+---------+ | SCIATIC | [id number] | | Resolve | | Jennifer | | Sciatic | | | A | 5 | /25 | d | /25 | Agsten | | a | | | | (SNOMED | | | | DO | | | | | | CT) | | | | | | | | +---------+---------+---------+---------+---------+---------+---------+---------+---------+ | NAUSEA | [id number] | | Resolve | | Jennifer | | Nausea | | | ALONE | 07 | /20 | d | /20 | Agsten | | | | | | (SNOMED | | | | DO | | | | | | CT) | | | | | | | | +---------+---------+---------+---------+---------+---------+---------+---------+---------+ | LEFT | [id number] | | Active | | Jennifer | [...] healing | | +---------+---------+---------+---------+---------+---------+---------+---------+---------+ | PERIPHE | [id number] | | Resolve | | Jennifer | | Periphe | | | RAL | 06 | /20 | d | /20 | Agsten | | ral | | | NEUROPA | (SNOMED | | | | DO | | nerve | | | THY | CT) | | | | | | disease | | +---------+---------+---------+---------+---------+---------+---------+---------+---------+ | BREAST | [id number] | | Resolve | | Jennifer | | Pain of | | | PAIN, | 7 | /09 | d | /09 | Agsten | | breast | | | LEFT | (SNOMED | | | | DO | | | | | | CT) | | | | | | | | +---------+---------+---------+---------+---------+---------+---------+---------+---------+ | WELL | [id number] | | Resolve | | Jennifer | | Adult | | | ADULT | 07 | /09 | d | /09 | Agsten | | health | | | EXAM | (SNOMED | | | | DO | | examina | | | | CT) | | | | | | tion | | +---------+---------+---------+---------+---------+---------+---------+---------+---------+ | OTHER | [id number] | | Resolve | | Jennifer | [...] | | | +---------+---------+---------+---------+---------+---------+---------+---------+---------+ | DIZZINE | [id number] | | Resolve | | Jennifer | | Dizzine | | | SS | 03 | /12 | d | /12 | Agsten | | ss | | | | (SNOMED | | | | DO | | | | | | CT) | | | | | | | | +---------+---------+---------+---------+---------+---------+---------+---------+---------+ | MELENA | [id number] | | Resolve | | Jennifer | [...] | | | +---------+---------+---------+---------+---------+---------+---------+---------+---------+ | UTI | [id number] | | Resolve | | Jennifer | [...] disease | | +---------+---------+---------+---------+---------+---------+---------+---------+---------+ | NAUSEA | [id number] | | Removed | | Jennifer | | Nausea | | | ALONE | 07 | /20 | | /20 | Agsten | | | | | | (SNOMED | | | | DO | | | | | | CT) | | | | | | | | +---------+---------+---------+---------+---------+---------+---------+---------+---------+ | UTI | [id number] | | Removed | | Jennifer | [...] disease | | +---------+---------+---------+---------+---------+---------+---------+---------+---------+ | SCIATIC | [id number] | | Removed | | Jennifer | | Sciatic | | | A | | | | | Agsten | | a | | | | (SNOMED | | | | DO | | | | | | CT) | | | | | | | | +---------+---------+---------+---------+---------+---------+---------+---------+---------+ | ROTATOR | [id number] | | Removed | | Jennifer | [...] | | | +---------+---------+---------+---------+---------+---------+---------+---------+---------+ | INGROWN | [id number] | | Inactiv | | Ajay | [...] on | | +---------+---------+---------+---------+---------+---------+---------+---------+---------+ | OTHER | [id number] | | Removed | | Jennifer | [...] | | | +---------+---------+---------+---------+---------+---------+---------+---------+---------+ | MELENA | [id number] | | Removed | | Lewis | | Melena | | | | | /02 | | /02 | Sae | | | | | | (SNOMED | | | | RN | | | | | | CT) | | | | | | | | +---------+---------+---------+---------+---------+---------+---------+---------+---------+ | SCREENI | [id number] | | Inactiv | | Jennifer | | Screeni | | | NG, | 4 | / | e | / | Agsten | | ng for | | | VAGINAL | (SNOMED | | | | DO | | cancer | | | CANCER | CT) | | | | | | | | +---------+---------+---------+---------+---------+---------+---------+---------+---------+ | WELL | [id number] | | Removed | | Jennifer | | Adult | | | ADULT | 07 | / | | / | Agsten | | health | | | EXAM | (SNOMED | | | | DO | | examina | | | | CT) | | | | | | tion | | +---------+---------+---------+---------+---------+---------+---------+---------+---------+ | DIZZINE | [id number] | | Removed | | Jennifer | [...] polyps | | +---------+---------+---------+---------+---------+---------+---------+---------+---------+ | OTHER | [id number] | | Inactiv | | Corie | [...] fied | | +---------+---------+---------+---------+---------+---------+---------+---------+---------+ | WELL | [id number] | | Inactiv | | Jennifer | | Adult | | | ADULT | | | e | | Agsten | | health | | | EXAM | (SNOMED | | | | DO | | examina | | | | CT) | | | | | | tion | | +---------+---------+---------+---------+---------+---------+---------+---------+---------+ | BREAST | [id number] | | Removed | | Jennifer | | Pain of | | | PAIN, | 7 | /09 | | /09 | Agsten | | breast | | | LEFT | (SNOMED | | | | DO | | | | | | CT) | | | | | | | | +---------+---------+---------+---------+---------+---------+---------+---------+---------+ | PRESBYO | [id number] | | Resolve | | Jennifer | | Presbyo | | | HUMBLE | 4 | /03 | d | /03 | Agsten | | humble | | | | (SNOMED | | | | DO | | | | | | CT) | | | | | | | | +---------+---------+---------+---------+---------+---------+---------+---------+---------+ | ASTIGMA | [id number] | | Resolve | | Jennifer | | Astigma | | | TISM | 3 | /03 | d | /03 | Agsten | | tism | | | | (SNOMED | | | | DO | | | | | | CT) | | | | | | | | +---------+---------+---------+---------+---------+---------+---------+---------+---------+ | RETINAL | [id number] | | Resolve | | Jennifer | | Retinal | | | | 8 | /03 | d | /03 | Agsten | | | | | HEMORRH | (SNOMED | | | | DO | | hemorrh | | | AGE | CT) | | | | | | age | | +---------+---------+---------+---------+---------+---------+---------+---------+---------+ | MICROAN | [id number] | | Resolve | | Jennifer | | Retinal | | | EURYSMS | 0 | /03 | d | /03 | Agsten | | | | | , | (SNOMED | | | | DO | | microan | | | RETINAL | CT) | | | | | | eurysm | | +---------+---------+---------+---------+---------+---------+---------+---------+---------+ | POSTERI | [id number] | | Resolve | | Jennifer | [...] eye | | +---------+---------+---------+---------+---------+---------+---------+---------+---------+ | HYPEROP | [id number] | | Resolve | | Jennifer | | Hyperme | | | IA | 3 | /03 | d | /03 | Agsten | | tropia | | | | (SNOMED | | | | DO | | | | | | CT) | | | | | | | | +---------+---------+---------+---------+---------+---------+---------+---------+---------+ | ROSACEA | [id number] | | Resolve | | Jennifer | | Rosacea | | | | 04 | /03 | d | /03 | Agsten | | | | | | (SNOMED | | | | DO | | | | | | CT) | | | | | | | | +---------+---------+---------+---------+---------+---------+---------+---------+---------+ | SCREENI | [id number] | | Resolve | | Jennifer | [...] cervix | | +---------+---------+---------+---------+---------+---------+---------+---------+---------+ | SCIATIC | [id number] | | Resolve | | Jennifer | | Sciatic | | | A | 5 | /25 | d | /25 | Agsten | | a | | | | (SNOMED | | | | DO | | | | | | CT) | | | | | | | | +---------+---------+---------+---------+---------+---------+---------+---------+---------+ | INSOMNI | [id number] | | Active | | Ariela | | Insomni | | | A | 01 | /02 | | /02 | Ashwin | | a | | | | (SNOMED | | | | | | | | | | CT) | | | | | | | | +---------+---------+---------+---------+---------+---------+---------+---------+---------+ | ROSACEA | [id number] | | Removed | | Abby | | Rosacea | | | | 04 | /03 | | /03 | Racheal | | | | | | (SNOMED | | | | OD | | | | | | CT) | | | | | | | | +---------+---------+---------+---------+---------+---------+---------+---------+---------+ | HYPEROP | [id number] | | Removed | | Abby | [...] eye | | +---------+---------+---------+---------+---------+---------+---------+---------+---------+ | POSTERI | [id number] | | Removed | | Abby | [...] ent | | +---------+---------+---------+---------+---------+---------+---------+---------+---------+ | MICROAN | [id number] | | Removed | | Abby | | Retinal | | | EURYSMS | 0 | /03 | | /03 | Gauer | | | | | , | (SNOMED | | | | OD | | microan | | | RETINAL | CT) | | | | | | eurysm | | +---------+---------+---------+---------+---------+---------+---------+---------+---------+ | RETINAL | [id number] | | Removed | | Abby | | Retinal | | | | 8 | /03 | | /03 | Gauer | | | | | HEMORRH | (SNOMED | | | | OD | | hemorrh | | | AGE | CT) | | | | | | age | | +---------+---------+---------+---------+---------+---------+---------+---------+---------+ | ASTIGMA | [id number] | | Removed | | Abby | | Astigma | | | TISM | 3 | /03 | | /03 | Gauer | | tism | | | | (SNOMED | | | | OD | | | | | | CT) | | | | | | | | +---------+---------+---------+---------+---------+---------+---------+---------+---------+ | PRESBYO | [id number] | | Removed | | Abby | | Presbyo | | | HUMBLE | 4 | /03 | | /03 | Gauer | | humble | | | | (SNOMED | | | | OD | | | | | | CT) | | | | | | | | +---------+---------+---------+---------+---------+---------+---------+---------+---------+ | SCIATIC | [id number] | | Removed | | Jennifer | | Sciatic | | | A | 5 | /25 | | /25 | Agsten | | a | | | | (SNOMED | | | | DO | | | | | | CT) | | | | | | | | +---------+---------+---------+---------+---------+---------+---------+---------+---------+ | HYPOMAG | [id number] | | Resolve | | Jennifer | | Hypomag | | | NESEMIA | 04 | /30 | d | /30 | Agsten | | nesemia | | | | (SNOMED | | | | DO | | | | | | CT) | | | | | | | | +---------+---------+---------+---------+---------+---------+---------+---------+---------+ | FOLLICU | [id number] | | Resolve | | Jennifer | | Follicu | | | LITIS | 6 | /27 | d | /27 | Agsten | | litis | | | | (SNOMED | | | | DO | | | | | | CT) | | | | | | | | +---------+---------+---------+---------+---------+---------+---------+---------+---------+ | URI | [id number] | | Resolve | | Jennifer | [...] on | | +---------+---------+---------+---------+---------+---------+---------+---------+---------+ | CYSTOCE | [id number] | | Resolve | | Jennifer | [...] | | | +---------+---------+---------+---------+---------+---------+---------+---------+---------+ | ABNORMA | [id number] | | Resolve | | Jennifer | [...] l | | +---------+---------+---------+---------+---------+---------+---------+---------+---------+ | ALLERGI | [id number] | | Resolve | | Jennifer | | Allergi | | | C | 4 | /05 | d | /05 | Agsten | | c | | | RHINITI | (SNOMED | | | | DO | | rhiniti | | | S | CT) | | | | | | s | | +---------+---------+---------+---------+---------+---------+---------+---------+---------+ | SINUSIT | [id number] | | Resolve | | Jennifer | | Acute | | | IS, | 2 | /05 | d | /05 | Agsten | | sinusit | | | ACUTE | (SNOMED | | | | DO | | is | | | NOS | CT) | | | | | | | | +---------+---------+---------+---------+---------+---------+---------+---------+---------+ | CONTUSI | [id number] | | Resolve | | Jennifer | | Contusi | | | ON, | 6 | /05 | d | /05 | Agsten | | on of | | | LEFT | (SNOMED | | | | DO | | knee | | | KNEE | CT) | | | | | | | | +---------+---------+---------+---------+---------+---------+---------+---------+---------+ | THUMB | [id number] | | Resolve | | Jennifer | | Pain in | | | PAIN, | 02 | / | d | / | Agsten | | thumb | | | RIGHT | (SNOMED | | | | DO | | | | | | CT) | | | | | | | | +---------+---------+---------+---------+---------+---------+---------+---------+---------+ | FOOT | [id number] | | Resolve | | Jennifer | [...] g | | +---------+---------+---------+---------+---------+---------+---------+---------+---------+ | ABDOMIN | [id number] | | Resolve | | Jennifer | [...] | | | +---------+---------+---------+---------+---------+---------+---------+---------+---------+ | LUMBAR | [id number] | | Resolve | | Jennifer | | Lumbar | | | RADICUL | 05 | /08 | d | /08 | Agsten | | radicul | | | OPATHY, | (SNOMED | | | | DO | | opathy | | | LEFT | CT) | | | | | | | | +---------+---------+---------+---------+---------+---------+---------+---------+---------+ | HIP | [id number] | | Inactiv | | Jennifer | [...] | | | +---------+---------+---------+---------+---------+---------+---------+---------+---------+ | INSOMNI | [id number] | | Resolve | | Jennifer | | Insomni | | | A | 01 | / | d | /02 | Agsten | | a | | | | (SNOMED | | | | DO | | | | | | CT) | | | | | | | | +---------+---------+---------+---------+---------+---------+---------+---------+---------+ | INSOMNI | [id number] | | Removed | | Jennifer | [...] | | | +---------+---------+---------+---------+---------+---------+---------+---------+---------+ | HIP | [id number] | | Removed | | Franny | | Hip | | | PAIN | 2 | /14 | | /15 | | | pain | | | | (SNOMED | | | | Campman | | | | | | CT) | | | | | | | | +---------+---------+---------+---------+---------+---------+---------+---------+---------+ | FOOT | [id number] | | Removed | | Franny | | Foot | | | PAIN | 7 | /01 | | /01 | | | pain | | | | (SNOMED | | | | Campman | | | | | | CT) | | | | | | | | +---------+---------+---------+---------+---------+---------+---------+---------+---------+ | LUMBAR | [id number] | | Removed | | Jennifer | | Lumbar | | | RADICUL | 05 | /08 | | /08 | Agsten | | radicul | | | OPATHY, | (SNOMED | | | | DO | | opathy | | | LEFT | CT) | | | | | | | | +---------+---------+---------+---------+---------+---------+---------+---------+---------+ | GERD | [id number] | | Active | | Jasmeet | [...] disease | | +---------+---------+---------+---------+---------+---------+---------+---------+---------+ | ABDOMIN | [id number] | | Removed | | Jasmeet | [...] | | | +---------+---------+---------+---------+---------+---------+---------+---------+---------+ | NAUSEA | [id number] | | Correct | | Jasmeet | [...] UNSPECI | -CM) | | | | 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 | | unspeci | | | FIED [...] limb | | +---------+---------+---------+---------+---------+---------+---------+---------+---------+ | THUMB | [id number] | | Removed | | Jennifer | | Pain in | | | PAIN, | 02 | /01 | | /01 | Agsten | | thumb | | | RIGHT | (SNOMED | | | | DO | | | | | | CT) | | | | | | | | +---------+---------+---------+---------+---------+---------+---------+---------+---------+ | CONTUSI | [id number] | | Removed | | Jennifer | | Contusi | | | ON, | 6 | /05 | | /05 | Agsten | | on of | | | LEFT | (SNOMED | | | | DO | | knee | | | KNEE | CT) | | | | | | | | +---------+---------+---------+---------+---------+---------+---------+---------+---------+ | SINUSIT | [id number] | | Removed | | Jennifer | | Acute | | | IS, | 2 | /05 | | /05 | Agsten | | sinusit | | | ACUTE | (SNOMED | | | | DO | | is | | | NOS | CT) | | | | | | | | +---------+---------+---------+---------+---------+---------+---------+---------+---------+ | ALLERGI | [id number] | | Removed | | Jennifer | | Allergi | | | C | 4 | /05 | | /05 | Agsten | | c | | | RHINITI | (SNOMED | | | | DO | | rhiniti | | | S | CT) | | | | | | s | | +---------+---------+---------+---------+---------+---------+---------+---------+---------+ | ABNORMA | [id number] | | Removed | | Pinky | [...] l | | +---------+---------+---------+---------+---------+---------+---------+---------+---------+ | CYSTOCE | [id number] | | Removed | | Jennifer | [...] | | | +---------+---------+---------+---------+---------+---------+---------+---------+---------+ | SCREENI | [id number] | | Removed | | Jennifer | [...] cervix | | +---------+---------+---------+---------+---------+---------+---------+---------+---------+ | NAUSEA | [id number] | | Removed | | Jennifer | | Nausea | | | ALONE | 07 | /20 | | /20 | Agsten | | | | | | (SNOMED | | | | DO | | | | | | CT) | | | | | | | | +---------+---------+---------+---------+---------+---------+---------+---------+---------+ | PERIPHE | [id number] | | Removed | | Jennifer | | Periphe | | | RAL | 06 | / | | /20 | Agsten | | ral | | | NEUROPA | (SNOMED | | | | DO | | nerve | | | THY | CT) | | | | | | disease | | +---------+---------+---------+---------+---------+---------+---------+---------+---------+ | URI | [id number] | | Removed | | Jennifer | [...] on | | +---------+---------+---------+---------+---------+---------+---------+---------+---------+ | FOLLICU | [id number] | | Removed | | Jennifer | | Follicu | | | LITIS | 6 | /27 | | /27 | Agsten | | litis | | | | (SNOMED | | | | DO | | | | | | CT) | | | | | | | | +---------+---------+---------+---------+---------+---------+---------+---------+---------+ | OSTEOPE | [id number] | | Active | | Jennifer | | Osteope | | | LINDSAY | 00 | /30 | | /30 | Agsten | | lindsay | | | | (SNOMED | | | | DO | | | | | | CT) | | | | | | | | +---------+---------+---------+---------+---------+---------+---------+---------+---------+ | HYPOMAG | [id number] | | Removed | | Jennifer | | Hypomag | | | NESEMIA | 04 | /30 | | /30 | Agsten | | nesemia | | | | (SNOMED | | | | DO | | | | | | CT) | | | | | | | | +---------+---------+---------+---------+---------+---------+---------+---------+---------+ | TESFAYE | 9496455 | | Inactiv | | Jennifer | | Tesfaye | | | IRMA | [id number] | / | e | /20 | [...] a | | +---------+---------+---------+---------+---------+---------+---------+---------+---------+ | DIABETE | 4768067 | | Inactiv | | Jennifer | [...] led | | +---------+---------+---------+---------+---------+---------+---------+---------+---------+ | HYPERTR | 6013107 | | Active | | Jennifer | | Hypertr | | | IGLYCER | 06 | | | / | Agsten | | iglycer | | | IDEMIA | (SNOMED | | | | DO | | idemia | | | | CT) | | | | | | | | +---------+---------+---------+---------+---------+---------+---------+---------+---------+ | HYPERTE | 9706506 | | Active | | Jennifer | [...] drops 4 | | | DICLOFENAC | [id number] | Jennifer | | 1.5 % SOLN [...] one po | | | DIAZEPAM | [id number] | Jennifer | | MG TABS | prior to | | | | 1 | Agsten DO | | | procedure | | | | | | + + + + + + + + | GLIMEPIRID | one tablet | | | GLIMEPIRID | [id number] | Emilie | | E 2 MG [...] one tablet | | | MIRTAZAPIN | [id number] | Jerri | | E 30 MG | at night | | | E | 6 | Irlanda [place] | | TABS | before bed | | | | | | + + + + + + + + | MIRALAX | take as | | | POLYETHYLE | [id number] | Jennifer | | POWD | directed | | | NE GLYCOL | 2 | Agsten DO | | | | | | 3350 | | | + + + + + + + + | WELCHOL | one po qd | | | COLESEVELA | [id number] | Jennifer | | 625 MG | prn | | | M HCL | 8 | Agsten DO | | TABS | | | | | | | + + + + + + + + | GLYBURIDE | one by | | | GLYBURIDE | 8347725565 | Jennifer | | 5 MG TABS | mouth one | | | | 1 | Agsten DO | | | time per | | | | | | | | day | | | | | | + + + + + + + + | MIRTAZAPIN | one tablet | | | MIRTAZAPIN | 7510779925 | Jennifer | | E 15 MG [...] po qd | | | ANASTASIIA | [id number] | Jennifer | | 625 MG | prn | | | M HCL | 8 | Agsten DO | | TABS | | | | | | | + + + + + + + + | GABAPENTIN | Take one | | | GABAPENTIN | [id number] | Ajay | | 300 MG | [...] one tablet | | | MIRTAZAPIN | 8207376083 | Pedro Solis | | E 15 MG | at night | | | E | 6 | | | TABS | before bed | | | | | | + + + + + + + + | GABAPENTIN | two | | | GABAPENTIN | 7020393206 | Jennifer | | 300 MG | capsules | | | | 5 | Agsten DO | | CAPS | twice a | | | | | | | | day | | | | | | + + + + + + + + | ATIVAN 1 | one by | | | LORAZEPAM | [id number] | Jerri | | MG TABS | mouth at | | | | 1 | Irlanda MA | | | bedtime | | | | | | + + + + + + + + | AMBIEN 10 | 02/12 by | | | ZOLPIDEM | [id number] | Jennifer | | MG TABS | mouth at | | | TARTRATE | 1 | Agsten DO | | | bedtime | | | | | | + + + + + + + + | AMBIEN 10 | 02/12 - 1 po | | | ZOLPIDEM | 8861041960 | Jennifer | | MG TABS | qhs | | | TARTRATE | 1 | Agsten DO | + + + + + + + + | OXYCODONE | 1-2 po q 6 | | | OXYCODONE | 9020511309 | Jennifer | | HCL 5 MG | hrs prn | | | HCL | 1 | Agsten DO | | TABS | | | | | | | + + + + + + + + | KEFLEX 500 | one po tid | | | CEPHALEXIN | 1992349994 | Jennifer | | MG CAPS | | | | | 1 | Agsten DO | + + + + + + + + | VICODIN | prn | | | HYDROCODON | [id number] | Michelle | | 5-500 MG | | | | E-ACETAMIN | 4 | Bennett | | TABS | | | | OPHEN | | | + + + + + + + + | NORTRIPTYL | 1 tab qhs | | | NORTRIPTYL | [id number] | Ajay | | INE HCL 50 | | | | INE HCL | 1 | Sylvia DPM | | MG CAPS | | | | | | | + + + + + + + + | ALENDRONAT | one po q | | | ALENDRONAT | 7102144535 | Jennifer | | E SODIUM | week | | | E SODIUM | 9 | Agsten DO | | 70 MG TABS | | | | | | | + + + + + + + + | BENICAR 20 | 1/2 po qd | | | OLMESARTAN | 5359107980 | Lewis Quevedo | | MG TABS | | | | MEDOXOMIL | 3 | RN | + + + + + + + + | LOVAZA 1 | 2 po qd | | | OMEGA-3-AC | 0075425677 | Jennifer | | GM CAPS | | | | ID ETHYL | 8 | Agsten DO | | | | | | ESTERS | | | + + + + + + + + | LUNESTA 2 | 1 po qhs | | | ESZOPICLON | 0901949899 | Michelle | | MG TABS | | | | E | 0 | Bennett | + + + + + + + + | VOLTAREN 1 | apply up | | | DICLOFENAC | 5034131469 | Jasmeet | | % GEL | to 2 gram | | | SODIUM | 7 | Aga | | | qid prn | | | | | MD | + + + + + + + + | K-DUR 10 | 1 by mouth | | | POTASSIUM | 6015203279 | Jennifer | | MEQ TBCR | twice a | | | CHLORIDE | 1 | Agsten DO | | | day | | | | | | + + + + + + + + | NEXIUM 40 | 1 po q am, | | | ESOMEPRAZO | 5072093855 | Jnenifer | | MG CPDR | rarely 1 | | | LE | 1 | Agsten DO | | | po q pm | | | MAGNESIUM | | | + + + + + + + + | VOLTAREN 1 | apply up | | | DICLOFENAC | 3460767192 | Jennifer | | % GEL | to 2 grams | | | SODIUM | 7 | Agsten DO | | | qid prn | | | | | | + + + + + + + + | K-JAMARI 20 | one po qd | | | POTASSIUM | 1762415116 | Jennifer | | MEQ PACK | | | | CHLORIDE | 2 | Agsten DO | + + + + + + + + | TRAZODONE | / to 1 | | | TRAZODONE | 7993577622 | Ajay | | HCL 100 MG | by mouth | | | HCL | 2 | Sylvia DPM | | TABS | at bedtime | | | | | | + + + + + + + + | LASIX 40 | 1/2 by | | | FUROSEMIDE | 9643370099 | Jennifer | | MG TABS | mouth | | | | 3 | Agsten DO | | | every am | | | | | | + + + + + + + + | DIFLUCAN | 1 by mouth | | | FLUCONAZOL | 1098280197 | Jennifer | | 150 MG | x 1 dose | | | E | 9 | Agsten DO | | TABS | | | | | | | + + + + + + + + | FLEXERIL | one po bid | | | CYCLOBENZA | 7739531417 | Jennifer | | 10 MG TABS | prn | | | NETO HCL | 1 | Agsten DO | + + + + + + + + | BONIVA 150 | one po qd | | | IBANDRONAT | 0983370925 | Jennifer | | MG TABS | | | | E SODIUM | 2 | Agsten DO | + + + + + + + + | GEMFIBROZI | 1 po bid | | | GEMFIBROZI | 4334664387 | Jennifer | | L 600 MG | | | | L | 5 | Agsten DO | | TABS | | | | | | | + + + + + + + + | JENNIE 1 | 2 po qd | | | OMEGA-3-AC | 7846956260 | Jasmeet | | GM CAPS | | | | ID ETHYL | 8 | Aga | | | | | | ESTERS | | MD | + + + + + + + + | ONDANSETRO | one tablet | | | ONDANSETRO | 7170016651 | Ajay | | N HCL 4 [...] take as | | | BISACODYL | 5204384810 | Jennifer | | MG TBEC | directed | | | | 1 | Steventen DO | + + + + + + + + | NEXIUM 40 | 1 po q am, | | | ESOMEPRAZO | 3684162767 | Jasmeet | | MG CPDR | rarely 1 | | | LE | 1 | Aga | | | po q pm | | | MAGNESIUM | | MD | + + + + + + + + | JUAN CARLOS | one po qd | | | FEXOFENADI | 5887029858 | Jasmeet | | 180 MG | prn | | | NE HCL | 2 | Aga | | TABS | | | | | | MD | + + + + + + + + | AMBIEN 10 | 1/2 - 1 po | | | ZOLPIDEM | 2793483653 | Jennifer | | MG TABS | qhs | | | TARTRATE | 1 | Agsten DO | + + + + + + + + | PRILOSEC | one po bid | | | OMEPRAZOLE | 1543011015 | Jasmeet | | OTC 20 MG | | | | MAGNESIUM | 5 | Aga | | TBEC | | | | | | MD | + + + + + + + + | METOCLOPRA | take as | | | METOCLOPRA | 9822289623 | Jennifer | | MIDE HCL | directed | | | MIDE HCL | 1 | Agsten DO | | 10 MG TABS | | | | | | | + + + + + + + + | GLYBURIDE | 1 po qd | | | GLYBURIDE | 3046272923 | Jennifer | | 5 MG TABS | prn | | | | 1 | Agsten DO | + + + + + + + + | MECLIZINE | 1 by mouth | | | MECLIZINE | 5086946579 | Jennifer | | HCL 25 MG | every 6 | | | HCL | 0 | Agsten DO | | TABS | hrs as | | | | | | | | needed | | | | | | + + + + + + + + | GLYBURIDE | 1 po qd | | | GLYBURIDE | 8830069708 | Michelle | | 5 MG TABS | | | | | 1 | Bennett | + + + + + + + + | GEMFIBROZI | 1 po bid | | | GEMFIBROZI | 4299331001 | Michelle | | L 600 MG [...] po qd | | | FEXOFENADI | 7945607304 | Jennifer | | 180 MG | prn | | | NE HCL | 2 | Agsten DO | | TABS | | | | | | | + + + + + + + + | DIOVAN 160 | 1 po qd | | | VALSARTAN | 9296029468 | Pinky Alexei | | MG TABS | | | | | 4 | MA | + + + + + + + + | ERYTHROMYC | 1/4 inch | | | ERYTHROMYC | 8568488619 | Jennifer | | IN 5 MG/GM [...] po qhs | | | ESZOPICLON | 7891775240 | Jennifer | | MG TABS | | | | E | 0 | Agsten DO | + + + + + + + + | AMBIEN 10 | 02/12 - 1 po | | | ZOLPIDEM | 7955566448 | Lewis Sae | | MG TABS | qhs | | | TARTRATE | 1 | RN | + + + + + + + + | TRAZODONE | 1/2 - 1 po | | | TRAZODONE | 8113410005 | Lewis Sae | | HCL 100 MG | qhs | | | HCL | 2 | RN | | TABS | | | | | | | + + + + + + + + | GLYBURIDE | 1 po qd | | | GLYBURIDE | 4918958355 | Jennifer | | 5 MG TABS | prn | | | | 1 | Agsten DO | + + + + + + + + | HYCODAN | 1-2 tsp | | | HYDROCODON | 6296701753 | Jennifer | | 5-1.5 | q4-6 h prn | | | E-HOMATROP | 6 | Agsten DO | | MG/5ML | cough | | | INE | | | | SYRP | | | | | | | + + + + + + + + | FLEXERIL | one po bid | | | CYCLOBENZA | 7971884616 | Jennifer | | 10 MG TABS [...] po qd | | | LANSOPRAZO | 5495119508 | Jennifer | | 30 MG CPDR | | | | LE | 3 | Agsten DO | + + + + + + + + | HYCOTUSS | 1-2 tsp q | | | HYDROCODON | 3100545374 | Jennifer | | EXPECTORAN | 4-6 [...] q 6 | | | PROMETHAZI | 1909019113 | Jasmeet | | NE HCL 25 | hr prn | | | NE HCL | 1 | Aga | | MG TABS | | | | | | MD | + + + + + + + + | IBU 600 MG | one po tid | | | IBUPROFEN | 0054123995 | Jasmeet | | TABS | prn | | | | 1 | Aga | | | | | | | | MD | + + + + + + + + | VALIUM 5 | 1 by mouth | | | DIAZEPAM | 3888223774 | Emilie | | MG TABS | prior to | | | | 1 | Brown CCMA | | | procedure | | | | | | + + + + + + + + | DYAZIDE | 1 by mouth | | | TRIAMTEREN | 3707802592 | Jennifer | | 37.5-25 MG | every day | | | E-HCTZ | 2 | Agsten DO | | CAPS | | | | | | | + + + + + + + + | NEXIUM 40 | 1 po qd | | | ESOMEPRAZO | 1352643627 | Michelle | | MG CPDR | | | | LE | 1 | Bennett | | | | | | MAGNESIUM | | | + + + + + + + + | AMITRIPTYL | 1-2 by | | | AMITRIPTYL | 6560143603 | Jennifer | | INE HCL 25 [...] | one | | | TEMAZEPAM | 5665944287 | Jennifer | | 15 MG CAPS | capsule | | | | 0 | Agsten DO | | | once a day | | | | | | + + + + + + + + | MORPHINE | one po bid | | | MORPHINE | 3379729937 | Jennifer | | SULFATE CR | prn | | | SULFATE | 1 | Agsten DO | | 15 MG | | | | | | | | TB12 | | | | | | | + + + + + + + + | CYCLOBENZA | one tablet | | | CYCLOBENZA | 2915003443 | Corie | | NETO HCL | [...] po x | | | AZITHROMYC | 3961442258 | Jennifer | | 250 MG | one day, | | | IN | 0 | Agsten DO | | TABS | one po x 4 | | | | | | | | days | | | | | | + + + + + + + + | IBU 800 MG | one po tid | | | IBUPROFEN | 1081222813 | Jennifer | | TABS | | | | | 1 | Agsten DO | + + + + + + + + | DOXEPIN | one | | | DOXEPIN | 2155863554 | Jennifer | | HCL 10 MG | capsule at | | | HCL | 1 | Agsten DO | | CAPS | night | | | | | | | | before bed | | | | | | + + + + + + + + | K-JAMARI 20 | one po qd | | | POTASSIUM | 1409271599 | Jennifer | | MEQ PACK | | | | CHLORIDE | 2 | Agsten DO | + + + + + + + + | ALPRAZOLAM | one tablet | | | ALPRAZOLAM | 5458030745 | Domi | | 0.25 MG | at night | | | | 0 | Josueaut-Mat | | TABS | before bed | | | | | tienne | | | as needed | | | | | CCMA | + + + + + + + + | TIZANIDINE | one tablet | | | TIZANIDINE | 6011338588 | Jennifer | | HCL 4 MG [...] one tablet | | | TIZANIDINE | 0002102201 | Jennifer | | HCL 4 MG [...] po qd | | | VALSARTAN | 3177305397 | Urmila | | MG TABS | [...] 02/12 by | | | ZOLPIDEM | 9406240455 | Lewisfelice Quevedo | | MG TABS | mouth at | | | TARTRATE | 1 | RN | | | bedtime | | | | | | + + + + + + + + | GLYBURIDE | one by | | | GLYBURIDE | 2607279807 | Jennifer | | 5 MG TABS | mouth one | | | | 1 | Agsten DO | | | time per | | | | | | | | day | | | | | | + + + + + + + + | NORTRIPTYL | 1-2 | | | NORTRIPTYL | 1913279542 | Jennifer | | INE HCL 25 | capsules | | | INE HCL | 1 | Agsten DO | | MG CAPS | at night | | | | | | | | before bed | | | | | | + + + + + + + + | SLOW-MAG | one po qd | | | MAGNESIUM | 7322086270 | Jennifer | | 64 MG TBCR | | | | CHLORIDE | 0 | Agsten DO | + + + + + + + + | METANX | 1 PO BID | | | L-METHYLFO | 4601474135 | Leora | | [phone] | | | | LATE-ALGAE | 8 | Hardenbroo | | -35 MG | | | | -B12-B6 | | k MA | | CAPS | | | | | | | + + + + + + + + | BACTRIM DS | one po bid | | | SULFAMETHO | 8751367356 | Aminata | | 800-160 | | | | XAZOLE-TRI | 1 | [place] | | MG TABS | | | | METHOPRIM | | | + + + + + + + + | CARVEDILOL | one tablet | | | CARVEDILOL | 1729803070 | Jennifer | | 6.25 MG | twice a | | | | 1 | Agsten DO | | TABS | day | | | | | | + + + + + + + + | KLOR-CON | two by | | | POTASSIUM | 8807869731 | Jennifer | | 10 10 MEQ | mouth one | | | CHLORIDE | 1 | Agsten DO | | CR-TABS | time per | | | | | | | | day | | | | | | + + + + + + + + | HYDROCODON | one tablet | | | HYDROCODON | 5897335581 | Jennifer | | E-ACETAMIN | three [...] 10 units | | | INSULIN | 0561623957 | Jennifer | | SOLOSTAR | at night | | | GLARGINE | 5 | Agsten DO | | 100 | | | | | | | | UNIT/ML | | | | | | | | SOPN | | | | | | | + + + + + + + + | LORAZEPAM | one tablet | | | LORAZEPAM | 2296194674 | Jennifer | | 0.5 MG | at night | | | | 1 | Agsten DO | | TABS | before bed | | | | | | + + + + + + + + | METFORMIN | one by | | | METFORMIN | 9925817517 | Jennifer | | HCL 500 MG | mouth two | | | HCL | 5 | Agsten DO | | TABS | times per | | | | | | | | day | | | | | | + + + + + + + + | NORTRIPTYL | 1-2 | | | NORTRIPTYL | 0605561633 | Jennifer | | INE HCL 25 | capsules | | | INE HCL | 1 | Agsten DO | | MG CAPS | at night | | | | | | | | before bed | | | | | | + + + + + + + + | PROTONIX | one by | | | PANTOPRAZO | 3992725091 | Jennifer | | 40 MG TBEC | mouth one | | | LE SODIUM | 1 | Agsten DO | | | time per | | | | | | | | day | | | | | | + + + + + + + + | ULTRAM 50 | one by | | | TRAMADOL | 2233068551 | Jennifer | | MG TABS | [...] 4 capsules | | | GABAPENTIN | 8746058124 | Ajay | | 300 MG | daily | | | | 5 | Sylvia DPM | | CAPS | | | | | | | + + + + + + + + | MIRTAZAPIN | one tablet | | | MIRTAZAPIN | 6803997419 | Jennifer | | E 15 MG | once a | | | E | 6 | Agsten DO | | TABS | day before | | | | | | | | bed | | | | | | + + + + + + + + | IBUPROFEN | one tablet | | | IBUPROFEN | 9582326698 | Jennifer | | 800 MG | [...] apply 2 | | | DICLOFENAC | 8378844450 | Jennifer | | SODIUM 1 | [...] one time | | | OMEGA-3-AC | 6970674035 | Jennifer | | GM CAPS | per day | | | ID ETHYL | 8 | Agsten DO | | | | | | ESTERS | | | + + + + + + + + | FUROSEMIDE | one tablet | | | FUROSEMIDE | 1788654171 | Jennifer | | 20 MG | once a | | | | 5 | Agsten DO | | TABS | day | | | | | | + + + + + + + + | FELODIPINE | one tablet | | | FELODIPINE | 6747304159 | Jennifer | | ER 10 MG | once a | | | | 1 | Agsten DO | | [id number] | day | | | | | | + + + + + + + + | LOSARTAN | one tablet | | | LOSARTAN | 9125127118 | Jennifer | | POTASSIUM | once a | | | POTASSIUM | 2 | Agsten DO | | 50 MG TABS | day | | | | | | + + + + + + + + | TIZANIDINE | one tablet | | | TIZANIDINE | 6906397773 | Jennifer | | HCL 4 MG [...] 1 capsule | | | GABAPENTIN | 3845679024 | Ajay | | 300 MG | two times | | | | 5 | Sylvia DPM | | CAPS | a day | | | | | | + + + + + + + + | MIRTAZAPIN | one tablet | | | MIRTAZAPIN | 0740785670 | Jennifer | | E 15 MG | at night | | | E | 6 | Agsten DO | | TABS | before bed | | | | | | + + + + + + + + | GLIMEPIRID | one tablet | | | GLIMEPIRID | 3287201182 | Jennifer | | E 2 MG | once a | | | E | 1 | Agsten DO | | TABS | day | | | | | | + + + + + + + + | KLOR-CON | one by | | | POTASSIUM | 0695060844 | Jennifer | | 10 10 MEQ | mouth one | | | CHLORIDE | 1 | Agsten DO | | CR-TABS | time per | | | | | | | | day | | | | | | + + + + + + + + | ALPRAZOLAM | one tablet | | | ALPRAZOLAM | 3210816201 | Jennifer | | 0.25 MG | at night | | | | 0 | Agsten DO | | TABS | before bed | | | | | | | | as needed | | | | | | + + + + + + + + | ALPRAZOLAM | one tablet | | | ALPRAZOLAM | 7336124711 | Jennifer | | 0.5 MG | at night | | | | 0 | Agsten DO | | TABS | before bed | | | | | | + + + + + + + + | VALIUM 5 | 1 by mouth | | | DIAZEPAM | 7288493913 | Jennifer | | MG TABS | prior to | | | | 1 | Agsten DO | | | procedure | | | | | | + + + + + + + + | HYDROCODON | one tablet | | | HYDROCODON | 3794247661 | Jennifer | | E-ACETAMIN | three [...] one tablet | | | ALPRAZOLAM | 4643223342 | Jennifer | | 1 MG TABS [...] | one | | | DOXEPIN | 7341985922 | Jennifer | | HCL 10 MG | capsule at | | | HCL | 1 | Agsten DO | | CAPS | night | | | | | | | | before bed | | | | | | + + + + + + + + | TRAZODONE | 12 to 1 | | | TRAZODONE | 2306488494 | Jennifer | | HCL 100 MG [...] q hs | | | GABAPENTIN | 3529788741 | Ajay | | 300 MG | | | | | 5 | Sylvia DPM | | CAPS | | | | | | | + + + + + + + + | ATIVAN 1 | one by | | | LORAZEPAM | 8106408253 | Jennifer | | MG TABS | mouth at | | | | 1 | Agsten DO | | | bedtime | | | | | | + + + + + + + + | MIRTAZAPIN | one tablet | | | MIRTAZAPIN | 7020592279 | Jerri | | E 30 MG | at night | | | E | 6 | [place] MA | | TABS | before bed | | | | | | + + + + + + + + | NORTRIPTYL | 1 tab qhs | | | NORTRIPTYL | 7070545902 | Ajay | | INE HCL 50 | | | | INE HCL | 1 | Sylvia DPM | | MG CAPS | | | | | | | + + + + + + + + | METANX | 1 PO BID | | | L-METHYLFO | 3094692551 | Ajay | | 3-90.314-2 | | | | LATE-ALGAE | 8 | Sylvia DPM | | -35 MG | | | | -B12-B6 | | | | CAPS | | | | | | | + + + + + + + + | ONDANSETRO | one tablet | | | ONDANSETRO | 3907120443 | Jennifer | | N HCL 4 [...] one tablet | | | MIRTAZAPIN | 8935496921 | Jennifer | | E 15 MG | at night | | | E | 6 | Agsten DO | | TABS | before bed | | | | | | + + + + + + + + | DIFLUCAN | 1 by mouth | | | FLUCONAZOL | 3873817207 | Jennifer | | 150 MG | x 1 dose | | | E | 9 | Agsten DO | | TABS | | | | | | | + + + + + + + + | TEMAZEPAM | one | | | TEMAZEPAM | 9896319299 | Jennifer | | 15 MG CAPS | capsule | | | | 0 | Agsten DO | | | once a day | | | | | | + + + + + + + + | TIZANIDINE | one tablet | | | TIZANIDINE | 1830856475 | Jennifer | | HCL 4 MG [...] one tablet | | | CYCLOBENZA | 8900753899 | Jennifer | | NETO HCL | [...] drops 4 | | | DICLOFENAC | 4184744619 | Jennifer | | 1.5 % SOLN [...] one tablet | | | HYDROCODON | 5944578906 | Jennifer | | E-ACETAMIN | three [...] one by | | | LOSARTAN | 0231575408 | Jennifer | | POTASSIUM | mouth one | | | POTASSIUM | 2 | Agsten DO | | 25 MG TABS | time per | | | | | | | | day | | | | | | + + + + + + + + | VICODIN ES | one by | | | HYDROCODON | 3928396488 | Jennifer | | 7.5-750 | mouth [...] 1/2 by | | | FUROSEMIDE | 8173925861 | Jennifer | | 40 MG | mouth one | | | | 5 | Agsten DO | | TABS | time per | | | | | | | | day | | | | | | + + + + + + + + | AMITRIPTYL | 1-2 by | | | AMITRIPTYL | 1227312315 | Jennifer | | INE HCL 25 | mouth | | | INE HCL | 1 | Agsten DO | | MG TABS | before bed | | | | | | + + + + + + + + | LOVAZA 1 | 4 one time | | | OMEGA-3-AC | 2256513966 | Jennifer | | GM CAPS | per day | | | ID ETHYL | 8 | Agsten DO | | | | | | ESTERS | | | + + + + + + + + | PENNSAID | 4 grams | | | DICLOFENAC | 4280264645 | Jennifer | | 1.5 % SOLN | four times | | | SODIUM | 3 | Agsten DO | | | a day to | | | | | | | | joint prn. | | | | | | + + + + + + + + | MECLIZINE | 1 by mouth | | | MECLIZINE | 8955565783 | Jennifer | | HCL 25 MG | every 6 | | | HCL | 0 | Agsten DO | | TABS | hrs as | | | | | | | | needed | | | | | | + + + + + + + + | AMBIEN 10 | one by | | | ZOLPIDEM | 0288542847 | Jennifer | | MG TABS | mouth at | | | TARTRATE | 1 | Agsten DO | | | bedtime | | | | | | + + + + + + + + | METFORMIN | one po bid | | | METFORMIN | 2164005573 | Jennifer | | HCL 500 MG | | | | HCL | 5 | Agsten DO | | TABS | | | | | | | + + + + + + + + | PROTONIX | one po qd | | | PANTOPRAZO | 2391152996 | Jennifer | | 40 MG TBEC | | | | LE SODIUM | 1 | Agsten DO | + + + + + + + + | KLOR-CON | one po qd | | | POTASSIUM | 1016792365 | Jennifer | | 10 10 MEQ | | | | CHLORIDE | 1 | Agsten DO | | CR-TABS | | | | | | | + + + + + + + + | ATIVAN 1 | one po qhs | | | LORAZEPAM | 9746866484 | Jennifer | | MG TABS | | | | | 1 | Agsten DO | + + + + + + + + | AMBIEN 10 | one po qhs | | | ZOLPIDEM | 0861175702 | Jennifer | | MG TABS | | | | TARTRATE | 1 | Agsten DO | + + + + + + + + | LOVAZA 1 | 4 po qd | | | OMEGA-3-AC | 8085859280 | Jennifer | | GM CAPS | [...] po tid | | | HYDROCODON | 7590977392 | Jennifer | | 7.5-750 | prn | | | E-ACETAMIN | 4 | Agsten DO | | MG TABS | | | | OPHEN | | | + + + + + + + + | DULCOLAX 5 | take as | | | BISACODYL | 3927860051 | Jasmeet | | MG TBEC | directed | | | | 1 | Aga | | | | | | | | MD | + + + + + + + + | METOCLOPRA | take as | | | METOCLOPRA | 1772517692 | Jasmeet | | MIDE HCL | directed | | | MIDE HCL | 1 | Aga | | 10 MG TABS | | | | | | MD | + + + + + + + + | MIRALAX | take as | | | POLYETHYLE | 0435565771 | Jasmeet | | POWD | directed | | | NE GLYCOL | 2 | Aga | | | | | | 3350 | | MD | + + + + + + + + | VOLTAREN 1 | apply up | | | DICLOFENAC | 3531697363 | Jennifer | | % GEL | to 2 grams | | | SODIUM | 7 | Agsten DO | | | qid prn | | | | | | + + + + + + + + | ULTRAM 50 | one po tid | | | TRAMADOL | 5890285713 | Jennifer | | MG TABS | prn | | | HCL | 0 | Agsten DO | + + + + + + + + | FUROSEMIDE | /2 po qd | | | FUROSEMIDE | 4576568654 | Jennifer | | 40 MG | | | | | 5 | Agsten DO | | TABS | | | | | | | + + + + + + + + | IBUPROFEN | one po tid | | | IBUPROFEN | 5254829347 | Jennifer | | 800 MG | prn | | | | 0 | Agsten DO | | TABS | | | | | | | + + + + + + + + | GLYBURIDE | one po qd | | | GLYBURIDE | 6582599598 | Jennifer | | 5 MG TABS | | | | | 1 | Agsten DO | + + + + + + + + | LOSARTAN | one po qd | | | LOSARTAN | 6327263353 | Jennifer | | POTASSIUM | | | | POTASSIUM | 2 | Agsten DO | | 25 MG TABS | | | | | | | + + + + + + + + | NEXIUM 40 | one po qd | | | ESOMEPRAZO | 3307367949 | Jennifer | | MG CPDR | | | | LE | 1 | Agsten DO | | | | | | MAGNESIUM | | | + + + + + + + + | ERYTHROMYC | 02/14 inch | | | ERYTHROMYC | 7682927002 | Abby | | IN 5 MG/GM [...] 1/2po qd | | | FUROSEMIDE | 7914083329 | Jennifer | | MG TABS | | | | | 3 | Agsten DO | + + + + + + + + | AMBIEN 10 | 02/12 - 1 po | | | ZOLPIDEM | 6391611554 | Jennifer | | MG TABS | qhs. BMN | | | TARTRATE | 1 | Agsten DO | + + + + + + + + | PREVACID | one po qd | | | LANSOPRAZO | 1989399836 | Jennifer | | 30 MG CPDR | | | | LE | 3 | Agsten DO | + + + + + + + + | GLYBURIDE | one po q | | | GLYBURIDE | 8613935007 | Jennifer | | 2.5 MG | am | | | | 1 | Agsten DO | | TABS | | | | | | | + + + + + + + + | AMBIEN 10 | 02/12 - 1 po | | | ZOLPIDEM | 9532704619 | Jennifer | | MG TABS | qhs | | | TARTRATE | 1 | Agsten DO | + + + + + + + + | BENICAR 20 | 02/12 po qd | | | OLMESARTAN | 5127843014 | Jennifer | | MG TABS | | | | MEDOXOMIL | 3 | Agsten DO | + + + + + + + + | TRAZODONE | 02/12 - po | | | TRAZODONE | 5802219556 | Jennifer | | HCL 100 MG | qhs | | | HCL | 2 | Agsten DO | | TABS | | | | | | | + + + + + + + + | AMBIEN 10 | 02/12 - 1 po | | | ZOLPIDEM | 7448280575 | Jennifer | | MG TABS | qhs | | | TARTRATE | 1 | Agsten DO | + + + + + + + + | LASIX 40 | 4 by | | | FUROSEMIDE | 8606797508 | Katelyn | | MG TABS | mouth | | | | 3 | McCl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 | | | every am | | | | | | | | prn | | | | | | + + + + + + + + | OXYCODONE | 1-2 po q 6 | | | OXYCODONE | 1735207698 | Jennifer | | HCL 5 MG | hrs prn | | | HCL | 1 | Agsten DO | | TABS | | | | | | | + + + + + + + + | ALENDRONAT | one po q | | | ALENDRONAT | [id number] | Jennifer | | E SODIUM | week | | | E SODIUM | 9 | Agsten DO | | 70 MG TABS | | | | | | | + + + + + + + + | VALIUM 5 | one po | | | DIAZEPAM | [id number] | Jennifer | | MG TABS | prior to | | | | 1 | Agsten DO | | | procedure | | | | | | + + + + + + + + | BENICAR 20 | one po qd | | | OLMESARTAN | [id number] | Jennifer | | MG TABS | | | | MEDOXOMIL | 3 | Agsten DO | + + + + + + + + | IBU 600 MG | one po tid | | | IBUPROFEN | [id number] | Jennifer | | TABS | prn | | | | 1 | Agsten DO | + + + + + + + + | VOLTAREN 1 | apply up | | | DICLOFENAC | [id number] | Katelyn | | % GEL | to 2 gram | | | SODIUM | 7 | [facility] 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 | | | qid prn | | | | | | + + + + + + + + | ZITHROMAX | Two po x | | | AZITHROMYC | [id number] | Jennifer | | 250 MG | one day, | | | IN | 0 | Agsten DO | | TABS | one po x 4 | | | | | | | | days | | | | | | + + + + + + + + | BACTRIM DS | one po bid | | | SULFAMETHO | [id number] | Jennifer | | 800-160 | | | | XAZOLE-TRI | 1 | Agsten DO | | MG TABS | | | | METHOPRIM | | | + + + + + + + + | HYCODAN | 1-2 tsp | | | HYDROCODON | [id number] | Jennifer | | 5-1.5 | q4-6 h prn | | | E-HOMATROP | 6 | Agsten DO | | MG/5ML | cough | | | INE | | | | SYRP | | | | | | | + + + + + + + + | PRILOSEC | one po bid | | | OMEPRAZOLE | [id number] | Jennifer | | OTC 20 MG | | | | MAGNESIUM | 5 | Agsten DO | | TBEC | | | | | | | + + + + + + + + | VICODIN ES | one po tid | | | HYDROCODON | 1643221375 | Jennifer | | 7.5-750 | | | | E-ACETAMIN | 4 | Agsten DO | | MG TABS | | | | OPHEN | | | + + + + + + + + | JUAN CARLOS | one po qd | | | FEXOFENADI | 7608548888 | Jennifer | | 180 MG | | | | NE HCL | 2 | Agsten DO | | TABS | | | | | | | + + + + + + + + | JOSE ENRIQUE CR | 1 po qhs | | | ZOLPIDEM | 1227627995 | Jennifer | | 12.5 MG | | | | TARTRATE | 1 | Agsten DO | | CR-TABS | | | | | | | + + + + + + + + | LASIX 40 | 1/2 by | | | FUROSEMIDE | 5203159177 | Jennifer | | MG TABS | mouth | | | | 3 | Agsten DO | | | every am | | | | | | | | prn | | | | | | + + + + + + + + | NEXIUM 40 | 1 po bid | | | ESOMEPRAZO | 5862897568 | Jennifer | | MG CPDR | | | | LE | 1 | Agsten DO | | | | | | MAGNESIUM | | | + + + + + + + + | VICODIN | one po tid | | | HYDROCODON | 3949915566 | Jennifer | | 5-500 MG | [...] q 6 | | | PROMETHAZI | 3033619006 | Jennifer | | NE HCL 25 | hr prn | | | NE HCL | 1 | Agsten DO | | MG TABS | | | | | | | + + + + + + + + | HYCOTUSS | 1-2 tsp q | | | HYDROCODON | 1897369260 | Jennifer | | EXPECTORAN | 4-6 [...] po q | | | IBANDRONAT | 5658901012 | Jennifer | | MG TABS | month | | | E SODIUM | 2 | Agsten DO | + + + + + + + + | KEFLEX 500 | one po tid | | | CEPHALEXIN | 1532812462 | Jennifer | | MG CAPS | | | | | 1 | Agsten DO | + + + + + + + + | PLENDIL 10 | 1 po qd | | | FELODIPINE | 1204798460 | Jennifer | | MG TB24 | | | | | 1 | Agsten DO | + + + + + + + + | SLOW-MAG | one po qd | | | MAGNESIUM | 7800647523 | Jennifer | | 64 MG TBCR | | | | CHLORIDE | 0 | Agsten DO | + + + + + + + + | K-JAMARI 20 | one po qd | | | POTASSIUM | 2153456821 | Jennifer | | MEQ PACK | | | | CHLORIDE | 2 | Agsten DO | + + + + + + + + | IBU 800 MG | one po tid | | | IBUPROFEN | 9216132795 | Jennifer | | TABS | | | | | 1 | Agsten DO | + + + + + + + + | LOVAZA 1 | 2 po bid | | | OMEGA-3-AC | 2103811181 | Jennifer | | GM CAPS | | | | ID ETHYL | 8 | Agsten DO | | | | | | ESTERS | | | + + + + + + + + | AMBIEN CR | one po qd | | | ZOLPIDEM | 0059916977 | Jennifer | | 12.5 MG | [...] by mouth | | | TRIAMTEREN | 0104060849 | Jennifer | | 37.5-25 MG | every day | | | E-HCTZ | 2 | Agsten DO | | CAPS | | | | | | | + + + + + + + + | LASIX 40 | 1 by mouth | | | FUROSEMIDE | 3605699726 | Jennifer | | MG TABS | every am | | | | 3 | Agsten DO | + + + + + + + + | BENICAR 20 | one po qd | | | OLMESARTAN | 4553055792 | Jennifer | | MG TABS | | | | MEDOXOMIL | 3 | Agsten DO | + + + + + + + + | K-DUR 10 | 2 po qd | | | POTASSIUM | 5497618084 | Jennifer | | MEQ TBCR | | | | CHLORIDE | 1 | Agsten DO | + + + + + + + + | OMACOR 1 | Two po bid | | | OMEGA-3-AC | [id number] | Jennifer | | GM CAPS | | | | ID ETHYL | 7 | Agsten DO | | | | | | ESTERS | | | + + + + + + + + | MORPHINE | one po bid | | | MORPHINE | [phone] | Jennifer | | SULFATE CR | [...] +------+------+-------+------+-------+------+ + + + | Office Visit: HTN [...] +--------+ +---+---+---+ + | | ESM_RR | [id number] | | | B | e-scripts | | | | [id number]`Pota | | | | messenger | | [...] | | | | | | | [id number]`00 | | | | | | | | [id number]` | | | | | | | [...] +--------+ +---+---+---+ + | | ESM_RR | [id number] | | | B | e-scripts | | | | 25945`Lant | | | | messenger | | [...] | | | | | | | [id number]`00 | | | | | | | | [id number]` | | | | | | | [...] +--------+ +---+---+---+ + | | ESM_RR | [id number] | | | B | e-scripts | | | | [id number]`Pant | | | | messenger | | [...] | | | | | | | [id number] | | | | | | | | `[id number] | | | | | | | [...] +--------+ +---+---+---+ + | | ESM_RR | [phone] | | | B | e-scripts | | | | 88292`Mirt | | | | messenger | | [...] | | | | | | | [id number] | | | | | | | | `[id number] | | | | | | | [...] +--------+ +---+---+---+ + | | ESM_RR | [id number] | | | B | e-scripts | | | | 65662`Pant | | | | messenger | | [...] | | | | | | | [place]*` | | | | | | | | [phone] | | | | | | | | `[id number] | | | | | | | [...] +--------+ +---+---+---+ + | | ESM_RR | [id number] | | | B | e-scripts | | | | 41584`Mirt | | | | messenger | | [...] | | | | | | | [place]*` | | | | | | | | [id number] | | | | | | | | `[id number] | | | | | | | [...] +--------+ +---+---+---+ + | | ESM_RR | [id number] | | | B | e-scripts | | | | 95283`Mirt | | | | messenger | | [...] | | | | | | | [place]*` | | | | | | | | [phone] | | | | | | | | `[id number] | | | | | | | [...] + + + + + +---+ + Plan of Care + + + [...] [facility], | | | | [address], | | | | [place], [address] | | | | | + + + + | Referral | | Echocardiogram - 2D | | | | Complete | | | | Latasha Brunner, [address] | | | | [place], | | | | [place], [address] | | | | | + + + + | Referral | | Podiatry Consult | | | | G QUENTIN Moss, | | | | [address] [facility] | | | | [address], [place], [address] | | | | | | | | | + + + + | Referral | | Ophthalmology Consult | | | | Abby Springer, | | | | [address] [place] [address], | | | | [place], [address] | | | | | + + + + | Referral | | Ophthalmology Consult | | | | Abby Springer, | | | | [address] [place], | | | | [place], [address] | | | | | + + + + | Referral | | Orthopedic Consult | | | | MD Ap Nicole, | | | | [address] , | | | | [place], [address] | | | | | + + + + | Referral | | Gynecology Consult | | | | MD Destiny Levi, | | | | [address] [facility] | | | | [address] [place], [address] | | | | | | | | | + + + + | Referral | | Complete Eye Exam/ | | | | Treatment | | | | MD Paul Ramirez, [address] | | | | [place], | | | | [place], [address] | | | | | + + [...] + | Pending order | | MR Ocunf-Umdexw-HRN Con | + + + + | [...] | + + + + + | [id number] | Overweight | | | + + + + + | SCT-[id number] | Pulse Exam of Foot | | | + + + + + | SCT-[id number] | Visual Exam of Foot | | | + + + + + | SCT-[id number] | Sensory Exam of | | | | | Foot | | | + + + + + | SCT-52271081 | Pulse Exam of Foot | | | + + + + + | U FABIO RAN 99370 | Microalbumin, | | | | | Random Urine | | | + + + + + | GLYCO HGB 89701 | Glyco Hemoglobin, | | | | | A1C | | | + + + + + | RISK 39843 | Lipid Profile | | | + + + + + | CHEM PROF | Comprehensive | | | | | Metabolic Panel | | | + + + + + | SCT- | Medication | | | | [id number] | Reconcilliation | | | + + + + + | SCT-829621166 | Visual Exam of Foot | | | + + + + + | SCT-[id number] | Sensory Exam of | | | | | Foot | | | + + + + + | SCT- | Medication | | | | [id number] | Reconcilliation | | | + + + + + | CREAT 52636 | Creatinine | | | + + + + + | BUN 43379 | BUN | | | + + + + + | SCT- | Medication | | | | [id number] | Reconcilliation | | | + + + + + | 46007 | MR Hjelm-Advmeh-QKT | | | | | Con | | | + + + + + | CPT-81358 | XR Pelvis-1-2V | | | + + + + + | SCT- | Medication | | | | [id number] | Reconcilliation | | | + + + + + | 31308 | XR Hip 2-3V-Left | | | + + + + + | CPT-G0477 | Urine Tox, multiple | | | | | drug class (G0477) | | | + + + + + | U FABIO RAN 01227 | Microalbumin, | | | | | Random Urine | | | + + + + + | GLYCO HGB 37403 | Glyco Hemoglobin, | | | | | A1C | | | + + + + + | RISK 66587 | Lipid Profile | | | + + + + + | CPT-89745 | Echocardiogram - 2D | | | | | Complete | | | + + + + + | SCT- | Medication | | | | [id number] | Reconcilliation | | | + + + + + | RISK 27755 | Lipid Profile | | | + + + + + | U FABIO RAN 39767 | Microalbumin, | | | | | Random Urine | | | + + + + + | GLYCO HGB 87953 | Glyco Hemoglobin, | | | | | A1C | | | + + + + + | CHEM PROF | Comprehensive | | | | | Metabolic Panel | | | + + + + + | HGB A1C 38103 | HgbA1C | | | + + + + + | UA 77504 | Urinalysis | | | + + + + + | Vic COLBY ROU 45125 | Culture Urine | | | + + + + + | UA CULT IF MULTIPLE | Urinalysis Culture | | | | | If Indicat | | | + + + + + | CPT-39961 | UA Dipstick | | | | | (Office) | | | + + + + + | [id number] | [Recorded for CQM] | | | | | Documentation of | | | | | current medications | | | | | (procedure) | | | + + + + + | [id number] | [Recorded for CQM] | | | | | Pedal pulse taking | | | | | (procedure) | | | + + + + + | CPT-60429 | Adm 1st Inj No | | | | | counseling or >18 | | | + + + + + | [id number] | [Recorded for CQM] | | | | | Documentation of | | | | | current medications | | | | | (procedure) | | | + + + + + | [id number] | [Recorded for CQM] | | | | | Examination of | | | | | retina (procedure) | | | + + + + + | [id number] | [Recorded for CQM] | | | | | Never smoker | | | + + + + + | [id number] | [Recorded for CQM] | | | | | Never smoked | | | | | tobacco (finding) | | | + + + + + | 253157067 | [Recorded for CQM] | | | | | Tobacco use and | | | | | exposure | | | + + + + + | CPT-73187 | Fluvirin /Fluzone | | | | | >3 | | | + + + + + | 446392665 | [Recorded for CQM] | | | | | Monofilament foot | | | | | sensation test | | | | | (procedure) | | | + + + + + | 13622146 | [Recorded for CQM] | | | | | Pedal pulse taking | | | | | (procedure) | | | + + + + + | [id number] | [Recorded for CQM] | | | | | Documentation of | | | | | current medications | | | | | (procedure) | | | + + + + + | [id number] | [Recorded for CQM] | | | | | Diabetic foot | | | | | examination | | | | | (regime/therapy) | | | + + + + + | 342151522 | [Recorded for CQM] | | | | | Details of drug | | | | | misuse behavior | | | + + + + + | 605245978 | [Recorded for CQM] | | | | | Health-related | | | | | behavior | | | + + + + + | 759696947 | [Recorded for CQM] | | | | | Alcohol intake | | | + + + + + | CPT-88289 | Urine Tox, multiple | | | | | drug classes | | | + + + + + | [id number] | [Recorded for CQ] | | | | | Documentation of | | | | | current medications | | | | | (procedure) | | | + + + + + | GLYCO HGB 18885 | HgbA1C | | | + + + + + | CHEM PROF | Comprehensive | | | | | Metabolic Panel | | | + + + + + | U FABIO RAN 66590 | Microalbumin, | | | | | Random Urine | | | + + + + + | RISK 63015 | Lipid Profile | | | + + + + + | 74972 | MX Dexa Scan-Body | | | + + + + + | CPT-79766 | Venipuncture | | | + + + + + | 14730336 | [Recorded for CQM] | | | | | Pedal pulse taking | | | | | (procedure) | | | + + + + + | [id number] | [Recorded for CQM] | | | | | Documentation of | | | | | current medications | | | | | (procedure) | | | + + + + + | [id number] | [Recorded for CQM] | | | | | Diabetic foot | | | | | examination | | | | | (regime/therapy) | | | + + + + + | 870040724 | [Recorded for CQM] | | | | | Monofilament foot | | | | | sensation test | | | | | (procedure) | | | + + + + + | 27563 G0202 | MX Mammo Dig | | | | | Screen-Bilat | | | + + + + + | GLYCO HGB 10466 | HgbA1C | | | + + + + + | CPT-19109 | Venipuncture | | | + + + + + | CPT-74447 | Adm 1st Inj No | | | | | counseling or >18 | | | + + + + + | PAP SS WO G0145 | PAP SURE Sc wo HPV | | | + + + + + | FREE T4 40182 | T4 Free | | | + + + + + | TSH 88465 | TSH | | | + + + + + | RISK 62897 | Lipid Profile | | | + + + + + | CHEM PROF 07637 | CMP (Comprehensive | | | | | Metabolic Panel) | | | + + + + + | GLYCO HGB 89729 | HgbA1C | | | + + + + + | U FABIO RAN 57079 | Microalbumin, | | | | | Random Urine | | | + + + + + | CBC AUTO 70032 | CBC w/ Auto Diff | | | + + + + + | CPT-G0439 | Annual Wellness | | | | | Visit (Medicare) | | | | | Subsqnt visit | | | + + + + + | CPT-43294 | Pneumovax 23 | | | | | (Pneumococcal) >2 | | | + + + + + | CPT-81751 | Adm addtl Jose No | | | | | counseling or >18 | | | + + + + + | CPT-03617 | Fluvirin /Fluzone | | | | | >3 | | | + + + + + | 25606 | MR Head-WO Con | | | + + + + + | CPT-84356 | Venipuncture | | | + + + + + | CHEM PROF 08988 | CMP (Comprehensive | | | | | Metabolic Panel) | | | + + + + + | oTmasz BOSWELL 03447 | Microalbumin, | | | | | Random Urine | | | + + + + + | GLYCO HGB 94354 | HgbA1C | | | + + + + + | RISK 93156 | Lipid Profile | | | + + + + + | 24139 G0202 | MX Mammo Dig | | | | | Screen-Bilat | | | + + + + + | CPT-G0438 | Annual Wellness | | | | | Visit (Medicare) | | | | | 1st visit | | | + + + + + | V8611 61924 | MX Mammo Dig | | | | | Diag-Bilat | | | + + + + + | 78615 | MX Dexa Scan-Body | | | + + + + + | CPT-29020 | EKG- tracing with | | | | | report (74409) | | | + + + + + | CHEM PROF 96879 | CMP (Comprehensive | | | | | Metabolic Panel) | | | + + + + + | 70014 | XR Chest-2V | | | + + + + + | U FABIO RAN 33846 | Microalbumin, | | | | | Random Urine | | | + + + + + | RISK 57259 | Lipid Profile | | | + + + + + | CPT-72799 | Venipuncture | | | + + + + + | GLYCO HGB 71747 | HgbA1C | | | + + + + + | CPT-74133 | Refraction (48695) | | | + + + + + | CPT-75020 | Ext. | | | | | Ophthalmoscopy, | | | | | Subs. | | | + + + + + | CPT-28982 | Venipuncture | | | + + + + + | GLYCO HGB 23758 | HgbA1C | | | + + + + + | CPT-56113 | Venipuncture | | | + + + + + | CHEM PROF 42016 | CMP (Comprehensive | | | | | Metabolic Panel) | | | + + + + + | U FABIO RAN 74439 | Microalbumin, | | | | | Random Urine | | | + + + + + | GLYCO HGB 74357 | HgbA1C | | | + + + + + | RISK 83898 | Lipid Profile | | | + + + + + | CPT-61007 | Venipuncture | | | + + + + + | GLYCO HGB 18659 | HgbA1C | | | + + + + + | CPT-27728 | Flu Vaccine > 8 | | | | | yrs. | | | + + + + + | CPT-G0008 | Admin of Flu Vac | | | | | (Mdc/Atrio) | | | + + + + + | CHEM PROF 01659 | CMP (Comprehensive | | | | | Metabolic Panel) | | | + + + + + | CPT-G0202 | Mammogram - | | | | | Screening | | | | | (bilateral) | | | + + + + + | U FABIO RAN 82415 | Microalbumin, | | | | | Random Urine | | | + + + + + | GLYCO HGB 16040 | HgbA1C | | | + + + + + | RISK 27717 | Lipid Profile | | | + + + + + | CPT-G0008 | Admin of Flu Vac | | | | | (Mdc/Atrio) | | | + + + + + | CPT-37026 | Flu vaccine >3 y/o | | | + + + + + | CPT-37729 | MRI- Spine: Lumbar | | | | | w/o contrast | | | + + + + + | CPT-03105 | UA Dipstick | | | | | (Office) | | | + + + + + | Vic LOZA 56561 | Culture Urine | | | + + + + + | CPT-78304 | X-Ray- Hand (3+ | | | | | views) | | | + + + + + | CPT-26531 | Mammogram - | | | | | Screening | | | | | (bilateral) | | | + + + + + | CPT-66085 | Admin of Imm. over | | | | | 8yrs (1st) | | | + + + + + | CPT-69663 | Flu vaccine >3 y/o | | | + + + + + | CPT-11246 | X-Ray- Chest - PA | | | | | and lateral | | | + + + + + | CHEM PROF 95079 | CMP (Comprehensive | | | | | Metabolic Panel) | | | + + + + + | PAP SCREEN G0123 | PAP Liquid Based, | | | | | Screening | | | + + + + + | CPT-97138 | X-Ray- Thoracic (3 | | | | | views) | | | + + + + + | GLYCO HGB 26074 | HgbA1C | | | + + + + + | RISK 72849 | Lipid Profile | | | + + + + + | CHEM 8 01800 | Basic Metabolic | | | | | Panel | | | + + + + + | GLYCO HGB 48193 | HgbA1C | | | + + + + + | VIT B12 20689 | B-12 | | | + + + + + | RISK 59346 | Lipid Profile | | | + + + + + | [place] 81242 | Magnesium Level | | | + + + + + | CHEM PROF 83737 | CMP (Comprehensive | | | | | Metabolic Panel) | | | + + + + + | CPT-69119 | Mammogram - | | | | | Screening | | | | | (bilateral) | | | + + + + + | CPT-26261 | DEXA scan (bone | | | | | density) | | | + + + + + | RISK 48501 | Lipid Profile | | | + + + + + | [place] [address] | Magnesium Level | | | + [...] + + + + + | RISK 71475 | Lipid Profile | | | + + + + + | CPT-47520 | Complete Eye Exam/ | | | | | Treatment | | | + + + + + | GLYOCO HGB 34907 | HbA1C | | | + + + + + | CHEM PROF 92862 | CMP (Comprehensive | | | | | Metabolic Panel) | | | + + + + + | CPT-54565 | Comprehensive | | | | | Metabolic Panel | | | + + + + + | CPT-42809 | Lipid Profile | | | + + + + + | CPT-25369 | HbA1C | | | + + [...]
--- OUTSIDE RECORDS SUMMARY | ~2017-01-29 | XMS | Clinical Summary ---
Demographics + + + | Address | [address] | | | [place] [address] | + + + | Home Phone | | + + + | Preferred Language | Unknown | + + + | Marital Status | W | + + + | Oriental Orthodox Affiliation | Unknown | + + + | Race | White | + + + | Ethnic Group | Not or | + + + Author + + + | Author | [facility] | + + + | Organization | [facility] | + + + | Address | [address] | | | [place] [address] | + + + | Phone | Unavailable | + + + Care Team Providers + +------+ + | Care National Account Director Name | Role | Phone | + +------+ + | Ajay Ward DPM | PCP | [phone] | + +------+ + Conditions or Problems [...] tion | | +---------+---------+---------+---------+---------+---------+---------+---------+---------+ | DIABETE | [id number] | | Active | | Ajay | [...] | | | +---------+---------+---------+---------+---------+---------+---------+---------+---------+ | FOOT | [id number] | | Active | | Ajay | | Foot | | | PAIN, | 7 | 17 | | | Sylvia | | pain | | | LEFT | (SNOMED | | | | DPM | | | | | | CT) | | | | | | | | +---------+---------+---------+---------+---------+---------+---------+---------+---------+ | FOOT | [id number] | | Active | | Ajay | | Foot | | | PAIN, | 7 | | | | Sylvia | | pain | | | RIGHT | (SNOMED | | | | DPM | | | | | | CT) | | | | | | | | +---------+---------+---------+---------+---------+---------+---------+---------+---------+ | ONYCHOM | [id number] | | Active | | Ajay | | Onychom | | | YCOSIS | 08 | | | | Sylvia | | ycosis | | | | (SNOMED | | | | DPM | | | | | | CT) | | | | | | | | +---------+---------+---------+---------+---------+---------+---------+---------+---------+ | ONYCHAU | [id number] | | Active | | Ajay | | Hypertr | | | XIS | 2 | | | | Sylvia | | ophy of | | | | (SNOMED | | | | DPM | | nail | | | | CT) | | | | | | | | +---------+---------+---------+---------+---------+---------+---------+---------+---------+ | TYPE 2 | [id number] | | Active | | Jennifer | [...] | | | +---------+---------+---------+---------+---------+---------+---------+---------+---------+ | OSTEOAR | [id number] | | Resolve | | Jennifer | | Osteoar | | | THRITIS | 02 | /14 | d | /15 | Agsten | | thritis | | | , HIP, | (SNOMED | | | | DO | | of hip | | | LEFT | CT) | | | | | | | | +---------+---------+---------+---------+---------+---------+---------+---------+---------+ | HALLUX | [id number] | | Active | | Ajay | [...] | | | +---------+---------+---------+---------+---------+---------+---------+---------+---------+ | HALLUX | [id number] | | Active | | Ajay | [...] | | | +---------+---------+---------+---------+---------+---------+---------+---------+---------+ | LUMBAR | [id number] | | Resolve | | Jennifer | | Lumbar | | | RADICUL | 05 | /08 | d | /08 | Agsten | | radicul | | | OPATHY, | (SNOMED | | | | DO | | opathy | | | LEFT | CT) | | | | | | | | +---------+---------+---------+---------+---------+---------+---------+---------+---------+ | PAIN IN | [id number] | | Resolve | | Jennifer | | Hip | | | LEFT | 2 | /23 | d | /23 | Agsten | | pain | | | HIP | (SNOMED | | | | DO | | | | | | CT) | | | | | | | | +---------+---------+---------+---------+---------+---------+---------+---------+---------+ | PAIN IN | [id number] | | Removed | | Farzad | | Hip | | | LEFT | 2 | /23 | | /23 | | | pain | | | HIP | (SNOMED | | | | VanAnro | | | | | | CT) | | | | oy MD | | | | +---------+---------+---------+---------+---------+---------+---------+---------+---------+ | OSTEOAR | [id number] | | Removed | | Rendee | | Osteoar | | | THRITIS | 02 | /14 | | /15 | Mishra | | thritis | | | , HIP, | (SNOMED | | | | | | of hip | | | LEFT | CT) | | | | | | | | +---------+---------+---------+---------+---------+---------+---------+---------+---------+ | LUMBAR | [id number] | | Removed | | Jennifer | | Lumbar | | | RADICUL | 05 | /08 | | /08 | Agsten | | radicul | | | OPATHY, | (SNOMED | | | | DO | | opathy | | | LEFT | CT) | | | | | | | | +---------+---------+---------+---------+---------+---------+---------+---------+---------+ | HIP | [id number] | | Inactiv | | Jennifer | [...] ropathy | | +---------+---------+---------+---------+---------+---------+---------+---------+---------+ | ROTATOR | [id number] | | Resolve | | Jennifer | [...] tendon | | +---------+---------+---------+---------+---------+---------+---------+---------+---------+ | SCIATIC | [id number] | | Resolve | | Jennifer | | Sciatic | | | A | 5 | /25 | d | /25 | Agsten | | a | | | | (SNOMED | | | | DO | | | | | | CT) | | | | | | | | +---------+---------+---------+---------+---------+---------+---------+---------+---------+ | NAUSEA | [id number] | | Resolve | | Jennifer | | Nausea | | | ALONE | 07 | /20 | d | /20 | Agsten | | | | | | (SNOMED | | | | DO | | | | | | CT) | | | | | | | | +---------+---------+---------+---------+---------+---------+---------+---------+---------+ | LEFT | [id number] | | Active | | Jennifer | [...] healing | | +---------+---------+---------+---------+---------+---------+---------+---------+---------+ | PERIPHE | [id number] | | Resolve | | Jennifer | | Periphe | | | RAL | 06 | /20 | d | /20 | Agsten | | ral | | | NEUROPA | (SNOMED | | | | DO | | nerve | | | THY | CT) | | | | | | disease | | +---------+---------+---------+---------+---------+---------+---------+---------+---------+ | BREAST | [id number] | | Resolve | | Jennifer | | Pain of | | | PAIN, | 7 | /09 | d | /09 | Agsten | | breast | | | LEFT | (SNOMED | | | | DO | | | | | | CT) | | | | | | | | +---------+---------+---------+---------+---------+---------+---------+---------+---------+ | WELL | [id number] | | Resolve | | Jennifer | | Adult | | | ADULT | 07 | /09 | d | /09 | Agsten | | health | | | EXAM | (SNOMED | | | | DO | | examina | | | | CT) | | | | | | tion | | +---------+---------+---------+---------+---------+---------+---------+---------+---------+ | OTHER | [id number] | | Resolve | | Jennifer | [...] | | | +---------+---------+---------+---------+---------+---------+---------+---------+---------+ | DIZZINE | [id number] | | Resolve | | Jennifer | | Dizzine | | | SS | 03 | /12 | d | /12 | Agsten | | ss | | | | (SNOMED | | | | DO | | | | | | CT) | | | | | | | | +---------+---------+---------+---------+---------+---------+---------+---------+---------+ | MELENA | [id number] | | Resolve | | Jennifer | [...] | | | +---------+---------+---------+---------+---------+---------+---------+---------+---------+ | UTI | [id number] | | Resolve | | Jennifer | [...] disease | | +---------+---------+---------+---------+---------+---------+---------+---------+---------+ | NAUSEA | [id number] | | Removed | | Jennifer | | Nausea | | | ALONE | 07 | /20 | | /20 | Agsten | | | | | | (SNOMED | | | | DO | | | | | | CT) | | | | | | | | +---------+---------+---------+---------+---------+---------+---------+---------+---------+ | UTI | [id number] | | Removed | | Jennifer | [...] disease | | +---------+---------+---------+---------+---------+---------+---------+---------+---------+ | SCIATIC | [id number] | | Removed | | Jennifer | | Sciatic | | | A | | | | | Agsten | | a | | | | (SNOMED | | | | DO | | | | | | CT) | | | | | | | | +---------+---------+---------+---------+---------+---------+---------+---------+---------+ | ROTATOR | [id number] | | Removed | | Jennifer | [...] | | | +---------+---------+---------+---------+---------+---------+---------+---------+---------+ | INGROWN | [id number] | | Inactiv | | Ajay | [...] on | | +---------+---------+---------+---------+---------+---------+---------+---------+---------+ | OTHER | [id number] | | Removed | | Jennifer | [...] | | | +---------+---------+---------+---------+---------+---------+---------+---------+---------+ | MELENA | [id number] | | Removed | | Lewis | | Melena | | | | | /02 | | /02 | Sae | | | | | | (SNOMED | | | | RN | | | | | | CT) | | | | | | | | +---------+---------+---------+---------+---------+---------+---------+---------+---------+ | SCREENI | [id number] | | Inactiv | | Jennifer | | Screeni | | | NG, | 4 | / | e | / | Agsten | | ng for | | | VAGINAL | (SNOMED | | | | DO | | cancer | | | CANCER | CT) | | | | | | | | +---------+---------+---------+---------+---------+---------+---------+---------+---------+ | WELL | [id number] | | Removed | | Jennifer | | Adult | | | ADULT | 07 | / | | / | Agsten | | health | | | EXAM | (SNOMED | | | | DO | | examina | | | | CT) | | | | | | tion | | +---------+---------+---------+---------+---------+---------+---------+---------+---------+ | DIZZINE | [id number] | | Removed | | Jennifer | [...] polyps | | +---------+---------+---------+---------+---------+---------+---------+---------+---------+ | OTHER | [id number] | | Inactiv | | Corie | [...] fied | | +---------+---------+---------+---------+---------+---------+---------+---------+---------+ | WELL | [id number] | | Inactiv | | Jennifer | | Adult | | | ADULT | | | e | | Agsten | | health | | | EXAM | (SNOMED | | | | DO | | examina | | | | CT) | | | | | | tion | | +---------+---------+---------+---------+---------+---------+---------+---------+---------+ | BREAST | [id number] | | Removed | | Jennifer | | Pain of | | | PAIN, | 7 | /09 | | /09 | Agsten | | breast | | | LEFT | (SNOMED | | | | DO | | | | | | CT) | | | | | | | | +---------+---------+---------+---------+---------+---------+---------+---------+---------+ | PRESBYO | [id number] | | Resolve | | Jennifer | | Presbyo | | | HUMBLE | 4 | /03 | d | /03 | Agsten | | humble | | | | (SNOMED | | | | DO | | | | | | CT) | | | | | | | | +---------+---------+---------+---------+---------+---------+---------+---------+---------+ | ASTIGMA | [id number] | | Resolve | | Jennifer | | Astigma | | | TISM | 3 | /03 | d | /03 | Agsten | | tism | | | | (SNOMED | | | | DO | | | | | | CT) | | | | | | | | +---------+---------+---------+---------+---------+---------+---------+---------+---------+ | RETINAL | [id number] | | Resolve | | Jennifer | | Retinal | | | | 8 | /03 | d | /03 | Agsten | | | | | HEMORRH | (SNOMED | | | | DO | | hemorrh | | | AGE | CT) | | | | | | age | | +---------+---------+---------+---------+---------+---------+---------+---------+---------+ | MICROAN | [id number] | | Resolve | | Jennifer | | Retinal | | | EURYSMS | 0 | /03 | d | /03 | Agsten | | | | | , | (SNOMED | | | | DO | | microan | | | RETINAL | CT) | | | | | | eurysm | | +---------+---------+---------+---------+---------+---------+---------+---------+---------+ | POSTERI | [id number] | | Resolve | | Jennifer | [...] eye | | +---------+---------+---------+---------+---------+---------+---------+---------+---------+ | HYPEROP | [id number] | | Resolve | | Jennifer | | Hyperme | | | IA | 3 | /03 | d | /03 | Agsten | | tropia | | | | (SNOMED | | | | DO | | | | | | CT) | | | | | | | | +---------+---------+---------+---------+---------+---------+---------+---------+---------+ | ROSACEA | [id number] | | Resolve | | Jennifer | | Rosacea | | | | 04 | /03 | d | /03 | Agsten | | | | | | (SNOMED | | | | DO | | | | | | CT) | | | | | | | | +---------+---------+---------+---------+---------+---------+---------+---------+---------+ | SCREENI | [id number] | | Resolve | | Jennifer | [...] cervix | | +---------+---------+---------+---------+---------+---------+---------+---------+---------+ | SCIATIC | [id number] | | Resolve | | Jennifer | | Sciatic | | | A | 5 | /25 | d | /25 | Agsten | | a | | | | (SNOMED | | | | DO | | | | | | CT) | | | | | | | | +---------+---------+---------+---------+---------+---------+---------+---------+---------+ | INSOMNI | [id number] | | Active | | Ariela | | Insomni | | | A | 01 | /02 | | /02 | Ashwin | | a | | | | (SNOMED | | | | | | | | | | CT) | | | | | | | | +---------+---------+---------+---------+---------+---------+---------+---------+---------+ | ROSACEA | [id number] | | Removed | | Abby | | Rosacea | | | | 04 | /03 | | /03 | Racheal | | | | | | (SNOMED | | | | OD | | | | | | CT) | | | | | | | | +---------+---------+---------+---------+---------+---------+---------+---------+---------+ | HYPEROP | [id number] | | Removed | | Abby | [...] eye | | +---------+---------+---------+---------+---------+---------+---------+---------+---------+ | POSTERI | [id number] | | Removed | | Abby | [...] ent | | +---------+---------+---------+---------+---------+---------+---------+---------+---------+ | MICROAN | [id number] | | Removed | | Abby | | Retinal | | | EURYSMS | 0 | /03 | | /03 | Gauer | | | | | , | (SNOMED | | | | OD | | microan | | | RETINAL | CT) | | | | | | eurysm | | +---------+---------+---------+---------+---------+---------+---------+---------+---------+ | RETINAL | [id number] | | Removed | | Abby | | Retinal | | | | 8 | /03 | | /03 | Gauer | | | | | HEMORRH | (SNOMED | | | | OD | | hemorrh | | | AGE | CT) | | | | | | age | | +---------+---------+---------+---------+---------+---------+---------+---------+---------+ | ASTIGMA | [id number] | | Removed | | Abby | | Astigma | | | TISM | 3 | /03 | | /03 | Gauer | | tism | | | | (SNOMED | | | | OD | | | | | | CT) | | | | | | | | +---------+---------+---------+---------+---------+---------+---------+---------+---------+ | PRESBYO | [id number] | | Removed | | Abby | | Presbyo | | | HUMBLE | 4 | /03 | | /03 | Gauer | | humble | | | | (SNOMED | | | | OD | | | | | | CT) | | | | | | | | +---------+---------+---------+---------+---------+---------+---------+---------+---------+ | SCIATIC | [id number] | | Removed | | Jennifer | | Sciatic | | | A | 5 | /25 | | /25 | Agsten | | a | | | | (SNOMED | | | | DO | | | | | | CT) | | | | | | | | +---------+---------+---------+---------+---------+---------+---------+---------+---------+ | HYPOMAG | [id number] | | Resolve | | Jennifer | | Hypomag | | | NESEMIA | 04 | /30 | d | /30 | Agsten | | nesemia | | | | (SNOMED | | | | DO | | | | | | CT) | | | | | | | | +---------+---------+---------+---------+---------+---------+---------+---------+---------+ | FOLLICU | [id number] | | Resolve | | Jennifer | | Follicu | | | LITIS | 6 | /27 | d | /27 | Agsten | | litis | | | | (SNOMED | | | | DO | | | | | | CT) | | | | | | | | +---------+---------+---------+---------+---------+---------+---------+---------+---------+ | URI | [id number] | | Resolve | | Jennifer | [...] on | | +---------+---------+---------+---------+---------+---------+---------+---------+---------+ | CYSTOCE | [id number] | | Resolve | | Jennifer | [...] | | | +---------+---------+---------+---------+---------+---------+---------+---------+---------+ | ABNORMA | [id number] | | Resolve | | Jennifer | [...] l | | +---------+---------+---------+---------+---------+---------+---------+---------+---------+ | ALLERGI | [id number] | | Resolve | | Jennifer | | Allergi | | | C | 4 | /05 | d | /05 | Agsten | | c | | | RHINITI | (SNOMED | | | | DO | | rhiniti | | | S | CT) | | | | | | s | | +---------+---------+---------+---------+---------+---------+---------+---------+---------+ | SINUSIT | [id number] | | Resolve | | Jennifer | | Acute | | | IS, | 2 | /05 | d | /05 | Agsten | | sinusit | | | ACUTE | (SNOMED | | | | DO | | is | | | NOS | CT) | | | | | | | | +---------+---------+---------+---------+---------+---------+---------+---------+---------+ | CONTUSI | [id number] | | Resolve | | Jennifer | | Contusi | | | ON, | 6 | /05 | d | /05 | Agsten | | on of | | | LEFT | (SNOMED | | | | DO | | knee | | | KNEE | CT) | | | | | | | | +---------+---------+---------+---------+---------+---------+---------+---------+---------+ | THUMB | [id number] | | Resolve | | Jennifer | | Pain in | | | PAIN, | 02 | / | d | / | Agsten | | thumb | | | RIGHT | (SNOMED | | | | DO | | | | | | CT) | | | | | | | | +---------+---------+---------+---------+---------+---------+---------+---------+---------+ | FOOT | [id number] | | Resolve | | Jennifer | [...] g | | +---------+---------+---------+---------+---------+---------+---------+---------+---------+ | ABDOMIN | [id number] | | Resolve | | Jennifer | [...] | | | +---------+---------+---------+---------+---------+---------+---------+---------+---------+ | LUMBAR | [id number] | | Resolve | | Jennifer | | Lumbar | | | RADICUL | 05 | /08 | d | /08 | Agsten | | radicul | | | OPATHY, | (SNOMED | | | | DO | | opathy | | | LEFT | CT) | | | | | | | | +---------+---------+---------+---------+---------+---------+---------+---------+---------+ | HIP | [id number] | | Inactiv | | Jennifer | [...] | | | +---------+---------+---------+---------+---------+---------+---------+---------+---------+ | INSOMNI | [id number] | | Resolve | | Jennifer | | Insomni | | | A | 01 | / | d | /02 | Agsten | | a | | | | (SNOMED | | | | DO | | | | | | CT) | | | | | | | | +---------+---------+---------+---------+---------+---------+---------+---------+---------+ | INSOMNI | [id number] | | Removed | | Jennifer | [...] | | | +---------+---------+---------+---------+---------+---------+---------+---------+---------+ | HIP | [id number] | | Removed | | Franny | | Hip | | | PAIN | 2 | /14 | | /15 | | | pain | | | | (SNOMED | | | | Campman | | | | | | CT) | | | | | | | | +---------+---------+---------+---------+---------+---------+---------+---------+---------+ | FOOT | [id number] | | Removed | | Franny | | Foot | | | PAIN | 7 | /01 | | /01 | | | pain | | | | (SNOMED | | | | Campman | | | | | | CT) | | | | | | | | +---------+---------+---------+---------+---------+---------+---------+---------+---------+ | LUMBAR | [id number] | | Removed | | Jennifer | | Lumbar | | | RADICUL | 05 | /08 | | /08 | Agsten | | radicul | | | OPATHY, | (SNOMED | | | | DO | | opathy | | | LEFT | CT) | | | | | | | | +---------+---------+---------+---------+---------+---------+---------+---------+---------+ | GERD | [id number] | | Active | | Jasmeet | [...] disease | | +---------+---------+---------+---------+---------+---------+---------+---------+---------+ | ABDOMIN | [id number] | | Removed | | Jasmeet | [...] | | | +---------+---------+---------+---------+---------+---------+---------+---------+---------+ | NAUSEA | [id number] | | Correct | | Jasmeet | [...] UNSPECI | -CM) | | | | SALVAGE CUTTER | | unspeci | | | FIED [...] limb | | +---------+---------+---------+---------+---------+---------+---------+---------+---------+ | THUMB | [id number] | | Removed | | Jennifer | | Pain in | | | PAIN, | 02 | /01 | | /01 | Agsten | | thumb | | | RIGHT | (SNOMED | | | | DO | | | | | | CT) | | | | | | | | +---------+---------+---------+---------+---------+---------+---------+---------+---------+ | CONTUSI | [id number] | | Removed | | Jennifer | | Contusi | | | ON, | 6 | /05 | | /05 | Agsten | | on of | | | LEFT | (SNOMED | | | | DO | | knee | | | KNEE | CT) | | | | | | | | +---------+---------+---------+---------+---------+---------+---------+---------+---------+ | SINUSIT | [id number] | | Removed | | Jennifer | | Acute | | | IS, | 2 | /05 | | /05 | Agsten | | sinusit | | | ACUTE | (SNOMED | | | | DO | | is | | | NOS | CT) | | | | | | | | +---------+---------+---------+---------+---------+---------+---------+---------+---------+ | ALLERGI | [id number] | | Removed | | Jennifer | | Allergi | | | C | 4 | /05 | | /05 | Agsten | | c | | | RHINITI | (SNOMED | | | | DO | | rhiniti | | | S | CT) | | | | | | s | | +---------+---------+---------+---------+---------+---------+---------+---------+---------+ | ABNORMA | [id number] | | Removed | | Pinky | [...] l | | +---------+---------+---------+---------+---------+---------+---------+---------+---------+ | CYSTOCE | [id number] | | Removed | | Jennifer | [...] | | | +---------+---------+---------+---------+---------+---------+---------+---------+---------+ | SCREENI | [id number] | | Removed | | Jennifer | [...] cervix | | +---------+---------+---------+---------+---------+---------+---------+---------+---------+ | NAUSEA | [id number] | | Removed | | Jennifer | | Nausea | | | ALONE | 07 | /20 | | /20 | Agsten | | | | | | (SNOMED | | | | DO | | | | | | CT) | | | | | | | | +---------+---------+---------+---------+---------+---------+---------+---------+---------+ | PERIPHE | [id number] | | Removed | | Jennifer | | Periphe | | | RAL | 06 | / | | /20 | Agsten | | ral | | | NEUROPA | (SNOMED | | | | DO | | nerve | | | THY | CT) | | | | | | disease | | +---------+---------+---------+---------+---------+---------+---------+---------+---------+ | URI | [id number] | | Removed | | Jennifer | [...] on | | +---------+---------+---------+---------+---------+---------+---------+---------+---------+ | FOLLICU | [id number] | | Removed | | Jennifer | | Follicu | | | LITIS | 6 | /27 | | /27 | Agsten | | litis | | | | (SNOMED | | | | DO | | | | | | CT) | | | | | | | | +---------+---------+---------+---------+---------+---------+---------+---------+---------+ | OSTEOPE | [id number] | | Active | | Jennifer | | Osteope | | | LINDSAY | 00 | /30 | | /30 | Agsten | | lindsay | | | | (SNOMED | | | | DO | | | | | | CT) | | | | | | | | +---------+---------+---------+---------+---------+---------+---------+---------+---------+ | HYPOMAG | 9794267 | | Removed | | Jennifer | | Hypomag | | | NESEMIA | 04 | /30 | | /30 | Agsten | | nesemia | | | | (SNOMED | | | | DO | | | | | | CT) | | | | | | | | +---------+---------+---------+---------+---------+---------+---------+---------+---------+ | TESFAYE | 8848219 | | Inactiv | | Jennifer | | Tesfaye | | | IRMA | [id number] | / | e | /20 | [...] a | | +---------+---------+---------+---------+---------+---------+---------+---------+---------+ | DIABETE | [id number] | | Inactiv | | Jennifer | [...] led | | +---------+---------+---------+---------+---------+---------+---------+---------+---------+ | HYPERTR | 7289272 | | Active | | Jennifer | | Hypertr | | | IGLYCER | 06 | | | / | Agsten | | iglycer | | | IDEMIA | (SNOMED | | | | DO | | idemia | | | | CT) | | | | | | | | +---------+---------+---------+---------+---------+---------+---------+---------+---------+ | HYPERTE | 4874223 | | Active | | Jennifer | [...] one po | | | DIAZEPAM | [id number] | Jennifer | | MG TABS | prior to | | | | 0 | Agsten DO | | | procedure | | | | | | + + + + + + + + | GLIMEPIRID | one tablet | | | GLIMEPIRID | [id number] | Emilie | | E 2 MG [...] one tablet | | | MIRTAZAPIN | [id number] | Jerri | | E 30 MG | at night | | | E | 5 | Irlanda [place] | | TABS | before bed | | | | | | + + + + + + + + | MIRALAX | take as | | | POLYETHYLE | [id number] | Jennifer | | POWD | directed | | | NE GLYCOL | 3 | Agsten DO | | | | | | 3350 | | | + + + + + + + + | WELCHOL | one po qd | | | COLESEVELA | 6281108468 | Jennifer | | 625 MG | prn | | | M HCL | 8 | Agsten DO | | TABS | | | | | | | + + + + + + + + | GLYBURIDE | one by | | | GLYBURIDE | [id number] | Jennifer | | 5 MG TABS | mouth one | | | | 8 | Agsten DO | | | time per | | | | | | | | day | | | | | | + + + + + + + + | MIRTAZAPIN | one tablet | | | MIRTAZAPIN | [id number] | Jennifer | | E 15 MG [...] po qd | | | COLESEVELA | 9759400257 | Jennifer | | 625 MG | prn | | | M HCL | 8 | Agsten DO | | TABS | | | | | | | + + + + + + + + | GABAPENTIN | Take one | | | GABAPENTIN | [id number] | Ajay | | 300 MG | [...] one tablet | | | MIRTAZAPIN | 1589692993 | Pedro Solis | | E 15 MG | at night | | | E | 0 | | | TABS | before bed | | | | | | + + + + + + + + | GABAPENTIN | two | | | GABAPENTIN | [id number] | Jennifer | | 300 MG | capsules | | | | 5 | Agsten DO | | CAPS | twice a | | | | | | | | day | | | | | | + + + + + + + + | ATIVAN 1 | one by | | | LORAZEPAM | [id number] | Jerri | | MG TABS | mouth at | | | | 0 | Irlanda MA | | | bedtime | | | | | | + + + + + + + + | AMBIEN 10 | 02/12 by | | | ZOLPIDEM | [id number] | Jennifer | | MG TABS | mouth at | | | TARTRATE | 8 | Agsten DO | | | bedtime | | | | | | + + + + + + + + | AMBIEN 10 | 02/12 - 1 po | | | ZOLPIDEM | [id number] | Jennifer | | MG TABS | qhs | | | TARTRATE | 0 | Agsten DO | + + + + + + + + | OXYCODONE | 1-2 po q 6 | | | OXYCODONE | 7836279680 | Jennifer | | HCL 5 MG | hrs prn | | | HCL | 0 | Agsten DO | | TABS | | | | | | | + + + + + + + + | KEFLEX 500 | one po tid | | | CEPHALEXIN | 0945514059 | Jennifer | | MG CAPS | | | | | 0 | Agsten DO | + + + + + + + + | VICODIN | prn | | | HYDROCODON | [id number] | Michelle | | 5-500 MG | | | | E-ACETAMIN | 4 | Bennett | | TABS | | | | OPHEN | | | + + + + + + + + | NORTRIPTYL | 1 tab qhs | | | NORTRIPTYL | [id number] | Ajay | | INE HCL 50 | | | | INE HCL | 6 | Sylvia DPM | | MG CAPS | | | | | | | + + + + + + + + | ALENDRONAT | one po q | | | ALENDRONAT | [id number] | Jennifer | | E SODIUM | week | | | E SODIUM | 1 | Agsten DO | | 70 MG TABS | | | | | | | + + + + + + + + | BENICAR 20 | 1/2 po qd | | | OLMESARTAN | [id number] | Lewis Quevedo | | MG TABS | | | | MEDOXOMIL | 0 | RN | + + + + + + + + | LOVAZA 1 | 2 po qd | | | OMEGA-3-AC | 2930446220 | Jennifer | | GM CAPS | | | | ID ETHYL | 7 | Agsten DO | | | | | | ESTERS | | | + + + + + + + + | LUNESTA 2 | 1 po qhs | | | ESZOPICLON | 3984913162 | Michelle | | MG TABS | | | | E | 0 | Bennett | + + + + + + + + | VOLTAREN 1 | apply up | | | DICLOFENAC | 7422820387 | Jasmeet | | % GEL | to 2 gram | | | SODIUM | 1 | Aga | | | qid prn | | | | | MD | + + + + + + + + | K-DUR 10 | 1 by mouth | | | POTASSIUM | 4590851135 | Jennifer | | MEQ TBCR | twice a | | | CHLORIDE | 1 | Agsten DO | | | day | | | | | | + + + + + + + + | NEXIUM 40 | 1 po q am, | | | ESOMEPRAZO | 9376139440 | Jennifer | | MG CPDR | rarely 1 | | | LE | 0 | Agsten DO | | | po q pm | | | MAGNESIUM | | | + + + + + + + + | VOLTAREN 1 | apply up | | | DICLOFENAC | 4987045329 | Jennifer | | % GEL | to 2 grams | | | SODIUM | 1 | Agsten DO | | | qid prn | | | | | | + + + + + + + + | K-JAMARI 20 | one po qd | | | POTASSIUM | 5766650443 | Jennifer | | MEQ PACK | | | | CHLORIDE | 2 | Agsten DO | + + + + + + + + | TRAZODONE | 1/2 to 1 | | | TRAZODONE | 3774319970 | Ajay | | HCL 100 MG | by mouth | | | HCL | 3 | Sylvia DPM | | TABS | at bedtime | | | | | | + + + + + + + + | LASIX 40 | 02/12 by | | | FUROSEMIDE | 4587241508 | Jennifer | | MG TABS | mouth | | | | 1 | Agsten DO | | | every am | | | | | | + + + + + + + + | DIFLUCAN | 1 by mouth | | | FLUCONAZOL | 7104691999 | Jennifer | | 150 MG | x 1 dose | | | E | 0 | Agsten DO | | TABS | | | | | | | + + + + + + + + | FLEXERIL | one po bid | | | CYCLOBENZA | 8058023054 | Jennifer | | 10 MG TABS | prn | | | NETO HCL | 1 | Agsten DO | + + + + + + + + | BONIVA 150 | one po qd | | | IBANDRONAT | 3763322849 | Jennifer | | MG TABS | | | | E SODIUM | 0 | Agsten DO | + + + + + + + + | GEMFIBROZI | 1 po bid | | | GEMFIBROZI | 2507368710 | Jennifer | | L 600 MG | | | | L | 0 | Agsten DO | | TABS | | | | | | | + + + + + + + + | LOVAZA 1 | 2 po qd | | | OMEGA-3-AC | 0627109156 | Jasmeet | | GM CAPS | | | | ID ETHYL | 7 | Aga | | | | | | ESTERS | | MD | + + + + + + + + | ONDANSETRO | one tablet | | | ONDANSETRO | 9943257102 | Ajay | | N HCL 4 [...] take as | | | BISACODYL | 3906354222 | Jennifer | | MG TBEC | directed | | | | 3 | Agsten DO | + + + + + + + + | NEXIUM 40 | 1 po q am, | | | ESOMEPRAZO | 0310397461 | Jasmeet | | MG CPDR | rarely 1 | | | LE | 0 | Aga | | | po q pm | | | MAGNESIUM | | MD | + + + + + + + + | JUAN CARLOS | one po qd | | | FEXOFENADI | 6321047440 | Jasmeet | | 180 MG | prn | | | NE HCL | 2 | Aga | | TABS | | | | | | MD | + + + + + + + + | AMBIEN 10 | 02/12 - 1 po | | | ZOLPIDEM | 1309168774 | Jennifer | | MG TABS | qhs | | | TARTRATE | 0 | Agsten DO | + + + + + + + + | PRILOSEC | one po bid | | | OMEPRAZOLE | 9095485816 | Jasmeet | | OTC 20 MG | | | | MAGNESIUM | 0 | Aga | | TBEC | | | | | | MD | + + + + + + + + | METOCLOPRA | take as | | | METOCLOPRA | 2399058382 | Jennifer | | MIDE HCL | directed | | | MIDE HCL | 2 | Agsten DO | | 10 MG TABS | | | | | | | + + + + + + + + | GLYBURIDE | 1 po qd | | | GLYBURIDE | 8694023692 | Jennifer | | 5 MG TABS | prn | | | | 6 | Agsten DO | + + + + + + + + | MECLIZINE | 1 by mouth | | | MECLIZINE | 4057413457 | Jennifer | | HCL 25 MG | every 6 | | | HCL | 0 | Agsten DO | | TABS | hrs as | | | | | | | | needed | | | | | | + + + + + + + + | GLYBURIDE | 1 po qd | | | GLYBURIDE | 4415339583 | Michelle | | 5 MG TABS | | | | | 6 | Bennett | + + + + + + + + | GEMFIBROZI | 1 po bid | | | GEMFIBROZI | 7120704853 | Michelle | | L 600 MG [...] po qd | | | FEXOFENADI | 0014840188 | Jennifer | | 180 MG | prn | | | NE HCL | 2 | Agsten DO | | TABS | | | | | | | + + + + + + + + | DIOVAN 160 | 1 po qd | | | IOANA | 2687533131 | Pinky Linda | | MG TABS | | | | | 0 | MA | + + + + + + + + | ERYTHROMYC | 02/14 inch | | | ERYTHROMYC | 8951408597 | Jennifer | | IN 5 MG/GM [...] + + + + + + | ROGEA 2 | 1 po qhs | | | ESZOPICLON | 2062132472 | Jennifer | | MG TABS | | | | E | 0 | Agsten DO | + + + + + + + + | AMBIEN 10 | 02/12 - 1 po | | | ZOLPIDEM | 4867433133 | Lewis Sae | | MG TABS | qhs | | | TARTRATE | 5 | RN | + + + + + + + + | TRAZODONE | 02/12 - 1 po | | | TRAZODONE | 2082989417 | Lewis Sae | | HCL 100 MG | qhs | | | HCL | 0 | RN | | TABS | | | | | | | + + + + + + + + | GLYBURIDE | 1 po qd | | | GLYBURIDE | 0283280338 | Jennifer | | 5 MG TABS | prn | | | | 6 | Agsten DO | + + + + + + + + | HYCODAN | 1-2 tsp | | | HYDROCODON | 8853394710 | Jennifer | | 5-1.5 | q4-6 h prn | | | E-HOMATROP | 6 | Agsten DO | | MG/5ML | cough | | | INE | | | | SYRP | | | | | | | + + + + + + + + | FLEXERIL | one po bid | | | CYCLOBENZA | 6164670058 | Jennifer | | 10 MG TABS [...] po qd | | | LANSOPRAZO | 1956007735 | Jennifer | | 30 MG CPDR | | | | LE | 5 | Agsten DO | + + + + + + + + | HYCOTUSS | 1-2 tsp q | | | HYDROCODON | 6516595639 | Jennifer | | EXPECTORAN | 4-6 [...] q 6 | | | PROMETHAZI | 5302783960 | Jasmeet | | NE HCL 25 | hr prn | | | NE HCL | 4 | Aga | | MG TABS | | | | | | MD | + + + + + + + + | IBU 600 MG | one po tid | | | IBUPROFEN | 6808896532 | Jasmeet | | TABS | prn | | | | 1 | Aga | | | | | | | | MD | + + + + + + + + | VALIUM 5 | 1 by mouth | | | DIAZEPAM | 2334848022 | Emilie | | MG TABS | prior to | | | | 6 | Brown CCMA | | | procedure | | | | | | + + + + + + + + | DYAZIDE | 1 by mouth | | | TRIAMTEREN | 3752848900 | Jennifer | | 37.5-25 MG | every day | | | E-HCTZ | 0 | Agsten DO | | CAPS | | | | | | | + + + + + + + + | NEXIUM 40 | 1 po qd | | | ESOMEPRAZO | 1521395783 | Michelle | | MG CPDR | | | | LE | 2 | Bennett | | | | | | MAGNESIUM | | | + + + + + + + + | AMITRIPTYL | 1-2 by | | | AMITRIPTYL | 5507414860 | Jennifer | | INE HCL 25 [...] | one | | | TEMAZEPAM | 2773697592 | Jennifer | | 15 MG CAPS | capsule | | | | 7 | Agsten DO | | | once a day | | | | | | + + + + + + + + | MORPHINE | one po bid | | | MORPHINE | 7724931702 | Jennifer | | SULFATE CR | prn | | | SULFATE | 1 | Agsten DO | | 15 MG | | | | | | | | TB12 | | | | | | | + + + + + + + + | CYCLOBENZA | one tablet | | | CYCLOBENZA | 5878260117 | Corie | | NETO HCL | [...] po x | | | AZITHROMYC | 3676418895 | Jennifer | | 250 MG | one day, | | | IN | 3 | Agsten DO | | TABS | one po x 4 | | | | | | | | days | | | | | | + + + + + + + + | IBU 800 MG | one po tid | | | IBUPROFEN | 9862671844 | Jennifer | | TABS | | | | | 1 | Agsten DO | + + + + + + + + | DOXEPIN | one | | | DOXEPIN | 4109320569 | Jennifer | | HCL 10 MG | capsule at | | | HCL | 0 | Reji DO | | CAPS | night | | | | | | | | before bed | | | | | | + + + + + + + + | K-JAMARI 20 | one po qd | | | POTASSIUM | 6383697604 | Jennifer | | MEQ PACK | | | | CHLORIDE | 2 | Agsten DO | + + + + + + + + | ALPRAZOLAM | one tablet | | | ALPRAZOLAM | 6283555178 | Domi | | 0.25 MG | at night | | | | 0 | [facility] | | TABS | before bed | | | | | tienne | | | as needed | | | | | CCMA | + + + + + + + + | TIZANIDINE | one tablet | | | TIZANIDINE | 9526160605 | Jennifer | | HCL 4 MG [...] one tablet | | | TIZANIDINE | 4954721834 | Jennifer | | HCL 4 MG [...] po qd | | | VALSARTAN | 4030373196 | Urmila | | MG TABS | [...] /2 by | | | ZOLPIDEM | 7057479202 | Lewis Quevedo | | MG TABS | mouth at | | | TARTRATE | 8 | RN | | | bedtime | | | | | | + + + + + + + + | GLYBURIDE | one by | | | GLYBURIDE | 9630979330 | Jennifer | | 5 MG TABS | mouth one | | | | 8 | Agsten DO | | | time per | | | | | | | | day | | | | | | + + + + + + + + | SLOW-MAG | one po qd | | | MAGNESIUM | 4469719036 | Jennifer | | 64 MG TBCR | | | | CHLORIDE | 0 | Agsten DO | + + + + + + + + | METANX | 1 PO BID | | | L-METHYLFO | 3534418447 | Leora | | [phone] | | | | LATE-ALGAE | 0 | Hardenbroo | | -35 MG | | | | -B12-B6 | | k MA | | CAPS | | | | | | | + + + + + + + + | BACTRIM DS | one po bid | | | SULFAMETHO | 5121224552 | Aminata | | 800-160 | | | | XAZOLE-TRI | 1 | Ferney | | MG TABS | | | | METHOPRIM | | | + + + + + + + + | PENNSAID | 40 drops 4 | | | DICLOFENAC | 2620459185 | Jennifer | | 1.5 % SOLN [...] one by | | | METFORMIN | 9348988809 | Jennifer | | HCL 500 MG | mouth two | | | HCL | 5 | Agsten DO | | TABS | times per | | | | | | | | day | | | | | | + + + + + + + + | HYDROCODON | one tablet | | | HYDROCODON | 1084880644 | Jennifer | | E-ACETAMIN | three | | | E-ACETAMIN | 0 | Agsten DO | | OPHEN | times a | | | OPHEN | | | | 10-325 MG | day | | | | | | | TABS | | | | | | | + + + + + + + + | NORTRIPTYL | 1-2 | | | NORTRIPTYL | 3751735708 | Jennifer | | INE HCL 25 | capsules | | | INE HCL | 3 | Agsten DO | | MG CAPS | at night | | | | | | | | before bed | | | | | | + + + + + + + + | PROTONIX | one by | | | PANTOPRAZO | 6096857778 | Jennifer | | 40 MG TBEC | mouth one | | | LE SODIUM | 0 | Agsten DO | | | time per | | | | | | | | day | | | | | | + + + + + + + + | ULTRAM 50 | one by | | | TRAMADOL | 5160976719 | Jennifer | | MG TABS | [...] 4 capsules | | | GABAPENTIN | 0432742962 | Ajay | | 300 MG | daily | | | | 5 | Sylvia DPM | | CAPS | | | | | | | + + + + + + + + | MIRTAZAPIN | one tablet | | | MIRTAZAPIN | 5414934156 | Jennifer | | E 15 MG | once a | | | E | 0 | Agsten DO | | TABS | day before | | | | | | | | bed | | | | | | + + + + + + + + | LOVAZA 1 | 2 one time | | | OMEGA-3-AC | 8538326131 | Jennifer | | GM CAPS | per day | | | ID ETHYL | 8 | Agsten DO | | | | | | ESTERS | | | + + + + + + + + | FUROSEMIDE | one tablet | | | FUROSEMIDE | 9094550657 | Jennifer | | 20 MG | once a | | | | 0 | Agsten DO | | TABS | day | | | | | | + + + + + + + + | DICLOFENAC | apply 2 | | | DICLOFENAC | 4121888545 | Jennifer | | SODIUM 1 | [...] one tablet | | | FELODIPINE | 9888626116 | Jennifer | | ER 10 MG | once a | | | | 5 | Agsten DO | | [id number] | day | | | | | | + + + + + + + + | IBUPROFEN | one tablet | | | IBUPROFEN | 0441770258 | Jennifer | | 800 MG | [...] one tablet | | | LOSARTAN | 5540803408 | Jennifer | | POTASSIUM | once a | | | POTASSIUM | 0 | Agsten DO | | 50 MG TABS | day | | | | | | + + + + + + + + | TIZANIDINE | one tablet | | | TIZANIDINE | 0603685023 | Jennifer | | HCL 4 MG [...] two by | | | POTASSIUM | 3816542777 | Jennifer | | 10 10 MEQ | mouth one | | | CHLORIDE | 0 | Agsten DO | | CR-TABS | time per | | | | | | | | day | | | | | | + + + + + + + + | GABAPENTIN | 1 capsule | | | GABAPENTIN | 7892439315 | Ajay | | 300 MG | two times | | | | 0 | Sylvia DPM | | CAPS | a day | | | | | | + + + + + + + + | LANTUS | 10 units | | | INSULIN | 3713423433 | Jennifer | | SOLOSTAR | at night | | | GLARGINE | 5 | Agsten DO | | 100 | | | | | | | | UNIT/ML | | | | | | | | SOPN | | | | | | | + + + + + + + + | MIRTAZAPIN | one tablet | | | MIRTAZAPIN | 8313710164 | Jennifer | | E 15 MG | at night | | | E | 0 | Agsten DO | | TABS | before bed | | | | | | + + + + + + + + | KLOR-CON | one by | | | POTASSIUM | 4663899292 | Jennifer | | 10 10 MEQ | mouth one | | | CHLORIDE | 0 | Agsten DO | | CR-TABS | time per | | | | | | | | day | | | | | | + + + + + + + + | GLIMEPIRID | one tablet | | | GLIMEPIRID | 0906789632 | Jennifer | | E 2 MG | once a | | | E | 3 | Agsten DO | | TABS | day | | | | | | + + + + + + + + | ALPRAZOLAM | one tablet | | | ALPRAZOLAM | 8130210186 | Jennifer | | 0.25 MG | at night | | | | 0 | Agsten DO | | TABS | before bed | | | | | | | | as needed | | | | | | + + + + + + + + | ALPRAZOLAM | one tablet | | | ALPRAZOLAM | 0980980578 | Jennifer | | 0.5 MG | at night | | | | 0 | Agsten DO | | TABS | before bed | | | | | | + + + + + + + + | VALIUM 5 | 1 by mouth | | | DIAZEPAM | 2422354656 | Jennifer | | MG TABS | prior to | | | | 6 | Agsten DO | | | procedure | | | | | | + + + + + + + + | HYDROCODON | one tablet | | | HYDROCODON | 1661448987 | Jennifer | | E-ACETAMIN | three [...] one tablet | | | ALPRAZOLAM | 7129745429 | Jennifer | | 1 MG TABS [...] | one | | | DOXEPIN | 4311110207 | Jennifer | | HCL 10 MG | capsule at | | | HCL | 0 | Agsten DO | | CAPS | night | | | | | | | | before bed | | | | | | + + + + + + + + | TRAZODONE | 1/2 to 1 | | | TRAZODONE | 1771938510 | Jennifer | | HCL 100 MG [...] q hs | | | GABAPENTIN | 8339436685 | Ajay | | 300 MG | | | | | 0 | Sylvia DPM | | CAPS | | | | | | | + + + + + + + + | ATIVAN 1 | one by | | | LORAZEPAM | 7469750796 | Jennifer | | MG TABS | mouth at | | | | 0 | Agsten DO | | | bedtime | | | | | | + + + + + + + + | MIRTAZAPIN | one tablet | | | MIRTAZAPIN | 5244077570 | Jerri | | E 30 MG | at night | | | E | 5 | [place] | | TABS | before bed | | | | | | + + + + + + + + | NORTRIPTYL | 1 tab qhs | | | NORTRIPTYL | 4257785065 | Ajay | | INE HCL 50 | | | | INE HCL | 6 | Sylvia DPM | | MG CAPS | | | | | | | + + + + + + + + | METANX | 1 PO BID | | | L-METHYLFO | 7925461702 | Ajay | | [phone] | | | | LATE-ALGAE | 0 | Sylvia DPM | | -35 MG | | | | -B12-B6 | | | | CAPS | | | | | | | + + + + + + + + | ONDANSETRO | one tablet | | | ONDANSETRO | 2100342644 | Jennifer | | N HCL 4 [...] one tablet | | | MIRTAZAPIN | 2168633780 | Jennifer | | E 15 MG | at night | | | E | 3 | Agsten DO | | TABS | before bed | | | | | | + + + + + + + + | DIFLUCAN | 1 by mouth | | | FLUCONAZOL | 6234684157 | Jennifer | | 150 MG | x 1 dose | | | E | 0 | Agsten DO | | TABS | | | | | | | + + + + + + + + | TEMAZEPAM | one | | | TEMAZEPAM | 0659957796 | Jennifer | | 15 MG CAPS | capsule | | | | 7 | Agsten DO | | | once a day | | | | | | + + + + + + + + | TIZANIDINE | one tablet | | | TIZANIDINE | 8525172330 | Jennifer | | HCL 4 MG [...] one tablet | | | CYCLOBENZA | 8402971096 | Jennifer | | NETO HCL | [...] drops 4 | | | DICLOFENAC | 2424921569 | Jennifer | | 1.5 % SOLN [...] one tablet | | | HYDROCODON | 9309858579 | Jennifer | | E-ACETAMIN | three [...] one by | | | LOSARTAN | 0097602701 | Jennifer | | POTASSIUM | mouth one | | | POTASSIUM | 2 | Agsten DO | | 25 MG TABS | time per | | | | | | | | day | | | | | | + + + + + + + + | VICODIN ES | one by | | | HYDROCODON | 2885712102 | Jennifer | | 7.5-750 | mouth [...] 1/2 by | | | FUROSEMIDE | 3011428998 | Jennifer | | 40 MG | mouth one | | | | 4 | Agsten DO | | TABS | time per | | | | | | | | day | | | | | | + + + + + + + + | AMITRIPTYL | 1-2 by | | | AMITRIPTYL | 7906294500 | Jennifer | | INE HCL 25 | mouth | | | INE HCL | 1 | Agsten DO | | MG TABS | before bed | | | | | | + + + + + + + + | LOVAZA 1 | 4 one time | | | OMEGA-3-AC | 4033396434 | Jennifer | | GM CAPS | per day | | | ID ETHYL | 3 | Agsten DO | | | | | | ESTERS | | | + + + + + + + + | PENNSAID | 4 grams | | | DICLOFENAC | 1281437171 | Jennifer | | 1.5 % SOLN | four times | | | SODIUM | 5 | Agsten DO | | | a day to | | | | | | | | joint prn. | | | | | | + + + + + + + + | MECLIZINE | 1 by mouth | | | MECLIZINE | 7025455739 | Jennifer | | HCL 25 MG | every 6 | | | HCL | 0 | Agsten DO | | TABS | hrs as | | | | | | | | needed | | | | | | + + + + + + + + | AMBIEN 10 | one by | | | ZOLPIDEM | 4475126479 | Jennifer | | MG TABS | mouth at | | | TARTRATE | 8 | Agsten DO | | | bedtime | | | | | | + + + + + + + + | METFORMIN | one po bid | | | METFORMIN | 3433240650 | Jennifer | | HCL 500 MG | | | | HCL | 1 | Agsten DO | | TABS | | | | | | | + + + + + + + + | PROTONIX | one po qd | | | PANTOPRAZO | 5480892450 | Jennifer | | 40 MG TBEC | | | | LE SODIUM | 0 | Agsten DO | + + + + + + + + | KLOR-CON | one po qd | | | POTASSIUM | 6674144140 | Jennifer | | 10 10 MEQ | | | | CHLORIDE | 1 | Agsten DO | | CR-TABS | | | | | | | + + + + + + + + | ATIVAN 1 | one po qhs | | | LORAZEPAM | 0091431047 | Jennifer | | MG TABS | | | | | 0 | Agsten DO | + + + + + + + + | AMBIEN 10 | one po qhs | | | ZOLPIDEM | 5084689486 | Jennifer | | MG TABS | | | | TARTRATE | 8 | Agsten DO | + + + + + + + + | LOVAZA 1 | 4 po qd | | | OMEGA-3-AC | 6541139541 | Jennifer | | GM CAPS | [...] po tid | | | HYDROCODON | 7333571868 | Jennifer | | 7.5-750 | prn | | | E-ACETAMIN | 4 | Agsten DO | | MG TABS | | | | OPHEN | | | + + + + + + + + | DULCOLAX 5 | take as | | | BISACODYL | 0649458547 | Jasmeet | | MG TBEC | directed | | | | 3 | Aga | | | | | | | | MD | + + + + + + + + | METOCLOPRA | take as | | | METOCLOPRA | 9757514530 | Jasmeet | | MIDE HCL | directed | | | MIDE HCL | 2 | Aga | | 10 MG TABS | | | | | | MD | + + + + + + + + | MIRALAX | take as | | | POLYETHYLE | 7173975677 | Jasmeet | | POWD | directed | | | NE GLYCOL | 3 | Aga | | | | | | 3350 | | MD | + + + + + + + + | VOLTAREN 1 | apply up | | | DICLOFENAC | 0615809917 | Jennifer | | % GEL | to 2 grams | | | SODIUM | 1 | Agsten DO | | | qid prn | | | | | | + + + + + + + + | ULTRAM 50 | one po tid | | | TRAMADOL | 9559157093 | Jennifer | | MG TABS | prn | | | HCL | 6 | Agsten DO | + + + + + + + + | FUROSEMIDE | 1/2 po qd | | | FUROSEMIDE | 0334647790 | Jennifer | | 40 MG | | | | | 2 | Agsten DO | | TABS | | | | | | | + + + + + + + + | IBUPROFEN | one po tid | | | IBUPROFEN | 2872294364 | Jennifer | | 800 MG | prn | | | | 0 | Agsten DO | | TABS | | | | | | | + + + + + + + + | GLYBURIDE | one po qd | | | GLYBURIDE | 9804568911 | Jennifer | | 5 MG TABS | | | | | 8 | Agsten DO | + + + + + + + + | LOSARTAN | one po qd | | | LOSARTAN | 0007333169 | Jennifer | | POTASSIUM | | | | POTASSIUM | 0 | Agsten DO | | 25 MG TABS | | | | | | | + + + + + + + + | NEXIUM 40 | one po qd | | | ESOMEPRAZO | 7858101436 | Jennifer | | MG CPDR | | | | LE | 3 | Agsten DO | | | | | | MAGNESIUM | | | + + + + + + + + | ERYTHROMYC | 1/4 inch | | | ERYTHROMYC | 3937169844 | Abby | | IN 5 MG/GM [...] 1/2po qd | | | FUROSEMIDE | 6595696872 | Jennifer | | MG TABS | | | | | 0 | Agsten DO | + + + + + + + + | AMBIEN 10 | 02/12 - 1 po | | | ZOLPIDEM | 8493683747 | Jennifer | | MG TABS | qhs. BMN | | | TARTRATE | 8 | Agsten DO | + + + + + + + + | PREVACID | one po qd | | | LANSOPRAZO | 4767873867 | Jennifer | | 30 MG CPDR | | | | LE | 5 | Agsten DO | + + + + + + + + | GLYBURIDE | one po q | | | GLYBURIDE | 8768750091 | Jennifer | | 2.5 MG | am | | | | 0 | Agsten DO | | TABS | | | | | | | + + + + + + + + | AMBIEN 10 | 02/12 - po | | | ZOLPIDEM | 8925069934 | Jennifer | | MG TABS | qhs | | | TARTRATE | 5 | Agsten DO | + + + + + + + + | BENICAR 20 | 02/12 po qd | | | OLMESARTAN | 6385901672 | Jennifer | | MG TABS | | | | MEDOXOMIL | 0 | Agsten DO | + + + + + + + + | TRAZODONE | 02/12 - po | | | TRAZODONE | 3123930882 | Jennifer | | HCL 100 MG | qhs | | | HCL | 0 | Agsten DO | | TABS | | | | | | | + + + + + + + + | AMBIEN 10 | /2 - 1 po | | | ZOLPIDEM | 2077767165 | Jennifer | | MG TABS | qhs | | | TARTRATE | 0 | Agsten DO | + + + + + + + + | LASIX 40 | 02/14 by | | | FUROSEMIDE | 4934812982 | Katelyn | | MG TABS | mouth | | | | 0 | [employer] | | | every am | | | | | | | | prn | | | | | | + + + + + + + + | OXYCODONE | 1-2 po q 6 | | | OXYCODONE | 0122789558 | Jennifer | | HCL 5 MG | hrs prn | | | HCL | 0 | Agsten DO | | TABS | | | | | | | + + + + + + + + | ALENDRONAT | one po q | | | ALENDRONAT | 0847990200 | Jennifer | | E SODIUM | week | | | E SODIUM | 1 | Agsten DO | | 70 MG TABS | | | | | | | + + + + + + + + | VALIUM 5 | one po | | | DIAZEPAM | 0156035666 | Jennifer | | MG TABS | prior to | | | | 0 | Agsten DO | | | procedure | | | | | | + + + + + + + + | BENICAR 20 | one po qd | | | OLMESARTAN | [id number] | Jennifer | | MG TABS | | | | MEDOXOMIL | 2 | Agsten DO | + + + + + + + + | IBU 600 MG | one po tid | | | IBUPROFEN | 4439714350 | Jennifer | | TABS | prn | | | | 1 | Agsten DO | + + + + + + + + | VOLTAREN 1 | apply up | | | DICLOFENAC | [id number] | Katelyn | | % GEL | to 2 gram | | | SODIUM | 1 | McClish SALVAGE CUTTER | | | qid prn | | | | | | + + + + + + + + | ZITHROMAX | Two po x | | | AZITHROMYC | [id number] | [place] | | 250 MG | one day, | | | IN | 3 | Agsten DO | | TABS | one po x 4 | | | | | | | | days | | | | | | + + + + + + + + | BACTRIM DS | one po bid | | | SULFAMETHO | 1108517962 | Jennifer | | 800-160 | | | | XAZOLE-TRI | 1 | Agsten DO | | MG TABS | | | | METHOPRIM | | | + + + + + + + + | HYCODAN | 1-2 tsp | | | HYDROCODON | 8629118134 | Jennifer | | 5-1.5 | q4-6 h prn | | | E-HOMATROP | 6 | Agsten DO | | MG/5ML | cough | | | INE | | | | SYRP | | | | | | | + + + + + + + + | PRILOSEC | one po bid | | | OMEPRAZOLE | 4398920706 | Jennifer | | OTC 20 MG | | | | MAGNESIUM | 0 | Agsten DO | | TBEC | | | | | | | + + + + + + + + | VICODIN ES | one po tid | | | HYDROCODON | 9153166967 | Jennifer | | 7.5-750 | | | | E-ACETAMIN | 4 | Agsten DO | | MG TABS | | | | OPHEN | | | + + + + + + + + | JUAN CARLOS | one po qd | | | FEXOFENADI | 8978683452 | Jennifer | | 180 MG | | | | NE HCL | 2 | Agsten DO | | TABS | | | | | | | + + + + + + + + | AMBIEN CR | 1 po qhs | | | ZOLPIDEM | 8012566503 | Jennifer | | 12.5 MG | | | | TARTRATE | 4 | Agsten DO | | CR-TABS | | | | | | | + + + + + + + + | LASIX 40 | 1/2 by | | | FUROSEMIDE | 2668688510 | Jennifer | | MG TABS | mouth | | | | 1 | Agsten DO | | | every am | | | | | | | | prn | | | | | | + + + + + + + + | NEXIUM 40 | 1 po bid | | | ESOMEPRAZO | 5771809679 | Jennifer | | MG CPDR | | | | LE | 2 | Agsten DO | | | | | | MAGNESIUM | | | + + + + + + + + | VICODIN | one po tid | | | HYDROCODON | 3854230624 | Jennifer | | 5-500 MG | [...] q 6 | | | PROMETHAZI | 7626697387 | Jennifer | | NE HCL 25 | hr prn | | | NE HCL | 4 | Agsten DO | | MG TABS | | | | | | | + + + + + + + + | HYCOTUSS | 1-2 tsp q | | | HYDROCODON | 1611362581 | Jennifer | | EXPECTORAN | 4-6 [...] po q | | | IBANDRONAT | 5188900571 | Jennifer | | MG TABS | month | | | E SODIUM | 0 | Agsten DO | + + + + + + + + | KEFLEX 500 | one po tid | | | CEPHALEXIN | 7157124349 | Jennifer | | MG CAPS | | | | | 0 | Agsten DO | + + + + + + + + | PLENDIL 10 | 1 po qd | | | FELODIPINE | 2732194636 | Jennifer | | MG TB24 | | | | | 1 | Agsten DO | + + + + + + + + | SLOW-MAG | one po qd | | | MAGNESIUM | 1381300805 | Jennifer | | 64 MG TBCR | | | | CHLORIDE | 0 | Agsten DO | + + + + + + + + | K-JAMARI 20 | one po qd | | | POTASSIUM | 3262671351 | Jennifer | | MEQ PACK | | | | CHLORIDE | 2 | Agsten DO | + + + + + + + + | IBU 800 MG | one po tid | | | IBUPROFEN | 4402833836 | Jennifer | | TABS | | | | | 1 | Agsten DO | + + + + + + + + | LOVAZA 1 | 2 po bid | | | OMEGA-3-AC | 6149858862 | Jennifer | | GM CAPS | | | | ID ETHYL | 7 | Agsten DO | | | | | | ESTERS | | | + + + + + + + + | AMBIEN CR | one po qd | | | ZOLPIDEM | 7707397048 | Jennifer | | 12.5 MG | [...] by mouth | | | TRIAMTEREN | 3070839281 | Jennifer | | 37.5-25 MG | every day | | | E-HCTZ | 0 | Agsten DO | | CAPS | | | | | | | + + + + + + + + | LASIX 40 | 1 by mouth | | | FUROSEMIDE | 0907015166 | Jennifer | | MG TABS | every am | | | | 1 | Agsten DO | + + + + + + + + | BENICAR 20 | one po qd | | | OLMESARTAN | 3603509151 | Jennifer | | MG TABS | | | | MEDOXOMIL | 0 | Agsten DO | + + + + + + + + | K-DUR 10 | 2 po qd | | | POTASSIUM | 6878607659 | Jennifer | | MEQ TBCR | | | | CHLORIDE | 1 | Agsten DO | + + + + + + + + | OMACOR 1 | Two po bid | | | OMEGA-3-AC | 7262417657 | Jennifer | | GM CAPS | | | | ID ETHYL | 7 | Agsten DO | | | | | | ESTERS | | | + + + + + + + + | MORPHINE | one po bid | | | MORPHINE | 6703363624 | Jennifer | | SULFATE CR | [...] in | | Critical | | Jennifer Harristen | | YDROCHLOROTH | the throat, | [...] | | | | | Active | [place] | + + + + + + + Results +------+------+-------+------+-------+------+ + | Date | Name | Value | Unit | Range | Flag | Descriptio | | | | | | | | n | +------+------+-------+------+-------+------+ + + + | Podiatry Visit: Followup [...] +--------+ +---+---+---+ + | | [facility]_RR | [id number] | | | B | e-scripts | | | | [id number]`Pant | | | | messenger | | [...] | | | | | | | [place]*` | | | | | | | | [phone] | | | | | | | | `[phone] | | | | | | | [...] +--------+ +---+---+---+ + | | [facility]_RR | [phone] | | | B | e-scripts | | | | [phone]`Mirt | | | | messenger | | [...] | | | | | | | `[place] | | | | | | | | [place] - | | | | | | | | | | | | | | | | [place]*` | | | | | | | | [phone] | | | | | | | | `[phone] | | | | | | | [...] +--------+ +---+---+---+ + | | ESM_RR | [id number] | | | B | e-scripts | | | | [id number]`Pant | | | | messenger | | [...] | | | | | | | [id number] | | | | | | | | `[id number] | | | | | | | [...] +--------+ +---+---+---+ + | | ESM_RR | [id number] | | | B | e-scripts | | | | 40402`Mirt | | | | messenger | | [...] | | | | | | | [id number] | | | | | | | | `[id number] | | | | | | | [...] +--------+ +---+---+---+ + | | ESM_RR | [id number] | | | B | e-scripts | | | | 61810`Mirt | | | | messenger | | [...] | | | | | | | `Anita | | | | | | | | s [place] On - | | | | | | | | | | | | | | | | [place]*` | | | | | | | | [phone] | | | | | | | | `[phone] | | | | | | | [...] Medical Marleen Erwin, | | | | [place], [address] | | | | | + + + + | Referral | | Echocardiogram - 2D | | | | Complete | | | | Latasha Brunner, [address] | | | | [place], | | | | [place], [address] | | | | | + + + + | Referral | | Podiatry Consult | | | | QUENTIN Perez, | | | | [address] | | | | [address], [place], [address] | | | | | | | | | + + + + | Referral | | Ophthalmology Consult | | | | Abby Springer, | | | | [address], [place], | | | | [place], [address] | | | | | + + + + | Referral | | Ophthalmology Consult | | | | Abby Springer, | | | | [address], [place], | | | | [place], [address] | | | | | + + + + | Referral | | Orthopedic Consult | | | | MD Ap Nicole, | | | | [address] , | | | | [place], [address] | | | | | + + + + | Referral | | Gynecology Consult | | | | MD Destiny Levi, | | | | [address] | | | | [address], [place], [address] | | | | | | | | | + + + + | Referral | | Complete Eye Exam/ | | | | Treatment | | | | MD Paul Ramirez, [address] | | | | [place], | | | | [place], [address] | | | | | + + [...] + | Pending order | | MR [id number] Con | + + + + | [...] | + + + + + | [id number] | Pulse Exam of Foot | | | + + + + + | [id number] | Visual Exam of Foot | | | + + + + + | [id number] | Sensory Exam of | | | | | Foot | | | + + + + + | [id number]-[id number] | Pulse Exam of Foot | | | + + + + + | Tomasz BOSWELL 62010 | Microalbumin, | | | | | Random Urine | | | + + + + + | GLYCO HGB 69663 | Glyco Hemoglobin, | | | | | A1C | | | + + + + + | RISK 80370 | Lipid Profile | | | + + + + + | CHEM PROF | Comprehensive | | | | | Metabolic Panel | | | + + + + + | SCT- | Medication | | | | [id number] | Reconcilliation | | | + + + + + | SCT-[id number] | Visual Exam of Foot | | | + + + + + | SCT-[id number] | Sensory Exam of | | | | | Foot | | | + + + + + | SCT- | Medication | | | | [id number] | Reconcilliation | | | + + + + + | CREAT 03868 | Creatinine | | | + + + + + | BUN 44347 | BUN | | | + + + + + | SCT- | Medication | | | | [id number] | Reconcilliation | | | + + + + + | 95824 | MR [id number] | | | | | Con | | | + + + + + | CPT-59676 | XR Pelvis-1-2V | | | + + + + + | SCT- | Medication | | | | [id number] | Reconcilliation | | | + + + + + | 71149 | XR Hip 2-3V-Left | | | + + + + + | CPT-G0477 | Urine Tox, multiple | | | | | drug class (G0477) | | | + + + + + | U FABIO RAN 16000 | Microalbumin, | | | | | Random Urine | | | + + + + + | GLYCO HGB 19798 | Glyco Hemoglobin, | | | | | A1C | | | + + + + + | RISK 11602 | Lipid Profile | | | + + + + + | CPT-20104 | Echocardiogram - 2D | | | | | Complete | | | + + + + + | SCT- | Medication | | | | [id number] | Reconcilliation | | | + + + + + | RISK 65536 | Lipid Profile | | | + + + + + | U FABIO RAN 30344 | Microalbumin, | | | | | Random Urine | | | + + + + + | GLYCO HGB 65767 | Glyco Hemoglobin, | | | | | A1C | | | + + + + + | CHEM PROF | Comprehensive | | | | | Metabolic Panel | | | + + + + + | HGB A1C 36326 | HgbA1C | | | + + + + + | UA 81432 | Urinalysis | | | + + + + + | M JUNIN ROU 60517 | Culture Urine | | | + + + + + | UA CULT IF MULTIPLE | Urinalysis Culture | | | | | If Indicat | | | + + + + + | CPT-92696 | UA Dipstick | | | | | (Office) | | | + + + + + | [id number] | [Recorded for CQM] | | | | | Documentation of | | | | | current medications | | | | | (procedure) | | | + + + + + | [id number] | [Recorded for CQM] | | | | | Pedal pulse taking | | | | | (procedure) | | | + + + + + | CPT-76561 | Adm 1st Inj No | | | | | counseling or >18 | | | + + + + + | [id number] | [Recorded for CQM] | | | | | Documentation of | | | | | current medications | | | | | (procedure) | | | + + + + + | [id number] | [Recorded for CQM] | | | | | Examination of | | | | | retina (procedure) | | | + + + + + | 529354213 | [Recorded for CQM] | | | | | Never smoker | | | + + + + + | [id number] | [Recorded for CQM] | | | | | Never smoked | | | | | tobacco (finding) | | | + + + + + | 373352609 | [Recorded for CQM] | | | | | Tobacco use and | | | | | exposure | | | + + + + + | CPT-99355 | Fluvirin /Fluzone | | | | | >3 | | | + + + + + | 416998430 | [Recorded for CQM] | | | | | Monofilament foot | | | | | sensation test | | | | | (procedure) | | | + + + + + | 53254812 | [Recorded for CQM] | | | | | Pedal pulse taking | | | | | (procedure) | | | + + + + + | [id number] | [Recorded for CQM] | | | | | Documentation of | | | | | current medications | | | | | (procedure) | | | + + + + + | [id number] | [Recorded for CQM] | | | | | Diabetic foot | | | | | examination | | | | | (regime/therapy) | | | + + + + + | 289128943 | [Recorded for CQM] | | | | | Details of drug | | | | | misuse behavior | | | + + + + + | 843289811 | [Recorded for CQM] | | | | | Health-related | | | | | behavior | | | + + + + + | 094528556 | [Recorded for CQM] | | | | | Alcohol intake | | | + + + + + | CPT-81521 | Urine Tox, multiple | | | | | drug classes | | | + + + + + | [id number] | [Recorded for CQM] | | | | | Documentation of | | | | | current medications | | | | | (procedure) | | | + + + + + | GLYCO HGB 92724 | HgbA1C | | | + + + + + | CHEM PROF | Comprehensive | | | | | Metabolic Panel | | | + + + + + | Tomasz BOSWELL 52414 | Microalbumin, | | | | | Random Urine | | | + + + + + | RISK 48502 | Lipid Profile | | | + + + + + | 83794 | MX Dexa Scan-Body | | | + + + + + | CPT-01970 | Venipuncture | | | + + + + + | 21688884 | [Recorded for CQM] | | | | | Pedal pulse taking | | | | | (procedure) | | | + + + + + | [id number] | [Recorded for CQM] | | | | | Documentation of | | | | | current medications | | | | | (procedure) | | | + + + + + | [id number] | [Recorded for CQM] | | | | | Diabetic foot | | | | | examination | | | | | (regime/therapy) | | | + + + + + | 210368317 | [Recorded for CQM] | | | | | Monofilament foot | | | | | sensation test | | | | | (procedure) | | | + + + + + | 06199 G0202 | MX Mammo Dig | | | | | Screen-Bilat | | | + + + + + | GLYCO HGB 73528 | HgbA1C | | | + + + + + | CPT-09632 | Venipuncture | | | + + + + + | CPT-94628 | Adm 1st Inj No | | | | | counseling or >18 | | | + + + + + | PAP SS WO G0145 | PAP SURE Sc wo HPV | | | + + + + + | FREE T4 50368 | T4 Free | | | + + + + + | TSH 73682 | TSH | | | + + + + + | RISK 08251 | Lipid Profile | | | + + + + + | CHEM PROF 96383 | CMP (Comprehensive | | | | | Metabolic Panel) | | | + + + + + | GLYCO HGB 22598 | HgbA1C | | | + + + + + | U FABIO RAN 54889 | Microalbumin, | | | | | Random Urine | | | + + + + + | CBC AUTO 32523 | CBC w/ Auto Diff | | | + + + + + | CPT-G0439 | Annual Wellness | | | | | Visit (Medicare) | | | | | Subsqnt visit | | | + + + + + | CPT-25812 | Pneumovax 23 | | | | | (Pneumococcal) >2 | | | + + + + + | CPT-82085 | Adm addtl Jose No | | | | | counseling or >18 | | | + + + + + | CPT-72765 | Fluvirin /Fluzone | | | | | >3 | | | + + + + + | 24395 | MR Head-WO Con | | | + + + + + | CPT-28850 | Venipuncture | | | + + + + + | CHEM PROF 81115 | CMP (Comprehensive | | | | | Metabolic Panel) | | | + + + + + | U FABIO RAN 58265 | Microalbumin, | | | | | Random Urine | | | + + + + + | GLYCO HGB 76726 | HgbA1C | | | + + + + + | RISK 88540 | Lipid Profile | | | + + + + + | 46057 G0202 | MX Mammo Dig | | | | | Screen-Bilat | | | + + + + + | CPT-G0438 | Annual Wellness | | | | | Visit (Medicare) | | | | | 1st visit | | | + + + + + | P7899 90299 | MX Mammo Dig | | | | | Diag-Bilat | | | + + + + + | 21484 | MX Dexa Scan-Body | | | + + + + + | CPT-27249 | EKG- tracing with | | | | | report (17906) | | | + + + + + | CHEM PROF 43988 | CMP (Comprehensive | | | | | Metabolic Panel) | | | + + + + + | 37765 | XR Chest-2V | | | + + + + + | U FABIO RAN 92737 | Microalbumin, | | | | | Random Urine | | | + + + + + | RISK 79053 | Lipid Profile | | | + + + + + | CPT-48384 | Venipuncture | | | + + + + + | GLYCO HGB 77177 | HgbA1C | | | + + + + + | CPT-72529 | Refraction (67769) | | | + + + + + | CPT-14293 | Ext. | | | | | Ophthalmoscopy, | | | | | Subs. | | | + + + + + | CPT-34065 | Venipuncture | | | + + + + + | GLYCO HGB 83876 | HgbA1C | | | + + + + + | CPT-78836 | Venipuncture | | | + + + + + | CHEM PROF 64235 | CMP (Comprehensive | | | | | Metabolic Panel) | | | + + + + + | U FABIO RAN 22274 | Microalbumin, | | | | | Random Urine | | | + + + + + | GLYCO HGB 69566 | HgbA1C | | | + + + + + | RISK 64478 | Lipid Profile | | | + + + + + | CPT-89074 | Venipuncture | | | + + + + + | GLYCO HGB 56859 | HgbA1C | | | + + + + + | CPT-53828 | Flu Vaccine > 8 | | | | | yrs. | | | + + + + + | CPT-G0008 | Admin of Flu Vac | | | | | (Mdc/Atrio) | | | + + + + + | CHEM PROF 11504 | CMP (Comprehensive | | | | | Metabolic Panel) | | | + + + + + | CPT-G0202 | Mammogram - | | | | | Screening | | | | | (bilateral) | | | + + + + + | U FABIO RAN 06391 | Microalbumin, | | | | | Random Urine | | | + + + + + | GLYCO HGB 70804 | HgbA1C | | | + + + + + | RISK 43728 | Lipid Profile | | | + + + + + | CPT-G0008 | Admin of Flu Vac | | | | | (Mdc/Atrio) | | | + + + + + | CPT-38050 | Flu vaccine >3 y/o | | | + + + + + | CPT-72353 | MRI- Spine: Lumbar | | | | | w/o contrast | | | + + + + + | CPT-48309 | UA Dipstick | | | | | (Office) | | | + + + + + | Vic LOZA 16108 | Culture Urine | | | + + + + + | CPT-37775 | X-Ray- Hand (3+ | | | | | views) | | | + + + + + | CPT-76428 | Mammogram - | | | | | Screening | | | | | (bilateral) | | | + + + + + | CPT-90846 | Admin of Imm. over | | | | | 8yrs (1st) | | | + + + + + | CPT-52109 | Flu vaccine >2 y/o | | | + + + + + | CPT-49755 | X-Ray- Chest - PA | | | | | and lateral | | | + + + + + | CHEM PROF 36248 | CMP (Comprehensive | | | | | Metabolic Panel) | | | + + + + + | PAP SCREEN G0123 | PAP Liquid Based, | | | | | Screening | | | + + + + + | CPT-56221 | X-Ray- Thoracic (3 | | | | | views) | | | + + + + + | GLYCO HGB 41050 | HgbA1C | | | + + + + + | RISK 45841 | Lipid Profile | | | + + + + + | CHEM 8 33137 | Basic Metabolic | | | | | Panel | | | + + + + + | GLYCO HGB 36969 | HgbA1C | | | + + + + + | VIT B12 52076 | B-12 | | | + + + + + | RISK 08623 | Lipid Profile | | | + + + + + | [place] 18319 | Magnesium Level | | | + + + + + | CHEM PROF 53106 | CMP (Comprehensive | | | | | Metabolic Panel) | | | + + + + + | CPT-71451 | Mammogram - | | | | | Screening | | | | | (bilateral) | | | + + + + + | CPT-25059 | DEXA scan (bone | | | | | density) | | | + + + + + | RISK 93800 | Lipid Profile | | | + + + + + | MG 18899 | Magnesium Level | | | + [...] + + + + + | RISK 32235 | Lipid Profile | | | + + + + + | CPT-55832 | Complete Eye Exam/ | | | | | Treatment | | | + + + + + | GLYOCO HGB 69132 | HbA1C | | | + + + + + | CHEM PROF 51907 | CMP (Comprehensive | | | | | Metabolic Panel) | | | + + + + + | CPT-26524 | Comprehensive | | | | | Metabolic Panel | | | + + + + + | CPT-82544 | Lipid Profile | | | + + + + + | CPT-69876 | HbA1C | | | + + [...]
--- OUTSIDE RECORDS SUMMARY | ~2017-01-29 | XMS | Clinical Summary ---
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 | Role | Phone | + +------+ + | Ajay Ward DPM | PCP | [phone] | + +------+ + Conditions or Problems [...] | | tion | | +---------+---------+---------+---------+---------+---------+---------+---------+---------+ | TYPE 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 | | Active | | Jennifer | [...] | | | +---------+---------+---------+---------+---------+---------+---------+---------+---------+ | OSTEOAR | [id number] | | Resolve | | Jennifer | | Osteoar | | | THRITIS | 02 | /14 | d | /15 | Agsten | | thritis | | | , HIP, | (SNOMED | | | | DO | | of hip | | | LEFT | CT) | | | | | | | | +---------+---------+---------+---------+---------+---------+---------+---------+---------+ | HALLUX | [id number] | | Active | | Ajay | [...] | | | +---------+---------+---------+---------+---------+---------+---------+---------+---------+ | HALLUX | [id number] | | Active | | Ajay | [...] | | | +---------+---------+---------+---------+---------+---------+---------+---------+---------+ | LUMBAR | [id number] | | Resolve | | Jennifer | | Lumbar | | | RADICUL | 05 | /08 | d | /08 | Agsten | | radicul | | | OPATHY, | (SNOMED | | | | DO | | opathy | | | LEFT | CT) | | | | | | | | +---------+---------+---------+---------+---------+---------+---------+---------+---------+ | PAIN IN | [id number] | | Resolve | | Jennifer | | Hip | | | LEFT | 2 | /23 | d | /23 | Agsten | | pain | | | HIP | (SNOMED | | | | DO | | | | | | CT) | | | | | | | | +---------+---------+---------+---------+---------+---------+---------+---------+---------+ | PAIN IN | [id number] | | Removed | | Farzad | | Hip | | | LEFT | 2 | /23 | | /23 | | | pain | | | HIP | (SNOMED | | | | VanLindaro | | | | | | CT) | | | | oy MD | | | | +---------+---------+---------+---------+---------+---------+---------+---------+---------+ | OSTEOAR | [id number] | | Removed | | Rendee | | Osteoar | | | THRITIS | 02 | /14 | | /15 | Mishra | | thritis | | | , HIP, | (SNOMED | | | | | | of hip | | | LEFT | CT) | | | | | | | | +---------+---------+---------+---------+---------+---------+---------+---------+---------+ | LUMBAR | [id number] | | Removed | | Jennifer | | Lumbar | | | RADICUL | 05 | /08 | | /08 | Agsten | | radicul | | | OPATHY, | (SNOMED | | | | DO | | opathy | | | LEFT | CT) | | | | | | | | +---------+---------+---------+---------+---------+---------+---------+---------+---------+ | HIP | [id number] | | Inactiv | | Jennifer | [...] | diabete | | | MELLITU | -) | | | | DO [...] ropathy | | +---------+---------+---------+---------+---------+---------+---------+---------+---------+ | ROTATOR | [id number] | | Resolve | | Jennifer | | Inflamm | | | CUFF | 00 | | d | / | Agsten | | ation | | | TENDONI | (SNOMED | | | | DO | | of | | | TIS | CT) | | | | | | rotator | | | | | | | | | | cuff | | | | | | | | | | tendon | | +---------+---------+---------+---------+---------+---------+---------+---------+---------+ | SCIATIC | [id number] | | Resolve | | Jennifer | | Sciatic | | | A | 5 | /25 | d | /25 | Agsten | | a | | | | (SNOMED | | | | DO | | | | | | CT) | | | | | | | | +---------+---------+---------+---------+---------+---------+---------+---------+---------+ | NAUSEA | [id number] | | Resolve | | Jennifer | | Nausea | | | ALONE | 07 | /20 | d | /20 | Agsten | | | | | | (SNOMED | | | | DO | | | | | | CT) | | | | | | | | +---------+---------+---------+---------+---------+---------+---------+---------+---------+ | LEFT | [id number] | | Active | | Jennifer | [...] ED | D | /20 | | / | Agsten | | ed | | [...] healing | | +---------+---------+---------+---------+---------+---------+---------+---------+---------+ | PERIPHE | [id number] | | Resolve | | Jennifer | | Periphe | | | RAL | 06 | /20 | d | /20 | Agsten | | ral | | | NEUROPA | (SNOMED | | | | DO | | nerve | | | THY | CT) | | | | | | disease | | +---------+---------+---------+---------+---------+---------+---------+---------+---------+ | BREAST | [id number] | | Resolve | | Jennifer | | Pain of | | | PAIN, | 7 | / | d | | Agsten | | breast | | | LEFT | (SNOMED | | | | DO | | | | | | CT) | | | | | | | | +---------+---------+---------+---------+---------+---------+---------+---------+---------+ | WELL | [id number] | | Resolve | | Jennifer | | Adult | | | ADULT | 07 | /09 | d | /09 | Agsten | | health | | | EXAM | (SNOMED | | | | DO | | examina | | | | CT) | | | | | | tion | | +---------+---------+---------+---------+---------+---------+---------+---------+---------+ | OTHER | [id number] | | Resolve | | Jennifer | | Screeni | | | SCREENI | 2 | / | d | /17 | Agsten | | ng | | | NG | (SNOMED | | | | DO | | mammogr | | | MAMMOGR | CT) | | | | | | aphy | | | AM | | | | | | | | | +---------+---------+---------+---------+---------+---------+---------+---------+---------+ | DIZZINE | [id number] | | Resolve | | Jennifer | | Dizzine | | | SS | 03 | / | d | /12 | Agsten | | ss | | | | (SNOMED | | | | DO | | | | | | CT) | | | | | | | | +---------+---------+---------+---------+---------+---------+---------+---------+---------+ | MELENA | [id number] | | Resolve | | Jennifer | [...] | | | +---------+---------+---------+---------+---------+---------+---------+---------+---------+ | UTI | [id number] | | Resolve | | Jennifer | | Urinary | | | | 5 | / | d | / | Agsten | | tract | | | | (SNOMED | | | | DO | | infecti | | | | CT) | | | | | | ous | | | | | | | | | | disease | | +---------+---------+---------+---------+---------+---------+---------+---------+---------+ | NAUSEA | [id number] | | Removed | | Jennifer | | Nausea | | | ALONE | | | | | Agsten | | | | | | (SNOMED | | | | DO | | | | | | CT) | | | | | | | | +---------+---------+---------+---------+---------+---------+---------+---------+---------+ | UTI | [id number] | | Removed | | Jennifer | [...] disease | | +---------+---------+---------+---------+---------+---------+---------+---------+---------+ | SCIATIC | [id number] | | Removed | | Jennifer | | Sciatic | | | A | 5 | /25 | | /25 | Agsten | | a | | | | (SNOMED | | | | DO | | | | | | CT) | | | | | | | | +---------+---------+---------+---------+---------+---------+---------+---------+---------+ | ROTATOR | [id number] | | Removed | | Jennifer | | Inflamm | | | CUFF | 00 | / | | /04 | Agsten | | ation [...] | PROPHYL | (ICD- | | | | Agsten | | er [...] | | | +---------+---------+---------+---------+---------+---------+---------+---------+---------+ | INGROWN | [id number] | | Inactiv | | Ajay | [...] on | | +---------+---------+---------+---------+---------+---------+---------+---------+---------+ | OTHER | [id number] | | Removed | | Jennifer | | Screeni | | | SCREENI | 2 | /17 | | /17 | Agsten | | ng | | | NG | (SNOMED | | | | DO | | mammogr | | | MAMMOGR | CT) | | | | | | aphy | | | AM | | | | | | | | | +---------+---------+---------+---------+---------+---------+---------+---------+---------+ | MELENA | [id number] | | Removed | | Lewis | | Melena | | | | | / | | / | Sae | | | | | | (SNOMED | | | | RN | | | | | | CT) | | | | | | | | +---------+---------+---------+---------+---------+---------+---------+---------+---------+ | SCREENI | [id number] | | Inactiv | | Jennifer | | Screeni | | | NG, | 4 | / | e | / | Agsten | | ng for | | | VAGINAL | (SNOMED | | | | DO | | cancer | | | CANCER | CT) | | | | | | | | +---------+---------+---------+---------+---------+---------+---------+---------+---------+ | WELL | [id number] | | Removed | | Jennifer | | Adult | | | ADULT | 07 | /09 | | /09 | Agsten | | health | | | EXAM | (SNOMED | | | | DO | | examina | | | | CT) | | | | | | tion | | +---------+---------+---------+---------+---------+---------+---------+---------+---------+ | DIZZINE | [id number] | | Removed | | Jennifer | [...] polyps | | +---------+---------+---------+---------+---------+---------+---------+---------+---------+ | OTHER | [id number] | | Inactiv | | Corie | [...] fied | | +---------+---------+---------+---------+---------+---------+---------+---------+---------+ | WELL | [id number] | | Inactiv | | Jennifer | | Adult | | | ADULT | 07 | / | e | / | Agsten | | health | | | EXAM | (SNOMED | | | | DO | | examina | | | | CT) | | | | | | tion | | +---------+---------+---------+---------+---------+---------+---------+---------+---------+ | BREAST | [id number] | | Removed | | Jennifer | | Pain of | | | PAIN, | 7 | / | | | Agsten | | breast | | | LEFT | (SNOMED | | | | DO | | | | | | CT) | | | | | | | | +---------+---------+---------+---------+---------+---------+---------+---------+---------+ | PRESBYO | [id number] | | Resolve | | Jennifer | | Presbyo | | | HUMBLE | 4 | /03 | d | / | Agsten | | humble | | | | (SNOMED | | | | DO | | | | | | CT) | | | | | | | | +---------+---------+---------+---------+---------+---------+---------+---------+---------+ | ASTIGMA | [id number] | | Resolve | | Jennifer | | Astigma | | | TISM | 3 | /03 | d | /03 | Agsten | | tism | | | | (SNOMED | | | | DO | | | | | | CT) | | | | | | | | +---------+---------+---------+---------+---------+---------+---------+---------+---------+ | RETINAL | [id number] | | Resolve | | Jennifer | | Retinal | | | | 8 | /03 | d | /03 | Agsten | | | | | HEMORRH | (SNOMED | | | | DO | | hemorrh | | | AGE | CT) | | | | | | age | | +---------+---------+---------+---------+---------+---------+---------+---------+---------+ | MICROAN | [id number] | | Resolve | | Jennifer | | Retinal | | | EURYSMS | 0 | /03 | d | /03 | Agsten | | | | | , | (SNOMED | | | | DO | | microan | | | RETINAL | CT) | | | | | | eurysm | | +---------+---------+---------+---------+---------+---------+---------+---------+---------+ | POSTERI | [id number] | | Resolve | | Jennifer | [...] eye | | +---------+---------+---------+---------+---------+---------+---------+---------+---------+ | HYPEROP | [id number] | | Resolve | | Jennifer | | Hyperme | | | IA | 3 | / | d | /03 | Agsten | | tropia | | | | (SNOMED | | | | DO | | | | | | CT) | | | | | | | | +---------+---------+---------+---------+---------+---------+---------+---------+---------+ | ROSACEA | [id number] | | Resolve | | Jennifer | | Rosacea | | | | 04 | /03 | d | /03 | Agsten | | | | | | (SNOMED | | | | DO | | | | | | CT) | | | | | | | | +---------+---------+---------+---------+---------+---------+---------+---------+---------+ | SCREENI | [id number] | | Resolve | | Jennifer | [...] cervix | | +---------+---------+---------+---------+---------+---------+---------+---------+---------+ | SCIATIC | [id number] | | Resolve | | Jennifer | | Sciatic | | | A | 5 | / | d | | Agsten | | a | | | | (SNOMED | | | | DO | | | | | | CT) | | | | | | | | +---------+---------+---------+---------+---------+---------+---------+---------+---------+ | INSOMNI | [id number] | | Active | | Ariela | | Insomni | | | A | 01 | /02 | | /02 | Ashwin | | a | | | | (SNOMED | | | | | | | | | | CT) | | | | | | | | +---------+---------+---------+---------+---------+---------+---------+---------+---------+ | ROSACEA | [id number] | | Removed | | Abby | | Rosacea | | | | 04 | /03 | | /03 | Gauer | | | | | | (SNOMED | | | | OD | | | | | | CT) | | | | | | | | +---------+---------+---------+---------+---------+---------+---------+---------+---------+ | HYPEROP | [id number] | | Removed | | Abby | [...] | | rative) | | | | -) | | | | | | of [...] eye | | +---------+---------+---------+---------+---------+---------+---------+---------+---------+ | POSTERI | [id number] | | Removed | | Abby | [...] ent | | +---------+---------+---------+---------+---------+---------+---------+---------+---------+ | MICROAN | [id number] | | Removed | | Abby | | Retinal | | | EURYSMS | 0 | /03 | | /03 | Gauer | | | | | , | (SNOMED | | | | OD | | microan | | | RETINAL | CT) | | | | | | eurysm | | +---------+---------+---------+---------+---------+---------+---------+---------+---------+ | RETINAL | [id number] | | Removed | | Abby | | Retinal | | | | 8 | /03 | | /03 | Gauer | | | | | HEMORRH | (SNOMED | | | | OD | | hemorrh | | | AGE | CT) | | | | | | age | | +---------+---------+---------+---------+---------+---------+---------+---------+---------+ | ASTIGMA | [id number] | | Removed | | Abby | | Astigma | | | TISM | 3 | /03 | | /03 | Gauer | | tism | | | | (SNOMED | | | | OD | | | | | | CT) | | | | | | | | +---------+---------+---------+---------+---------+---------+---------+---------+---------+ | PRESBYO | [id number] | | Removed | | Abby | | Presbyo | | | HUMBLE | 4 | / | | /03 | Gauer | | humble | | | | (SNOMED | | | | OD | | | | | | CT) | | | | | | | | +---------+---------+---------+---------+---------+---------+---------+---------+---------+ | SCIATIC | [id number] | | Removed | | Jennifer | | Sciatic | | | A | 5 | / | | / | Agsten | | a | | | | (SNOMED | | | | DO | | | | | | CT) | | | | | | | | +---------+---------+---------+---------+---------+---------+---------+---------+---------+ | HYPOMAG | [id number] | | Resolve | | Jennifer | | Hypomag | | | NESEMIA | 04 | / | d | / | Agsten | | nesemia | | | | (SNOMED | | | | DO | | | | | | CT) | | | | | | | | +---------+---------+---------+---------+---------+---------+---------+---------+---------+ | FOLLICU | [id number] | | Resolve | | Jennifer | | Follicu | | | LITIS | 6 | /27 | d | /27 | Agsten | | litis | | | | (SNOMED | | | | DO | | | | | | CT) | | | | | | | | +---------+---------+---------+---------+---------+---------+---------+---------+---------+ | URI | [id number] | | Resolve | | Jennifer | [...] on | | +---------+---------+---------+---------+---------+---------+---------+---------+---------+ | CYSTOCE | [id number] | | Resolve | | Jennifer | [...] | | | +---------+---------+---------+---------+---------+---------+---------+---------+---------+ | ABNORMA | [id number] | | Resolve | | Jennifer | | Standar | | | L CHEST | 01 | / | d | /21 | Agsten | | d chest | | | XRAY | (SNOMED | | | | DO | | X-ray | | | | CT) | | | | | | abnorma | | | | | | | | | | l | | +---------+---------+---------+---------+---------+---------+---------+---------+---------+ | ALLERGI | [id number] | | Resolve | | Jennifer | | Allergi | | | C | 4 | /05 | d | /05 | Agsten | | c | | | RHINITI | (SNOMED | | | | DO | | rhiniti | | | S | CT) | | | | | | s | | +---------+---------+---------+---------+---------+---------+---------+---------+---------+ | SINUSIT | [id number] | | Resolve | | Jennifer | | Acute | | | IS, | 2 | /05 | d | /05 | Agsten | | sinusit | | | ACUTE | (SNOMED | | | | DO | | is | | | NOS | CT) | | | | | | | | +---------+---------+---------+---------+---------+---------+---------+---------+---------+ | CONTUSI | [id number] | | Resolve | | Jennifer | | Contusi | | | ON, | 6 | /05 | d | /05 | Agsten | | on of | | | LEFT | (SNOMED | | | | DO | | knee | | | KNEE | CT) | | | | | | | | +---------+---------+---------+---------+---------+---------+---------+---------+---------+ | THUMB | [id number] | | Resolve | | Jennifer | | Pain in | | | PAIN, | 02 | /01 | d | /01 | Agsten | | thumb | | | RIGHT | (SNOMED | | | | DO | | | | | | CT) | | | | | | | | +---------+---------+---------+---------+---------+---------+---------+---------+---------+ | FOOT | [id number] | | Resolve | | Jennifer | | Foot | | | PAIN | 7 | /01 | d | /01 | Agsten | | pain | | | | (SNOMED | | | | DO | | | | | | CT) | | | | | | | | +---------+---------+---------+---------+---------+---------+---------+---------+---------+ | HEMATUR | R31.9 | | Resolve | | Jennifer | | Hematur | | | IA | (ICD-10 | /21 | d | /21 | Agsten | | ia, | | [...] g | | +---------+---------+---------+---------+---------+---------+---------+---------+---------+ | ABDOMIN | [id number] | | Resolve | | Jennifer | | Epigast | | | AL | 9 | / | d | | Agsten | | rajwinder | | | PAIN, | (SNOMED | | | | DO | | pain | | | EPIGAST | CT) | | | | | | | | | RAJWINDER | | | | | | | | | +---------+---------+---------+---------+---------+---------+---------+---------+---------+ | LUMBAR | [id number] | | Resolve | | Jennifer | | Lumbar | | | RADICUL | 05 | /08 | d | /08 | Agsten | | radicul | | | OPATHY, | (SNOMED | | | | DO | | opathy | | | LEFT | CT) | | | | | | | | +---------+---------+---------+---------+---------+---------+---------+---------+---------+ | HIP | [id number] | | Inactiv | | Jennifer | [...] PROPHYL | (ICD-10 | | d | / | Agsten | | er [...] | | | +---------+---------+---------+---------+---------+---------+---------+---------+---------+ | INSOMNI | [id number] | | Resolve | | Jennifer | | Insomni | | | A | 01 | /02 | d | /02 | Agsten | | a | | | | (SNOMED | | | | DO | | | | | | CT) | | | | | | | | +---------+---------+---------+---------+---------+---------+---------+---------+---------+ | INSOMNI | [id number] | | Removed | | Jennifer | [...] | | | +---------+---------+---------+---------+---------+---------+---------+---------+---------+ | HIP | [id number] | | Removed | | Franny | | Hip | | | PAIN | 2 | /14 | | /15 | | | pain | | | | (SNOMED | | | | Campman | | | | | | CT) | | | | | | | | +---------+---------+---------+---------+---------+---------+---------+---------+---------+ | FOOT | [id number] | | Removed | | Franny | | Foot | | | PAIN | 7 | /01 | | /01 | | | pain | | | | (SNOMED | | | | Campman | | | | | | CT) | | | | | | | | +---------+---------+---------+---------+---------+---------+---------+---------+---------+ | LUMBAR | [id number] | | Removed | | Jennifer | | Lumbar | | | RADICUL | 05 | /08 | | /08 | Agsten | | radicul | | | OPATHY, | (SNOMED | | | | DO | | opathy | | | LEFT | CT) | | | | | | | | +---------+---------+---------+---------+---------+---------+---------+---------+---------+ | GERD | [id number] | | Active | | Jasmeet | [...] disease | | +---------+---------+---------+---------+---------+---------+---------+---------+---------+ | ABDOMIN | [id number] | | Removed | | Jasmeet | [...] | | | +---------+---------+---------+---------+---------+---------+---------+---------+---------+ | NAUSEA | [id number] | | Correct | | Jasmeet | | Nausea | | | ALONE | 07 | / | ion | /20 | Engstro | [...] | | history | | | | -) | | | | | | of | | | | | | | | | | colonic | | | | | | | | | | polyps | | +---------+---------+---------+---------+---------+---------+---------+---------+---------+ | HEMATUR | R31.9 | | Removed | | Katelyn | | Hematur | | | IA | (ICD-10 | / | | / | McClish | | ia, | | | UNSPECI | -CM) | | | | PLASTER HELPER | | unspeci | | | FIED | | | | | | | fied | | +---------+---------+---------+---------+---------+---------+---------+---------+---------+ | FOOT | M79.609 | | Correct | | Jennifer | | Pain in | | | PAIN, | | | ion | | Agsten | | | | | BILATER | (ICD-10 | | | | DO | | unspeci | | | AL | -CM) | | | | | | fied | | | | | | | | | | limb | | +---------+---------+---------+---------+---------+---------+---------+---------+---------+ | THUMB | [id number] | | Removed | | Jennifer | | Pain in | | | PAIN, | 02 | / | | /01 | Agsten | | thumb | | | RIGHT | (SNOMED | | | | DO | | | | | | CT) | | | | | | | | +---------+---------+---------+---------+---------+---------+---------+---------+---------+ | CONTUSI | [id number] | | Removed | | Jennifer | | Contusi | | | ON, | 6 | /05 | | /05 | Agsten | | on of | | | LEFT | (SNOMED | | | | DO | | knee | | | KNEE | CT) | | | | | | | | +---------+---------+---------+---------+---------+---------+---------+---------+---------+ | SINUSIT | [id number] | | Removed | | Jennifer | | Acute | | | IS, | 2 | /05 | | /05 | Agsten | | sinusit | | | ACUTE | (SNOMED | | | | DO | | is | | | NOS | CT) | | | | | | | | +---------+---------+---------+---------+---------+---------+---------+---------+---------+ | ALLERGI | [id number] | | Removed | | Jennifer | | Allergi | | | C | 4 | /05 | | /05 | Agsten | | c | | | RHINITI | (SNOMED | | | | DO | | rhiniti | | | S | CT) | | | | | | s | | +---------+---------+---------+---------+---------+---------+---------+---------+---------+ | ABNORMA | [id number] | | Removed | | Pinky | | Standar | | | L CHEST | | | | | Alexei | | d chest | | | XRAY | (SNOMED | | | | MA | | X-ray | | | | CT) | | | | | | abnorma | | | | | | | | | | l | | +---------+---------+---------+---------+---------+---------+---------+---------+---------+ | CYSTOCE | [id number] | | Removed | | Jennifer | | Cystoce | | | LE WITH | | | | | Agsten | | le | | [...] | | | +---------+---------+---------+---------+---------+---------+---------+---------+---------+ | SCREENI | [id number] | | Removed | | Jennifer | | Screeni | | | NG FOR | | 16 | | /16 | Agsten | | [...] cervix | | +---------+---------+---------+---------+---------+---------+---------+---------+---------+ | NAUSEA | [id number] | | Removed | | Jennifer | | Nausea | | | ALONE | | | | / | Agsten | | | | | | (SNOMED | | | | DO | | | | | | CT) | | | | | | | | +---------+---------+---------+---------+---------+---------+---------+---------+---------+ | PERIPHE | [id number] | | Removed | | Jennifer | | Periphe | | | RAL | | / | | / | Agsten | | ral | | | NEUROPA | (SNOMED | | | | DO | | nerve | | | THY | CT) | | | | | | disease | | +---------+---------+---------+---------+---------+---------+---------+---------+---------+ | URI | [id number] | | Removed | | Jennifer | | Upper | | | | 9 | /27 | | /27 | Agsten | | respira | | | | (SNOMED | | | | DO | | tory | | | | CT) | | | | | | infecti | | | | | | | | | | on | | +---------+---------+---------+---------+---------+---------+---------+---------+---------+ | FOLLICU | [id number] | | Removed | | Jennifer | | Follicu | | | LITIS | 6 | /27 | | / | Agsten | | litis | | | | (SNOMED | | | | DO | | | | | | CT) | | | | | | | | +---------+---------+---------+---------+---------+---------+---------+---------+---------+ | OSTEOPE | [id number] | | Active | | Jennifer | | Osteope | | | LINDSAY | 00 | /30 | | /30 | Agsten | | lindsay | | | | (SNOMED | | | | DO | | | | | | CT) | | | | | | | | +---------+---------+---------+---------+---------+---------+---------+---------+---------+ | HYPOMAG | [id number] | | Removed | | Jennifer | | Hypomag | | | NESEMIA | 04 | /30 | | /30 | Agsten | | nesemia | | | | (SNOMED | | | | DO | | | | | | CT) | | | | | | | | +---------+---------+---------+---------+---------+---------+---------+---------+---------+ | TESFAYE | [id number] | | Inactiv | | Jennifer | | Tesfaye | | | IRMA | [id number] | /20 | e | /20 | [...] a | | +---------+---------+---------+---------+---------+---------+---------+---------+---------+ | DIABETE | [id number] | | Inactiv | | Jennifer | [...] led | | +---------+---------+---------+---------+---------+---------+---------+---------+---------+ | HYPERTR | [id number] | | Active | | Jennifer | | Hypertr | | | IGLYCER | 06 | /20 | | /20 | Agsten | | iglycer | | | IDEMIA | (SNOMED | | | | DO | | idemia | | | | CT) | | | | | | | | +---------+---------+---------+---------+---------+---------+---------+---------+---------+ | HYPERTE | [id number] | | Active | | Jennifer | [...] one po | | | DIAZEPAM | [id number] | Jennifer | | MG TABS | prior to | | | | 0 | Agsten DO | | | procedure | | | | | | + + + + + + + + | GLIMEPIRID | one tablet | | | GLIMEPIRID | [id number] | Emilie | | E 2 MG [...] one tablet | | | MIRTAZAPIN | [id number] | Jerri | | E 30 MG | at night | | | E | 5 | Irlanda [place] | | TABS | before bed | | | | | | + + + + + + + + | MIRALAX | take as | | | POLYETHYLE | [id number] | Jennifer | | POWD | directed | | | NE GLYCOL | 3 | Agsten DO | | | | | | 3350 | | | + + + + + + + + | WELCHOL | one po qd | | | COLESEVELA | [id number] | Jennifer | | 625 MG | prn | | | M HCL | 8 | Agsten DO | | TABS | | | | | | | + + + + + + + + | GLYBURIDE | one by | | | GLYBURIDE | [id number] | Jennifer | | 5 MG TABS | mouth one | | | | 8 | Agsten DO | | | time per | | | | | | | | day | | | | | | + + + + + + + + | MIRTAZAPIN | one tablet | | | MIRTAZAPIN | [id number] | Jennifer | | E 15 MG [...] po qd | | | COLESEVELA | [id number] | Jennifer | | 625 MG | prn | | | M HCL | 8 | Agsten DO | | TABS | | | | | | | + + + + + + + + | MIRTAZAPIN | one tablet | | | MIRTAZAPIN | 1320110112 | Pedro Houde | | E 15 MG | at night | | | E | 0 | | | TABS | before bed | | | | | | + + + + + + + + | GABAPENTIN | two | | | GABAPENTIN | 4039239505 | Jennifer | | 300 MG | capsules | | | | 5 | Agsten DO | | CAPS | twice a | | | | | | | | day | | | | | | + + + + + + + + | ATIVAN 1 | one by | | | LORAZEPAM | 3616664994 | Jerri | | MG TABS | mouth at | | | | 0 | Arenac MA | | | bedtime | | | | | | + + + + + + + + | AMBIEN 10 | 02/12 by | | | ZOLPIDEM | 4586593889 | Jennifer | | MG TABS | mouth at | | | TARTRATE | 8 | Agsten DO | | | bedtime | | | | | | + + + + + + + + | AMBIEN 10 | 02/12 - 1 po | | | ZOLPIDEM | 7079877662 | Jennifer | | MG TABS | qhs | | | TARTRATE | 0 | Agsten DO | + + + + + + + + | OXYCODONE | 1-2 po q 6 | | | OXYCODONE | 4272520359 | Jennifer | | HCL 5 MG | hrs prn | | | HCL | 0 | Agsten DO | | TABS | | | | | | | + + + + + + + + | KEFLEX 500 | one po tid | | | CEPHALEXIN | 2867227058 | Jennifer | | MG CAPS | | | | | 0 | Agsten DO | + + + + + + + + | VICODIN | prn | | | HYDROCODON | 3314025209 | Michelle | | 5-500 MG | | | | E-ACETAMIN | 4 | Bennett | | TABS | | | | OPHEN | | | + + + + + + + + | NORTRIPTYL | 1 tab qhs | | | NORTRIPTYL | 7910464562 | Ajay | | INE HCL 50 | | | | INE HCL | 6 | Sylvia DPM | | MG CAPS | | | | | | | + + + + + + + + | ALENDRONAT | one po q | | | ALENDRONAT | 6981240315 | Jennifer | | E SODIUM | week | | | E SODIUM | 1 | Agsten DO | | 70 MG TABS | | | | | | | + + + + + + + + | BENICAR 20 | 1/2 po qd | | | OLMESARTAN | 7929291146 | Lewis Edwardske | | MG TABS | | | | MEDOXOMIL | 0 | RN | + + + + + + + + | LOVAZA 1 | 2 po qd | | | OMEGA-3-AC | 7250802403 | Jennifer | | GM CAPS | | | | ID ETHYL | 7 | Agsten DO | | | | | | ESTERS | | | + + + + + + + + | LUNESTA 2 | 1 po qhs | | | ESZOPICLON | 5596172873 | Michlele | | MG TABS | | | | E | 0 | Bennett | + + + + + + + + | VOLTAREN 1 | apply up | | | DICLOFENAC | 8006196062 | Jasmeet | | % GEL | to 2 gram | | | SODIUM | 1 | Aga | | | qid prn | | | | | MD | + + + + + + + + | K-DUR 10 | 1 by mouth | | | POTASSIUM | 0161207096 | Jennifer | | MEQ TBCR | twice a | | | CHLORIDE | 1 | Agsten DO | | | day | | | | | | + + + + + + + + | NEXIUM 40 | 1 po q am, | | | ESOMEPRAZO | 7811349053 | Jennifer | | MG CPDR | rarely 1 | | | LE | 0 | Agsten DO | | | po q pm | | | MAGNESIUM | | | + + + + + + + + | VOLTAREN 1 | apply up | | | DICLOFENAC | 8115453411 | Jennifer | | % GEL | to 2 grams | | | SODIUM | 1 | Agsten DO | | | qid prn | | | | | | + + + + + + + + | K-JAMARI 20 | one po qd | | | POTASSIUM | 2649991646 | Jennifer | | MEQ PACK | | | | CHLORIDE | 2 | Agsten DO | + + + + + + + + | TRAZODONE | /2 to 1 | | | TRAZODONE | 8702274064 | Ajay | | HCL 100 MG | by mouth | | | HCL | 3 | Sylvia DPM | | TABS | at bedtime | | | | | | + + + + + + + + | LASIX 40 | 1/2 by | | | FUROSEMIDE | 5762397296 | Jennifer | | MG TABS | mouth | | | | 1 | Agsten DO | | | every am | | | | | | + + + + + + + + | DIFLUCAN | 1 by mouth | | | FLUCONAZOL | 1731939526 | Jennifer | | 150 MG | x 1 dose | | | E | 0 | Agsten DO | | TABS | | | | | | | + + + + + + + + | FLEXERIL | one po bid | | | CYCLOBENZA | 6499784880 | Jennifer | | 10 MG TABS | prn | | | NETO HCL | 1 | Agsten DO | + + + + + + + + | BONIVA 150 | one po qd | | | IBANDRONAT | 0499725956 | Jennifer | | MG TABS | | | | E SODIUM | 0 | Agsten DO | + + + + + + + + | GEMFIBROZI | 1 po bid | | | GEMFIBROZI | 4473930326 | Jennifer | | L 600 MG | | | | L | 0 | Agsten DO | | TABS | | | | | | | + + + + + + + + | LOVAZA 1 | 2 po qd | | | OMEGA-3-AC | 2854238877 | Jasmeet | | EDWIN NOGUERA | | | | ID ETHYL | 7 | Aga | | | | | | ESTERS | | MD | + + + + + + + + | ONDANSETRO | one tablet | | | ONDANSETRO | 1582207428 | Ajay | | N HCL 4 MG | once a | | | N HCL | 0 | Slyvia DPM | | TABS | day as | | | | | | | | needed for | | | | | | | | nausea | | | | | | + + + + + + + + | DULCOLAX 5 | take as | | | BISACODYL | 9169951909 | Jennifer | | MG TBEC | directed | | | | 3 | Agsten DO | + + + + + + + + | NEXIUM 40 | 1 po q am, | | | ESOMEPRAZO | 1940465135 | Jasmeet | | MG CPDR | rarely 1 | | | LE | 0 | Aga | | | po q pm | | | MAGNESIUM | | MD | + + + + + + + + | JUAN CARLOS | one po qd | | | FEXOFENADI | 3637600920 | Jasmeet | | 180 MG | prn | | | NE HCL | 2 | Aga | | TABS | | | | | | MD | + + + + + + + + | AMBIEN 10 | 02/12 - 1 po | | | ZOLPIDEM | 2135022747 | Jennifer | | MG TABS | qhs | | | TARTRATE | 0 | Agsten DO | + + + + + + + + | PRILOSEC | one po bid | | | OMEPRAZOLE | 5578061392 | Jasmeet | | OTC 20 MG | | | | MAGNESIUM | 0 | Aga | | TBEC | | | | | | MD | + + + + + + + + | METOCLOPRA | take as | | | METOCLOPRA | 3490137825 | Jennifer | | MIDE HCL | directed | | | MIDE HCL | 2 | Agsten DO | | 10 MG TABS | | | | | | | + + + + + + + + | GLYBURIDE | 1 po qd | | | GLYBURIDE | 3954884660 | Jennifer | | 5 MG TABS | prn | | | | 6 | Agsten DO | + + + + + + + + | MECLIZINE | 1 by mouth | | | MECLIZINE | 2697001774 | Jennifer | | HCL 25 MG | every 6 | | | HCL | 0 | Agsten DO | | TABS | hrs as | | | | | | | | needed | | | | | | + + + + + + + + | GLYBURIDE | 1 po qd | | | GLYBURIDE | 6396942194 | Michelle | | 5 MG TABS | | | | | 6 | Bennett | + + + + + + + + | GEMFIBROZI | 1 po bid | | | GEMFIBROZI | 8425675419 | Michelle | | L 600 MG [...] po qd | | | FEXOFENADI | 7750218691 | Jennifer | | 180 MG | prn | | | NE HCL | 2 | Agsten DO | | TABS | | | | | | | + + + + + + + + | JAZMINVAN 160 | 1 po qd | | | VALSARTAN | 9988145120 | Pinky Linda | | MG TABS | | | | | 0 | MA | + + + + + + + + | ERYTHROMYC | /4 inch | | | ERYTHROMYC | 8724338914 | Jennifer | | IN 5 MG/GM [...] po qhs | | | ESZOPICLON | 9639244731 | Jennifer | | MG TABS | | | | E | 0 | Agsten DO | + + + + + + + + | AMBIEN 10 | /2 - 1 po | | | ZOLPIDEM | 5611971007 | Lewis Sae | | MG TABS | qhs | | | TARTRATE | 5 | RN | + + + + + + + + | TRAZODONE | 02/12 - 1 po | | | TRAZODONE | 9058166788 | Lewis Edwardske | | HCL 100 MG | qhs | | | HCL | 0 | RN | | TABS | | | | | | | + + + + + + + + | GLYBURIDE | 1 po qd | | | GLYBURIDE | 9258306302 | Jennifer | | 5 MG TABS | prn | | | | 6 | Agsten DO | + + + + + + + + | HYCODAN | 1-2 tsp | | | HYDROCODON | 0974623801 | Jennifer | | 5-1.5 | q4-6 h prn | | | E-HOMATROP | 6 | Agsten DO | | MG/5ML | cough | | | INE | | | | SYRP | | | | | | | + + + + + + + + | FLEXERIL | one po bid | | | CYCLOBENZA | 6182879240 | Jennifer | | 10 MG TABS [...] po qd | | | LANSOPRAZO | 1463844724 | Jennifer | | 30 MG CPDR | | | | LE | 5 | Agsten DO | + + + + + + + + | HYCOTUSS | 1-2 tsp q | | | HYDROCODON | 6351193382 | Jennifer | | EXPECTORAN | 4-6 [...] q 6 | | | PROMETHAZI | 1262330119 | aJsmeet | | NE HCL 25 | hr prn | | | NE HCL | 4 | Aga | | MG TABS | | | | | | MD | + + + + + + + + | IBU 600 MG | one po tid | | | IBUPROFEN | 3904026988 | Jasmeet | | TABS | prn | | | | 1 | Aga | | | | | | | | MD | + + + + + + + + | VALIUM 5 | 1 by mouth | | | DIAZEPAM | 0218305406 | Emilie | | MG TABS | prior to | | | | 6 | Brown CCMA | | | procedure | | | | | | + + + + + + + + | DYAZIDE | 1 by mouth | | | TRIAMTEREN | 8365039331 | Jennifer | | 37.5-25 MG | every day | | | E-HCTZ | 0 | Agsten DO | | CAPS | | | | | | | + + + + + + + + | NEXIUM 40 | 1 po qd | | | ESOMEPRAZO | 6199889117 | Michelle | | MG CPDR | | | | LE | 2 | Bennett | | | | | | MAGNESIUM | | | + + + + + + + + | AMITRIPTYL | 1-2 by | | | AMITRIPTYL | 0899944336 | Jennifer | | INE HCL 25 [...] | one | | | TEMAZEPAM | 7422081074 | Jennifer | | 15 MG CAPS | capsule | | | | 7 | Agsten DO | | | once a day | | | | | | + + + + + + + + | MORPHINE | one po bid | | | MORPHINE | 2316379359 | Jennifer | | SULFATE CR | prn | | | SULFATE | 1 | Agsten DO | | 15 MG | | | | | | | | TB12 | | | | | | | + + + + + + + + | CYCLOBENZA | one tablet | | | CYCLOBENZA | 2632570699 | Corie | | NETO HCL | [...] po x | | | AZITHROMYC | 2482330356 | Jennifer | | 250 MG | one day, | | | IN | 3 | Agsten DO | | TABS | one po x 4 | | | | | | | | days | | | | | | + + + + + + + + | IBU 800 MG | one po tid | | | IBUPROFEN | 9683722464 | Jennifer | | TABS | | | | | 1 | Agsten DO | + + + + + + + + | DOXEPIN | one | | | DOXEPIN | 9779812302 | Jennifer | | HCL 10 MG | capsule at | | | HCL | 0 | Agsten DO | | CAPS | night | | | | | | | | before bed | | | | | | + + + + + + + + | K-JAMARI 20 | one po qd | | | POTASSIUM | 7625323592 | Jennifer | | MEQ PACK | | | | CHLORIDE | 2 | Agsten DO | + + + + + + + + | ALPRAZOLAM | one tablet | | | ALPRAZOLAM | 1468530411 | Domi | | 0.25 MG | at night | | | | 0 | Josueaut-Mat | | TABS | before bed | | | | | tienne | | | as needed | | | | | CCMA | + + + + + + + + | TIZANIDINE | one tablet | | | TIZANIDINE | 9571440152 | Jennifer | | HCL 4 MG [...] one tablet | | | TIZANIDINE | 8339267358 | Jennifer | | HCL 4 MG [...] po qd | | | VALSARTAN | 7465302941 | Umrila | | MG TABS | | | [...] 02/12 by | | | ZOLPIDEM | 9624865443 | Lewis Sae | | MG TABS | mouth at | | | TARTRATE | 8 | RN | | | bedtime | | | | | | + + + + + + + + | GLYBURIDE | one by | | | GLYBURIDE | 1110096776 | Jennifer | | 5 MG TABS | mouth one | | | | 8 | Agsten DO | | | time per | | | | | | | | day | | | | | | + + + + + + + + | SLOW-MAG | one po qd | | | MAGNESIUM | 5880358584 | Jennifer | | 64 MG TBCR | | | | CHLORIDE | 0 | Agsten DO | + + + + + + + + | METANX | 1 PO BID | | | L-METHYLFO | 5810448463 | Leora | | [phone] | | | | LATE-ALGAE | 0 | [place] | | -35 MG | | | | -B12-B6 | | k MA | | CAPS | | | | | | | + + + + + + + + | BACTRIM DS | one po bid | | | SULFAMETHO | 5781261773 | Aminata | | 800-160 | | | | XAZOLE-TRI | 1 | [place] | | MG TABS | | | | METHOPRIM | | | + + + + + + + + | PENNSAID | 40 drops 4 | | | DICLOFENAC | 4876160613 | Jennifer | | 1.5 % SOLN [...] | 1-2 | | | NORTRIPTYL | 0918027358 | Jennifer | | INE HCL 25 | capsules | | | INE HCL | 3 | Agsten DO | | MG CAPS | at night | | | | | | | | before bed | | | | | | + + + + + + + + | PROTONIX | one by | | | PANTOPRAZO | 3256875062 | Jennifer | | 40 MG TBEC | mouth one | | | LE SODIUM | 0 | Agsten DO | | | time per | | | | | | | | day | | | | | | + + + + + + + + | ULTRAM 50 | one by | | | TRAMADOL | 7506568423 | Jennifer | | MG TABS | [...] 4 capsules | | | GABAPENTIN | 5494668106 | Ajay | | 300 MG | daily | | | | 5 | Sylvia DPM | | CAPS | | | | | | | + + + + + + + + | MIRTAZAPIN | one tablet | | | MIRTAZAPIN | 0284517833 | Jennifer | | E 15 MG | once a | | | E | 0 | Agsten DO | | TABS | day before | | | | | | | | bed | | | | | | + + + + + + + + | HYDROCODON | one tablet | | | HYDROCODON | 4711246702 | Jennifer | | E-ACETAMIN | three [...] apply 2 | | | DICLOFENAC | 9477171940 | Jennifer | | SODIUM 1 | [...] one tablet | | | IBUPROFEN | 9786677870 | Jennifer | | 800 MG | [...] one tablet | | | FELODIPINE | 1513742967 | Jennifer | | ER 10 MG | once a | | | | 5 | Agsten DO | | [id number] | day | | | | | | + + + + + + + + | FUROSEMIDE | one tablet | | | FUROSEMIDE | 2598618403 | Jennifer | | 20 MG | once a | | | | 0 | Agsten DO | | TABS | day | | | | | | + + + + + + + + | LOSARTAN | one tablet | | | LOSARTAN | 4472633648 | Jennifer | | POTASSIUM | once a | | | POTASSIUM | 0 | Agsten DO | | 50 MG TABS | day | | | | | | + + + + + + + + | LOVAZA 1 | 2 one time | | | OMEGA-3-AC | 8136092657 | Jennifer | | GM CAPS | per day | | | ID ETHYL | 8 | Agsten DO | | | | | | ESTERS | | | + + + + + + + + | TIZANIDINE | one tablet | | | TIZANIDINE | 4861852295 | Jennifer | | HCL 4 MG [...] two by | | | POTASSIUM | 1315879772 | Jennifer | | 10 10 MEQ | mouth one | | | CHLORIDE | 0 | Agsten DO | | CR-TABS | time per | | | | | | | | day | | | | | | + + + + + + + + | GABAPENTIN | 1 capsule | | | GABAPENTIN | 4110406042 | Ajay | | 300 MG | two times | | | | 0 | Sylvia DPM | | CAPS | a day | | | | | | + + + + + + + + | LANTUS | 10 units | | | INSULIN | 4441717661 | Jennifer | | SOLOSTAR | at night | | | GLARGINE | 5 | Agsten DO | | 100 | | | | | | | | UNIT/ML | | | | | | | | SOPN | | | | | | | + + + + + + + + | MIRTAZAPIN | one tablet | | | MIRTAZAPIN | 3945713106 | Jennifer | | E 15 MG | at night | | | E | 0 | Agsten DO | | TABS | before bed | | | | | | + + + + + + + + | METFORMIN | one by | | | METFORMIN | 2352438337 | Jennifer | | HCL 500 MG | mouth two | | | HCL | 1 | Agsten DO | | TABS | times per | | | | | | | | day | | | | | | + + + + + + + + | KLOR-CON | one by | | | POTASSIUM | 6647036738 | Jennifer | | 10 10 MEQ | mouth one | | | CHLORIDE | 0 | Agsten DO | | CR-TABS | time per | | | | | | | | day | | | | | | + + + + + + + + | GLIMEPIRID | one tablet | | | GLIMEPIRID | 9489851181 | Jennifer | | E 2 MG | once a | | | E | 3 | Agsten DO | | TABS | day | | | | | | + + + + + + + + | ALPRAZOLAM | one tablet | | | ALPRAZOLAM | 4762584824 | Jennifer | | 0.25 MG | at night | | | | 0 | Agsten DO | | TABS | before bed | | | | | | | | as needed | | | | | | + + + + + + + + | ALPRAZOLAM | one tablet | | | ALPRAZOLAM | 1187047473 | Jennifer | | 0.5 MG | at night | | | | 0 | Agsten DO | | TABS | before bed | | | | | | + + + + + + + + | VALIUM 5 | 1 by mouth | | | DIAZEPAM | 3881230946 | Jennifer | | MG TABS | prior to | | | | 6 | Agsten DO | | | procedure | | | | | | + + + + + + + + | HYDROCODON | one tablet | | | HYDROCODON | 3698793624 | Jennifer | | E-ACETAMIN | three [...] one tablet | | | ALPRAZOLAM | 4540975742 | Jennifer | | 1 MG TABS [...] | one | | | DOXEPIN | 0957680144 | Jennifer | | HCL 10 MG | capsule at | | | HCL | 0 | Agsten DO | | CAPS | night | | | | | | | | before bed | | | | | | + + + + + + + + | TRAZODONE | 1/2 to 1 | | | TRAZODONE | 6924546489 | Jennifer | | HCL 100 MG [...] q hs | | | GABAPENTIN | 0862138269 | Ajay | | 300 MG | | | | | 0 | Sylvia DPM | | CAPS | | | | | | | + + + + + + + + | ATIVAN 1 | one by | | | LORAZEPAM | 6734401987 | Jennifer | | MG TABS | mouth at | | | | 0 | Agsten DO | | | bedtime | | | | | | + + + + + + + + | MIRTAZAPIN | one tablet | | | MIRTAZAPIN | 2010125746 | Jerri | | E 30 MG | at night | | | E | 5 | Arenac MA | | TABS | before bed | | | | | | + + + + + + + + | NORTRIPTYL | 1 tab qhs | | | NORTRIPTYL | 6054807799 | Ajay | | INE HCL 50 | | | | INE HCL | 6 | Sylvia DPM | | MG CAPS | | | | | | | + + + + + + + + | METANX | 1 PO BID | | | L-METHYLFO | 2457762322 | Ajay | | 3-90.314-2 | | | | LATE-ALGAE | 0 | Sylvia DPM | | -35 MG | | | | -B12-B6 | | | | CAPS | | | | | | | + + + + + + + + | ONDANSETRO | one tablet | | | ONDANSETRO | 4768123877 | Jennifer | | N HCL 4 [...] one tablet | | | MIRTAZAPIN | 6996885756 | Jennifer | | E 15 MG | at night | | | E | 3 | Agsten DO | | TABS | before bed | | | | | | + + + + + + + + | DIFLUCAN | 1 by mouth | | | FLUCONAZOL | 2378325358 | Jennifer | | 150 MG | x 1 dose | | | E | 0 | Agsten DO | | TABS | | | | | | | + + + + + + + + | TEMAZEPAM | one | | | TEMAZEPAM | 4750782985 | Jennifer | | 15 MG CAPS | capsule | | | | 7 | Agsten DO | | | once a day | | | | | | + + + + + + + + | TIZANIDINE | one tablet | | | TIZANIDINE | 0887560985 | Jennifer | | HCL 4 MG [...] one tablet | | | CYCLOBENZA | 3532315592 | Jennifer | | NETO HCL | [...] drops 4 | | | DICLOFENAC | 7651693820 | Jennifer | | 1.5 % SOLN [...] one tablet | | | HYDROCODON | 9479352665 | Jennifer | | E-ACETAMIN | three [...] one by | | | LOSARTAN | 9024114791 | Jennifer | | POTASSIUM | mouth one | | | POTASSIUM | 2 | Agsten DO | | 25 MG TABS | time per | | | | | | | | day | | | | | | + + + + + + + + | VICODIN ES | one by | | | HYDROCODON | 4057580064 | Jennifer | | 7.5-750 | mouth [...] 1/2 by | | | FUROSEMIDE | 0801386787 | Jennifer | | 40 MG | mouth one | | | | 4 | Agsten DO | | TABS | time per | | | | | | | | day | | | | | | + + + + + + + + | AMITRIPTYL | 1-2 by | | | AMITRIPTYL | 7734347399 | Jennifer | | INE HCL 25 | mouth | | | INE HCL | 1 | Agsten DO | | MG TABS | before bed | | | | | | + + + + + + + + | LOVAZA 1 | 4 one time | | | OMEGA-3-AC | 1661872086 | Jennifer | | GM CAPS | per day | | | ID ETHYL | 3 | Agsten DO | | | | | | ESTERS | | | + + + + + + + + | PENNSAID | 4 grams | | | DICLOFENAC | 6930133338 | Jennifer | | 1.5 % SOLN | four times | | | SODIUM | 5 | Agsten DO | | | a day to | | | | | | | | joint prn. | | | | | | + + + + + + + + | MECLIZINE | 1 by mouth | | | MECLIZINE | 0629352056 | Jennifer | | HCL 25 MG | every 6 | | | HCL | 0 | Agsten DO | | TABS | hrs as | | | | | | | | needed | | | | | | + + + + + + + + | AMBIEN 10 | one by | | | ZOLPIDEM | 9472504639 | Jennifer | | MG TABS | mouth at | | | TARTRATE | 8 | Agsten DO | | | bedtime | | | | | | + + + + + + + + | METFORMIN | one po bid | | | METFORMIN | 3049530209 | Jennifer | | HCL 500 MG | | | | HCL | 1 | Agsten DO | | TABS | | | | | | | + + + + + + + + | PROTONIX | one po qd | | | PANTOPRAZO | 0113003942 | Jennifer | | 40 MG TBEC | | | | LE SODIUM | 0 | Agsten DO | + + + + + + + + | KLOR-CON | one po qd | | | POTASSIUM | 7433685648 | Jennifer | | 10 10 MEQ | | | | CHLORIDE | 1 | Agsten DO | | CR-TABS | | | | | | | + + + + + + + + | ATIVAN 1 | one po qhs | | | LORAZEPAM | 8125369837 | Jennifer | | MG TABS | | | | | 0 | Agsten DO | + + + + + + + + | AMBIEN 10 | one po qhs | | | ZOLPIDEM | 3140134085 | Jennifer | | MG TABS | | | | TARTRATE | 8 | Agsten DO | + + + + + + + + | LOVAZA 1 | 4 po qd | | | OMEGA-3-AC | 6997581426 | Jennifer | | GM CAPS | [...] po tid | | | HYDROCODON | 6498607731 | Jennifer | | 7.5-750 | prn | | | E-ACETAMIN | 4 | Agsten DO | | MG TABS | | | | OPHEN | | | + + + + + + + + | DULCOLAX 5 | take as | | | BISACODYL | 1099722221 | Jasmeet | | MG TBEC | directed | | | | 3 | Aga | | | | | | | | MD | + + + + + + + + | METOCLOPRA | take as | | | METOCLOPRA | 7495160684 | Jasmeet | | MIDE HCL | directed | | | MIDE HCL | 2 | Aga | | 10 MG TABS | | | | | | MD | + + + + + + + + | MIRALAX | take as | | | POLYETHYLE | 3775484474 | Jasmeet | | POWD | directed | | | NE GLYCOL | 3 | Aga | | | | | | 3350 | | MD | + + + + + + + + | VOLTAREN 1 | apply up | | | DICLOFENAC | 0124817613 | Jennifer | | % GEL | to 2 grams | | | SODIUM | 1 | Agsten DO | | | qid prn | | | | | | + + + + + + + + | ULTRAM 50 | one po tid | | | TRAMADOL | 8428359284 | Jennifer | | MG TABS | prn | | | HCL | 6 | Agsten DO | + + + + + + + + | FUROSEMIDE | 1/2 po qd | | | FUROSEMIDE | 3554269342 | Jennifer | | 40 MG | | | | | 2 | Agsten DO | | TABS | | | | | | | + + + + + + + + | IBUPROFEN | one po tid | | | IBUPROFEN | 0427475561 | Jennifer | | 800 MG | prn | | | | 0 | Agsten DO | | TABS | | | | | | | + + + + + + + + | GLYBURIDE | one po qd | | | GLYBURIDE | 2237140998 | Jennifer | | 5 MG TABS | | | | | 8 | Agsten DO | + + + + + + + + | LOSARTAN | one po qd | | | LOSARTAN | 1668336402 | Jennifer | | POTASSIUM | | | | POTASSIUM | 0 | Agsten DO | | 25 MG TABS | | | | | | | + + + + + + + + | NEXIUM 40 | one po qd | | | ESOMEPRAZO | 5216926342 | Jennifer | | MG CPDR | | | | LE | 3 | Agsten DO | | | | | | MAGNESIUM | | | + + + + + + + + | ERYTHROMYC | 4 inch | | | ERYTHROMYC | 4283434100 | Abby | | IN 5 MG/GM [...] 1/2po qd | | | FUROSEMIDE | 8244874007 | Jennifer | | MG TABS | | | | | 0 | Agsten DO | + + + + + + + + | AMBIEN 10 | 02/12 - 1 po | | | ZOLPIDEM | 6039259060 | Jennifer | | MG TABS | qhs. BMN | | | TARTRATE | 8 | Agsten DO | + + + + + + + + | PREVACID | one po qd | | | LANSOPRAZO | 1580773412 | Jennifer | | 30 MG CPDR | | | | LE | 5 | Agsten DO | + + + + + + + + | GLYBURIDE | one po q | | | GLYBURIDE | 1696781311 | Jennifer | | 2.5 MG | am | | | | 0 | Agsten DO | | TABS | | | | | | | + + + + + + + + | AMBIEN 10 | 1/2 - 1 po | | | ZOLPIDEM | [id number] | Jennifer | | MG TABS | qhs | | | TARTRATE | 5 | Agsten DO | + + + + + + + + | BENICAR 20 | 02/12 po qd | | | OLMESARTAN | [id number] | Jennifer | | MG TABS | | | | MEDOXOMIL | 0 | Agsten DO | + + + + + + + + | TRAZODONE | 02/12 - po | | | TRAZODONE | [id number] | Jennifer | | HCL 100 MG | qhs | | | HCL | 0 | Agsten DO | | TABS | | | | | | | + + + + + + + + | AMBIEN 10 | 02/12 - 1 po | | | ZOLPIDEM | [id number] | Jennifer | | MG TABS | qhs | | | TARTRATE | 0 | Agsten DO | + + + + + + + + | LASIX 40 | 1/4 by | | | FUROSEMIDE | [id number] | Katelyn | | MG TABS | mouth | | | | 0 | [employer] | | | every am | | | | | | | | prn | | | | | | + + + + + + + + | OXYCODONE | 1-2 po q 6 | | | OXYCODONE | [id number] | Jennifer | | HCL 5 MG | hrs prn | | | HCL | 0 | Agsten DO | | TABS | | | | | | | + + + + + + + + | ALENDRONAT | one po q | | | ALENDRONAT | [id number] | Jennifer | | E SODIUM | week | | | E SODIUM | 1 | Agsten DO | | 70 MG TABS | | | | | | | + + + + + + + + | VALIUM 5 | one po | | | DIAZEPAM | 5352811946 | Jennifer | | MG TABS | prior to | | | | 0 | Agsten DO | | | procedure | | | | | | + + + + + + + + | BENICAR 20 | one po qd | | | OLMESARTAN | [id number] | Jennifer | | MG TABS | | | | MEDOXOMIL | 2 | Agsten DO | + + + + + + + + | IBU 600 MG | one po tid | | | IBUPROFEN | [id number] | Jennifer | | TABS | prn | | | | 1 | Agsten DO | + + + + + + + + | VOLTAREN 1 | apply up | | | DICLOFENAC | [id number] | Katelyn | | % GEL | to 2 gram | | | SODIUM | 1 | [employer] | | | qid prn | | | | | | + + + + + + + + | ZITHROMAX | Two po x | | | AZITHROMYC | [id number] | Jennifer | | 250 MG | one day, | | | IN | 3 | Agsten DO | | TABS | one po x 4 | | | | | | | | days | | | | | | + + + + + + + + | BACTRIM DS | one po bid | | | SULFAMETHO | [id number] | Jennifer | | 800-160 | | | | XAZOLE-TRI | 1 | Agsten DO | | MG TABS | | | | METHOPRIM | | | + + + + + + + + | HYCODAN | 1-2 tsp | | | HYDROCODON | [id number] | Jennifer | | 5-1.5 | q4-6 h prn | | | E-HOMATROP | 6 | Agsten DO | | MG/5ML | cough | | | INE | | | | SYRP | | | | | | | + + + + + + + + | PRILOSEC | one po bid | | | OMEPRAZOLE | [id number] | Jennifer | | OTC 20 MG | | | | MAGNESIUM | 0 | Agsten DO | | TBEC | | | | | | | + + + + + + + + | VICODIN ES | one po tid | | | HYDROCODON | 2847088966 | Jennifer | | 7.5-750 | | | | E-ACETAMIN | 4 | Agsten DO | | MG TABS | | | | OPHEN | | | + + + + + + + + | JUAN CARLOS | one po qd | | | FEXOFENADI | 5619844719 | Jennifer | | 180 MG | | | | NE HCL | 2 | Agsten DO | | TABS | | | | | | | + + + + + + + + | AMBIEN CR | 1 po qhs | | | ZOLPIDEM | 4937104083 | Jennifer | | 12.5 MG | | | | TARTRATE | 4 | Agsten DO | | CR-TABS | | | | | | | + + + + + + + + | LASIX 40 | 1/2 by | | | FUROSEMIDE | [id number] | Jennifer | | MG TABS | mouth | | | | 1 | Agsten DO | | | every am | | | | | | | | prn | | | | | | + + + + + + + + | NEXIUM 40 | 1 po bid | | | ESOMEPRAZO | [id number] | Jennifer | | MG CPDR | | | | LE | 2 | Agsten DO | | | | | | MAGNESIUM | | | + + + + + + + + | VICODIN | one po tid | | | HYDROCODON | 0612026577 | Jennifer | | 5-500 MG | [...] q 6 | | | PROMETHAZI | 2790465758 | Jennifer | | NE HCL 25 | hr prn | | | NE HCL | 4 | Agsten DO | | MG TABS | | | | | | | + + + + + + + + | HYCOTUSS | 1-2 tsp q | | | HYDROCODON | 0536068135 | Jennifer | | EXPECTORAN | 4-6 [...] po q | | | IBANDRONAT | 1586844873 | Jennifer | | MG TABS | month | | | E SODIUM | 0 | Agsten DO | + + + + + + + + | KEFLEX 500 | one po tid | | | CEPHALEXIN | 6265053108 | Jennifer | | MG CAPS | | | | | 0 | Agsten DO | + + + + + + + + | PLENDIL 10 | 1 po qd | | | FELODIPINE | 0104167452 | Jennifer | | MG TB24 | | | | | 1 | Agsten DO | + + + + + + + + | SLOW-MAG | one po qd | | | MAGNESIUM | 7536931683 | Jennifer | | 64 MG TBCR | | | | CHLORIDE | 0 | Agsten DO | + + + + + + + + | K-JAMARI 20 | one po qd | | | POTASSIUM | 8422560075 | Jennifer | | MEQ PACK | | | | CHLORIDE | 2 | Agsten DO | + + + + + + + + | IBU 800 MG | one po tid | | | IBUPROFEN | [id number] | Jennifer | | TABS | | | | | 1 | Agsten DO | + + + + + + + + | LOVAZA 1 | 2 po bid | | | OMEGA-3-AC | [phone] | Jennifer | | GM CAPS | | | | ID ETHYL | 7 | Agsten DO | | | | | | ESTERS | | | + + + + + + + + | JOSE ENRIQUE CR | one po qd | | | ZOLPIDEM | [phone] | Jennifer | | 12.5 MG | [...] by mouth | | | TRIAMTEREN | [id number] | Jennifer | | 37.5-25 MG | every day | | | E-HCTZ | 0 | Agsten DO | | CAPS | | | | | | | + + + + + + + + | LASIX 40 | 1 by mouth | | | FUROSEMIDE | 5874765981 | Jennifer | | MG TABS | every am | | | | 1 | Agsten DO | + + + + + + + + | BENICAR 20 | one po qd | | | OLMESARTAN | [id number] | Jennifer | | MG TABS | | | | MEDOXOMIL | 0 | Agsten DO | + + + + + + + + | K-DUR 10 | 2 po qd | | | POTASSIUM | [id number] | Jennifer | | MEQ TBCR | | | | CHLORIDE | 1 | Agsten DO | + + + + + + + + | OMACOR 1 | Two po bid | | | OMEGA-3-AC | [id number] | Jennifer | | GM CAPS | | | | ID ETHYL | 7 | Agsten DO | | | | | | ESTERS | | | + + + + + + + + | MORPHINE | one po bid | | | MORPHINE | [id number] | Jennifer | | SULFATE CR | [...] +------+------+-------+------+-------+------+ + + + | Office Visit: HTN, [...] +--------+ +---+---+---+ + | | ESM_RR | [id number] | | | B | e-scripts | | | | [id number]`Pant | | | | messenger | | [...] | | | | | | | Vina*` | | | | | | | | [id number] | | | | | | | | `[id number] | | | | | | | [...] +--------+ +---+---+---+ + | | ESM_RR | [id number] | | | B | e-scripts | | | | 23642`Mirt | | | | messenger | | [...] | | | | | | | Vina*` | | | | | | | | [id number] | | | | | | | | `[id number] | | | | | | | [...] +--------+ +---+---+---+ + | | ESM_RR | [id number] | | | B | e-scripts | | | | 70645`Pant | | | | messenger | | [...] | | | | | | | [id number] | | | | | | | | `[id number] | | | | | | | [...] +--------+ +---+---+---+ + | | ESM_RR | [id number] | | | B | e-scripts | | | | 95236`Mirt | | | | messenger | | [...] | | | | | | | [id number] | | | | | | | | `[id number] | | | | | | | [...] +--------+ +---+---+---+ + | | ESM_RR | [phone] | | | B | e-scripts | | | | 75530`Mirt | | | | messenger | | [...] | | | | | | | [id number] | | | | | | | | `[id number] | | | | | | | [...] | 10:00 AM | Ajay Ward DPM, [address] | | | | [address], | | | | [place], [address], | | | | | + + + + | Appointment | 08:30 AM | Ajay Ward DPM, [address] | | | | [address], | | | | [place], [address], | | | | | + + + + | Referral | | Orthopedic Consult | | | | Other Provider, | | | | Specify Provider in | | | | Instructions | + + + + | Referral | | Orthopedic Consult | | | | [facility], | | | | [address], | | | | [place], [address] | | | | | + + + + | Referral | | Echocardiogram - 2D | | | | Complete | | | | Latasha Brunner, [address] | | | | [place], | | | | [place], [address] | | | | | + + + + | Referral | | Podiatry Consult | | | | G QUENTIN Moss, | | | | [address] | | | | [place], [place], [address] | | | | | | | | | + + + + | Referral | | Ophthalmology Consult | | | | Abby Springer, | | | | [address] [place], | | | | [place], [address] | | | | | + + + + | Referral | | Ophthalmology Consult | | | | Abby Springer, | | | | [address] [place], | | | | [place], [address] | | | | | + + + + | Referral | | Orthopedic Consult | | | | MD Ap Nicole, | | | | [address] , | | | | [place], [address] | | | | | + + + + | Referral | | Gynecology Consult | | | | MD Destiny Levi, | | | | [address] [facility] | | | | [facility], [place], [address] | | | | | | | | | + + + + | Referral | | Complete Eye Exam/ | | | | Treatment | | | | MD Paul Ramirez, [address] | | | | [place], | | | | [place], [address] | | | | | + + [...] + | Pending order | | MR Pntnl-Ysuwxn-XEZ Con | + + + + | [...] | + + + + + | [id number] | Pulse Exam of Foot | | | + + + + + | [id number] | Visual Exam of Foot | | | + + + + + | [id number] | Sensory Exam of | | | | | Foot | | | + + + + + | SCT-[id number] | Pulse Exam of Foot | | | + + + + + | Tomasz BOSWELL 89797 | Microalbumin, | | | | | Random Urine | | | + + + + + | GLYCO HGB 38334 | Glyco Hemoglobin, | | | | | A1C | | | + + + + + | RISK 23200 | Lipid Profile | | | + + + + + | CHEM PROF | Comprehensive | | | | | Metabolic Panel | | | + + + + + | SCT- | Medication | | | | [id number] | Reconcilliation | | | + + + + + | SCT-[id number] | Visual Exam of Foot | | | + + + + + | SCT-[id number] | Sensory Exam of | | | | | Foot | | | + + + + + | SCT- | Medication | | | | [id number] | Reconcilliation | | | + + + + + | CREAT 69691 | Creatinine | | | + + + + + | BUN 03776 | BUN | | | + + + + + | SCT- | Medication | | | | [id number] | Reconcilliation | | | + + + + + | 81116 | MR Wlcjy-Ztnset-XKW | | | | | Con | | | + + + + + | CPT-83341 | XR Pelvis-1-2V | | | + + + + + | SCT- | Medication | | | | [id number] | Reconcilliation | | | + + + + + | 25789 | XR Hip 2-3V-Left | | | + + + + + | CPT-G0477 | Urine Tox, multiple | | | | | drug class (G0477) | | | + + + + + | U FABIO BOSWELL 50671 | Microalbumin, | | | | | Random Urine | | | + + + + + | GLYCO HGB 03049 | Glyco Hemoglobin, | | | | | A1C | | | + + + + + | RISK 18286 | Lipid Profile | | | + + + + + | CPT-30899 | Echocardiogram - 2D | | | | | Complete | | | + + + + + | SCT- | Medication | | | | [id number] | Reconcilliation | | | + + + + + | RISK 60580 | Lipid Profile | | | + + + + + | U FABIO RAN 46112 | Microalbumin, | | | | | Random Urine | | | + + + + + | GLYCO HGB 99445 | Glyco Hemoglobin, | | | | | A1C | | | + + + + + | CHEM PROF | Comprehensive | | | | | Metabolic Panel | | | + + + + + | HGB A1C 91953 | HgbA1C | | | + + + + + | UA 49833 | Urinalysis | | | + + + + + | M URIN ROU 35302 | Culture Urine | | | + + + + + | UA CULT IF MULTIPLE | Urinalysis Culture | | | | | If Indicat | | | + + + + + | CPT-02868 | UA Dipstick | | | | | (Office) | | | + + + + + | [id number] | [Recorded for CQM] | | | | | Documentation of | | | | | current medications | | | | | (procedure) | | | + + + + + | [id number] | [Recorded for CQM] | | | | | Pedal pulse taking | | | | | (procedure) | | | + + + + + | CPT-23740 | Adm 1st Inj No | | | | | counseling or >18 | | | + + + + + | [id number] | [Recorded for CQM] | | | | | Documentation of | | | | | current medications | | | | | (procedure) | | | + + + + + | [id number] | [Recorded for CQM] | | | | | Examination of | | | | | retina (procedure) | | | + + + + + | [id number] | [Recorded for CQM] | | | | | Never smoker | | | + + + + + | [id number] | [Recorded for CQM] | | | | | Never smoked | | | | | tobacco (finding) | | | + + + + + | 791198719 | [Recorded for CQM] | | | | | Tobacco use and | | | | | exposure | | | + + + + + | CPT-46079 | Fluvirin /Fluzone | | | | | >3 | | | + + + + + | 602085388 | [Recorded for CQM] | | | | | Monofilament foot | | | | | sensation test | | | | | (procedure) | | | + + + + + | [id number] | [Recorded for CQM] | | | | | Pedal pulse taking | | | | | (procedure) | | | + + + + + | [id number] | [Recorded for CQM] | | | | | Documentation of | | | | | current medications | | | | | (procedure) | | | + + + + + | [id number] | [Recorded for CQM] | | | | | Diabetic foot | | | | | examination | | | | | (regime/therapy) | | | + + + + + | 417298831 | [Recorded for CQM] | | | | | Details of drug | | | | | misuse behavior | | | + + + + + | 786030738 | [Recorded for CQM] | | | | | Health-related | | | | | behavior | | | + + + + + | 118713759 | [Recorded for CQM] | | | | | Alcohol intake | | | + + + + + | CPT-60644 | Urine Tox, multiple | | | | | drug classes | | | + + + + + | [id number] | [Recorded for CQM] | | | | | Documentation of | | | | | current medications | | | | | (procedure) | | | + + + + + | GLYCO HGB 30246 | HgbA1C | | | + + + + + | CHEM PROF | Comprehensive | | | | | Metabolic Panel | | | + + + + + | U FABIO RAN 59439 | Microalbumin, | | | | | Random Urine | | | + + + + + | RISK 85233 | Lipid Profile | | | + + + + + | 93322 | MX Dexa Scan-Body | | | + + + + + | CPT-34396 | Venipuncture | | | + + + + + | 16849252 | [Recorded for CQM] | | | | | Pedal pulse taking | | | | | (procedure) | | | + + + + + | [id number] | [Recorded for CQM] | | | | | Documentation of | | | | | current medications | | | | | (procedure) | | | + + + + + | [id number] | [Recorded for CQM] | | | | | Diabetic foot | | | | | examination | | | | | (regime/therapy) | | | + + + + + | 151237077 | [Recorded for CQM] | | | | | Monofilament foot | | | | | sensation test | | | | | (procedure) | | | + + + + + | 44230 G0202 | MX Mammo Dig | | | | | Screen-Bilat | | | + + + + + | GLYCO HGB 11359 | HgbA1C | | | + + + + + | CPT-29321 | Venipuncture | | | + + + + + | CPT-02162 | Adm 1st Inj No | | | | | counseling or >18 | | | + + + + + | PAP SS WO G0145 | PAP SURE Sc wo HPV | | | + + + + + | FREE T4 11572 | T4 Free | | | + + + + + | TSH 88550 | TSH | | | + + + + + | RISK 18247 | Lipid Profile | | | + + + + + | CHEM PROF 14957 | CMP (Comprehensive | | | | | Metabolic Panel) | | | + + + + + | GLYCO HGB 90868 | HgbA1C | | | + + + + + | U FABIO RAN 84840 | Microalbumin, | | | | | Random Urine | | | + + + + + | CBC AUTO 39175 | CBC w/ Auto Diff | | | + + + + + | CPT-G0439 | Annual Wellness | | | | | Visit (Medicare) | | | | | Subsqnt visit | | | + + + + + | CPT-81286 | Pneumovax 23 | | | | | (Pneumococcal) >2 | | | + + + + + | CPT-79368 | Adm addtl Inj No | | | | | counseling or >18 | | | + + + + + | CPT-09476 | Fluvirin /Fluzone | | | | | >3 | | | + + + + + | 49246 | MR Head-WO Con | | | + + + + + | CPT-83532 | Venipuncture | | | + + + + + | CHEM PROF 79361 | CMP (Comprehensive | | | | | Metabolic Panel) | | | + + + + + | U FABIO RAN 59098 | Microalbumin, | | | | | Random Urine | | | + + + + + | GLYCO HGB 38312 | HgbA1C | | | + + + + + | RISK 83931 | Lipid Profile | | | + + + + + | 26400 G0202 | MX Mammo Dig | | | | | Screen-Bilat | | | + + + + + | CPT-G0438 | Annual Wellness | | | | | Visit (Medicare) | | | | | 1st visit | | | + + + + + | U0846 55775 | MX Mammo Dig | | | | | Diag-Bilat | | | + + + + + | 46509 | MX Dexa Scan-Body | | | + + + + + | CPT-85614 | EKG- tracing with | | | | | report (04414) | | | + + + + + | CHEM PROF 05517 | CMP (Comprehensive | | | | | Metabolic Panel) | | | + + + + + | 97887 | XR Chest-2V | | | + + + + + | U FABIO RAN 76810 | Microalbumin, | | | | | Random Urine | | | + + + + + | RISK 18002 | Lipid Profile | | | + + + + + | CPT-53546 | Venipuncture | | | + + + + + | GLYCO HGB 11305 | HgbA1C | | | + + + + + | CPT-00604 | Refraction (99215) | | | + + + + + | CPT-63658 | Ext. | | | | | Ophthalmoscopy, | | | | | Subs. | | | + + + + + | CPT-42387 | Venipuncture | | | + + + + + | GLYCO HGB 12700 | HgbA1C | | | + + + + + | CPT-49202 | Venipuncture | | | + + + + + | CHEM PROF 17046 | CMP (Comprehensive | | | | | Metabolic Panel) | | | + + + + + | U FABIO BOSWELL 90111 | Microalbumin, | | | | | Random Urine | | | + + + + + | GLYCO HGB 81031 | HgbA1C | | | + + + + + | RISK 85914 | Lipid Profile | | | + + + + + | CPT-21294 | Venipuncture | | | + + + + + | GLYCO HGB 86507 | HgbA1C | | | + + + + + | CPT-08736 | Flu Vaccine > 8 | | | | | yrs. | | | + + + + + | CPT-G0008 | Admin of Flu Vac | | | | | (Mdc/Atrio) | | | + + + + + | CHEM PROF 36206 | CMP (Comprehensive | | | | | Metabolic Panel) | | | + + + + + | CPT-G0202 | Mammogram - | | | | | Screening | | | | | (bilateral) | | | + + + + + | U FABIO RAN 47659 | Microalbumin, | | | | | Random Urine | | | + + + + + | GLYCO HGB 54680 | HgbA1C | | | + + + + + | RISK 79206 | Lipid Profile | | | + + + + + | CPT-G0008 | Admin of Flu Vac | | | | | (Mdc/Atrio) | | | + + + + + | CPT-69490 | Flu vaccine >3 y/o | | | + + + + + | CPT-25779 | MRI- Spine: Lumbar | | | | | w/o contrast | | | + + + + + | CPT-23873 | UA Dipstick | | | | | (Office) | | | + + + + + | Vic LOZA 05280 | Culture Urine | | | + + + + + | CPT-12946 | X-Ray- Hand (3+ | | | | | views) | | | + + + + + | CPT-72318 | Mammogram - | | | | | Screening | | | | | (bilateral) | | | + + + + + | CPT-22097 | Admin of Imm. over | | | | | 8yrs (1st) | | | + + + + + | CPT-62384 | Flu vaccine >3 y/o | | | + + + + + | CPT-90614 | X-Ray- Chest - PA | | | | | and lateral | | | + + + + + | CHEM PROF 78898 | CMP (Comprehensive | | | | | Metabolic Panel) | | | + + + + + | PAP SCREEN G0123 | PAP Liquid Based, | | | | | Screening | | | + + + + + | CPT-85074 | X-Ray- Thoracic (3 | | | | | views) | | | + + + + + | GLYCO HGB 53168 | HgbA1C | | | + + + + + | RISK 68890 | Lipid Profile | | | + + + + + | CHEM 8 80609 | Basic Metabolic | | | | | Panel | | | + + + + + | GLYCO HGB 38052 | HgbA1C | | | + + + + + | VIT B12 73132 | B-12 | | | + + + + + | RISK 99976 | Lipid Profile | | | + + + + + | [place] [address] | Magnesium Level | | | + + + + + | CHEM PROF 05845 | CMP (Comprehensive | | | | | Metabolic Panel) | | | + + + + + | CPT-07297 | Mammogram - | | | | | Screening | | | | | (bilateral) | | | + + + + + | CPT-15043 | DEXA scan (bone | | | | | density) | | | + + + + + | RISK 47338 | Lipid Profile | | | + + + + + | [place] 71451 | Magnesium Level | | | + [...] + + + + + | RISK 63803 | Lipid Profile | | | + + + + + | CPT-87750 | Complete Eye Exam/ | | | | | Treatment | | | + + + + + | GLYOCO HGB 88375 | HbA1C | | | + + + + + | CHEM PROF 95859 | CMP (Comprehensive | | | | | Metabolic Panel) | | | + + + + + | CPT-08210 | Comprehensive | | | | | Metabolic Panel | | | + + + + + | CPT-31766 | Lipid Profile | | | + + + + + | CPT-62077 | HbA1C | | | + + [...]
--- OUTSIDE RECORDS SUMMARY | ~2017-01-29 | XMS | Clinical Summary ---
Demographics + + + | Address | [address] | | | [place] [address] | + + + | Home Phone | | + + + | Preferred Language | Unknown | + + + | Marital Status | W | + + + | Methodist Affiliation | Unknown | + + + | Race | White | + + + | Ethnic Group | Not or | + + + Author + + + | Author | [facility] | + + + | Organization | [facility] | + + + | Address | [address] | | | [place] [address] | + + + | Phone | Unavailable | + + + Care Team Providers + +------+ + | Care Trench Trimmer Fine Name | Role | Phone | + +------+ + | Ajay Ward DPM | PCP | [phone] | + +------+ + Conditions or Problems [...] | | +---------+---------+---------+---------+---------+---------+---------+---------+---------+ | TYPE 2 | 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 | | Active | | Jennifer | [...] | | | +---------+---------+---------+---------+---------+---------+---------+---------+---------+ | OSTEOAR | [id number] | | Resolve | | Jennifer | | Osteoar | | | THRITIS | 02 | /14 | d | /15 | Agsten | | thritis | | | , HIP, | (SNOMED | | | | DO | | of hip | | | LEFT | CT) | | | | | | | | +---------+---------+---------+---------+---------+---------+---------+---------+---------+ | HALLUX | [id number] | | Active | | Ajay | [...] | | | +---------+---------+---------+---------+---------+---------+---------+---------+---------+ | HALLUX | [id number] | | Active | | Ajay | [...] | | | +---------+---------+---------+---------+---------+---------+---------+---------+---------+ | LUMBAR | [id number] | | Resolve | | Jennifer | | Lumbar | | | RADICUL | 05 | /08 | d | /08 | Agsten | | radicul | | | OPATHY, | (SNOMED | | | | DO | | opathy | | | LEFT | CT) | | | | | | | | +---------+---------+---------+---------+---------+---------+---------+---------+---------+ | PAIN IN | [id number] | | Resolve | | Jennifer | | Hip | | | LEFT | 2 | /23 | d | /23 | Agsten | | pain | | | HIP | (SNOMED | | | | DO | | | | | | CT) | | | | | | | | +---------+---------+---------+---------+---------+---------+---------+---------+---------+ | PAIN IN | [id number] | | Removed | | Farzad | | Hip | | | LEFT | 2 | /23 | | /23 | | | pain | | | HIP | (SNOMED | | | | VanLindaro | | | | | | CT) | | | | oy MD | | | | +---------+---------+---------+---------+---------+---------+---------+---------+---------+ | OSTEOAR | [id number] | | Removed | | Rendee | | Osteoar | | | THRITIS | 02 | /14 | | /15 | Mishra | | thritis | | | , HIP, | (SNOMED | | | | | | of hip | | | LEFT | CT) | | | | | | | | +---------+---------+---------+---------+---------+---------+---------+---------+---------+ | LUMBAR | [id number] | | Removed | | Jennifer | | Lumbar | | | RADICUL | 05 | /08 | | /08 | Agsten | | radicul | | | OPATHY, | (SNOMED | | | | DO | | opathy | | | LEFT | CT) | | | | | | | | +---------+---------+---------+---------+---------+---------+---------+---------+---------+ | HIP | [id number] | | Inactiv | | Jennifer | [...] ropathy | | +---------+---------+---------+---------+---------+---------+---------+---------+---------+ | ROTATOR | [id number] | | Resolve | | Jennifer | [...] tendon | | +---------+---------+---------+---------+---------+---------+---------+---------+---------+ | SCIATIC | [id number] | | Resolve | | Jennifer | | Sciatic | | | A | 5 | /25 | d | /25 | Agsten | | a | | | | (SNOMED | | | | DO | | | | | | CT) | | | | | | | | +---------+---------+---------+---------+---------+---------+---------+---------+---------+ | NAUSEA | [id number] | | Resolve | | Jennifer | | Nausea | | | ALONE | 07 | /20 | d | /20 | Agsten | | | | | | (SNOMED | | | | DO | | | | | | CT) | | | | | | | | +---------+---------+---------+---------+---------+---------+---------+---------+---------+ | LEFT | [id number] | | Active | | Jennifer | [...] healing | | +---------+---------+---------+---------+---------+---------+---------+---------+---------+ | PERIPHE | [id number] | | Resolve | | Jennifer | | Periphe | | | RAL | 06 | /20 | d | /20 | Agsten | | ral | | | NEUROPA | (SNOMED | | | | DO | | nerve | | | THY | CT) | | | | | | disease | | +---------+---------+---------+---------+---------+---------+---------+---------+---------+ | BREAST | [id number] | | Resolve | | Jennifer | | Pain of | | | PAIN, | 7 | / | d | | Agsten | | breast | | | LEFT | (SNOMED | | | | DO | | | | | | CT) | | | | | | | | +---------+---------+---------+---------+---------+---------+---------+---------+---------+ | WELL | [id number] | | Resolve | | Jennifer | | Adult | | | ADULT | 07 | /09 | d | /09 | Agsten | | health | | | EXAM | (SNOMED | | | | DO | | examina | | | | CT) | | | | | | tion | | +---------+---------+---------+---------+---------+---------+---------+---------+---------+ | OTHER | [id number] | | Resolve | | Jennifer | [...] | | | +---------+---------+---------+---------+---------+---------+---------+---------+---------+ | DIZZINE | [id number] | | Resolve | | Jennifer | | Dizzine | | | SS | 03 | / | d | /12 | Agsten | | ss | | | | (SNOMED | | | | DO | | | | | | CT) | | | | | | | | +---------+---------+---------+---------+---------+---------+---------+---------+---------+ | MELENA | [id number] | | Resolve | | Jennifer | [...] | | | +---------+---------+---------+---------+---------+---------+---------+---------+---------+ | UTI | [id number] | | Resolve | | Jennifer | [...] disease | | +---------+---------+---------+---------+---------+---------+---------+---------+---------+ | NAUSEA | [id number] | | Removed | | Jennifer | | Nausea | | | ALONE | | | | | Agsten | | | | | | (SNOMED | | | | DO | | | | | | CT) | | | | | | | | +---------+---------+---------+---------+---------+---------+---------+---------+---------+ | UTI | [id number] | | Removed | | Jennifer | [...] disease | | +---------+---------+---------+---------+---------+---------+---------+---------+---------+ | SCIATIC | [id number] | | Removed | | Jennifer | | Sciatic | | | A | 5 | /25 | | /25 | Agsten | | a | | | | (SNOMED | | | | DO | | | | | | CT) | | | | | | | | +---------+---------+---------+---------+---------+---------+---------+---------+---------+ | ROTATOR | [id number] | | Removed | | Jennifer | [...] | | | +---------+---------+---------+---------+---------+---------+---------+---------+---------+ | INGROWN | [id number] | | Inactiv | | Ajay | [...] on | | +---------+---------+---------+---------+---------+---------+---------+---------+---------+ | OTHER | [id number] | | Removed | | Jennifer | [...] | | | +---------+---------+---------+---------+---------+---------+---------+---------+---------+ | MELENA | [id number] | | Removed | | Lewis | | Melena | | | | | / | | / | Sae | | | | | | (SNOMED | | | | RN | | | | | | CT) | | | | | | | | +---------+---------+---------+---------+---------+---------+---------+---------+---------+ | SCREENI | [id number] | | Inactiv | | Jennifer | | Screeni | | | NG, | 4 | / | e | / | Agsten | | ng for | | | VAGINAL | (SNOMED | | | | DO | | cancer | | | CANCER | CT) | | | | | | | | +---------+---------+---------+---------+---------+---------+---------+---------+---------+ | WELL | [id number] | | Removed | | Jennifer | | Adult | | | ADULT | 07 | /09 | | /09 | Agsten | | health | | | EXAM | (SNOMED | | | | DO | | examina | | | | CT) | | | | | | tion | | +---------+---------+---------+---------+---------+---------+---------+---------+---------+ | DIZZINE | [id number] | | Removed | | Jennifer | [...] polyps | | +---------+---------+---------+---------+---------+---------+---------+---------+---------+ | OTHER | [id number] | | Inactiv | | Corie | [...] fied | | +---------+---------+---------+---------+---------+---------+---------+---------+---------+ | WELL | [id number] | | Inactiv | | Jennifer | | Adult | | | ADULT | 07 | / | e | / | Agsten | | health | | | EXAM | (SNOMED | | | | DO | | examina | | | | CT) | | | | | | tion | | +---------+---------+---------+---------+---------+---------+---------+---------+---------+ | BREAST | [id number] | | Removed | | Jennifer | | Pain of | | | PAIN, | 7 | / | | | Agsten | | breast | | | LEFT | (SNOMED | | | | DO | | | | | | CT) | | | | | | | | +---------+---------+---------+---------+---------+---------+---------+---------+---------+ | PRESBYO | [id number] | | Resolve | | Jennifer | | Presbyo | | | HUMBLE | 4 | /03 | d | / | Agsten | | humble | | | | (SNOMED | | | | DO | | | | | | CT) | | | | | | | | +---------+---------+---------+---------+---------+---------+---------+---------+---------+ | ASTIGMA | [id number] | | Resolve | | Jennifer | | Astigma | | | TISM | 3 | /03 | d | /03 | Agsten | | tism | | | | (SNOMED | | | | DO | | | | | | CT) | | | | | | | | +---------+---------+---------+---------+---------+---------+---------+---------+---------+ | RETINAL | [id number] | | Resolve | | Jennifer | | Retinal | | | | 8 | /03 | d | /03 | Agsten | | | | | HEMORRH | (SNOMED | | | | DO | | hemorrh | | | AGE | CT) | | | | | | age | | +---------+---------+---------+---------+---------+---------+---------+---------+---------+ | MICROAN | [id number] | | Resolve | | Jennifer | | Retinal | | | EURYSMS | 0 | /03 | d | /03 | Agsten | | | | | , | (SNOMED | | | | DO | | microan | | | RETINAL | CT) | | | | | | eurysm | | +---------+---------+---------+---------+---------+---------+---------+---------+---------+ | POSTERI | [id number] | | Resolve | | Jennifer | [...] eye | | +---------+---------+---------+---------+---------+---------+---------+---------+---------+ | HYPEROP | [id number] | | Resolve | | Jennifer | | Hyperme | | | IA | 3 | / | d | /03 | Agsten | | tropia | | | | (SNOMED | | | | DO | | | | | | CT) | | | | | | | | +---------+---------+---------+---------+---------+---------+---------+---------+---------+ | ROSACEA | [id number] | | Resolve | | Jennifer | | Rosacea | | | | 04 | /03 | d | /03 | Agsten | | | | | | (SNOMED | | | | DO | | | | | | CT) | | | | | | | | +---------+---------+---------+---------+---------+---------+---------+---------+---------+ | SCREENI | [id number] | | Resolve | | Jennifer | [...] cervix | | +---------+---------+---------+---------+---------+---------+---------+---------+---------+ | SCIATIC | [id number] | | Resolve | | Jennifer | | Sciatic | | | A | 5 | / | d | | Agsten | | a | | | | (SNOMED | | | | DO | | | | | | CT) | | | | | | | | +---------+---------+---------+---------+---------+---------+---------+---------+---------+ | INSOMNI | [id number] | | Active | | Ariela | | Insomni | | | A | 01 | /02 | | /02 | Ashwin | | a | | | | (SNOMED | | | | | | | | | | CT) | | | | | | | | +---------+---------+---------+---------+---------+---------+---------+---------+---------+ | ROSACEA | [id number] | | Removed | | Abby | | Rosacea | | | | 04 | /03 | | /03 | Gauer | | | | | | (SNOMED | | | | OD | | | | | | CT) | | | | | | | | +---------+---------+---------+---------+---------+---------+---------+---------+---------+ | HYPEROP | [id number] | | Removed | | Abby | [...] eye | | +---------+---------+---------+---------+---------+---------+---------+---------+---------+ | POSTERI | [id number] | | Removed | | Abby | [...] ent | | +---------+---------+---------+---------+---------+---------+---------+---------+---------+ | MICROAN | [id number] | | Removed | | Abby | | Retinal | | | EURYSMS | 0 | /03 | | /03 | Gauer | | | | | , | (SNOMED | | | | OD | | microan | | | RETINAL | CT) | | | | | | eurysm | | +---------+---------+---------+---------+---------+---------+---------+---------+---------+ | RETINAL | [id number] | | Removed | | Abby | | Retinal | | | | 8 | /03 | | /03 | Gauer | | | | | HEMORRH | (SNOMED | | | | OD | | hemorrh | | | AGE | CT) | | | | | | age | | +---------+---------+---------+---------+---------+---------+---------+---------+---------+ | ASTIGMA | [id number] | | Removed | | Abby | | Astigma | | | TISM | 3 | /03 | | /03 | Gauer | | tism | | | | (SNOMED | | | | OD | | | | | | CT) | | | | | | | | +---------+---------+---------+---------+---------+---------+---------+---------+---------+ | PRESBYO | [id number] | | Removed | | Abby | | Presbyo | | | HUMBLE | 4 | / | | /03 | Gauer | | humble | | | | (SNOMED | | | | OD | | | | | | CT) | | | | | | | | +---------+---------+---------+---------+---------+---------+---------+---------+---------+ | SCIATIC | [id number] | | Removed | | Jennifer | | Sciatic | | | A | 5 | / | | / | Agsten | | a | | | | (SNOMED | | | | DO | | | | | | CT) | | | | | | | | +---------+---------+---------+---------+---------+---------+---------+---------+---------+ | HYPOMAG | [id number] | | Resolve | | Jennifer | | Hypomag | | | NESEMIA | 04 | / | d | / | Agsten | | nesemia | | | | (SNOMED | | | | DO | | | | | | CT) | | | | | | | | +---------+---------+---------+---------+---------+---------+---------+---------+---------+ | FOLLICU | [id number] | | Resolve | | Jennifer | | Follicu | | | LITIS | 6 | /27 | d | /27 | Agsten | | litis | | | | (SNOMED | | | | DO | | | | | | CT) | | | | | | | | +---------+---------+---------+---------+---------+---------+---------+---------+---------+ | URI | [id number] | | Resolve | | Jennifer | [...] on | | +---------+---------+---------+---------+---------+---------+---------+---------+---------+ | CYSTOCE | [id number] | | Resolve | | Jennifer | [...] | | | +---------+---------+---------+---------+---------+---------+---------+---------+---------+ | ABNORMA | [id number] | | Resolve | | Jennifer | [...] l | | +---------+---------+---------+---------+---------+---------+---------+---------+---------+ | ALLERGI | [id number] | | Resolve | | Jennifer | | Allergi | | | C | 4 | /05 | d | /05 | Agsten | | c | | | RHINITI | (SNOMED | | | | DO | | rhiniti | | | S | CT) | | | | | | s | | +---------+---------+---------+---------+---------+---------+---------+---------+---------+ | SINUSIT | [id number] | | Resolve | | Jennifer | | Acute | | | IS, | 2 | /05 | d | /05 | Agsten | | sinusit | | | ACUTE | (SNOMED | | | | DO | | is | | | NOS | CT) | | | | | | | | +---------+---------+---------+---------+---------+---------+---------+---------+---------+ | CONTUSI | [id number] | | Resolve | | Jennifer | | Contusi | | | ON, | 6 | /05 | d | /05 | Agsten | | on of | | | LEFT | (SNOMED | | | | DO | | knee | | | KNEE | CT) | | | | | | | | +---------+---------+---------+---------+---------+---------+---------+---------+---------+ | THUMB | [id number] | | Resolve | | Jennifer | | Pain in | | | PAIN, | 02 | /01 | d | /01 | Agsten | | thumb | | | RIGHT | (SNOMED | | | | DO | | | | | | CT) | | | | | | | | +---------+---------+---------+---------+---------+---------+---------+---------+---------+ | FOOT | [id number] | | Resolve | | Jennifer | [...] g | | +---------+---------+---------+---------+---------+---------+---------+---------+---------+ | ABDOMIN | [id number] | | Resolve | | Jennifer | [...] | | | +---------+---------+---------+---------+---------+---------+---------+---------+---------+ | LUMBAR | [id number] | | Resolve | | Jennifer | | Lumbar | | | RADICUL | 05 | /08 | d | /08 | Agsten | | radicul | | | OPATHY, | (SNOMED | | | | DO | | opathy | | | LEFT | CT) | | | | | | | | +---------+---------+---------+---------+---------+---------+---------+---------+---------+ | HIP | [id number] | | Inactiv | | Jennifer | [...] | | | +---------+---------+---------+---------+---------+---------+---------+---------+---------+ | INSOMNI | [id number] | | Resolve | | Jennifer | | Insomni | | | A | 01 | /02 | d | /02 | Agsten | | a | | | | (SNOMED | | | | DO | | | | | | CT) | | | | | | | | +---------+---------+---------+---------+---------+---------+---------+---------+---------+ | INSOMNI | [id number] | | Removed | | Jennifer | [...] | | | +---------+---------+---------+---------+---------+---------+---------+---------+---------+ | HIP | [id number] | | Removed | | Franny | | Hip | | | PAIN | 2 | /14 | | /15 | | | pain | | | | (SNOMED | | | | Campman | | | | | | CT) | | | | | | | | +---------+---------+---------+---------+---------+---------+---------+---------+---------+ | FOOT | [id number] | | Removed | | Franny | | Foot | | | PAIN | 7 | /01 | | /01 | | | pain | | | | (SNOMED | | | | Campman | | | | | | CT) | | | | | | | | +---------+---------+---------+---------+---------+---------+---------+---------+---------+ | LUMBAR | [id number] | | Removed | | Jennifer | | Lumbar | | | RADICUL | 05 | /08 | | /08 | Agsten | | radicul | | | OPATHY, | (SNOMED | | | | DO | | opathy | | | LEFT | CT) | | | | | | | | +---------+---------+---------+---------+---------+---------+---------+---------+---------+ | GERD | [id number] | | Active | | Jasmeet | [...] disease | | +---------+---------+---------+---------+---------+---------+---------+---------+---------+ | ABDOMIN | [id number] | | Removed | | Jasmeet | [...] | | | +---------+---------+---------+---------+---------+---------+---------+---------+---------+ | NAUSEA | [id number] | | Correct | | Jasmeet | [...] UNSPECI | -CM) | | | | RADIO REPAIRER | | unspeci | | | FIED [...] limb | | +---------+---------+---------+---------+---------+---------+---------+---------+---------+ | THUMB | [id number] | | Removed | | Jennifer | | Pain in | | | PAIN, | 02 | / | | /01 | Agsten | | thumb | | | RIGHT | (SNOMED | | | | DO | | | | | | CT) | | | | | | | | +---------+---------+---------+---------+---------+---------+---------+---------+---------+ | CONTUSI | [id number] | | Removed | | Jennifer | | Contusi | | | ON, | 6 | /05 | | /05 | Agsten | | on of | | | LEFT | (SNOMED | | | | DO | | knee | | | KNEE | CT) | | | | | | | | +---------+---------+---------+---------+---------+---------+---------+---------+---------+ | SINUSIT | [id number] | | Removed | | Jennifer | | Acute | | | IS, | 2 | /05 | | /05 | Agsten | | sinusit | | | ACUTE | (SNOMED | | | | DO | | is | | | NOS | CT) | | | | | | | | +---------+---------+---------+---------+---------+---------+---------+---------+---------+ | ALLERGI | [id number] | | Removed | | Jennifer | | Allergi | | | C | 4 | /05 | | /05 | Agsten | | c | | | RHINITI | (SNOMED | | | | DO | | rhiniti | | | S | CT) | | | | | | s | | +---------+---------+---------+---------+---------+---------+---------+---------+---------+ | ABNORMA | [id number] | | Removed | | Pinky | [...] l | | +---------+---------+---------+---------+---------+---------+---------+---------+---------+ | CYSTOCE | [id number] | | Removed | | Jennifer | [...] | | | +---------+---------+---------+---------+---------+---------+---------+---------+---------+ | SCREENI | [id number] | | Removed | | Jennifer | [...] cervix | | +---------+---------+---------+---------+---------+---------+---------+---------+---------+ | NAUSEA | [id number] | | Removed | | Jennifer | | Nausea | | | ALONE | | | | / | Agsten | | | | | | (SNOMED | | | | DO | | | | | | CT) | | | | | | | | +---------+---------+---------+---------+---------+---------+---------+---------+---------+ | PERIPHE | [id number] | | Removed | | Jennifer | | Periphe | | | RAL | | / | | / | Agsten | | ral | | | NEUROPA | (SNOMED | | | | DO | | nerve | | | THY | CT) | | | | | | disease | | +---------+---------+---------+---------+---------+---------+---------+---------+---------+ | URI | [id number] | | Removed | | Jennifer | [...] on | | +---------+---------+---------+---------+---------+---------+---------+---------+---------+ | FOLLICU | [id number] | | Removed | | Jennifer | | Follicu | | | LITIS | 6 | /27 | | / | Agsten | | litis | | | | (SNOMED | | | | DO | | | | | | CT) | | | | | | | | +---------+---------+---------+---------+---------+---------+---------+---------+---------+ | OSTEOPE | [id number] | | Active | | Jennifer | | Osteope | | | LINDSAY | 00 | /30 | | /30 | Agsten | | lindsay | | | | (SNOMED | | | | DO | | | | | | CT) | | | | | | | | +---------+---------+---------+---------+---------+---------+---------+---------+---------+ | HYPOMAG | [id number] | | Removed | | Jennifer | | Hypomag | | | NESEMIA | 04 | /30 | | /30 | Agsten | | nesemia | | | | (SNOMED | | | | DO | | | | | | CT) | | | | | | | | +---------+---------+---------+---------+---------+---------+---------+---------+---------+ | TESFAYE | [id number] | | Inactiv | | Jennifer | | Tesfaye | | | IRMA | [id number] | /20 | e | /20 | [...] a | | +---------+---------+---------+---------+---------+---------+---------+---------+---------+ | DIABETE | [id number] | | Inactiv | | Jennifer | [...] led | | +---------+---------+---------+---------+---------+---------+---------+---------+---------+ | HYPERTR | [id number] | | Active | | Jennifer | | Hypertr | | | IGLYCER | 06 | /20 | | /20 | Agsten | | iglycer | | | IDEMIA | (SNOMED | | | | DO | | idemia | | | | CT) | | | | | | | | +---------+---------+---------+---------+---------+---------+---------+---------+---------+ | HYPERTE | 7322235 | | Active | | Jennifer | [...] one po | | | DIAZEPAM | [id number] | Jennifer | | MG TABS | prior to | | | | 0 | Agsten DO | | | procedure | | | | | | + + + + + + + + | GLIMEPIRID | one tablet | | | GLIMEPIRID | [id number] | Emilie | | E 2 MG [...] one tablet | | | MIRTAZAPIN | [id number] | Jerri | | E 30 MG | at night | | | E | 5 | Irlanda MA | | TABS | before bed | | | | | | + + + + + + + + | MIRALAX | take as | | | POLYETHYLE | 6046962250 | Jennifer | | POWD | directed | | | NE GLYCOL | 3 | Agsten DO | | | | | | 3350 | | | + + + + + + + + | WELCHOL | one po qd | | | COLESEVELA | 4595062957 | Jennifer | | 625 MG | prn | | | M HCL | 8 | Agsten DO | | TABS | | | | | | | + + + + + + + + | GLYBURIDE | one by | | | GLYBURIDE | 7475435483 | Jennifer | | 5 MG TABS | mouth one | | | | 8 | Agsten DO | | | time per | | | | | | | | day | | | | | | + + + + + + + + | MIRTAZAPIN | one tablet | | | MIRTAZAPIN | 2337396704 | Jennifer | | E 15 MG [...] po qd | | | COLESEVELA | 6756524174 | Jennifer | | 625 MG | prn | | | M HCL | 8 | Agsten DO | | TABS | | | | | | | + + + + + + + + | MIRTAZAPIN | one tablet | | | MIRTAZAPIN | 2782611186 | Pedro Houde | | E 15 MG | at night | | | E | 0 | | | TABS | before bed | | | | | | + + + + + + + + | GABAPENTIN | two | | | GABAPENTIN | 0264823003 | Jennifer | | 300 MG | capsules | | | | 5 | Agsten DO | | CAPS | twice a | | | | | | | | day | | | | | | + + + + + + + + | ATIVAN 1 | one by | | | LORAZEPAM | [id number] | Jerri | | MG TABS | mouth at | | | | 0 | Greenlee MA | | | bedtime | | | | | | + + + + + + + + | AMBIEN 10 | 02/12 by | | | ZOLPIDEM | [id number] | Jennifer | | MG TABS | mouth at | | | TARTRATE | 8 | Agsten DO | | | bedtime | | | | | | + + + + + + + + | AMBIEN 10 | 02/12 - 1 po | | | ZOLPIDEM | [id number] | Jennifer | | MG TABS | qhs | | | TARTRATE | 0 | Agsten DO | + + + + + + + + | OXYCODONE | 1-2 po q 6 | | | OXYCODONE | 8223924672 | Jennifer | | HCL 5 MG | hrs prn | | | HCL | 0 | Agsten DO | | TABS | | | | | | | + + + + + + + + | KEFLEX 500 | one po tid | | | CEPHALEXIN | 4469415000 | Jennifer | | MG CAPS | | | | | 0 | Agsten DO | + + + + + + + + | VICODIN | prn | | | HYDROCODON | [id number] | Michelle | | 5-500 MG | | | | E-ACETAMIN | 4 | Bennett | | TABS | | | | OPHEN | | | + + + + + + + + | NORTRIPTYL | 1 tab qhs | | | NORTRIPTYL | [id number] | Ajay | | INE HCL 50 | | | | INE HCL | 6 | Sylvia DPM | | MG CAPS | | | | | | | + + + + + + + + | ALENDRONAT | one po q | | | ALENDRONAT | 7177262367 | Jennifer | | E SODIUM | week | | | E SODIUM | 1 | Agsten DO | | 70 MG TABS | | | | | | | + + + + + + + + | BENICAR 20 | 1/2 po qd | | | OLMESARTAN | 9721576799 | Lewis Edwardske | | MG TABS | | | | MEDOXOMIL | 0 | RN | + + + + + + + + | LOVAZA 1 | 2 po qd | | | OMEGA-3-AC | [id number] | Jennifer | | GM CAPS | | | | ID ETHYL | 7 | Agsten DO | | | | | | ESTERS | | | + + + + + + + + | LUNESTA 2 | 1 po qhs | | | ESZOPICLON | [id number] | Michelle | | MG TABS | | | | E | 0 | Bennett | + + + + + + + + | VOLTAREN 1 | apply up | | | DICLOFENAC | [id number] | Jasmeet | | % GEL | to 2 gram | | | SODIUM | 1 | Aga | | | qid prn | | | | | MD | + + + + + + + + | K-DUR 10 | 1 by mouth | | | POTASSIUM | [id number] | Jennifer | | MEQ TBCR | twice a | | | CHLORIDE | 1 | Agsten DO | | | day | | | | | | + + + + + + + + | NEXIUM 40 | 1 po q am, | | | ESOMEPRAZO | 1332804960 | Jennifer | | MG CPDR | rarely 1 | | | LE | 0 | Agsten DO | | | po q pm | | | MAGNESIUM | | | + + + + + + + + | VOLTAREN 1 | apply up | | | DICLOFENAC | 2133552071 | Jennifer | | % GEL | to 2 grams | | | SODIUM | 1 | Agsten DO | | | qid prn | | | | | | + + + + + + + + | K-JAMARI 20 | one po qd | | | POTASSIUM | 7587145143 | Jennifer | | MEQ PACK | | | | CHLORIDE | 2 | Agsten DO | + + + + + + + + | TRAZODONE | /2 to 1 | | | TRAZODONE | 3332516355 | Ajay | | HCL 100 MG | by mouth | | | HCL | 3 | Sylvia DPM | | TABS | at bedtime | | | | | | + + + + + + + + | LASIX 40 | 1/2 by | | | FUROSEMIDE | 4145460044 | Jennifer | | MG TABS | mouth | | | | 1 | Agsten DO | | | every am | | | | | | + + + + + + + + | DIFLUCAN | 1 by mouth | | | FLUCONAZOL | 7581093639 | Jennifer | | 150 MG | x 1 dose | | | E | 0 | Agsten DO | | TABS | | | | | | | + + + + + + + + | FLEXERIL | one po bid | | | CYCLOBENZA | 9151865598 | Jennifer | | 10 MG TABS | prn | | | NETO HCL | 1 | Agsten DO | + + + + + + + + | BONIVA 150 | one po qd | | | IBANDRONAT | 9102955915 | Jennifer | | MG TABS | | | | E SODIUM | 0 | Agsten DO | + + + + + + + + | GEMFIBROZI | 1 po bid | | | GEMFIBROZI | 1727900127 | Jennifer | | L 600 MG | | | | L | 0 | Agsten DO | | TABS | | | | | | | + + + + + + + + | LOVAZA 1 | 2 po qd | | | OMEGA-3-AC | 8328585452 | Jasmeet | | EDWIN NOGUERA | | | | ID ETHYL | 7 | Aga | | | | | | ESTERS | | MD | + + + + + + + + | ONDANSETRO | one tablet | | | ONDANSETRO | 3804795856 | Ajay | | N HCL 4 [...] take as | | | BISACODYL | 6281785000 | Jennifer | | MG TBEC | directed | | | | 3 | Agsten DO | + + + + + + + + | NEXIUM 40 | 1 po q am, | | | ESOMEPRAZO | 4983795658 | Jasmeet | | MG CPDR | rarely 1 | | | LE | 0 | Aga | | | po q pm | | | MAGNESIUM | | MD | + + + + + + + + | JUAN CARLOS | one po qd | | | FEXOFENADI | 1771269793 | Jasmeet | | 180 MG | prn | | | NE HCL | 2 | Aga | | TABS | | | | | | MD | + + + + + + + + | AMBIEN 10 | 02/12 - 1 po | | | ZOLPIDEM | 2630346312 | Jennifer | | MG TABS | qhs | | | TARTRATE | 0 | Agsten DO | + + + + + + + + | PRILOSEC | one po bid | | | OMEPRAZOLE | 7444497225 | Jasmeet | | OTC 20 MG | | | | MAGNESIUM | 0 | Aga | | TBEC | | | | | | MD | + + + + + + + + | METOCLOPRA | take as | | | METOCLOPRA | 6043377034 | Jennifer | | MIDE HCL | directed | | | MIDE HCL | 2 | Agsten DO | | 10 MG TABS | | | | | | | + + + + + + + + | GLYBURIDE | 1 po qd | | | GLYBURIDE | 8524356837 | Jennifer | | 5 MG TABS | prn | | | | 6 | Agsten DO | + + + + + + + + | MECLIZINE | 1 by mouth | | | MECLIZINE | 4563557591 | Jennifer | | HCL 25 MG | every 6 | | | HCL | 0 | Agsten DO | | TABS | hrs as | | | | | | | | needed | | | | | | + + + + + + + + | GLYBURIDE | 1 po qd | | | GLYBURIDE | 8278672748 | Michelle | | 5 MG TABS | | | | | 6 | Bennett | + + + + + + + + | GEMFIBROZI | 1 po bid | | | GEMFIBROZI | 3103030773 | Michelle | | L 600 MG [...] po qd | | | FEXOFENADI | 4963557889 | Jennifer | | 180 MG | prn | | | NE HCL | 2 | Agsten DO | | TABS | | | | | | | + + + + + + + + | JAZMINVAN 160 | 1 po qd | | | VALSARTAN | 0197503992 | Pinky Linda | | MG TABS | | | | | 0 | MA | + + + + + + + + | ERYTHROMYC | /4 inch | | | ERYTHROMYC | 3077737595 | Jennifer | | IN 5 MG/GM [...] po qhs | | | ESZOPICLON | 0850297938 | Jennifer | | MG TABS | | | | E | 0 | Agsten DO | + + + + + + + + | AMBIEN 10 | /2 - 1 po | | | ZOLPIDEM | 2338927072 | Lewis Sae | | MG TABS | qhs | | | TARTRATE | 5 | RN | + + + + + + + + | TRAZODONE | 02/12 - 1 po | | | TRAZODONE | 4766203109 | Lewis Edwardske | | HCL 100 MG | qhs | | | HCL | 0 | RN | | TABS | | | | | | | + + + + + + + + | GLYBURIDE | 1 po qd | | | GLYBURIDE | 3368548439 | Jennifer | | 5 MG TABS | prn | | | | 6 | Agsten DO | + + + + + + + + | HYCODAN | 1-2 tsp | | | HYDROCODON | 7216411949 | Jennifer | | 5-1.5 | q4-6 h prn | | | E-HOMATROP | 6 | Agsten DO | | MG/5ML | cough | | | INE | | | | SYRP | | | | | | | + + + + + + + + | FLEXERIL | one po bid | | | CYCLOBENZA | 6397983662 | Jennifer | | 10 MG TABS [...] po qd | | | LANSOPRAZO | 4311077018 | Jennifer | | 30 MG CPDR | | | | LE | 5 | Agsten DO | + + + + + + + + | HYCOTUSS | 1-2 tsp q | | | HYDROCODON | 1184921049 | Jennifer | | EXPECTORAN | 4-6 [...] q 6 | | | PROMETHAZI | 9008821995 | Jasmeet | | NE HCL 25 | hr prn | | | NE HCL | 4 | Aga | | MG TABS | | | | | | MD | + + + + + + + + | IBU 600 MG | one po tid | | | IBUPROFEN | 8293273992 | Jasmeet | | TABS | prn | | | | 1 | Aga | | | | | | | | MD | + + + + + + + + | VALIUM 5 | 1 by mouth | | | DIAZEPAM | 2458706636 | Emilie | | MG TABS | prior to | | | | 6 | Brown CCMA | | | procedure | | | | | | + + + + + + + + | DYAZIDE | 1 by mouth | | | TRIAMTEREN | 7310676023 | Jennifer | | 37.5-25 MG | every day | | | E-HCTZ | 0 | Agsten DO | | CAPS | | | | | | | + + + + + + + + | NEXIUM 40 | 1 po qd | | | ESOMEPRAZO | 3966125329 | Michelle | | MG CPDR | | | | LE | 2 | Bennett | | | | | | MAGNESIUM | | | + + + + + + + + | AMITRIPTYL | 1-2 by | | | AMITRIPTYL | 8363935163 | Jennifer | | INE HCL 25 [...] | one | | | TEMAZEPAM | 6269178251 | Jennifer | | 15 MG CAPS | capsule | | | | 7 | Agsten DO | | | once a day | | | | | | + + + + + + + + | MORPHINE | one po bid | | | MORPHINE | 3572315988 | Jennifer | | SULFATE CR | prn | | | SULFATE | 1 | Agsten DO | | 15 MG | | | | | | | | TB12 | | | | | | | + + + + + + + + | CYCLOBENZA | one tablet | | | CYCLOBENZA | 8362400776 | Corie | | NETO HCL | [...] po x | | | AZITHROMYC | 1523883580 | Jennifer | | 250 MG | one day, | | | IN | 3 | Agsten DO | | TABS | one po x 4 | | | | | | | | days | | | | | | + + + + + + + + | IBU 800 MG | one po tid | | | IBUPROFEN | 7562512869 | Jennifer | | TABS | | | | | 1 | Agsten DO | + + + + + + + + | DOXEPIN | one | | | DOXEPIN | 6297667010 | Jennifer | | HCL 10 MG | capsule at | | | HCL | 0 | Agsten DO | | CAPS | night | | | | | | | | before bed | | | | | | + + + + + + + + | K-JAMARI 20 | one po qd | | | POTASSIUM | 0814241923 | Jennifer | | MEQ PACK | | | | CHLORIDE | 2 | Agsten DO | + + + + + + + + | ALPRAZOLAM | one tablet | | | ALPRAZOLAM | 7564166659 | Domi | | 0.25 MG | at night | | | | 0 | Josueaut-Mat | | TABS | before bed | | | | | tienne | | | as needed | | | | | CCMA | + + + + + + + + | TIZANIDINE | one tablet | | | TIZANIDINE | 3140642959 | Jennifer | | HCL 4 MG [...] one tablet | | | TIZANIDINE | 0362861541 | Jennifer | | HCL 4 MG [...] po qd | | | VALSARTAN | 8472323112 | Urmila | | MG TABS | [...] 02/12 by | | | ZOLPIDEM | 0110251601 | Lewis Sae | | MG TABS | mouth at | | | TARTRATE | 8 | RN | | | bedtime | | | | | | + + + + + + + + | GLYBURIDE | one by | | | GLYBURIDE | 1161638998 | Jennifer | | 5 MG TABS | mouth one | | | | 8 | Agsten DO | | | time per | | | | | | | | day | | | | | | + + + + + + + + | SLOW-MAG | one po qd | | | MAGNESIUM | 6029020299 | Jennifer | | 64 MG TBCR | | | | CHLORIDE | 0 | Agsten DO | + + + + + + + + | METANX | 1 PO BID | | | L-METHYLFO | 3727213609 | Leora | | [phone] | | | | LATE-ALGAE | 0 | [place] | | -35 MG | | | | -B12-B6 | | k MA | | CAPS | | | | | | | + + + + + + + + | BACTRIM DS | one po bid | | | SULFAMETHO | 4319320332 | Aminata | | 800-160 | | | | XAZOLE-TRI | 1 | [place] | | MG TABS | | | | METHOPRIM | | | + + + + + + + + | PENNSAID | 40 drops 4 | | | DICLOFENAC | 2414637883 | Jennifer | | 1.5 % SOLN [...] | 1-2 | | | NORTRIPTYL | 6892038047 | Jennifer | | INE HCL 25 | capsules | | | INE HCL | 3 | Agsten DO | | MG CAPS | at night | | | | | | | | before bed | | | | | | + + + + + + + + | PROTONIX | one by | | | PANTOPRAZO | 8814849824 | Jennifer | | 40 MG TBEC | mouth one | | | LE SODIUM | 0 | Agsten DO | | | time per | | | | | | | | day | | | | | | + + + + + + + + | ULTRAM 50 | one by | | | TRAMADOL | 9164092097 | Jennifer | | MG TABS | [...] 4 capsules | | | GABAPENTIN | 6680375058 | Ajay | | 300 MG | daily | | | | 5 | Sylvia DPM | | CAPS | | | | | | | + + + + + + + + | MIRTAZAPIN | one tablet | | | MIRTAZAPIN | 2950086197 | Jennifer | | E 15 MG | once a | | | E | 0 | Agsten DO | | TABS | day before | | | | | | | | bed | | | | | | + + + + + + + + | HYDROCODON | one tablet | | | HYDROCODON | 5720960636 | Jennifer | | E-ACETAMIN | three [...] apply 2 | | | DICLOFENAC | 4959154194 | Jennifer | | SODIUM 1 | [...] one tablet | | | IBUPROFEN | 0298470598 | Jennifer | | 800 MG | [...] one tablet | | | FELODIPINE | 5152148748 | Jennifer | | ER 10 MG | once a | | | | 5 | Agsten DO | | [id number] | day | | | | | | + + + + + + + + | FUROSEMIDE | one tablet | | | FUROSEMIDE | 6844128077 | Jennifer | | 20 MG | once a | | | | 0 | Agsten DO | | TABS | day | | | | | | + + + + + + + + | LOSARTAN | one tablet | | | LOSARTAN | 7134409724 | Jennifer | | POTASSIUM | once a | | | POTASSIUM | 0 | Agsten DO | | 50 MG TABS | day | | | | | | + + + + + + + + | LOVAZA 1 | 2 one time | | | OMEGA-3-AC | 5567438400 | Jennifer | | GM CAPS | per day | | | ID ETHYL | 8 | Agsten DO | | | | | | ESTERS | | | + + + + + + + + | TIZANIDINE | one tablet | | | TIZANIDINE | 3242804303 | Jennifer | | HCL 4 MG [...] two by | | | POTASSIUM | 8183153842 | Jennifer | | 10 10 MEQ | mouth one | | | CHLORIDE | 0 | Agsten DO | | CR-TABS | time per | | | | | | | | day | | | | | | + + + + + + + + | GABAPENTIN | 1 capsule | | | GABAPENTIN | 8810704849 | Ajay | | 300 MG | two times | | | | 0 | Sylvia DPM | | CAPS | a day | | | | | | + + + + + + + + | LANTUS | 10 units | | | INSULIN | 7939061994 | Jennifer | | SOLOSTAR | at night | | | GLARGINE | 5 | Agsten DO | | 100 | | | | | | | | UNIT/ML | | | | | | | | SOPN | | | | | | | + + + + + + + + | MIRTAZAPIN | one tablet | | | MIRTAZAPIN | 4988634739 | Jennifer | | E 15 MG | at night | | | E | 0 | Agsten DO | | TABS | before bed | | | | | | + + + + + + + + | METFORMIN | one by | | | METFORMIN | 2599322347 | Jennifer | | HCL 500 MG | mouth two | | | HCL | 1 | Agsten DO | | TABS | times per | | | | | | | | day | | | | | | + + + + + + + + | KLOR-CON | one by | | | POTASSIUM | 1995817358 | Jennifer | | 10 10 MEQ | mouth one | | | CHLORIDE | 0 | Agsten DO | | CR-TABS | time per | | | | | | | | day | | | | | | + + + + + + + + | GLIMEPIRID | one tablet | | | GLIMEPIRID | 1416001346 | Jennifer | | E 2 MG | once a | | | E | 3 | Agsten DO | | TABS | day | | | | | | + + + + + + + + | ALPRAZOLAM | one tablet | | | ALPRAZOLAM | 0538969132 | Jennifer | | 0.25 MG | at night | | | | 0 | Agsten DO | | TABS | before bed | | | | | | | | as needed | | | | | | + + + + + + + + | ALPRAZOLAM | one tablet | | | ALPRAZOLAM | 4442629648 | Jennifer | | 0.5 MG | at night | | | | 0 | Agsten DO | | TABS | before bed | | | | | | + + + + + + + + | VALIUM 5 | 1 by mouth | | | DIAZEPAM | 4859766066 | Jennifer | | MG TABS | prior to | | | | 6 | Agsten DO | | | procedure | | | | | | + + + + + + + + | HYDROCODON | one tablet | | | HYDROCODON | 2662129767 | Jennifer | | E-ACETAMIN | three [...] one tablet | | | ALPRAZOLAM | 6589108218 | Jennifer | | 1 MG TABS [...] | one | | | DOXEPIN | 0535526629 | Jennifer | | HCL 10 MG | capsule at | | | HCL | 0 | Agsten DO | | CAPS | night | | | | | | | | before bed | | | | | | + + + + + + + + | TRAZODONE | 1/2 to 1 | | | TRAZODONE | 6882381933 | Jennifer | | HCL 100 MG [...] q hs | | | GABAPENTIN | 8294381989 | Ajay | | 300 MG | | | | | 0 | Sylvia DPM | | CAPS | | | | | | | + + + + + + + + | ATIVAN 1 | one by | | | LORAZEPAM | 4672079611 | Jennifer | | MG TABS | mouth at | | | | 0 | Agsten DO | | | bedtime | | | | | | + + + + + + + + | MIRTAZAPIN | one tablet | | | MIRTAZAPIN | 8414018787 | Jerri | | E 30 MG | at night | | | E | 5 | Greenlee MA | | TABS | before bed | | | | | | + + + + + + + + | NORTRIPTYL | 1 tab qhs | | | NORTRIPTYL | 8808881854 | Ajay | | INE HCL 50 | | | | INE HCL | 6 | Sylvia DPM | | MG CAPS | | | | | | | + + + + + + + + | METANX | 1 PO BID | | | L-METHYLFO | 4464397212 | Ajay | | [phone] | | | | LATE-ALGAE | 0 | Sylvia DPM | | -35 MG | | | | -B12-B6 | | | | CAPS | | | | | | | + + + + + + + + | ONDANSETRO | one tablet | | | ONDANSETRO | 3529276667 | Jennifer | | N HCL 4 [...] one tablet | | | MIRTAZAPIN | 0050404881 | Jennifer | | E 15 MG | at night | | | E | 3 | Agsten DO | | TABS | before bed | | | | | | + + + + + + + + | DIFLUCAN | 1 by mouth | | | FLUCONAZOL | 7307334986 | Jennifer | | 150 MG | x 1 dose | | | E | 0 | Agsten DO | | TABS | | | | | | | + + + + + + + + | TEMAZEPAM | one | | | TEMAZEPAM | 7160594395 | Jennifer | | 15 MG CAPS | capsule | | | | 7 | Agsten DO | | | once a day | | | | | | + + + + + + + + | TIZANIDINE | one tablet | | | TIZANIDINE | 8660553603 | Jennifer | | HCL 4 MG [...] one tablet | | | CYCLOBENZA | 9956932614 | Jennifer | | NETO HCL | [...] drops 4 | | | DICLOFENAC | 8230601086 | Jennifer | | 1.5 % SOLN [...] one tablet | | | HYDROCODON | 4423845462 | Jennifer | | E-ACETAMIN | three [...] one by | | | LOSARTAN | 2243818985 | Jennifer | | POTASSIUM | mouth one | | | POTASSIUM | 2 | Agsten DO | | 25 MG TABS | time per | | | | | | | | day | | | | | | + + + + + + + + | VICODIN ES | one by | | | HYDROCODON | 8788981111 | Jennifer | | 7.5-750 | mouth [...] 1/2 by | | | FUROSEMIDE | 8061302550 | Jennifer | | 40 MG | mouth one | | | | 4 | Agsten DO | | TABS | time per | | | | | | | | day | | | | | | + + + + + + + + | AMITRIPTYL | 1-2 by | | | AMITRIPTYL | 1240282610 | Jennifer | | INE HCL 25 | mouth | | | INE HCL | 1 | Agsten DO | | MG TABS | before bed | | | | | | + + + + + + + + | LOVAZA 1 | 4 one time | | | OMEGA-3-AC | 9462577071 | Jennifer | | GM CAPS | per day | | | ID ETHYL | 3 | Agsten DO | | | | | | ESTERS | | | + + + + + + + + | PENNSAID | 4 grams | | | DICLOFENAC | 0491379861 | Jennifer | | 1.5 % SOLN | four times | | | SODIUM | 5 | Agsten DO | | | a day to | | | | | | | | joint prn. | | | | | | + + + + + + + + | MECLIZINE | 1 by mouth | | | MECLIZINE | 7007877081 | Jennifer | | HCL 25 MG | every 6 | | | HCL | 0 | Agsten DO | | TABS | hrs as | | | | | | | | needed | | | | | | + + + + + + + + | AMBIEN 10 | one by | | | ZOLPIDEM | 7330672437 | Jennifer | | MG TABS | mouth at | | | TARTRATE | 8 | Agsten DO | | | bedtime | | | | | | + + + + + + + + | METFORMIN | one po bid | | | METFORMIN | 3830310121 | Jennifer | | HCL 500 MG | | | | HCL | 1 | Agsten DO | | TABS | | | | | | | + + + + + + + + | PROTONIX | one po qd | | | PANTOPRAZO | 7870584166 | Jennifer | | 40 MG TBEC | | | | LE SODIUM | 0 | Agsten DO | + + + + + + + + | KLOR-CON | one po qd | | | POTASSIUM | 0101704153 | Jennifer | | 10 10 MEQ | | | | CHLORIDE | 1 | Agsten DO | | CR-TABS | | | | | | | + + + + + + + + | ATIVAN 1 | one po qhs | | | LORAZEPAM | 2969131729 | Jennifer | | MG TABS | | | | | 0 | Agsten DO | + + + + + + + + | AMBIEN 10 | one po qhs | | | ZOLPIDEM | 4481963915 | Jennifer | | MG TABS | | | | TARTRATE | 8 | Agsten DO | + + + + + + + + | LOVAZA 1 | 4 po qd | | | OMEGA-3-AC | 8139708496 | Jennifer | | GM CAPS | [...] po tid | | | HYDROCODON | 4110418292 | Jennifer | | 7.5-750 | prn | | | E-ACETAMIN | 4 | Agsten DO | | MG TABS | | | | OPHEN | | | + + + + + + + + | DULCOLAX 5 | take as | | | BISACODYL | 7940009652 | Jasmeet | | MG TBEC | directed | | | | 3 | Aga | | | | | | | | MD | + + + + + + + + | METOCLOPRA | take as | | | METOCLOPRA | 1998811762 | Jasmeet | | MIDE HCL | directed | | | MIDE HCL | 2 | Aga | | 10 MG TABS | | | | | | MD | + + + + + + + + | MIRALAX | take as | | | POLYETHYLE | 0808946884 | Jasmeet | | POWD | directed | | | NE GLYCOL | 3 | Aga | | | | | | 3350 | | MD | + + + + + + + + | VOLTAREN 1 | apply up | | | DICLOFENAC | 8640768792 | Jennifer | | % GEL | to 2 grams | | | SODIUM | 1 | Agsten DO | | | qid prn | | | | | | + + + + + + + + | ULTRAM 50 | one po tid | | | TRAMADOL | 2564616732 | Jennifer | | MG TABS | prn | | | HCL | 6 | Agsten DO | + + + + + + + + | FUROSEMIDE | 1/2 po qd | | | FUROSEMIDE | 6004713263 | Jennifer | | 40 MG | | | | | 2 | Agsten DO | | TABS | | | | | | | + + + + + + + + | IBUPROFEN | one po tid | | | IBUPROFEN | 1640738075 | Jennifer | | 800 MG | prn | | | | 0 | Agsten DO | | TABS | | | | | | | + + + + + + + + | GLYBURIDE | one po qd | | | GLYBURIDE | 4386313242 | Jennifer | | 5 MG TABS | | | | | 8 | Agsten DO | + + + + + + + + | LOSARTAN | one po qd | | | LOSARTAN | 9302608369 | Jennifer | | POTASSIUM | | | | POTASSIUM | 0 | Agsten DO | | 25 MG TABS | | | | | | | + + + + + + + + | NEXIUM 40 | one po qd | | | ESOMEPRAZO | 8477300913 | Jennifer | | MG CPDR | | | | LE | 3 | Agsten DO | | | | | | MAGNESIUM | | | + + + + + + + + | ERYTHROMYC | 4 inch | | | ERYTHROMYC | 1569988141 | Abby | | IN 5 MG/GM [...] 1/2po qd | | | FUROSEMIDE | 6978674686 | Jennifer | | MG TABS | | | | | 0 | Agsten DO | + + + + + + + + | AMBIEN 10 | 02/12 - 1 po | | | ZOLPIDEM | 3201706932 | Jennifer | | MG TABS | qhs. BMN | | | TARTRATE | 8 | Agsten DO | + + + + + + + + | PREVACID | one po qd | | | LANSOPRAZO | 8931110870 | Jennifer | | 30 MG CPDR | | | | LE | 5 | Agsten DO | + + + + + + + + | GLYBURIDE | one po q | | | GLYBURIDE | 6307196461 | Jennifer | | 2.5 MG | am | | | | 0 | Agsten DO | | TABS | | | | | | | + + + + + + + + | AMBIEN 10 | 1/2 - 1 po | | | ZOLPIDEM | 5829583062 | Jennifer | | MG TABS | qhs | | | TARTRATE | 5 | Agsten DO | + + + + + + + + | BENICAR 20 | 02/12 po qd | | | OLMESARTAN | 5852505582 | Jennifer | | MG TABS | | | | MEDOXOMIL | 0 | Agsten DO | + + + + + + + + | TRAZODONE | 02/12 - po | | | TRAZODONE | 8175853925 | Jennifer | | HCL 100 MG | qhs | | | HCL | 0 | Agsten DO | | TABS | | | | | | | + + + + + + + + | AMBIEN 10 | 02/12 - 1 po | | | ZOLPIDEM | 0898817104 | Jennifer | | MG TABS | qhs | | | TARTRATE | 0 | Agsten DO | + + + + + + + + | LASIX 40 | 1/4 by | | | FUROSEMIDE | 3559787416 | Katelyn | | MG TABS | mouth | | | | 0 | [facility] [employer] | | | every am | | | | | | | | prn | | | | | | + + + + + + + + | OXYCODONE | 1-2 po q 6 | | | OXYCODONE | 5333647357 | Jennifer | | HCL 5 MG | hrs prn | | | HCL | 0 | Agsten DO | | TABS | | | | | | | + + + + + + + + | ALENDRONAT | one po q | | | ALENDRONAT | 1470785683 | Jennifer | | E SODIUM | week | | | E SODIUM | 1 | Agsten DO | | 70 MG TABS | | | | | | | + + + + + + + + | VALIUM 5 | one po | | | DIAZEPAM | 1166599171 | Jennifer | | MG TABS | prior to | | | | 0 | Agsten DO | | | procedure | | | | | | + + + + + + + + | BENICAR 20 | one po qd | | | OLMESARTAN | 7732793102 | Jennifer | | MG TABS | | | | MEDOXOMIL | 2 | Agsten DO | + + + + + + + + | IBU 600 MG | one po tid | | | IBUPROFEN | 4538734449 | Jennifer | | TABS | prn | | | | 1 | Agsten DO | + + + + + + + + | VOLTAREN 1 | apply up | | | DICLOFENAC | 8189476969 | Katelyn | | % GEL | to 2 gram | | | SODIUM | 1 | [facility] [employer] | | | qid prn | | | | | | + + + + + + + + | ZITHROMAX | Two po x | | | AZITHROMYC | 3694714333 | Jennifer | | 250 MG | one day, | | | IN | 3 | Agsten DO | | TABS | one po x 4 | | | | | | | | days | | | | | | + + + + + + + + | BACTRIM DS | one po bid | | | SULFAMETHO | 1359682841 | Jennifer | | 800-160 | | | | XAZOLE-TRI | 1 | Agsten DO | | MG TABS | | | | METHOPRIM | | | + + + + + + + + | HYCODAN | 1-2 tsp | | | HYDROCODON | 9037865651 | Jennifer | | 5-1.5 | q4-6 h prn | | | E-HOMATROP | 6 | Agsten DO | | MG/5ML | cough | | | INE | | | | SYRP | | | | | | | + + + + + + + + | PRILOSEC | one po bid | | | OMEPRAZOLE | 3634545518 | Jennifer | | OTC 20 MG | | | | MAGNESIUM | 0 | Agsten DO | | TBEC | | | | | | | + + + + + + + + | VICODIN ES | one po tid | | | HYDROCODON | 2664482620 | Jennifer | | 7.5-750 | | | | E-ACETAMIN | 4 | Agsten DO | | MG TABS | | | | OPHEN | | | + + + + + + + + | JUAN CARLOS | one po qd | | | FEXOFENADI | 9640187377 | Jennifer | | 180 MG | | | | NE HCL | 2 | Agsten DO | | TABS | | | | | | | + + + + + + + + | AMBIEN CR | 1 po qhs | | | ZOLPIDEM | [id number] | Jennifer | | 12.5 MG | | | | TARTRATE | 4 | Agsten DO | | CR-TABS | | | | | | | + + + + + + + + | LASIX 40 | 1/2 by | | | FUROSEMIDE | [id number] | Jennifer | | MG TABS | mouth | | | | 1 | Agsten DO | | | every am | | | | | | | | prn | | | | | | + + + + + + + + | NEXIUM 40 | 1 po bid | | | ESOMEPRAZO | [id number] | Jennifer | | MG CPDR | | | | LE | 2 | Agsten DO | | | | | | MAGNESIUM | | | + + + + + + + + | VICODIN | one po tid | | | HYDROCODON | [id number] | Jennifer | | 5-500 MG | [...] q 6 | | | PROMETHAZI | [id number] | Jennifer | | NE HCL 25 | hr prn | | | NE HCL | 4 | Agsten DO | | MG TABS | | | | | | | + + + + + + + + | HYCOTUSS | 1-2 tsp q | | | HYDROCODON | [id number] | Jennifer | | EXPECTORAN | 4-6 [...] po q | | | IBANDRONAT | [id number] | Jennifer | | MG TABS | month | | | E SODIUM | 0 | Agsten DO | + + + + + + + + | KEFLEX 500 | one po tid | | | CEPHALEXIN | [id number] | Jennifer | | MG CAPS | | | | | 0 | Agsten DO | + + + + + + + + | PLENDIL 10 | 1 po qd | | | FELODIPINE | [id number] | Jennifer | | MG TB24 | | | | | 1 | Agsten DO | + + + + + + + + | SLOW-MAG | one po qd | | | MAGNESIUM | [id number] | Jennifer | | 64 MG TBCR | | | | CHLORIDE | 0 | Agsten DO | + + + + + + + + | K-JAMARI 20 | one po qd | | | POTASSIUM | [id number] | Jennifer | | MEQ PACK | | | | CHLORIDE | 2 | Agsten DO | + + + + + + + + | IBU 800 MG | one po tid | | | IBUPROFEN | [id number] | Jennifer | | TABS | | | | | 1 | Agsten DO | + + + + + + + + | LOVAZA 1 | 2 po bid | | | OMEGA-3-AC | [id number] | Jennifer | | GM CAPS | | | | ID ETHYL | 7 | Agsten DO | | | | | | ESTERS | | | + + + + + + + + | JOSE ENRIQUE CR | one po qd | | | ZOLPIDEM | [id number] | Jennifer | | 12.5 MG | [...] by mouth | | | TRIAMTEREN | [id number] | Jennifer | | 37.5-25 MG | every day | | | E-HCTZ | 0 | Agsten DO | | CAPS | | | | | | | + + + + + + + + | LASIX 40 | 1 by mouth | | | FUROSEMIDE | 7401097433 | Jennifer | | MG TABS | every am | | | | 1 | Agsten DO | + + + + + + + + | BENICAR 20 | one po qd | | | OLMESARTAN | [id number] | Jennifer | | MG TABS | | | | MEDOXOMIL | 0 | Agsten DO | + + + + + + + + | K-DUR 10 | 2 po qd | | | POTASSIUM | 1384493666 | Jennifer | | MEQ TBCR | | | | CHLORIDE | 1 | Agsten DO | + + + + + + + + | OMACOR 1 | Two po bid | | | OMEGA-3-AC | [id number] | Jennifer | | GM CAPS | | | | ID ETHYL | 7 | Agsten DO | | | | | | ESTERS | | | + + + + + + + + | MORPHINE | one po bid | | | MORPHINE | [id number] | Jennifer | | SULFATE CR | [...] +--------+ +---+---+---+ + | | ESM_RR | [id number] | | | B | e-scripts | | | | 43026`Pant | | | | messenger | | [...] | | | | | | | [place]*` | | | | | | | | [id number] | | | | | | | | `[id number] | | | | | | | [...] +--------+ +---+---+---+ + | | ESM_RR | [id number] | | | B | e-scripts | | | | 45231`Mirt | | | | messenger | | [...] | | | | | | | [place]*` | | | | | | | | [id number] | | | | | | | | `[id number] | | | | | | | [...] +--------+ +---+---+---+ + | | ESM_RR | [id number] | | | B | e-scripts | | | | 12949`Pant | | | | messenger | | [...] | | | | | | | [id number] | | | | | | | | `[id number] | | | | | | | [...] +--------+ +---+---+---+ + | | ESM_RR | [id number] | | | B | e-scripts | | | | 50093`Mirt | | | | messenger | | [...] | | | | | | | [id number] | | | | | | | | `[id number] | | | | | | | [...] +--------+ +---+---+---+ + | | ESM_RR | [id number] | | | B | e-scripts | | | | 29330`Mirt | | | | messenger | | [...] | | | | | | | [id number] | | | | | | | | `[id number] | | | | | | | [...] [address], | | | | [place], [address], | | | | | + + + + | Appointment | 08:30 AM | Ajay Ward DPM, [address] | | | | [address], | | | | [place], [address], | | | | | + + + + | Referral | | Orthopedic Consult | | | | Other Provider, | | | | Specify Provider in | | | | Instructions | + + + + | Referral | | Orthopedic Consult | | | | [facility], | | | | [address], | | | | [place], [address] | | | | | + + + + | Referral | | Echocardiogram - 2D | | | | Complete | | | | Latasha Brunner, [address] | | | | [place], | | | | [place], [address] | | | | | + + + + | Referral | | Podiatry Consult | | | | G QUENTIN Moss, | | | | [address] | | | | [place], [place], [address] | | | | | | | | | + + + + | Referral | | Ophthalmology Consult | | | | Abby Springer, | | | | [address] [place], | | | | [place], [address] | | | | | + + + + | Referral | | Ophthalmology Consult | | | | Abby Springer, | | | | [address] [place], | | | | [place], [address] | | | | | + + + + | Referral | | Orthopedic Consult | | | | MD Ap Nicole, | | | | [address] , | | | | [place], [address] | | | | | + + + + | Referral | | Gynecology Consult | | | | MD Destiny Levi, | | | | [address] [facility] | | | | [facility], [place], [address] | | | | | | | | | + + + + | Referral | | Complete Eye Exam/ | | | | Treatment | | | | MD Paul Ramirez, [address] | | | | [place], | | | | [place], [address] | | | | | + + [...] + | Pending order | | MR Rgiho-Nikrns-VPB Con | + + + + | [...] | + + + + + | [id number] | Pulse Exam of Foot | | | + + + + + | [id number] | Visual Exam of Foot | | | + + + + + | [id number] | Sensory Exam of | | | | | Foot | | | + + + + + | SCT-[id number] | Pulse Exam of Foot | | | + + + + + | Tomasz BOSWELL 12972 | Microalbumin, | | | | | Random Urine | | | + + + + + | GLYCO HGB 87450 | Glyco Hemoglobin, | | | | | A1C | | | + + + + + | RISK 02926 | Lipid Profile | | | + + + + + | CHEM PROF | Comprehensive | | | | | Metabolic Panel | | | + + + + + | SCT- | Medication | | | | [id number] | Reconcilliation | | | + + + + + | SCT-[id number] | Visual Exam of Foot | | | + + + + + | SCT-[id number] | Sensory Exam of | | | | | Foot | | | + + + + + | SCT- | Medication | | | | [id number] | Reconcilliation | | | + + + + + | CREAT 95729 | Creatinine | | | + + + + + | BUN 25472 | BUN | | | + + + + + | SCT- | Medication | | | | [id number] | Reconcilliation | | | + + + + + | 94437 | MR Eawty-Jddrvq-KLC | | | | | Con | | | + + + + + | CPT-68304 | XR Pelvis-1-2V | | | + + + + + | SCT- | Medication | | | | [id number] | Reconcilliation | | | + + + + + | 52363 | XR Hip 2-3V-Left | | | + + + + + | CPT-G0477 | Urine Tox, multiple | | | | | drug class (G0477) | | | + + + + + | U FABIO BOSWELL 23032 | Microalbumin, | | | | | Random Urine | | | + + + + + | GLYCO HGB 48182 | Glyco Hemoglobin, | | | | | A1C | | | + + + + + | RISK 22076 | Lipid Profile | | | + + + + + | CPT-62039 | Echocardiogram - 2D | | | | | Complete | | | + + + + + | SCT- | Medication | | | | [id number] | Reconcilliation | | | + + + + + | RISK 43216 | Lipid Profile | | | + + + + + | U FABIO RAN 11702 | Microalbumin, | | | | | Random Urine | | | + + + + + | GLYCO HGB 19619 | Glyco Hemoglobin, | | | | | A1C | | | + + + + + | CHEM PROF | Comprehensive | | | | | Metabolic Panel | | | + + + + + | HGB A1C 33950 | HgbA1C | | | + + + + + | UA 05404 | Urinalysis | | | + + + + + | M URIN ROU 60072 | Culture Urine | | | + + + + + | UA CULT IF MULTIPLE | Urinalysis Culture | | | | | If Indicat | | | + + + + + | CPT-46600 | UA Dipstick | | | | | (Office) | | | + + + + + | [id number] | [Recorded for CQM] | | | | | Documentation of | | | | | current medications | | | | | (procedure) | | | + + + + + | [id number] | [Recorded for CQM] | | | | | Pedal pulse taking | | | | | (procedure) | | | + + + + + | CPT-91067 | Adm 1st Inj No | | | | | counseling or >18 | | | + + + + + | [id number] | [Recorded for CQM] | | | | | Documentation of | | | | | current medications | | | | | (procedure) | | | + + + + + | [id number] | [Recorded for CQM] | | | | | Examination of | | | | | retina (procedure) | | | + + + + + | [id number] | [Recorded for CQM] | | | | | Never smoker | | | + + + + + | [id number] | [Recorded for CQM] | | | | | Never smoked | | | | | tobacco (finding) | | | + + + + + | 760358151 | [Recorded for CQM] | | | | | Tobacco use and | | | | | exposure | | | + + + + + | CPT-14846 | Fluvirin /Fluzone | | | | | >3 | | | + + + + + | 064915439 | [Recorded for CQM] | | | | | Monofilament foot | | | | | sensation test | | | | | (procedure) | | | + + + + + | 72534381 | [Recorded for CQM] | | | | | Pedal pulse taking | | | | | (procedure) | | | + + + + + | [id number] | [Recorded for CQM] | | | | | Documentation of | | | | | current medications | | | | | (procedure) | | | + + + + + | [id number] | [Recorded for CQM] | | | | | Diabetic foot | | | | | examination | | | | | (regime/therapy) | | | + + + + + | 133719496 | [Recorded for CQM] | | | | | Details of drug | | | | | misuse behavior | | | + + + + + | [id number] | [Recorded for CQM] | | | | | Health-related | | | | | behavior | | | + + + + + | 544941055 | [Recorded for CQM] | | | | | Alcohol intake | | | + + + + + | CPT-63824 | Urine Tox, multiple | | | | | drug classes | | | + + + + + | [id number] | [Recorded for CQM] | | | | | Documentation of | | | | | current medications | | | | | (procedure) | | | + + + + + | GLYCO HGB 92966 | HgbA1C | | | + + + + + | CHEM PROF | Comprehensive | | | | | Metabolic Panel | | | + + + + + | U FABIO RAN 50845 | Microalbumin, | | | | | Random Urine | | | + + + + + | RISK 23775 | Lipid Profile | | | + + + + + | 64705 | MX Dexa Scan-Body | | | + + + + + | CPT-37324 | Venipuncture | | | + + + + + | 81343277 | [Recorded for CQM] | | | | | Pedal pulse taking | | | | | (procedure) | | | + + + + + | [id number] | [Recorded for CQM] | | | | | Documentation of | | | | | current medications | | | | | (procedure) | | | + + + + + | [id number] | [Recorded for CQM] | | | | | Diabetic foot | | | | | examination | | | | | (regime/therapy) | | | + + + + + | 498261100 | [Recorded for CQM] | | | | | Monofilament foot | | | | | sensation test | | | | | (procedure) | | | + + + + + | 11206 G0202 | MX Mammo Dig | | | | | Screen-Bilat | | | + + + + + | GLYCO HGB 22711 | HgbA1C | | | + + + + + | CPT-69787 | Venipuncture | | | + + + + + | CPT-78325 | Adm 1st Inj No | | | | | counseling or >18 | | | + + + + + | PAP SS WO G0145 | PAP SURE Sc wo HPV | | | + + + + + | FREE T4 58580 | T4 Free | | | + + + + + | TSH 41677 | TSH | | | + + + + + | RISK 42675 | Lipid Profile | | | + + + + + | CHEM PROF 29064 | CMP (Comprehensive | | | | | Metabolic Panel) | | | + + + + + | GLYCO HGB 70227 | HgbA1C | | | + + + + + | U FABIO RAN 70355 | Microalbumin, | | | | | Random Urine | | | + + + + + | CBC AUTO 57407 | CBC w/ Auto Diff | | | + + + + + | CPT-G0439 | Annual Wellness | | | | | Visit (Medicare) | | | | | Subsqnt visit | | | + + + + + | CPT-06308 | Pneumovax 23 | | | | | (Pneumococcal) >2 | | | + + + + + | CPT-95632 | Adm addtl Inj No | | | | | counseling or >18 | | | + + + + + | CPT-88929 | Fluvirin /Fluzone | | | | | >3 | | | + + + + + | 69120 | MR Head-WO Con | | | + + + + + | CPT-55304 | Venipuncture | | | + + + + + | CHEM PROF 02610 | CMP (Comprehensive | | | | | Metabolic Panel) | | | + + + + + | U FABIO RAN 14510 | Microalbumin, | | | | | Random Urine | | | + + + + + | GLYCO HGB 02210 | HgbA1C | | | + + + + + | RISK 59900 | Lipid Profile | | | + + + + + | 97040 G0202 | MX Mammo Dig | | | | | Screen-Bilat | | | + + + + + | CPT-G0438 | Annual Wellness | | | | | Visit (Medicare) | | | | | 1st visit | | | + + + + + | F8519 80421 | MX Mammo Dig | | | | | Diag-Bilat | | | + + + + + | 03931 | MX Dexa Scan-Body | | | + + + + + | CPT-00346 | EKG- tracing with | | | | | report (70852) | | | + + + + + | CHEM PROF 16241 | CMP (Comprehensive | | | | | Metabolic Panel) | | | + + + + + | 73652 | XR Chest-2V | | | + + + + + | U FABIO RAN 42723 | Microalbumin, | | | | | Random Urine | | | + + + + + | RISK 15909 | Lipid Profile | | | + + + + + | CPT-28403 | Venipuncture | | | + + + + + | GLYCO HGB 84970 | HgbA1C | | | + + + + + | CPT-56274 | Refraction (00200) | | | + + + + + | CPT-27908 | Ext. | | | | | Ophthalmoscopy, | | | | | Subs. | | | + + + + + | CPT-62438 | Venipuncture | | | + + + + + | GLYCO HGB 87522 | HgbA1C | | | + + + + + | CPT-78974 | Venipuncture | | | + + + + + | CHEM PROF 59791 | CMP (Comprehensive | | | | | Metabolic Panel) | | | + + + + + | U FABIO BOSWELL 02972 | Microalbumin, | | | | | Random Urine | | | + + + + + | GLYCO HGB 66801 | HgbA1C | | | + + + + + | RISK 06727 | Lipid Profile | | | + + + + + | CPT-13621 | Venipuncture | | | + + + + + | GLYCO HGB 61384 | HgbA1C | | | + + + + + | CPT-98370 | Flu Vaccine > 8 | | | | | yrs. | | | + + + + + | CPT-G0008 | Admin of Flu Vac | | | | | (Mdc/Atrio) | | | + + + + + | CHEM PROF 92724 | CMP (Comprehensive | | | | | Metabolic Panel) | | | + + + + + | CPT-G0202 | Mammogram - | | | | | Screening | | | | | (bilateral) | | | + + + + + | U FABIO RAN 45092 | Microalbumin, | | | | | Random Urine | | | + + + + + | GLYCO HGB 07985 | HgbA1C | | | + + + + + | RISK 93706 | Lipid Profile | | | + + + + + | CPT-G0008 | Admin of Flu Vac | | | | | (Mdc/Atrio) | | | + + + + + | CPT-25660 | Flu vaccine >3 y/o | | | + + + + + | CPT-13176 | MRI- Spine: Lumbar | | | | | w/o contrast | | | + + + + + | CPT-62659 | UA Dipstick | | | | | (Office) | | | + + + + + | Vic LOZA 51190 | Culture Urine | | | + + + + + | CPT-00608 | X-Ray- Hand (3+ | | | | | views) | | | + + + + + | CPT-77083 | Mammogram - | | | | | Screening | | | | | (bilateral) | | | + + + + + | CPT-39588 | Admin of Imm. over | | | | | 8yrs (1st) | | | + + + + + | CPT-92301 | Flu vaccine >3 y/o | | | + + + + + | CPT-63369 | X-Ray- Chest - PA | | | | | and lateral | | | + + + + + | CHEM PROF 85080 | CMP (Comprehensive | | | | | Metabolic Panel) | | | + + + + + | PAP SCREEN G0123 | PAP Liquid Based, | | | | | Screening | | | + + + + + | CPT-36618 | X-Ray- Thoracic (3 | | | | | views) | | | + + + + + | GLYCO HGB 33035 | HgbA1C | | | + + + + + | RISK 61859 | Lipid Profile | | | + + + + + | CHEM 8 25424 | Basic Metabolic | | | | | Panel | | | + + + + + | GLYCO HGB 07168 | HgbA1C | | | + + + + + | VIT B12 76573 | B-12 | | | + + + + + | RISK 01038 | Lipid Profile | | | + + + + + | [place] [address] | Magnesium Level | | | + + + + + | CHEM PROF 41534 | CMP (Comprehensive | | | | | Metabolic Panel) | | | + + + + + | CPT-92341 | Mammogram - | | | | | Screening | | | | | (bilateral) | | | + + + + + | CPT-85100 | DEXA scan (bone | | | | | density) | | | + + + + + | RISK 58854 | Lipid Profile | | | + + + + + | [place] 395[address] | Magnesium Level | | | + [...] + + + + + | RISK 35813 | Lipid Profile | | | + + + + + | CPT-60116 | Complete Eye Exam/ | | | | | Treatment | | | + + + + + | GLYOCO HGB 11531 | HbA1C | | | + + + + + | CHEM PROF 71065 | CMP (Comprehensive | | | | | Metabolic Panel) | | | + + + + + | CPT-37211 | Comprehensive | | | | | Metabolic Panel | | | + + + + + | CPT-95021 | Lipid Profile | | | + + + + + | CPT-41194 | HbA1C | | | + + [...]
[2017-01-29] MEDS ORDERED: METFORMIN HCL500 M2 PO (01:03)
[2017-01-29] MEDS ORDERED: LASIX20 MG PO (01:04)
[2017-01-29] MEDS ORDERED: HYDROCHLOROTH12.5 M1 PO (01:05)
== END 2017-01-29 01:36 | disposition home or self-care (01) ==
LOC: ED 00:22
DX: E11.42 Type 2 diabetes mellitus with diabetic polyneuropathy (principal); G47.00 Insomnia, unspecified; B34.9 Viral infection, unspecified; G89.29 Other chronic pain; I10 Essential (primary) hypertension; Z88.5 Allergy status to narcotic agent; Z88.8 Allergy status to other drugs, medicaments and biological substances; Z79.84 Long term (current) use of oral hypoglycemic drugs; Z79.899 Other long term (current) drug therapy
CPT/HCPCS: 99283